=== PATIENT | male | born 1970 | race Caucasian/White ===

== ENCOUNTER 2018-06-02 12:06 | Emergency (ER) | payer BC, SELFPAY ==
[2018-06-02 12:15] VITALS: BP 137/81; PULSE 74; RESP 16; TEMP 36.6; O2SAT 96
--- NOTE | 2018-06-02 13:08 | W.ED.GENAD ---
Discharge Plan Disposition Patient Disposition: HOME Condition: Improving Discharge Details Chief Complaint: Laceration Clinical Impression: Cold sore Primary Care Provider: Stew Mario ED Provider: Jovanni Maynard Home Meds and New Rx's Prescriptions: No Action No Known Home Meds RF: 0 Discharge Instructions Instructions: Oral Herpes Simplex Virus Infections (ED) Additional Instructions: Continue to watch your wound and return immediately if you notice any return of significant bleeding. Also if you notice any other signs of odd or abnormal bleeding such as bruising, dark tarry or bloody bowel movements, or further concerns feel free to return to the emergency department for reevaluation Referrals: Stew Mario, DO [Primary Care Provider] - (As needed for reassessment) Discharge Data Discharge Date/Time-TO BE ENTERED AT DEPARTURE: 06/02/18 13:15 Medical Decision Making Patient presenting the emergency department for chief complaint of bleeding cold sore. Patient states that he was eating lunch when a cold sore that he has had for a while broke open and started to bleed. He states that he intermittently applied pressure to the area for 40 minutes and it had not stopped bleeding and so he was informed by school nurse to come to the emergency department. Cold sore has now since stopped bleeding. Patient does have a external herpetic appearing cold sore to the left lower lip without any other physical exam findings noted. Patient denies any other abnormal associated bleeding issues but was offered to have labs checked. Patient refused labs at this time which I feel is appropriate given review of systems denying any other worrisome bleeding or coagulopathy concerns. Patient was encouraged to apply direct pressure for extended period of time if area starts to rebleed and to return to emergency department or primary care provider if he has any abnormal signs of bruising or bleeding. After discussion of diagnosis and plan of care patient has no further needs, questions, or concerns and states clear understanding to return to the emergency department for any worsening symptoms. HPI General Mode of arrival: ambulatory. Date/Time Provider Initiated Documentation: 06/02/18 12:19. Limitations to Documentation: no limitations. Information obtained by: patient and RN notes reviewed. History of Present Illness 47 year old M presents to the emergency department with the chief complaint of bleeding cold sore, Quality is described as other (denies pain), and is localized to the face. Patient started experiencing this hour(s) (1) and it has been now resolved. Patient notes no other symptoms.. Related Data Home Medications Medication Instructions Recorded Confirmed Unknown [No Known Home Meds] 06/02/18 06/02/18 Allergies Allergy/AdvReac Type Severity Reaction Status Date / Time No Known Allergies Allergy Unverified 06/02/18 12:18 General Stated Complaint: Laceration FARZANA: 4 Review of Systems Constitutional Denies chills and Denies fever(s) Gastrointestinal Denies melena and Denies hematochezia Integumentary/Breasts Reports as per HPI, Reports bleeding lesions, Denies erythema, Denies rash and Denies unusual bruising PFSH Medical History Sleep disturbance Toenail fungus Surgical History Colonoscopy - MAC (12/27/16) Family History Mother Neoplasm Father Substance abuse Grandfather Neoplasm Daughter No problems noted. Daughter Asthma Social History Smoking/Tobacco Use Status: Never Alcohol Intake: current Alcohol Intake frequency: a few times a month Drug use: Never Do you feel safe at home: Yes Do you feel safe in your relationship?: Yes Exam Const General: cooperative, no acute distress and not ill appearing Orientation: alert, awake and oriented x3 HENMT Head: normocephalic and atraumatic Ears: external ears normal Mouth: oral mucosae normal, tongue normal, oropharynx normal, moist mucous membranes and lip abnormal (left lower external cold sore) Throat: posterior oropharynx normal, tonsils normal and uvula midline Resp Effort & Inspection: normal respiratory effort, able to speak in complete sentences and no respiratory distress Course Vital Signs Temperature 36.6 C 06/02/18 12:15 Pulse 74 06/02/18 12:15 Respiratory Rate 16 06/02/18 12:15 Blood Pressure 137/81 06/02/18 12:15 Pulse Oximetry 96 06/02/18 12:15 Temperature 36.6 C 06/02/18 12:15 Pulse 74 06/02/18 12:15 Respiratory Rate 16 06/02/18 12:15 Respiratory Effort Non-Labored 06/02/18 12:18 Blood Pressure 137/81 06/02/18 12:15 Pulse Oximetry 96 06/02/18 12:15 Oxygen Delivery Method Room Air 06/02/18 12:15 Oxygen Flow Rate 0 06/02/18 12:15 Pain Level 0 06/02/18 12:25
--- NOTE | 2018-06-02 13:12 | ED.GENADUL_ITS ---
Discharge Plan Disposition Patient Disposition: HOME Condition: Improving Discharge Details Chief Complaint: Laceration Clinical Impression: Cold sore Primary Care Provider: Stew Mario ED Provider: Jovanni Maynard Home Meds and New Rx's Prescriptions: No Action No Known Home Meds RF: 0 Discharge Instructions Instructions: Oral Herpes Simplex Virus Infections (ED) Additional Instructions: Continue to watch your wound and return immediately if you notice any return of significant bleeding. Also if you notice any other signs of odd or abnormal bleeding such as bruising, dark tarry or bloody bowel movements, or further concerns feel free to return to the emergency department for reevaluation Referrals: Stew Mario, DO [Primary Care Provider] - (As needed for reassessment) Discharge Data Discharge Date/Time-TO BE ENTERED AT DEPARTURE: 06/02/18 13:15 Medical Decision Making Patient presenting the emergency department for chief complaint of bleeding cold sore. Patient states that he was eating lunch when a cold sore that he has had for a while broke open and started to bleed. He states that he intermittently applied pressure to the area for 40 minutes and it had not stopped bleeding and so he was informed by school nurse to come to the emergency department. Cold sore has now since stopped bleeding. Patient does have a external herpetic appearing cold sore to the left lower lip without any other physical exam findings noted. Patient denies any other abnormal associated bleeding issues but was offered to have labs checked. Patient refused labs at this time which I feel is appropriate given review of systems denying any other worrisome bleeding or coagulopathy concerns. Patient was encouraged to apply direct pressure for extended period of time if area starts to rebleed and to return to emergency department or primary care provider if he has any abnormal signs of bruising or bleeding. After discussion of diagnosis and plan of care patient has no further needs, questions, or concerns and states clear understanding to return to the emergency department for any worsening symptoms. HPI General Mode of arrival: ambulatory . Date/Time Provider Initiated Documentation: 06/02/18 12:19 . Limitations to Documentation: no limitations . Information obtained by: patient and RN notes reviewed . History of Present Illness 47 year old M presents to the emergency department with the chief complaint of bleeding cold sore, Quality is described as other (denies pain), and is localized to the face. Patient started experiencing this hour(s) (1) and it has been now resolved. Patient notes no other symptoms.. Related Data Home Medications Medication Instructions Recorded Confirmed Unknown [No Known Home Meds] 06/02/18 06/02/18 Allergies Allergy/AdvReac Type Severity Reaction Status Date / Time No Known Allergies Allergy Unverified 06/02/18 12:18 General Stated Complaint: Laceration FARZANA: 4 Review of Systems Constitutional Denies chills and Denies fever(s) Gastrointestinal Denies melena and Denies hematochezia Integumentary/Breasts Reports as per HPI, Reports bleeding lesions, Denies erythema, Denies rash and Denies unusual bruising PFSH Medical History Sleep disturbance Toenail fungus Surgical History Colonoscopy - MAC (12/27/16) Family History Mother Neoplasm Father Substance abuse Grandfather Neoplasm Daughter No problems noted. Daughter Asthma Social History Smoking/Tobacco Use Status: Never Alcohol Intake: current Alcohol Intake frequency: a few times a month Drug use: Never Do you feel safe at home: Yes Do you feel safe in your relationship?: Yes Exam Const General: cooperative, no acute distress and not ill appearing Orientation: alert, awake and oriented x3 HENMT Head: normocephalic and atraumatic Ears: external ears normal Mouth: oral mucosae normal, tongue normal, oropharynx normal, moist mucous membranes and lip abnormal (left lower external cold sore) Throat: posterior oropharynx normal, tonsils normal and uvula midline Resp Effort & Inspection: normal respiratory effort, able to speak in complete sentences and no respiratory distress Course Vital Signs Temperature 36.6 C 06/02/18 12:15 Pulse 74 06/02/18 12:15 Respiratory Rate 16 06/02/18 12:15 Blood Pressure 137/81 06/02/18 12:15 Pulse Oximetry 96 06/02/18 12:15 Temperature 36.6 C 06/02/18 12:15 Pulse 74 06/02/18 12:15 Respiratory Rate 16 06/02/18 12:15 Respiratory Effort Non-Labored 06/02/18 12:18 Blood Pressure 137/81 06/02/18 12:15 Pulse Oximetry 96 06/02/18 12:15 Oxygen Delivery Method Room Air 06/02/18 12:15 Oxygen Flow Rate 0 06/02/18 12:15 Pain Level 0 06/02/18 12:25
[2018-06-02 13:15] VITALS: BP 137/81; PULSE 74; RESP 16; TEMP 36.6; O2SAT 96
== END 2018-06-02 13:15 | disposition home or self-care (01) ==
PROVIDERS: Emergency Provider Nurse Practitioner Family; PCP Emergency Medicine
DX: B00.1 Herpesviral vesicular dermatitis (principal)
CPT/HCPCS: 99281

== ENCOUNTER 2018-12-09 10:22 | Outpatient (REF) | payer BC, SELFPAY ==
[2018-12-11 12:40] LABS: Campylobacter PCR SEE COMMENTS; Salmonella PCR SEE COMMENTS; Shiga Toxin PCR SEE COMMENTS; Shigella/Enteroinvasive Ecoli SEE COMMENTS
== END 2018-12-09 10:42 ==
LOC: LBN 10:22
PROVIDERS: PCP Emergency Medicine; Visit Provider Emergency Medicine
DX: R10.9 Unspecified abdominal pain (principal); R19.7 Diarrhea, unspecified
CPT/HCPCS: 87329; 87505; 87324

== ENCOUNTER 2018-12-20 01:07 | Outpatient (CLI) | payer BC, SELFPAY ==
[2018-12-20 15:59] LABS: Abs Immature Grans 0.02 k/cumm (0.0-0.09); Absolute Basophil Count 0.05 k/cumm (0.0-0.2); Absolute Eosinophil Count 0.17 k/cumm (0.0-0.7); Absolute Lymphocyte Count 2.07 k/cumm (1.2-3.4); Absolute Monocyte Count 0.53 k/cumm (0.11-0.7); Basophils % 0.7; Eosinophils % 2.3; HCT 42.8 % (40.0-50.0); HGB 14.9 g/dL (13.5-17.5); Immature Grans % 0.3; Lymphocytes % 27.5; Mean Corp. HGB Concentration 34.8 g/dL (32.0-36.0); Mean Corpuscular Hemoglobin 31.2 pg (27.0-33.0); Mean Corpuscular Volume 89.5 fL (80-95); Mean Platelet Volume 9.5 fL (8.0-11.0); Neutrophils % 62.2; Platelet Count 194 x1000/uL (130-400); RBC 4.78 m/cumm (4.50-6.00); RBC Distribution Width 12.1 % (11.8-14.1); White Blood Cell Count 7.54 k/cumm (4.4-10.8)
[2018-12-20 16:45] LABS: ESR 13 mm/hr (0-15)
[2018-12-20 17:41] LABS: ALT 52 U/L (16-63); AST 24 U/L (15-37); Albumin 4.1 g/dL (3.4-5.0); Alkaline Phosphatase 71 U/L (46-116); Anion Gap 9.5 mmol/L (3-11); BUN 20 mg/dL (7-18); CO2 28.5 mmol/L (21.0-32.0); CREATININE 1.11 mg/dL (0.70-1.30); Calcium 9.3 mg/dL (8.5-10.1); Chloride 101 mmol/L (98-107); Glucose 77 mg/dL (70-100); Potassium 3.9 mmol/L (3.5-5.1); Sodium 139 mmol/L (136-145); TSH 2.92 uIU/mL (0.36-3.74); Total Protein 7.2 g/dL (6.4-8.2)
== END 2018-12-20 01:27 ==
PROVIDERS: PCP Emergency Medicine; Visit Provider Emergency Medicine
DX: E03.9 Hypothyroidism, unspecified (principal); R10.9 Unspecified abdominal pain
CPT/HCPCS: 36415; 80053; 85652; 84443; 85025

== ENCOUNTER 2019-01-02 00:54 | Outpatient (CLI) | payer BC, SELFPAY ==
--- NOTE | 2019-01-02 06:42 | DI.US_ITS ---
EXAM: US ABDOMEN CLINICAL HISTORY: Abd/epigastric pain,r10.13 TECHNIQUE: Ultrasound abdomen performed using standard protocol. COMPARISON: No exams were available for comparison FINDINGS: LIVER: Normal size and echogenicity. No focal liver lesions are seen.. GALLBLADDER: There is a single mobile 12 millimeter stone. There is an additional nonshadowing, round ed 4 millimeter echogenic focus which is nonmobile and adherent to the gallbladder wall which may re present an incidental polyp.. No evidence of wall thickening. No pericholecystic fluid identified. KIDNEYS: Kidneys are symmetric in size. No evidence of renal calculi. No evidence of hydronephrosis. No renal mass or cyst identified. BILIARY SYSTEM: No intrahepatic or extrahepatic biliary ductal dilation. PETERSEN'S SIGN: Negative. PANCREAS: Normal where visualized. SPLEEN: Not enlarged. ABDOMINAL AORTA AND IVC: Visualized portions normal caliber. ASCITES: None seen. IMPRESSION: Gallstone. Small gallbladder polyp..
== END 2019-01-02 01:14 ==
PROVIDERS: PCP Emergency Medicine; Visit Provider Emergency Medicine
DX: R10.13 Epigastric pain (principal); K80.20 Calculus of gallbladder without cholecystitis without obstruction; K82.4 Cholesterolosis of gallbladder
CPT/HCPCS: 76700

== ENCOUNTER 2019-01-02 14:53 | Emergency (ER) | payer BC, SELFPAY ==
[2019-01-02 14:57] VITALS: BP 155/79; PULSE 73; RESP 16; TEMP 36.6; O2SAT 98
--- NOTE | 2019-01-02 15:05 | W.ED.GENAD ---
Discharge Plan Disposition Patient Disposition: HOME Condition: Improving Discharge Details Chief Complaint: Allergic Clinical Impression: Urticaria Primary Care Provider: Stew Mario ED Provider: Aydee Chauhan Home Meds and New Rx's Prescriptions: New prednisone 20 mg tablet See Rx Instructions .ROUTE .COMPLEX Qty: 12 RF: 0 Continued omeprazole 20 mg capsule,delayed release(DR/EC) 20 mg PO DAILY Qty: 60 RF: 6 Discharge Instructions Instructions: Urticaria (ED), General Allergic Reaction (ED) Additional Instructions: You appear to be having an allergic reaction but the cause is unclear at this time. Allergic reactions are generally treated the same with Benadryl for itching and prednisone for the inflammation and rash. Take the Benadryl as needed and directed for itching. Take the steroids until finished. Drink plenty of fluids. Follow-up with your primary care doctor within the next week for reevaluation. Return to the emergency department if you develop any worsening or new concerning symptoms. Discharge Data Discharge Physician: Aydee Chauhan Medical Decision Making 1500 -- 48-year-old male with no significant past medical history presents with pruritic rash to neck, chest, and arms that started 90 minutes ago. Had an abdominal ultrasound with ultrasound generally this morning so he is unsure if this was the cause but he has had this before without reaction. Erythematous rash to neck, under bilateral breasts, axilla and palm of hands consistent with hives. Normal ENT exam. Lungs clear. Abdomen soft and nontender. Appears consistent with an allergic reaction but unsure of the source. He took 50mg of Benadryl prior to arrival. Will give 60 mg of prednisone and 20 mg of Pepcid p.o. and reassess. 1545 --patient feels significantly better. Rash much improved. He denies any shortness of breath, sensation of throat swelling or itching. He states he feels good to go home. He is advised to continue the Benadryl as needed for itching and take the steroids until finished. He has a scheduled appointment with his primary care doctor on January 15. He is advised to return to the ER if he has any worsening or new concerning symptoms. HPI General Mode of arrival: ambulatory. Date/Time Provider Initiated Documentation: 01/02/19 14:55. Limitations to Documentation: no limitations. Information obtained by: patient. HPI Narrative: Patient is a 48-year-old male who presents with pruritic rash to neck, chest, arms and hands that started approximately 90 minutes ago. Patient states he was walking in a store when he felt itching all over. He states shortly after this he noted rash around his neck, chest and armpits and palms of his hands. He states he took 50 mg of Benadryl prior to arrival. He states he had an ultrasound of his abdomen earlier today in which they used gel on his belly so he is unsure if this is the cause. He states as far as he knows he has had an ultrasound before and has not had this reaction. He denies any other new exposures including new medications, soaps, lotions, detergents. He denies any headache, throat swelling or itching, shortness of breath, nausea, vomiting or abdominal pain. Related Data Home Medications Medication Instructions Recorded Confirmed omeprazole 20 mg capsule,delayed 20 mg PO DAILY #60 cap 12/06/18 01/02/19 release prednisone See Rx Instructions .ROUTE 01/02/19 .COMPLEX #12 tab Previous Rx's Medication Instructions Recorded omeprazole 20 mg capsule,delayed 20 mg PO DAILY #60 cap 12/06/18 release prednisone See Rx Instructions .ROUTE 01/02/19 .COMPLEX #12 tab Allergies Allergy/AdvReac Type Severity Reaction Status Date / Time No Known Allergies Allergy Verified 01/02/19 15:01 General Stated Complaint: Allergic FARZANA: 3 Review of Systems All systems reviewed & are unremarkable except as noted in HPI and below Constitutional Constitutional: Reports as per HPI, Denies chills and Denies fever(s) Eyes Eyes: Denies blurry vision ENT Ears, Nose, Mouth, and Throat: Denies dizziness, Denies sore throat and Denies throat swelling Cardiovascular Cardiovascular: Denies chest pain and Denies dyspnea Respiratory Respiratory: Denies cough and Denies dyspnea Gastrointestinal Gastrointestinal: Denies abdominal pain, Denies diarrhea and Denies vomiting Genitourinary Genitourinary: Denies hematuria and Denies dysuria Musculoskeletal Musculoskeletal: Denies back pain and Denies numbness Integumentary/Breasts Skin/Breast: Denies lesions and Reports rash Neurologic Neurologic: Denies dizziness, Denies focal weakness and Denies numbness Allergic/Immunologic Allergic/Immunologic: Denies throat swelling [facility] Medical History Sleep disturbance Toenail fungus Surgical History Colonoscopy - MAC (12/27/16) Family History Mother Neoplasm Father Substance abuse Grandfather Neoplasm Daughter No problems noted. Daughter Asthma Social History Smoking/Tobacco Use Status: Never Alcohol Intake: current Alcohol Intake frequency: a few times a month Drug use: Never Do you feel safe at home: Yes Do you feel safe in your relationship?: Yes Exam Const General: cooperative, healthy appearing and no acute distress HENMT Head: normal to inspection Face and sinus: normal facial exam Eyes General: appearance normal, both eyes and all related structures EOM: EOM intact bilaterally Neck Neck: normal visual inspection and No submandibular swelling Lymphatic: no lymphadenopathy noted Chest Chest: normal inspection of the chest and no tenderness Resp Effort & Inspection: normal respiratory effort and able to speak in complete sentences Auscultation: clear to auscultation bilaterally Cardio Rate: regular rate Rhythm: regular rhythm GI Inspection: normal to inspection Palpation: soft, not firm, not rigid and nontender Auscultation: normal bowel sounds Skin Rashes: rashes noted (Raised erythematous wheals noted @ neck, palms, under breasts & axilla b/l ) Full body images: 1. Raised erythematous wheals consistent with hives 2. Raised erythematous wheals consistent with hives 3. Raised erythematous wheals consistent with hives Neuro General: alert, awake and oriented x3 Cognition: normal cognition Speech: speech normal Motor: muscle tone normal throughout Sensory Exam: no sensory deficits noted Extrem General: normal to inspection, full ROM, normal capillary refill, no calf tenderness bilaterally and no edema Hand/finger images: 1. Erythema noted to palm of hand. 2. Erythema noted to palm of hand. Psych Appearance: grossly normal Mental Status: mental status grossly normal Speech and Movement: speech and movement normal Affect: normal affect Course Vital Signs Vital signs: Vital Signs Temperature 97.9 F 01/02/19 14:57 Pulse 73 01/02/19 14:57 Respiratory Rate 16 01/02/19 14:57 Blood Pressure 155/79 H 01/02/19 14:57 Pulse Oximetry 98 01/02/19 14:57 Temperature 97.9 F 01/02/19 14:57 Temperature Source Skin 01/02/19 14:57 Pulse 73 01/02/19 14:57 Respiratory Rate 16 01/02/19 14:57 Respiratory Effort Non-Labored 01/02/19 14:57 Blood Pressure 155/79 H 01/02/19 14:57 Blood Pressure Position Sitting 01/02/19 14:57 Pulse Oximetry 98 01/02/19 14:57 Pain Level 0 01/02/19 14:57
[2019-01-02] MEDS: predniSONE 20 MG TAB 60 MG PO (15:13)
[2019-01-02] MEDS: Famotidine 20 MG TAB PO (15:13)
== END 2019-01-02 15:49 | disposition home or self-care (01) ==
PROVIDERS: Emergency Provider Physician Assistant; PCP Emergency Medicine
DX: L50.0 Allergic urticaria (principal)
CPT/HCPCS: 99283; J7512

== ENCOUNTER 2019-01-15 13:28 | Outpatient (CLI) | payer BC, SELFPAY | END 2019-01-15 13:48 | PROVIDERS: PCP Emergency Medicine; Visit Provider Nurse Practitioner | DX: I48.91 Unspecified atrial fibrillation (principal); R00.9 Unspecified abnormalities of heart beat | CPT/HCPCS: 93005; 93010 ==

== ENCOUNTER 2019-02-01 00:20 | Outpatient (CLI) | payer BC, SELFPAY ==
--- NOTE | 2019-02-01 08:36 | DI.CT_ITS ---
EXAM: CT ABDOMEN W CLINICAL HISTORY: ABD PAIN R10.9 TECHNIQUE: Imaging Protocol: Axial computed tomography images with coronal and sagittal reformatted images were created and reviewed CONTRAST MATERIAL: Intravenous: Omnipaque 350 Contrast volume:100 mL contrast route:IV - Oral: Yes FINDINGS: ABDOMEN: Lung Bases: Dependent atelectasis. Liver: Normal density. No measurable mass. Portal, superior mesenteric and splenic veins are patent. Gallbladder and biliary tract: Cholelithiasis. No biliary ductal dilatation. Pancreas: Normal density, no abnormal calcifications or inflammatory process. Spleen: Normal. Kidneys: Normal size, contour and axis. No radiodense stones or obstructive uropathy. No masses seen. 1 cm cyst the midpole of the right kidney. Adrenal glands: No masses seen. Abdominal Aorta: Abdominal portion non-dilated. Lymph nodes: Within normal limits. Peritoneal cavity: No ascites, pneumoperitoneum. Bones: Within normal limits. Bowel: Within normal limits. IMPRESSION: 1. No evidence of an acute abdomen. 2. Cholelithiasis. No findings to suggest acute cholecystitis. DATA REPOSITORY: All CT scans at this facility are submitted to the National Radiology Data Registry (NRDR) Dose Index Registry (DIR) with the [employer] (ACR). RADIATION OPTIMIZATION: All CT scans at this facility use at least one of these dose optimization te chniques: automated exposure control; mA and/or kV adjustment per patient size (includes targeted exa ms where dose is matched to clinical indication); or iterative reconstruction.
[2019-02-01] MEDS: Omnipaque 350 MG/ML 100 ML BTL IJ (08:44)
== END 2019-02-01 00:40 ==
PROVIDERS: PCP Emergency Medicine; Visit Provider Emergency Medicine
DX: R10.9 Unspecified abdominal pain (principal); J98.11 Atelectasis; K80.20 Calculus of gallbladder without cholecystitis without obstruction; N28.1 Cyst of kidney, acquired
CPT/HCPCS: 74160; J3490

== ENCOUNTER 2019-02-08 03:51 | Outpatient (CLI) | payer BC, SELFPAY | END 2019-02-08 04:11 | PROVIDERS: PCP Emergency Medicine; Visit Provider Emergency Medicine | DX: I48.91 Unspecified atrial fibrillation (principal); I49.1 Atrial premature depolarization; I49.3 Ventricular premature depolarization | CPT/HCPCS: 93225 ==

== ENCOUNTER 2019-02-09 09:51 | Outpatient (CLI) | payer BC, SELFPAY ==
[2019-02-09 11:09] LABS: Calculated LDL 177 mg/dL; Cholesterol 252 mg/dL (<200); HDL Cholesterol 54 mg/dL (40-60); Triglyceride 105 mg/dL (<150)
== END 2019-02-09 10:11 ==
PROVIDERS: PCP Emergency Medicine; Visit Provider Surgery
DX: K80.20 Calculus of gallbladder without cholecystitis without obstruction (principal); E78.9 Disorder of lipoprotein metabolism, unspecified
CPT/HCPCS: 36415; 80061

== ENCOUNTER 2019-02-10 15:52 | Outpatient (CLI) | payer BC, SELFPAY ==
--- NOTE | 2019-02-12 08:40 | W.HOLTRPT ---
Date of service: 02/12/19 Time of Service: 08:40 Holter Monitor Report Holter Monitor Note: This is a 48-hour Holter monitor ordered for the indication of atrial fibrillation. ?The patient was in normal sinus rhythm for majority of the recording. ?There were 0 episodes of supraventricular tachycardia and rare (less than 1%) premature atrial contractions. ?There were 0 episodes of ventricular tachycardia and 3 single ventricular ectopic beats. ?There were no episodes of atrial fibrillation, pauses greater than 3 seconds or evidence of high degree heart block. ?Patient diary events were associated with normal sinus rhythm.
== END 2019-02-10 16:12 ==
PROVIDERS: PCP Emergency Medicine; Visit Provider Emergency Medicine
DX: I48.91 Unspecified atrial fibrillation (principal); I49.1 Atrial premature depolarization; I49.3 Ventricular premature depolarization
CPT/HCPCS: 93226

== ENCOUNTER 2019-02-15 13:53 | Day surgery (SDC) | payer BC, SELFPAY ==
[2019-02-15 13:50] VITALS: BP 126/78; PULSE 70; RESP 18; TEMP 36.6; O2SAT 96
[2019-02-15] MEDS: Lactated Ringers 1,000 ML 100 ML IV (14:36)
--- NOTE | 2019-02-15 15:06 | STOM_PTH ---
PATIENT: Flo Mireles LOC: [facility] U#:[id number] AGE/SX: 48/M ROOM: RE02/15/[address]: Bri Sim : 1970 BED: DIS: 02/15/2019 SPEC #: [id number] RECD: 02/15/19 17:21 STATUS: JARETH REBenito #: [id number] NUBIA: 02/15/19 15:[address]: Bri Sim DEPT: Surgical Specimen RECD BY: Opal Rodriguez ENTERED: 02/15/19 17:21 SP TYPE: STOMACH OTHR DR: Stew Mario DO Tissues: 1 - STOMACH BIOPSY 2 - STOMACH BIOPSY 3 - ESOPHAGUS BIOPSY 4 - ESOPHAGUS BIOPSY Procedures: GROSS AND MICRO LEVEL 4 Comments: [id number]
--- NOTE | 2019-02-15 15:19 | W.PM.DSUDISC ---
Discharge Plan Disposition Patient Disposition: HOME Condition: Good Discharge Details Reason For Visit: stomach scope and biopsy Attending Provider: Bri Zhang Primary Care Provider: Stew Mario Home Meds and New Rx's Prescriptions: No Action omeprazole 20 mg capsule,delayed release(DR/EC) 20 mg PO DAILY Qty: 60 RF: 6 Discharge Instructions Instructions: Hiatal Hernia (GEN), Gallstones (GEN), Gastroesophageal Reflux Disease (GEN) Additional Instructions: Findings:sm. hiatal hernia bx taken -no asa/ibuprofen for 3 days. tylenol is ok. continue taking omeprazole. continue on low fat diet. Follow up:2 wks w/ Dr. zhang to d/w GB surgery avoid pork products and high dairy products and nuts/avacadoes Please call if you develop: fevers >101.5 Nausea or Vomiting Abdominal pain that is not transient DAY SURGERY UNIT POST COLONOSCOPY INSTRUCTIONS 1. Because there will be medication in your system for the next 24 hours, you may feel a little sleepy. Your coordination will be affected. Therefore: a. Do not drive or operate dangerous equipment for 24 hours. b. Do not drink alcohol beverages for 24 hours (not even beer). c. Plan to go home and rest for the day. 2. Generally there are no restrictions on your activity after a day or so has gone by, but you may feel a bit fatigued for a few days. 3 After you arrive home you may have a light meal and return to a normal diet as you can tolerate it without feeling sick to your stomach. 4. After surgery, you may feel pain or discomfort. This should be only transient, but if it persists please contact your doctor. 5. If there are any questions regarding the findings of your procedure, please feel free to contact your doctor. 6. If you are unable to contact your doctor with a problem, contact the hospital at [phone]. 7. Continue all your regular medications unless directed otherwise. I understand the above instructions and have no questions. Signature of Patient or Responsible Adult Escort Date/Time Name of Responsible Adult Escort Signature of Nurse Date/Time Activity:: No strenuous activity or heavy lifting x24 hours Diet:: Small light meals x24 hours Discharge Orders Discharge Orders: Discharge Order (Routine); Ordered 02/15/19 Ordered By: Bri Zhang DS: Diagnosis Discharge Diagnosis (1) Hiatal hernia: Status: Chronic (2) Gallstones: Status: Acute (3) PAF (paroxysmal atrial fibrillation): Status: Acute (4) SYD (obstructive sleep apnea): Status: Chronic
--- NOTE | 2019-02-15 15:31 | W.PM.ENDDOP ---
Date of service: 02/15/19 Time of Service: 15:31 Endoscopy Report DATE OF PROCEDURE: 02/15/19 PRE-OP DIAGNOSIS: epigastric pain POST-OP DIAGNOSIS: other (hiatal hernia) PROCEDURE: EGD and Bx SURGEON: Bri Sim ANESTHESIA: GETA ESTIMATED BLOOD LOSS: 1 PATHOLOGY: other COMPLICATIONS: None DISPOSITION: same day PROCEDURE DESCRIPTION: After informed consent was obtained the patient was take to the procedure room and placed in a supine position. Monitors were applied and a time out was done. The patients name, date of , procedure type, allergies to medications and metal in their body was reviewed. A bite block was placed and the patient was sedated. Once sedated and comfortable the gastroscope was advanced through the oropharynx which was grossly normal into the esophagus. The proximal and mid-esophagus were nl. In the distal esophagus there was sm hiatal hernia noted. There is no esophageal erosions, stricture, diverticula noted. The scope was advanced into the stomach and through the pylorus into the 3rd portion of the duodenum. The duodenum was noted to be nl. The scope was retracted back into the stomach and biopsies were done to rule out H. pylori. There were no ulcers/gsatritis/polyp/masses. The scope was retroflexed. The cardia and fundus were noted to be normal. There sm a hiatal hernia noted. The scope was retracted back into the esophagus and biopsies were done of the GE junction to rule out Phillips's. The Z line was irregular. The GE junction was at 40 cm. The scope was removed and the patient was woken up and taken back to [facility] in stable condition. Follow up: 2 wks cont PPI cont on low fat diet
[2019-02-15 16:03] VITALS: BP 114/79; PULSE 65; RESP 18; TEMP 36.2; O2SAT 96
== END 2019-02-15 16:25 | disposition home or self-care (01) ==
PROVIDERS: PCP Emergency Medicine; Visit Provider Surgery
PROC: 0DJ68ZZ Inspection of Stomach, Via Natural or Artificial Opening Endoscopic (ICD-10-PCS; CPT 43235; principal; 2019-02-15 14:30)
DX: R10.13 Epigastric pain (principal); K21.0 Gastro-esophageal reflux disease with esophagitis; K31.89 Other diseases of stomach and duodenum; K44.9 Diaphragmatic hernia without obstruction or gangrene; G47.33 Obstructive sleep apnea (adult) (pediatric)
CPT/HCPCS: 43239; 88305; J2704

== ENCOUNTER 2019-03-27 08:35 | Outpatient (CLI) | payer BC, SELFPAY | END 2019-03-27 08:55 | PROVIDERS: PCP Emergency Medicine; Visit Provider Internal Medicine Cardiovascular Disease | DX: I48.0 Paroxysmal atrial fibrillation (principal) | CPT/HCPCS: 93005; 93010 ==

== ENCOUNTER 2019-04-02 07:19 | Day surgery (SDC) | payer BC, SELFPAY ==
[2019-04-02] VITALS (9 sets, daily range): BP systolic 109–145; BP diastolic 52–73; PULSE 72–90; RESP 16–20; TEMP 36.2–36.8; O2SAT 93–98
[2019-04-02] MEDS: Lactated Ringers 1,000 ML 100 ML IV (08:07)
[2019-04-02] MEDS: ceFAZolin 2 GM/50 ML BAG IVPB (08:59)
--- NOTE | 2019-04-02 09:09 | W.PM.HP.N ---
Date of service: 04/02/19 Time of Service: 09:09 Assessment and Plan Assessment and plan (1) GERD with esophagitis: Status: Acute (2) SYD (obstructive sleep apnea): Status: Chronic (3) Hiatal hernia: Status: Chronic (4) Gallstones: Status: Acute Assessment and plan: Plan: The patient will be scheduled for laparoscopic cholecystectomy. The alternatives to surgery, risks, complications, and the possible need to convert to open cholecystectomy were discussed. Also bleeding, infection, pneumonia, blood clots, complications of anesthesia, damage to bowel, bladder, blood vessels, or bile ducts, liver, need for blood transfusions. Also: chronic pain, chronic diarrhea, reoccurrence of signs and symptoms, port site hernias, adhesions. All questions were answered and the patient elected to proceed with surgery. Also d/w pt dietary restrictions and warning signs of when to go to ER. History of Present Illness Consults Consult date: 04/02/19 Narrative: Patient is here today for lap carlos for chronic cholelithiasis.. pt has been feeling ok. Plan: The patient is here today for laparoscopic cholecystectomy. The alternatives to surgery, risks, complications, and the possible need to convert to open cholecystectomy were discussed. Also bleeding, infection, pneumonia, blood clots, complications of anesthesia, damage to bowel, bladder, blood vessels, or bile ducts, liver, need for blood transfusions. Also: chronic pain, chronic diarrhea, reoccurrence of signs and symptoms, port site hernias, adhesions. All questions were answered and the patient elected to proceed with surgery. Also d/w pt dietary restrictions and warning signs of when to go to ER. Review of Systems All systems reviewed & are unremarkable except as noted in HPI and below PFSH Medical History Gallstones (Acute) GERD with esophagitis (Acute) Hiatal hernia (Chronic) SYD (obstructive sleep apnea) (Chronic) PAF (paroxysmal atrial fibrillation) (Acute) Sleep disturbance Toenail fungus Surgical History (Updated 04/04/19 @ 10:02 by Dang Walton RN) Colonoscopy - MAC (12/27/16) History of cholecystectomy (Chronic ~04/02/19) History of shoulder surgery (Chronic) right Family History Mother Neoplasm Father Substance abuse Grandfather Neoplasm Daughter No problems noted. Daughter Asthma Social History Smoking/Tobacco Use Status: Never Alcohol Intake: current Alcohol Intake frequency: a few times a month Alcohol type: beer, wine and hard liquor Drug use: Never Substance use type: does not use Current gender identity: male What type of physical activity do you participate in: bicycling Duration: 15-30 minutes/day Frequency: 3-4 times per week Do you feel safe at home: Yes Do you feel safe in your relationship?: Yes Meds Home Medications and Allergies Home Medications Medication Instructions Recorded Confirmed Type omeprazole 20 mg capsule,delayed 20 mg PO DAILY #60 cap 12/06/18 04/02/19 Rx release hydrocodone-acetaminophen 1 tab PO Q4H PRN #14 tab 04/02/19 Rx ondansetron HCl 4 mg PO Q6H PRN #4 tab 04/02/19 Rx Allergies Allergy/AdvReac Type Severity Reaction Status Date / Time No Known Allergies Allergy Verified 03/27/19 14:03 Exam Const General: cooperative, healthy appearing, comfortable, no acute distress, well developed and well groomed Nutritional Appearance: average body habitus and well nourished Orientation: alert, awake and oriented x3 HENMT Head: normal to inspection, normocephalic and atraumatic Ears: hearing grossly normal bilaterally and external ears normal General nose exam: external nose normal Face and sinus: normal facial exam and sinuses nontender Mouth: oral mucosae normal, lip normal, tongue normal and moist mucous membranes Teeth and gingiva: dentition normal Eyes General: appearance normal, both eyes and all related structures Conjunctivae: conjunctivae normal Sclera: sclerae normal Pupils: PERRL Neck Neck: normal visual inspection and full ROM Chest Chest: normal inspection of the chest Resp Effort & Inspection: normal respiratory effort, able to speak in complete sentences, no cough, no nasal flaring, not tachypneic and no use of accessory muscles Auscultation: clear to auscultation bilaterally, no rales, no rhonchi and no wheezes Cardio Jugular venous pressure: no JVD Rate: regular rate Rhythm: regular rhythm GI Inspection: normal to inspection, no edema and non-distended Palpation: soft, no masses, nontender (no pain today ) and No ascites Auscultation: normal bowel sounds Other: sm umbilical hernia Skin General skin exam: no rashes or lesions noted Trauma: no lacerations or abrasions Neuro General: alert, oriented x3, oriented, gait normal, moves all extremities, no focal motor deficits and CN's II-XI intact bilaterally Cognition: normal cognition Speech: speech normal Gait: normal gait Motor: muscle tone normal throughout Extrem General: normal to inspection, full ROM and no clubbing, cyanosis or edema Psych Appearance: grossly normal and well kempt Mental Status: mental status grossly normal Speech and Movement: speech and movement normal Affect: normal affect Results Last Vital Signs Temp 36.2 C L 04/02/19 07:27 Pulse 72 04/02/19 07:27 Resp 16 04/02/19 07:27 BP 113/72 04/02/19 07:27 Pulse Ox 96 04/02/19 07:27
--- NOTE | 2019-04-02 09:53 | GB_PTH ---
PATIENT: Flo Mireles LOC: [facility] U#:[id number] AGE/SX: 48/M ROOM: RE04/02/[address]: Bri Sim : 1970 BED: DIS: 04/02/2019 SPEC #: [id number] RECD: 04/02/19 12:55 STATUS: JARETH REQ #: [id number] NUBIA: 04/02/19 09:[address]: Bri Sim DEPT: Surgical Specimen RECD BY: Opal Rodriguez ENTERED: 04/02/19 12:56 SP TYPE: GB OTHR DR: Stew Mario DO Tissues: 1 - GALLBLADDER Procedures: GROSS AND MICRO LEVEL 3 Comments: [id number]
[2019-04-02] MEDS: Cellulose,Oxidized 4X8 1 PACKET MC (09:57)
--- NOTE | 2019-04-02 11:31 | W.PM.OP ---
Date of service: 04/02/19 Time of Service: 11:31 Operative Note Operative Note DATE OF PROCEDURE: 04/02/19 PRE-OP DIAGNOSIS: chornic cholelithiasis /umbilical hernia POST-OP DIAGNOSIS: same PROCEDURE: lap carlos open repair incidental umbilical hernia w/out mesh SURGEON: Bri Kennedy ANESTHESIA: MARCO ANTONIO ESTIMATED BLOOD LOSS: 25 PATHOLOGY: other COMPLICATIONS: None Patient was transported to: PACU Patient's condition: stable Procedure Description: COMPLICATIONS: The patient tolerated the procedure without complication. INDICATIONS: The pt is seen at the request of there PCP regarding acute on chronic cholecystitis, cholelithiasis. The pt has failed outpt conservative medical measures and is here today for laparoscopic cholecystectomy. Informed consent was obtained, explaining risks and benefits of the procedure including but not limited to bleeding, infection, pneumonia, blood clots, possible damage to bowel, bladder, blood vessels, bile ducts, possible open procedure, complications of general anesthesia and other unforetold complications. PROCEDURE: The patient agrees and is brought to the operative room suite and placed in supine position. Anesthesia was administered per the Department of Anesthesia. The patient did receive IV antibiotics. NG tube and Perkins catheter are placed. The patient was prepped and draped in the usual sterile fashion using DuraPrep scrub solution. Pause for the cause was done. 20 mL of 1% buffered lidocaine was used for local anesthetization. A stab incision was made in the umbilicus and the Verres inserted. We couldn't get the Veress to insert properly, so a cutdown was done. The camera was inserted through the port and shows no damage to underlying structures. He does have a small umbilical hernia. A 10 mm port was then placed in the epigastric position under direct visualization following creation of local field blocks as well as two 5 mm ports in the right upper quadrant. The gallbladder fundus was grasped and retracted towards the right shoulder. Infundibulum was grasped and retracted laterally. The hepat-duodenal ligament is entered. The cystic duct and artery are dissected out and the most inferior portion of the gallbladder plate is removed from the liver and the critical view of safety was obtained after clearing away all fatty material. Endo Clips were placed across the duct and artery and these structures are divided. The remainder of the gallbladder was excised from the liver bed. The gallbladder was placed in a bag and brought out. Examination of the gallbladder shows indeed the cystic duct and artery to have been divided. The remainder of the abdomen was copiously irrigated with a liter of saline. All saline is removed. There is no bleeding or bile leakage from the liver bed or the clips sites. An EndoClose needle was used to close the 10 mm port site with an 0 Vicryl. All ports and instruments are removed. SPonge and needle counts are correct. Pneumoperitoneum is evacuated and the port sites are monitored to make sure there is no bleeding at the time of desufflation. He does have a small incidental hernia at the umbilicus. This was closed w/ 0 vicryl. Port sites are irrigated and the skin is closed with 4-0 Monocryl in a running subcuticular fashion. Skin glue and sterile dressings are applied. The patient tolerated the procedure well without complications, transferred to the recovery room in stable condition. BRI KENNEDY DO
--- NOTE | 2019-04-02 11:34 | W.PM.DSUDISC ---
Discharge Plan Disposition Patient Disposition: HOME Condition: Good Discharge Details Reason For Visit: gallbladder removal Attending Provider: Bri Sim Primary Care Provider: Stew Mario Home Meds and New Rx's Prescriptions: New hydrocodone-acetaminophen 5-325 mg tablet 1 tab PO Q4H PRN (Reason: pain) Qty: 14 RF: 0 ondansetron HCl 4 mg tablet 4 mg PO Q6H PRN (Reason: naseua) Qty: 4 RF: 0 Continued omeprazole 20 mg capsule,delayed release(DR/EC) 20 mg PO DAILY Qty: 60 RF: 6 Discharge Instructions Additional Instructions: Care after Gallbladder Surgery -You should walk frequently, gradually, increasing the distance. You may climb stairs, just go slowly. -You can take Tylenol 650mg po every 6hrs as needed for pain. ? Use an ice bag for the first 72 hours. This helps to decrease swelling, which causes pain. It is normal to be more sore/painful and swollen towards the end of the day and first thing in the morning. ? Gallbladder surgery can make you very nauseated; use Zofran for nausea, for the first 24 hours. The nausea generally stops after 24 hours. ? Use milk of magnesia or prune juice to prevent constipation (this is a particular side effect of pain medication). Do not allow yourself to become constipated. ? Avoid fatty or greasy foods; introduce these slowly, with care, after about 1 month. Follow the low-fat diet sheet that will be given to you at the office or hospital. ? Start out eating very small, bland amounts of food. Do not take pain pills on an empty stomach. - You can remove the Band-Aids and take a shower 24 hours after surgery. ? Do not go swimming or sit in a hot tube for two weeks. ? There are no stitches to remove. ? Do not drive your car x72hrs and then only if you have no pain and can move freely. Do not drive if you are taking pain narcotic pain medications. ? You may resume sexual activity whenever pain and soreness subside, usually in 2 weeks. ? Do no lift anything over 5 lbs. for the first 10 days. Minimize strenuous activity for the next two weeks. ? You may return to work in one week, or when you feel able, provided you do not have to do any heavy lifting or prolonged standing. ? You should return to Dr. Sim?s office for a post-op appointment about one week after surgery. Please call the Surgical Clinic at: [phone] to schedule an appointment. My Medications for pain and nausea are: ibuprofen and norco and zofran When to Call the Office: ? If the incision becomes red or swollen, or there is more than a little drainage from it. ? If you develop a temperature higher than 100.5 F. ? If your eyes turn yellow ? Vomiting and can?t keep fluids down Activity:: no lifting over 10#'s x 2 wks Remove Dressings/Wound Care:: 24 hours Shower/Bathe:: 24 hours Diet:: low fat x 2 wks Discharge Orders Discharge Orders: Discharge Order (Routine); Ordered 04/02/19 Ordered By: Bri Sim DS: Diagnosis Discharge Diagnosis (1) GERD with esophagitis: Status: Acute (2) SYD (obstructive sleep apnea): Status: Chronic (3) Hiatal hernia: Status: Chronic (4) Gallstones: Status: Acute
[2019-04-02] MEDS: oxyCODONE 5 MG TAB PO (12:39)
== END 2019-04-02 13:52 | disposition home or self-care (01) ==
PROVIDERS: PCP Emergency Medicine; Visit Provider Surgery
PROC: 0FT44ZZ Resection of Gallbladder, Percutaneous Endoscopic Approach (ICD-10-PCS; CPT 47562; principal; 2019-04-02 08:45)
DX: K80.10 Calculus of gallbladder with chronic cholecystitis without obstruction (principal); K42.9 Umbilical hernia without obstruction or gangrene; K21.9 Gastro-esophageal reflux disease without esophagitis; G47.33 Obstructive sleep apnea (adult) (pediatric)
CPT/HCPCS: 47562; 49585; NC; 88304; J0690; J1100; J1885; J2001; J2250; J2405; J2704

== ENCOUNTER 2019-08-03 15:20 | Emergency (ER) | payer BC, SELFPAY ==
[2019-08-03 15:23] VITALS: BP 124/77; PULSE 77; TEMP 36.7; O2SAT 99
--- NOTE | 2019-08-03 15:44 | W.ED.GENAD ---
Discharge Plan Disposition Patient Disposition: HOME Condition: Good Discharge Details Chief Complaint: EarProblem Clinical Impression: Lesion of right ear, Foreign body in right ear Primary Care Provider: Stew Mario ED Provider: Jaleel Rios Home Meds and New Rx's Prescriptions: Continued omeprazole 20 mg capsule,delayed release(DR/EC) 20 mg PO DAILY Qty: 60 RF: 6 ibuprofen 200 mg tablet 200 mg PO Q6H PRNRF: 0 acetaminophen [Tylenol Extra Strength] 500 mg tablet 500 mg PO Q6H PRNRF: 0 Discharge Instructions Additional Instructions: The insect was removed from your ear. There appears to be no damage at this time. However there is a concerning structure around your tympanic membrane which may be secondary to the insect or it may be something called a cholesteatoma. If you notice any worsening of your symptoms, or any new symptoms such as bleeding from ear, worsening pain in your ear, vomiting, diarrhea, fever, chills, shortness of breath, chest pain, numbness, weakness, or fainting , please return immediately to the emergency department for reevaluation. Please follow up with your primary care provider as soon as possible for reassessment and reevaluation. As always, it was a pleasure participating in your medical care today. Referrals: Stew Mario, DO [Primary Care Provider] - Medical Decision Making This is a pleasant 49-year-old male who presents today for evaluation of foreign body in his right ear. He states that he was outside when he felt something fly into his right ear. Try to wash it out with water but then noticed some blood, he came to the ER for further evaluation. Aside from mild pain and discomfort he denies any change in hearing or other abnormality. No other complications or modifying factors at this time. Physical exam demonstrates a notable sized beetle in the patient's right ear up against the tympanic membrane, beta was removed with suction without any difficulty or complication, after bleeding was removed a very small amount of blood was noted but no evidence of tympanic membrane perforation. There is also a small atypical lesion over the 10 o'clock position concerning for a cholesteatoma. There may in fact be a component of trauma that is the cause of this lesion, however with the atypical nature I do feel that follow-up with ENT is indicated for evaluation. Patient has no hearing changes otherwise on exam he remains well, feels much better, and has resolution of his symptoms. Patient will be discharged home with eventual follow-up with ENT, which we will help set up. Discussed red flags which to return. I have extensively reviewed the treatment plan and discharge instructions with the patient. I have addressed all patient concerns at this time. The patient was made aware of what symptoms to monitor for that would warrant a return to the emergency department. Discussed the plan with the patient, they demonstrate verbal understanding and agreement with our assessment and plan at this time. HPI General Date/Time Provider Initiated Documentation: 08/03/19 15:21. HPI Narrative: This is a pleasant 49-year-old male who presents today for evaluation of foreign body in his right ear. He states that he was outside when he felt something fly into his right ear. Try to wash it out with water but then noticed some blood, he came to the ER for further evaluation. Aside from mild pain and discomfort he denies any change in hearing or other abnormality. No other complications or modifying factors at this time. Related Data Home Medications Medication Instructions Recorded Confirmed omeprazole 20 mg capsule,delayed 20 mg PO DAILY #60 cap 12/06/18 08/03/19 release acetaminophen 500 mg tablet 500 mg PO Q6H PRN 04/11/19 04/17/19 ibuprofen 200 mg tablet 200 mg PO Q6H PRN 04/11/19 04/17/19 Previous Rx's Medication Instructions Recorded omeprazole 20 mg capsule,delayed 20 mg PO DAILY #60 cap 12/06/18 release Allergies Allergy/AdvReac Type Severity Reaction Status Date / Time No Known Allergies Allergy Verified 08/03/19 15:38 General Stated Complaint: EarProblem FARZANA: 4 Review of Systems All systems reviewed & are unremarkable except as noted in HPI and below [facility] Medical History Gallstones (Acute) GERD with esophagitis (Acute) Hiatal hernia (Chronic) SYD (obstructive sleep apnea) (Chronic) PAF (paroxysmal atrial fibrillation) (Acute) Sleep disturbance Toenail fungus Surgical History Colonoscopy - MAC (12/27/16) History of cholecystectomy (Chronic ~04/02/19) History of shoulder surgery (Chronic) right S/P umbilical hernia repair, follow-up exam (Acute) Family History Mother Neoplasm Father Substance abuse Grandfather Neoplasm Daughter No problems noted. Daughter Asthma Social History Smoking/Tobacco Use Status: Never Alcohol Intake: current Alcohol Intake frequency: a few times a month Alcohol type: beer, wine and hard liquor Drug use: Never Substance use type: does not use Current gender identity: male What type of physical activity do you participate in: bicycling Duration: 15-30 minutes/day Frequency: 3-4 times per week Do you feel safe at home: Yes Do you feel safe in your relationship?: Yes Exam Narrative Exam Narrative: 1.Const: Well-nourished, Well-developed, appearing stated age 2.Eyes: PERRL, no conjunctival injection, and symmetrical lids. 3.ENT: Atraumatic external nose and ears. Moist MM. Neck: Symmetric, trachea midline, No thyromegaly. Evaluation of the right otic canal demonstrates evidence of a beetle lodged in the internal component up against the tympanic membrane. Bead was removed with suction, repeat evaluation demonstrates a small amount of blood, no evidence of tympanic membrane perforation. There is a slightly atypical lesion that appears around the circumferential border at the 10 o'clock position for the tympanic membrane, which may be secondary to trauma, however does appear to have a slight resemblance to a cholesteatoma. No other abnormalities on exam 4.CVS: +S1/S2, No murmurs or gallops. Peripheral pulses 2+ and equal in all extremities. Brisk capillary refill in all extremities. 5.RESP: Unlabored respiratory effort. Clear to auscultation bilaterally. No wheezes rales or rhonchi 6.GI: Soft, Nontender/Nondistended, No hepatosplenomegaly. No guarding or rebound. 7.MSK: Normocephalic/Atraumatic, Extremities w/o deformity or ttp No cyanosis or clubbing, Normal movement of all extremities 8.Skin: Warm, Dry. No rashes or lesions. 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 Sensation grossly intact, no focal neurologic deficits. 10.Psych: (AAO) x3. Appropriate mood and affect Course Vital Signs Vital signs: Vital Signs Temperature 36.7 C 08/03/19 15:23 Pulse 77 08/03/19 15:23 Blood Pressure 124/77 08/03/19 15:23 Pulse Oximetry 99 08/03/19 15:23 Temperature 36.7 C 08/03/19 15:23 Temperature Source Skin 08/03/19 15:23 Pulse 77 08/03/19 15:23 Respiratory Effort Non-Labored 08/03/19 15:35 Blood Pressure 124/77 08/03/19 15:23 Blood Pressure Position Sitting 08/03/19 15:23 Pulse Oximetry 99 08/03/19 15:23 Oxygen Delivery Method Room Air 08/03/19 15:23 Oxygen Flow Rate 0 08/03/19 15:23 Pain Level 0 08/03/19 15:35 Comment 08/03/19 15:23
[2019-08-03 15:51] VITALS: BP 124/77; PULSE 77; TEMP 36.7; O2SAT 99
--- NOTE | 2019-08-04 09:07 | NUR.NOTE ---
Nursing Note: Referral faxed to ENT for follow up. Luly Sykes
== END 2019-08-03 15:52 | disposition home or self-care (01) ==
LOC: ER 15:59
PROVIDERS: Emergency Provider Student in an Organized Health Care Education/Training Program; PCP Emergency Medicine
DX: T16.1XXA Foreign body in right ear, initial encounter (principal); H93.8X1 Other specified disorders of right ear
CPT/HCPCS: 69200; 99281; 99282

== ENCOUNTER 2019-10-12 04:06 | Outpatient (CLI) | payer BC, SELFPAY ==
--- NOTE | 2019-10-12 07:30 | DI.US_ITS ---
APPROVED REPORT EXAM: Comprehensive 2D, Doppler, and color-flow Echocardiogram Patient Location: Out-Patient Trauma Counsellor: Keyanna Blanco RDCS (AE) Indications: Paroxysmal Atrial Fibrillation Other Information Study Quality: Good Conclusion Left ventricular wall thickness and chamber size. Estimated ejection fraction is 60 to 65%. There a re no segmental wall motion abnormalities Normal right ventricular size and function Both atria are normal in size The aortic valve is trileaflet and mildly sclerotic without stenosis or regurgitation Structurally normal mitral valve with mild regurgitation Normal tricuspid valve, mild regurgitation, normal right ventricular systolic pressure Normal pulmonic valve Wall motion Left Ventricle The left ventricle is normal size. The left ventricular systolic function is normal. The left ventric ular ejection fraction is within the normal range. There is normal left ventricular wall thickness. T here is normal LV segmental wall motion. There is no ventricular septal defect visualized. LVEF is 58 %. Right Ventricle The right ventricle is normal size. The right ventricular systolic function is normal. The RVSP is 28 .1 mmHg. Atria The left atrium size is normal. The right atrium size is normal. The interatrial septum is intact wit h no evidence for an atrial septal defect. Aortic Valve Aortic valve is trileaflet.Mild sclerosis There is no aortic valvular stenosis. No aortic regurgitati on is present. Mitral Valve The mitral valve is normal in structure. No evidence of mitral valve stenosis. Mild mitral regurgitat ion. Tricuspid Valve The tricuspid valve is normal in structure. There is no tricuspid valve stenosis. mild tricuspid regu rgitation. Pulmonic Valve The pulmonary valve is normal in structure. There is no pulmonic valvular stenosis. There is no pulmo kendrick valvular regurgitation. Great Vessels The aortic root is normal in size. The ascending aorta is normal in size. Aortic arch is normal in ca liber. IVC is normal in size and collapses >50% with inspiration. Pericardium There is no pericardial effusion. 2D Dimensions IVSD d PLAX 0.86 cm M: 0.6-1.2 LV Vol A2C d MOD 117.6 mL LVPW d PLAX 0.89 cm M: 0.6 - 1.2 LV Vol A4C d MOD 119.8 mL LVID d PLAX 4.78 cm M: 4.2 - 5.8 LA vol/ BSA A2C s A-L 35.6 mL/m2 LVDs 3.30 cm M: 2.5 - 4.0 LA vol/ BSA A4C s A-L 26.3 mL/m2 Ao Root d 2.93 cm M: 3.1 - 3.7 LA Vol/ BSA Biplane s A-L 31.4 mL/m2 RA Area A4C 13.29 cm2 LA Area A4C s MOD 19.13 cm2 RA Vol/ BSA A4C s A-L 14.2 mL/m2 LA Area A2C s MOD 22.81 cm2 Ao Asc Diam d 3.07 cm M: 2.6 - 3.4 LV EF A4C MOD 57.9 % LV EF Teichholz 58.5 % LV EF A2C MOD 56.3 % LVEF (Levy's) 55.74 % M: 52 - 72 LV EF Biplane MOD 55.7 % LV Volume 88.25 mL M: 62 - 150 SV 66.15 mL LV Volume Index 43.04 mL/m2 M: 34 - 74 SV Index 32.24 mL/m2 LV Vol Biplane MOD 118.7 mL FS 30.90 % M-Mode TAPSE 2.70 cm (M/F) >1.7 LV Diastology MV E' medial 0.128 (>0.07 m/s) E/A Ratio 1.3 LV E/e MED 6.90 (<14) MV E Vmax 0.88 (0.4-1.3 m/s) MV E' lateral 0.192 (>0.1 m/s) MV A Vmax 0.70 (0.4-1.3 m/s) LV E/e LAT 4.60 (<14) MV E/A Ratio 1.26 MV E/E' medial 6.90 MV E/E' lateral 4.61 Aortic Valve LVOT Area 2.93 cm2 AoV Area Vmax 2.25 cm2 LVOT Vmax 1.16 m/s AoV Area/ BSA (Vmax) 1.10 cm2/m2 LVOT Mean Brian. 0.73 m/s NIC Mean Brian. 2.02 cm2 LVOT Peak Grad 5.4 mmHg INC Mean Brian. Index 0.99 cm2/m2 LVOT Mean Grad 2.6 mmHg LVOT VTI 0.226 m LVOT Diam s 1.90 cm AoV Vmax 1.51 m/s Velocity Ratio 0.76 AoV Mean Brian. 1.06 m/s AoV Peak Grad 9.1 mmHg LVOT SV 66.24 mL AoV Mean Grad 5.0 mmHg AoV VTI 0.281 m AoV Area VTI 2.36 cm2 AoV Area/ BSA (VTI) 1.15 cm/m2 Mitral Valve MV DT 217 (160-240 msec) MR Vmax 4.67 m/s MV PHT 63 msec MR VTI 1.407 m MV Area PHT 3.50 cm2 MR Peak Grad 87.2 mmHg MV VTI 0.316 m MR Mean Grad 76.5 mmHg MV Area VTI 2.10 (4.0-6.0 cm2) MR PISA Radius 0.40 cm MR EROA 0.07 cm2 MR Aliasing Velocity 0.35 m/s MR PISA 0.99 cm2 Pulmonary Valve PV Vmax 1.39 (0.5-1.5 m/s) RVOT Peak Gr. 2.11 mmHg PV Peak Grad 7.8 mmHg RVOT Mean Gr. 1.15 mmHg PV Mean Grad 4.0 mmHg RVOT VTI 0.153 m PV VTI 0.269 m RVOT Vmax 0.73 m/s Tricuspid Valve TR Peak Grad 25.1 mmHg TR Vmax 2.51 m/s RA Pressure 3.00 mmHg RVSP (TR) 28.1 mmHg
== END 2019-10-12 04:26 ==
PROVIDERS: PCP Emergency Medicine; Visit Provider Internal Medicine Cardiovascular Disease
DX: I48.0 Paroxysmal atrial fibrillation (principal); I08.1 Rheumatic disorders of both mitral and tricuspid valves
CPT/HCPCS: 93306

== ENCOUNTER 2019-11-21 18:21 | Outpatient (REF) | payer BC, SELFPAY ==
[2019-11-26 13:23] LABS: IgA 132 mg/dL (85-499); Interpretation (See Note); Tissue Transglutaminase IgA <1.2 U/mL (<4.0)
== END 2019-11-21 18:41 ==
LOC: LBN 18:21
PROVIDERS: PCP Emergency Medicine; Visit Provider Emergency Medicine
DX: R19.7 Diarrhea, unspecified (principal)
CPT/HCPCS: 82784; 83516

== ENCOUNTER 2021-01-23 03:00 | Outpatient (CLI) | payer BC, SELFPAY ==
[2021-01-23 11:11] LABS: Source Nasal/Nares
[2021-01-23 14:01] LABS: COVID-19 PCR Negative (Negative)
== END 2021-01-23 03:01 | disposition home or self-care (01) ==
LOC: LBO 03:00
PROVIDERS: PCP Emergency Medicine; Visit Provider Surgery
DX: Z20.822 Contact with and (suspected) exposure to COVID-19 (principal); Z01.812 Encounter for preprocedural laboratory examination
CPT/HCPCS: 87635

== ENCOUNTER 2021-01-26 06:13 | Day surgery (SDC) | payer BC, SELFPAY ==
[2021-01-26 06:15] VITALS: BP 126/81; PULSE 95; RESP 16; TEMP 36.2; O2SAT 98
--- NOTE | 2021-01-26 06:37 | COLE_ITS ---
Colonoscopy Report Date of procedure: 01/26/21 Pre-op diagnosis general: Epigastric pain, screening colonoscopy Post-op diagnosis procedure note: same Procedure: 1. EGD with biopsies 2. Colonoscopy with polypectomy Surgeon: Bev Blair Anesthesia Type: General:No Airway (Sabino Holman CRNA) Estimated blood loss (mL): 3 Pathology: other (Antrum bx, GE junction bx, sigmoid polyp) Complications: None Disposition: same day Indications: The patient is here for Colonoscopy pre-op. His last screening was in 2017 and was remarkable for hyperplastic polyp. He has no family history of colon cancer. Previous notes, state patient reports family history of colon cancer in his mother. However the patient did not report this today. In further reviewing the patient's chart he has been experiencing chronic epigastric pain and changes in bowel habits, extending to 2010. Patient wishes to proceed with an EGD and Colonoscopy for further evaluation of his symptoms and to r/o celiac disease. -Discussed colonoscopy bowel prep as well as the procedure. Discussed possible complications of the procedure to include bleeding, pain, perforation, missed small lesion/polyp, sore throat, aspiration and adverse reaction to the medications. Questions were answered to patient?s satisfaction. No guarantees were implied or given. -Discussed Upper endoscopy procedure and the need to be NPO after midnight the night prior. Discussed possible complications of the procedure to include bleeding, pain, perforation, missed small lesion/polyp/ulcers, sore throat, aspiration and adverse reaction to the medications or sedation. Questions were answered to patient?s satisfaction. No guarantees were implied or given. Prep: Miralax/Dulcolax Procedure Start Time: 07:28 Procedure End Time: 07:58 Retraction Time: 12 minutes Findings: mild gastritis, Hiatal hernia, mild esophagitis sigmoid polyp Procedure Description: After informed consent was obtained the patient was take to the procedure room and placed in a supine position. Monitors were applied and a time out was done. The patients name, date of , procedure type, allergies to medications and metal in their body was reviewed. A bite block was placed and the patient was sedated. Once sedated and comfortable the gastroscope was advanced through the oropharynx which was grossly normal into the esophagus. The proximal and mid- esophagus were normal. In the distal esophagus there was mild inflammation noted. The scope was advanced into the stomach and through the pylorus into the 3rd portion of the duodenum. The duodenum was noted to be normal. The scope was retracted back into the stomach. There was mild inflammation noted in the antrum. Biopsies were done to rule out H. pylori. There were no ulcers. There were a few benign appearing gastric polyps. The scope was retro-flexed. The cardia and fundus were noted to be normal. There a small hiatal hernia noted. The scope was retracted back into the esophagus and biopsies were done of the GE junction to rule out Phillips's. The Z line was regular. The GE junction was at 35 cm. While the patient was still sedated they were placed in a left decubitous position. A rectal exam was done. External exam was normal. Internal exam revealed a normal sphincter tone and no palpable masses. The prostate felt smooth. The scope was then introduced and retro-flexed. No internal hemorrhoids, masses or polyps were identified on retroflexion. The scope was then advanced to the cecum without difficulty. The ileocecal valve and appendiceal orifice were identified. The prep was adequate. The scope was advanced into the terminal ileum which was normal. The scope was then slowly retracted over 12 minutes back into the rectum. Polyps were removed with cold forceps in the sigmoid colon. There was mild sigmoid diverticulosis noted. The scope was removed and the patient was woken up and taken back to Same day surgery in stable condition. The patient tolerated the procedure well and there were no immediate complications. Follow up: 5 years
[2021-01-26] MEDS: Lactated Ringers 1,000 ML 80 ML IV (06:38)
--- NOTE | 2021-01-26 06:38 | W.PM.DSUDISC ---
Discharge Plan Disposition Patient Disposition: HOME Condition: Good Discharge Details Reason For Visit: Colonoscopy/EGD Attending Provider: Bev Blair Primary Care Provider: Stew Mario Home Meds and New Rx's Prescriptions: New pantoprazole [Protonix] 40 mg tablet,delayed release (DR/EC) 40 mg PO DAILY Qty: 60 RF: 0 Continued aspirin 81 mg tablet,delayed release (DR/EC) 81 mg PO DAILY RF: 0 ibuprofen 200 mg tablet 200 mg PO Q6H PRNRF: 0 acetaminophen [Tylenol Extra Strength] 500 mg tablet 500 mg PO Q6H PRNRF: 0 Discontinued pantoprazole [Protonix] 40 mg tablet,delayed release (DR/EC) 40 mg PO DAILY Qty: 30 RF: 12 Discharge Instructions Instructions: Diet for Stomach Ulcers and Gastritis (ED), Gastric Polyps (DC), Gastritis (DC), Hiatal Hernia (DC), Colorectal Polyps (DC), Diverticulosis (DC) Additional Instructions: Findings: mild inflammation of the stomach and esophagus bening polyps of the stomach and small hiatal hernia one polyp in the large bowel mild diverticulosis Follow up: 5 years for the next colonoscopy Increase protonix to 2 x a day for 30 days and then decrease to once a day Please call if you develop: fevers >101.5 Nausea or Vomiting Abdominal pain that is not transient Rectal bleeding that is more then a tbsp A hard abdomen and inability to pass gas DAY SURGERY UNIT POST ENDOSCOPY INSTRUCTIONS Instructions for everyone who is given Anesthesia: For your safety, please do the following for the next 24 Hours: a. Do not drive or operate dangerous equipment b. Do not drink alcohol beverages or use any recreational drugs for the first 24 hours or while taking pain medications. The medications in your body may have a reaction that can be dangerous. c. Do not make any important decisions or sign any important papers 1. Generally there are no restrictions on your activity after a day or so has gone by, but you may feel a bit fatigued for a few days. 2. After you arrive home you may have a light meal and return to a normal diet as you can tolerate it without feeling sick to your stomach. 3. After surgery, you may feel pain or discomfort. This should be only transient, but if it persists please contact your doctor. 4. If there are any questions regarding the findings of your procedure, please feel free to contact your doctor. 6. If you are unable to contact your doctor with a problem, contact the hospital at [phone]. 7. Continue all your regular medications unless directed otherwise. I understand the above instructions and have no questions. Signature of Patient or Responsible Adult Escort Date/Time Name of Responsible Adult Escort Signature of Nurse Date/Time Activity:: Activity as Tolerated Diet:: As Tolerated Discharge Orders Discharge Orders: Discharge Order (Routine); Ordered 01/26/21 Ordered By: Bev Blair
--- NOTE | 2021-01-26 07:30 | STOM_PTH ---
PATIENT: Flo Mireles LOC: [facility] U#:[id number] AGE/SX: 50/M ROOM: RE01/26/[address]: Bev Blair MD : 1970 BED: DIS: 01/26/2021 SPEC #: [id number] RECD: 01/26/21 12:47 STATUS: JARETH RE #: [id number] NUBIA: 01/26/21 07:[address]: Bev Blair DEPT: Surgical Specimen RECD BY: Opal Rodriguez ENTERED: 01/26/21 12:49 SP TYPE: STOMACH OTHR DR: Stew Mario DO Tissues: 1 - STOMACH BIOPSY 2 - ESOPHAGUS BIOPSY 3 - BIOPSY BOWEL Procedures: GROSS AND MICRO LEVEL 4 Comments: [id number]
[2021-01-26 08:04] VITALS: BP 87/59; PULSE 60; RESP 16; TEMP 36.4; O2SAT 94
[2021-01-26 08:13] VITALS: BP 101/62; PULSE 83; RESP 16
[2021-01-26 08:31] VITALS: BP 117/80; PULSE 84; RESP 16; TEMP 36.5; O2SAT 99
--- NOTE | 2021-01-26 08:43 | W.ANESPOSTOP ---
Postoperative Evaluation Date, Time and Location Date Performed: 01/26/21 Time Performed: 08:15 Patient Location: Day Surgery Unit Vital Signs Most Recent Imported Vital Signs: Most Recent Vital Signs Temp Pulse Resp BP Pulse Ox 36.5 C 84 16 117/80 99 01/26/21 08:31 01/26/21 08:31 01/26/21 08:31 01/26/21 08:31 01/26/21 08:31 Pain Score Most Recent Pain Score: Most Recent Pain Score Pain Level 0 01/26/21 08:31 Assessment Mental Status: Awake (Alert & Oriented to Patient Baseline) Airway and Respiratory Function: Patent airway with normal (patient baseline) respiratory exam Cardiovascular Function: Hemodynamically Stable Hydration Status: Adequately Hydrated Nausea & Vomiting: No Nausea or Vomiting Pain: Pt. Denies Any Pain Peripheral Nerve Block: Patient did not receive a nerve block
[2021-01-26] MEDS: Hyoscyamine 0.125 MG SL/ORAL/CHEW SL (09:04)
--- NOTE | 2021-01-27 16:06 | W.ANESPRE ---
General Info Date of Service Date Performed: 01/26/21 Height: 5 ft 6 in Weight: 100.3 kg Body Mass Index (BMI): 35.6 Surgical Procedure: Operation Date: 01/26/21 07:35 Proposed Procedures Side Surgeon p Colonoscopy/Gastroscopy Bev Blair MD Actual Procedures Side Surgeon p Colonoscopy/Gastroscopy w/bx's Not Applicable Bev Blair MD Pre-Op Diagnosis Post-Op Diagnosis abd pain; colon ca screening hiatal hernia, mild esophagitis diverticulosis, polyp Meds Allergies and Home Medications Allergies Allergy/AdvReac Type Severity Reaction Status Date / Time No Known Allergies Allergy Verified 01/26/21 06:18 Home Medication Medication Instructions Recorded acetaminophen 500 mg tablet 500 mg PO Q6H PRN 04/11/19 ibuprofen 200 mg tablet 200 mg PO Q6H PRN 04/11/19 aspirin 81 mg tablet,delayed 81 mg PO DAILY 01/19/21 release pantoprazole [Protonix] 40 mg PO DAILY #60 tab 01/26/21 PFSH Active Problems Active Problems: Problem Status Onset Code Abdominal pain R10.9 Screening for colon cancer Z12.11 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 GERD with esophagitis K21.0 SYD (obstructive sleep apnea) G47.33 Hiatal hernia K44.9 PAF (paroxysmal atrial fibrillation) I48.0 Medical History Medical History Sleep disturbance Toenail fungus Surgical History Surgical History Colonoscopy - MAC (12/27/16) History of cholecystectomy (~04/02/19) History of shoulder surgery right S/P umbilical hernia repair, follow-up exam Tobacco Smoking/Tobacco Use Status: Never Passive smoking exposure: Yes Alcohol Alcohol Intake: current Alcohol intake frequency: a few times a week Alcohol type: beer and hard liquor Substance Use Substance use: Never Substance use type: does not use Vital Signs and Lab Results Vital Signs Most Recent Vital Signs in EMR: Most Recent Vital Signs Temp Pulse Resp BP Pulse Ox 36.5 C 84 16 117/80 99 01/26/21 08:31 01/26/21 08:31 01/26/21 08:31 01/26/21 08:31 01/26/21 08:31 Lab Results Blood Type / Crossmatch: No Data to Display Complete Blood Count: No Data to Display Complete Metabolic Panel: No Data to Display Liver Function Panel: No Data to Display Coagulation Panel: No Data to Display Cardiac Panel: No Data to Display Arterial Blood Gas: No Data to Display Venous Blood Gas: No Data to Display Pancreas Panel: No Data to Display Thyroid Panel: No Data to Display Infectious Disease: Coronavirus (COVID-19)(PCR) Negative (Negative) 01/23/21 09:05 01/23/21 Coronavirus 2019 Source Nasal/Nares 01/23/21 09:05 01/23/21 Blood Cultures: No Data to Display Toxicology Panel: No Data to Display Imaging and Studies Imaging and Studies Study information below may be from another EMR and interpreted by another provider. Please see original notes in EMR for more complete details. Echocardiogram Summary: Conclusion Left ventricular wall thickness and chamber size. Estimated ejection fraction is 60 to 65%. There are no segmental wall motion abnormalities Normal right ventricular size and function Both atria are normal in size The aortic valve is trileaflet and mildly sclerotic without stenosis or regurgitation Structurally normal mitral valve with mild regurgitation Normal tricuspid valve, mild regurgitation, normal right ventricular systolic pressure Normal pulmonic valve Anesthesia Assessment and Plan Anesthesia History Personal History: No History of Anesthesia Complications Family History: No Family History of Anesthesia Complications Exercise Tolerance Exercise Tolerance: Metabolic Equivalents>4 Pertinent Negatives Pertinent Negatives: No Symptoms of GERD, No Major Cardiovascular Symptoms or Complaints, No Major Pulmonary Symptoms or Complaints and No History of CVA/TIA Cardiac & Pulmonary Exam Cardiac Exam: Normal S1/S2 Heart Sounds Pulmonary Exam: Clear Bilateral Breath Sounds Implantable Cardiac Device Does patient have a Pacemaker or an ICD?: No Airway Exam Known Difficult Airway: No Mallampati Class: 3 Mouth Opening: Narrow (< 3cm) Thyromental Distance: Less than 3 cm Neck Range of Motion: Full ROM Neck Circumference: Normal Teeth Condition: Normal Dentition ASA Classification ASA Score: ASA 2 Emergency Case?: No NPO Status NPO Status: NPO Clears >2 hours, Solids >8 hours Anesthesia Plan Resuscitation Status: Full Code Anesthesia Technique: MAC Anesthesia Airway Planned: Natural Airway Monitors Used: Standard Monitors
[2021-01-27 16:07] VITALS: BMI 35.6
== END 2021-01-26 09:50 | disposition home or self-care (01) ==
PROVIDERS: PCP Emergency Medicine; Visit Provider Surgery
PROC: (CPT 45380; principal; 2021-01-26 07:30)
DX: Z12.11 Encounter for screening for malignant neoplasm of colon (principal); K21.00 Gastro-esophageal reflux disease with esophagitis, without bleeding; D12.5 Benign neoplasm of sigmoid colon; R10.13 Epigastric pain; Z86.010 Personal history of colon polyps; K31.7 Polyp of stomach and duodenum; K44.9 Diaphragmatic hernia without obstruction or gangrene
CPT/HCPCS: 45380; 43239; 88305; J3490

== ENCOUNTER 2021-03-19 15:41 | Outpatient (CLI) | payer BC, SELFPAY ==
--- NOTE | 2021-03-19 15:30 | RT.EKG_ITS ---
APPROVED REPORT Exam: Resting ECG Reason for Exam: irregular heart rate Patient Location: O HR:108 bpm ECG Measurements Heart Rate 108 AXIS IN [id number] P [id number] QRSd 82 QRS 11 QT 332 T 43 QTc 445 Conclusion Atrial fibrillation...V-rate 88-161, irreg A-activity
== END 2021-03-19 15:42 | disposition home or self-care (01) ==
PROVIDERS: PCP Emergency Medicine; Visit Provider Emergency Medicine
DX: R00.0 Tachycardia, unspecified (principal); I48.91 Unspecified atrial fibrillation
CPT/HCPCS: 93010

== ENCOUNTER 2021-03-23 01:04 | Outpatient (RCR) | payer BC, SELFPAY ==
--- NOTE | 2021-03-23 16:30 | HOLTER_ITS ---
APPROVED REPORT Conclusion This is a 48-hour Holter monitor ordered for paroxysmal atrial fibrillation The patient was in atrial fibrillation throughout the recording with an average heart rate of 96. Mi nimum was 75, maximum 166 There are occasional ventricular ectopic beats There was no high-grade AV block, no pauses greater than 3 seconds Patient symptoms of elevated heart rate after climbing stairs corresponded to atrial fibrillation, ra te average 102
== END 2021-04-06 23:59 | disposition home or self-care (01) ==
LOC: RT 01:04
PROVIDERS: PCP Emergency Medicine; Visit Provider Emergency Medicine
DX: I48.0 Paroxysmal atrial fibrillation (principal)
CPT/HCPCS: 93225; 93226

== ENCOUNTER 2021-06-03 14:01 | Outpatient (REF) | payer BC, SELFPAY ==
[2021-06-06 15:51] LABS: Calprotectin <50.0 mcg/g
== END 2021-06-03 14:02 | disposition home or self-care (01) ==
LOC: LBN 14:01
PROVIDERS: PCP Family Medicine; Visit Provider Physician Assistant Medical
DX: R19.4 Change in bowel habit (principal)
CPT/HCPCS: 83993

== ENCOUNTER → 2021-07-09 00:52 | Outpatient (CLI) | payer BC, SELFPAY ==
--- NOTE | 2021-07-09 | DI.NM_ITS ---
APPROVED REPORT Exam: Exercise Treadmill Patient Location: Out-Patient Room/Bed: Stress Nurse: Marian Carter RN Ordering Provider:SUSANA MEDINA, Contact Number: [phone] BMI: 36.47 Baseline Rhythm: Atrial Fibrillation Indications: Atrial fibrillation/MARTINEZ Medical History Medical History: Chronic afib w/ breakthrough, SYD, GERD with esophagitis Cardiac Medications: Diltiazem, Apixaban, Pantoprazole, Allergies: No known drug allergies Cardiac Risk Factors: FHX of CAD, Obesity Previous Cardiac Procedures: Recent Cardioversion @ [facility] [place] Pretest Chest Pain Characteristics: No chest pain Exercise History: Indeterminate Physical Disabilities: none Lung Sounds: Clear to auscultation Heart Sounds: Irregular Stress Test Details Test: Exercise stress testing was performed using a Elmer protocol. Nuclear Acquisition: Rest Tc-99m/Stress Tc-99m 1 day Rest Isotope: Tc-99m Sestamibi. Dose: 10.1 Date: 07/09/2021 Injection Time: 0910 Stress Isotope: Tc-99m Sestamibi. Dose: 32.6 Date: 07/09/2021 Injection Time: 1115 HR Resting HR Supine: 84 bpm Max Heart Rate (APMHR): 170.778784 bpm Resting HR Standin bpm Target HR (85% APMHR): 144.936406 bpm Max HR Achieved: 188 bpm % of APMHR: 110.59 Recovery HR: 98 bpm HR response to stress: Accelerated HR response to stress BP Resting BP Supine: 114/82 mmHg Resting BP Standin/78 mmHg Max BP: 140/84 mmHg ECG Resting ECG: Atrial Fibrillation Ectopy: none Stress ECG: Atrial Fibrillation ST Change: No significant ST segment changes noted Arrhythmia: None Recovery ECG: Atrial Fibrillation Recovery ST Change: No significant ST segment changes noted Recovery Arrhythmia: PVC couplet Clinical Reason for Termination: Terminated by RN due to accelerated heart rate Stress Symptoms: none Exercise duration: 5 min37 sec Highest Stage Reached: Stage 2: 2.5 mph at 12% grade. Exercise capacity: 7.05 METs Rate Pressure Product: [id number] Stress ECG Conclusion 1. Resting electrocardiogram showed atrial fibrillation 2. Patient exercised on the Elmer protocol and completed a workload of 7.05 METS 3. Normal blood pressure response to exercise. Accelerated heart rate response to exercise. The pat ient achieved greater than 100% of predicted heart rate for age 4. The electrocardiographic portion of the test showed no evidence of myocardial ischemia 5. Atrial fibrillation was present throughout, rare PVCs 6. See MPI report Stress Test Summary STAGE Time (mins) Speed (mph) Grade (%) HR BP SYMPTOMS METS Supine 84 114/82 Standing 92 110/78 1 min recovery 140 138/70 3 min recovery 108 140/84 6 min recovery 98 124/88 MPI Conclusion Myocardial perfusion is normal without evidence of ischemia or prior infarction EF 46%, mild global hypokinesis Radiologist Interpretation Radiologist agrees with Chief Green Officer's Interpretation. Radiologist Interpretation by: Evens Roblero MD Interpretation Date/Time: 07/09/2021 17:18:57
== END ==
PROVIDERS: PCP Family Medicine; Visit Provider Internal Medicine
DX: I48.91 Unspecified atrial fibrillation (principal); R06.09 Other forms of dyspnea
CPT/HCPCS: 78452; 93017

== ENCOUNTER 2021-11-08 00:08 | Emergency (ER) | payer BC, SELFPAY ==
[2021-11-08] VITALS (37 sets, daily range): BP systolic 76–132; BP diastolic 33–76; PULSE 56–79; RESP 7–19; TEMP 36.4; O2SAT 93–100
--- NOTE | 2021-11-08 00:15 | RT.EKG_ITS ---
APPROVED REPORT Exam: Resting ECG Reason for Exam: chest pain Patient Location: E HR:64 bpm ECG Measurements Heart Rate 64 AXIS MO 197 P 41 QRSd 99 QRS 3 QT 405 T 56 QTc 418 Conclusion Sinus rhythm...normal P axis, V-rate 60- 99. Sinus. No STEMI. I have reviewed and interpreted ECG and agree with software generated interpretation.
--- NOTE | 2021-11-08 00:30 | DI.RAD_ITS ---
Exam(s) XR PORTABLE CHEST AP EXAM: XR PORTABLE CHEST AP CLINICAL HISTORY: chest pain, r/o acute disease. TECHNIQUE: 2D digital imaging was performed. COMPARISON: CR CHEST 2 VIEWS PA,LAT from 12/25/2009 FINDINGS: Single AP portable view. Heart size is upper normal. The mediastinum is not widened. Lungs are clear. No infiltrates nor obvious pleural effusions. Less than optimal inspiratory effort. IMPRESSION: No acute pulmonary findings on this single AP portable view of the chest.Suboptimal inspiration. DATA REPOSITORY: RADIATION DOSE DELIVERED:
[2021-11-08 00:35] LABS: Abs Immature Grans 0.02 10^3/uL (0.0-0.06); HGB 15.2 g/dL (13.5-17.5); MCH 31.5 pg (27.0-33.0); MCHC 35.3 % (32.0-36.0); MCV 89 fL (80-95); MPV 9.6 fL (8.0-11.0); Platelet Count 171 10^3/uL (130-400); RBC 4.83 10^6/uL (4.36-5.78); RDW 11.5 % (11.8-14.1); RDW-SD 36.8 fL; WBC 6.29 10^3/uL (4.4-10.8)
[2021-11-08 00:45] LABS: Absolute Basophil Count 0.06 10^3/uL (0.0-0.2); Absolute Eosinophil Count 0.06 10^3/uL (0.0-0.7); Absolute Lymphocyte Count 2.33 10^3/uL (1.2-3.4); Absolute Monocyte Count 0.25 10^3/uL (0.1-0.8); Absolute Neutrophil Count 3.59 10^3/uL (1.2-6.7); Atypical Lymphocytes % 7; Diff Comment Manual Differential
[2021-11-08 00:50] LABS: ALT 49 U/L (16-63); AST 25 U/L (15-37); Albumin 4.2 g/dL (3.4-5.0); Alkaline Phosphatase 78 U/L (46-116); Anion Gap 10.6 mmol/L (3-11); BUN 16 mg/dL (7-18); Bilirubin, Total 0.7 mg/dL (0.2-1.0); CO2 26.4 mmol/L (21.0-32.0); CREATININE 1.1 mg/dL (0.70-1.30); Calcium 9.2 mg/dL (8.5-10.1); Chloride 101 mmol/L (98-107); Estimated GFR 81.28 (mL/min/1.73m2); Glucose 115 mg/dL (74-106); Lipase 67 U/L (73-393); Potassium 3.6 mmol/L (3.5-5.1); Sodium 138 mmol/L (136-145); Total Protein 7.8 g/dL (6.4-8.2); Troponin I < 50 ng/L (<or=60)
--- NOTE | 2021-11-08 01:02 | W.ED.GENAD ---
Discharge Plan Disposition Patient Disposition: HOME Condition: Improving Discharge Details Clinical Impression: Chest pain, Vomiting Primary Care Provider: Huey Louis ED Provider: Aydee Chauhan Home Meds and New Rx's Prescriptions: Continued acetaminophen [Tylenol Extra Strength] 500 mg tablet 500 mg PO Q6H PRN flecainide 100 mg tablet 100 mg PO Q12H diltiazem HCl 240 mg capsule,extended release 24hr 360 mg PO DAILY Eliquis 5 mg tablet 5 mg PO BID pantoprazole [Protonix] 40 mg tablet,delayed release (DR/EC) 40 mg PO DAILY Qty: 90 3RF Discharge Instructions Instructions: Chest Pain (ED) Additional Instructions: Your blood tests, EKGs and imaging today are reassuring and show no evidence of acute concerning or significant findings. Drink plenty of fluids and get plenty of rest. Take the Phenergan as needed and directed for nausea and vomiting. An order for an outpatient stress test has been placed. You will receive a call from the radiology department for scheduling of this test. You can also call them on the number provided to confirm this test. Call your professor of business administration at [facility] to schedule a follow-up appointment for reevaluation. Return immediately to the emergency department if you develop any worsening or new concerning symptoms. Discharge Data Discharge Physician: Aydee Chauhan Medical Decision Making 0030 -- 51-year-old male with history of chronic atrial fibrillation on Eliquis, GERD with esophagitis, obesity and obstructive sleep apnea presents after 2 episodes of vomiting followed by left-sided chest pain prior to arrival. + EtOH tonight. Vitals within normal limits. EKG on arrival notes a rate of 64, sinus, no STEMI nondiagnostic. Due to high volume on patient arrival, he was given IV Phenergan due to nausea in ED room. On my assessment, patient is significantly drowsy after IV Phenergan. He is unable to answer any questions. He is hemodynamically stable. Differential diagnosis includes GERD, esophagitis, PUD, gastritis, ACS. History and presentation does not appear consistent with PE or dissection. Will obtain screening labs, portable chest x-ray and give IV Protonix. 0215 --labs and imaging reviewed. Normal white blood cell count. Normal electrolytes. Troponin negative. Lipase within normal limits. Normal LFTs. Alcohol level 146. Chest x-ray notes questionable widened mediastinum. Patient reassessed and he is still sleepy but denies any chest pain. 0400 --repeat troponin negative. Repeat EKG unchanged. Patient remains drowsy but able to be aroused and reassessed and ambulate and denies any symptoms and would like to go home. He is hemodynamically stable. An order for an outpatient stress test placed for further evaluation. Advised to call his professor of business administration at [facility] for follow-up. Usual and customary return precautions given prior to discharge. Medical Records Medical records reviewed: Yes I reviewed the patient's medical records. Imaging Data Radiologic Study: Radiologist's impression: XR Chest Exam date and time: 11/08/2021 12:31 AM Age: 51 years old Clinical indication: Condition or disease; Other: Chest pain, R/O acute disease TECHNIQUE: Imaging protocol: Radiologic exam of the chest. Views: 1 view. COMPARISON: CT ABDOMEN W 02/01/2019 8:36 AM FINDINGS: Lungs: Lungs are hypoinflated with bronchovascular crowding. No focal consolidation. Pleural spaces: No visible pleural effusion. No pneumothorax. Heart/Mediastinum: Cardiomediastinal contours accentuated by portable technique and hypoventilation, not enlarged. Bones/joints: No acute osseous finding. IMPRESSION: Hypoinflation. Lab Data Lab results reviewed: Yes I reviewed the patient's lab results. Labs: Laboratory Tests Range/Units 11/08/21 11/08/21 11/08/21 00:30 00:30 00:30 WBC (4.4-10.8) 10^3/uL 6.29 RBC (4.36-5.78) 10^6/uL 4.83 Hgb (13.5-17.5) g/dL 15.2 Hct (40.0-50.0) % 43.0 MCV (80-95) fL 89 MCH (27.0-33.0) pg 31.5 MCHC (32.0-36.0) % 35.3 RDW (11.8-14.1) % 11.5 L Plt Count (130-400) 10^3/uL 171 MPV (8.0-11.0) fL 9.6 Immature Gran % 0.0 Neutrophils % 57.0 Lymphocytes % 30.0 Atypical Lymphs % 7 Monocytes % 4.0 Eosinophils % 1.0 Basophils % 1.0 Nucleated RBC % (0.0-0.3) % 0.0 Absolute Neutrophils (1.2-6.7) 10^3/uL 3.59 Absolute Lymphocytes (1.2-3.4) 10^3/uL 2.33 Absolute Monocytes (0.1-0.8) 10^3/uL 0.25 Absolute Eosinophils (0.0-0.7) 10^3/uL 0.06 Absolute Basophils (0.0-0.2) 10^3/uL 0.06 Sodium (136-145) mmol/L 138 Potassium (3.5-5.1) mmol/L 3.6 Chloride (98-107) mmol/L 101 Carbon Dioxide (21.0-32.0) mmol/L 26.4 Anion Gap (3-11) mmol/L 10.6 BUN (7-18) mg/dL 16 Creatinine (0.70-1.30) mg/dL 1.1 Est GFR (CKD-EPI 2020) (mL/min/1.73m2) 81.28 Glucose (74-106) mg/dL 115 H Calcium (8.5-10.1) mg/dL 9.2 Magnesium (1.8-2.4) mg/dL 2.0 Total Bilirubin (0.2-1.0) mg/dL 0.7 AST (15-37) U/L 25 ALT (16-63) U/L 49 Alkaline Phosphatase (46-116) U/L 78 Troponin I (<or=60) ng/L < 50 Total Protein (6.4-8.2) g/dL 7.8 Albumin (3.4-5.0) g/dL 4.2 Lipase (73-393) U/L 67 Ethyl Alcohol (<10) mg/dL 146.8 H Range/Units 11/08/21 03:30 WBC (4.4-10.8) 10^3/uL RBC (4.36-5.78) 10^6/uL Hgb (13.5-17.5) g/dL Hct (40.0-50.0) % MCV (80-95) fL MCH (27.0-33.0) pg MCHC (32.0-36.0) % RDW (11.8-14.1) % Plt Count (130-400) 10^3/uL MPV (8.0-11.0) fL Immature Gran % Neutrophils % Lymphocytes % Atypical Lymphs % Monocytes % Eosinophils % Basophils % Nucleated RBC % (0.0-0.3) % Absolute Neutrophils (1.2-6.7) 10^3/uL Absolute Lymphocytes (1.2-3.4) 10^3/uL Absolute Monocytes (0.1-0.8) 10^3/uL Absolute Eosinophils (0.0-0.7) 10^3/uL Absolute Basophils (0.0-0.2) 10^3/uL Sodium (136-145) mmol/L Potassium (3.5-5.1) mmol/L Chloride (98-107) mmol/L Carbon Dioxide (21.0-32.0) mmol/L Anion Gap (3-11) mmol/L BUN (7-18) mg/dL Creatinine (0.70-1.30) mg/dL Est GFR (CKD-EPI 2020) (mL/min/1.73m2) Glucose (74-106) mg/dL Calcium (8.5-10.1) mg/dL Magnesium (1.8-2.4) mg/dL Total Bilirubin (0.2-1.0) mg/dL AST (15-37) U/L ALT (16-63) U/L Alkaline Phosphatase (46-116) U/L Troponin I (<or=60) ng/L < 50 Total Protein (6.4-8.2) g/dL Albumin (3.4-5.0) g/dL Lipase (73-393) U/L Ethyl Alcohol (<10) mg/dL ECG Data Attestation: I personally reviewed and interpreted this ECG (s) as follows: Interpretation: #1 -- Rate of 64, sinus, no STEMI. #2 -- Rate of 68, sinus, no STEMI. HPI General Mode of arrival: ambulatory. Date/Time Provider Initiated Documentation: 11/08/21 00:25. Limitations to Documentation: no limitations. Information obtained by: patient. HPI Narrative: Patient is a 51-year-old male with a history of atrial fibrillation on Eliquis, GERD with esophagitis, obesity, sleep apnea who presents with 2 episodes of vomiting and left-sided chest pain that started prior to arrival. at bedside states that patient was out drinking alcohol tonight and had approximately 3 drinks with whiskey. She states he had been feeling fine until they returned home and he began vomiting. She states the vomit was yellow with clear mucus and specks of blood. She states after his vomiting he complaining of left-sided chest pain. She states he had a cardioversion which was unsuccessful in June 2021 and is scheduled for a cardiac ablation in December 2021 and endoscopy and colonoscopy in January. She denies any recent fever, cough, shortness of breath Related Data Home Medications Medication Instructions Recorded Confirmed acetaminophen 500 mg tablet 500 mg PO Q6H PRN 04/11/19 11/08/21 (Tylenol Extra Strength) apixaban 5 mg tablet (Eliquis) 5 mg PO BID 05/26/21 11/08/21 diltiazem HCl 240 mg 360 mg PO DAILY 09/14/21 11/08/21 capsule,extended release 24 hr flecainide 100 mg tablet 100 mg PO Q12H 09/14/21 11/08/21 pantoprazole 40 mg tablet,delayed 40 mg PO DAILY #90 tabs 10/21/21 11/08/21 release (Protonix) Previous Rx's Medication Instructions Recorded pantoprazole 40 mg tablet,delayed 40 mg PO DAILY #90 tabs 10/21/21 release (Protonix) Allergies Allergy/AdvReac Type Severity Reaction Status Date / Time No Known Allergies Allergy Verified 11/08/21 00:22 General Stated Complaint: Chest Pain FARZANA: 2 Review of Systems All systems reviewed & are unremarkable except as noted in HPI and below Constitutional Constitutional: Reports as per HPI, Denies chills and Denies fever(s) Eyes Eyes: Denies blurry vision ENT Ears, Nose, Mouth, and Throat: Denies dizziness, Denies sore throat and Denies throat swelling Cardiovascular Cardiovascular: Reports chest pain and Denies dyspnea Respiratory Respiratory: Denies cough and Denies dyspnea Gastrointestinal Gastrointestinal: Denies abdominal pain, Denies diarrhea and Reports vomiting Genitourinary Genitourinary: Denies hematuria and Denies dysuria Musculoskeletal Musculoskeletal: Denies back pain and Denies numbness Integumentary/Breasts Skin/Breast: Denies lesions and Denies rash Neurologic Neurologic: Denies dizziness, Denies localized weakness and Denies numbness Allergic/Immunologic Allergic/Immunologic: Denies throat swelling PFSH All Active Problems (Updated 11/08/21 @ 04:12 by Aydee Chauhan DO) Chest pain (Acute) Vomiting (Acute) Family history of colon cancer in mother (Acute 09/07/16) Atrophy of testis (Acute) left Chronic a-fib (Acute) Khadar vASC 2 score-0, followed by cardiology /[facility] Spring 2021 status post failed electrical cardioversion at [facility] Tubular adenoma of colon (Acute) 2020, due colonoscopy [id number] GERD with esophagitis (Acute) SYD (obstructive sleep apnea) (Chronic) Medical History Sleep disturbance Toenail fungus Surgical History Colonoscopy - [facility] (12/27/16) 01/2021 History of cholecystectomy (~04/02/19) History of shoulder surgery right S/P umbilical hernia repair, follow-up exam Family History Mother Cancer Father Substance abuse Alcohol abuse Heart disease Maternal Grandfather Cancer Daughter No problems noted. Daughter Asthma Social History Smoking/Tobacco Use Status: Never Second Hand Exposure: Yes Smoking risk assessment performed?: Yes Alcohol Intake: current Alcohol Intake frequency: a few times a week Alcohol type: beer and hard liquor Drug use: Never Substance use type: does not use Caregiver/Support person: No Household members: spouse, family and children Housing: apartment Communication Needs: None Pets and animals: No Sexually active: Yes Do you think of yourself as: straight/heterosexual Current gender identity: male What is your relationship status?: How often do you talk on the phone with friends or family?: three or more times per week How often do you get together with friends or relatives?: twice per week How often do you attend taoism or gnosticism services?: 1-3 times per year Do you belong to any clubs or organized social groups?: yes Panel score (0-1 are the most socially isolated patients): 3 What type of physical activity do you participate in: none Duration: 30-45 minutes/day Frequency: 1-2 times per week Yaneli/Caodaism: No preference Special yaneli needs: No Seatbelt use: always Helmet use: Yes Helmet use: sometimes Drive intox or ride w/intox tower truck driver: No Do you feel safe at home: Yes Do you feel safe in your relationship?: Yes Victim of physical abuse: No Victim of emotional abuse: No Victim of sexual abuse: No Would you like helpful sources: No Exam Const General: cooperative, healthy appearing and no acute distress Orientation: alert, awake and oriented x3 HENMT Head: normal to inspection Mouth: oral mucosae normal Eyes General: appearance normal, both eyes and all related structures Neck Neck: normal visual inspection Resp Effort & Inspection: normal respiratory effort and able to speak in complete sentences Auscultation: clear to auscultation bilaterally Cardio Rate: regular rate Rhythm: regular rhythm GI Inspection: obesity Palpation: soft, not firm, no guarding, not rigid and nontender Skin General skin exam: no rashes or lesions noted Neuro General: patient alert, patient awake and patient oriented x3 Motor: muscle tone normal throughout Extrem General: normal to inspection and full ROM Psych Appearance: grossly normal Affect: normal affect Course Vital Signs Vital signs: Vital Signs Temperature 97.5 F L 11/08/21 00:15 Pulse 67 10 00:15 Respiratory Rate 11 L 11/08/21 00:15 Blood Pressure 132/76 11/08/21 00:15 Pulse Oximetry 100 11/08/21 00:15 Temperature 97.5 F L 11/08/21 00:15 Temperature Source Temporal Artery Scan 11/08/21 00:15 Pulse 67 11/08/21 00:15 Respiratory Rate 11 L 11/08/21 00:15 Respiratory Effort 11/08/21 00:17 Respiratory Depth Normal 11/08/21 00:17 Respiratory Pattern Normal 11/08/21 00:17 Blood Pressure 132/76 11/08/21 00:15 Blood Pressure Position Supine 11/08/21 00:15 Pulse Oximetry 100 11/08/21 00:15 Oxygen Delivery Method Room Air 11/08/21 00:15 Oxygen Flow Rate 0 11/08/21 00:15 Pain Level 7 11/08/21 00:15 Lab/Test Results Lab/Test Results: Laboratory Tests Range/Units 11/08/21 11/08/21 00:30 00:30 WBC (4.4-10.8) 10^3/uL 6.29 RBC (4.36-5.78) 10^6/uL 4.83 Hgb (13.5-17.5) g/dL 15.2 Hct (40.0-50.0) % 43.0 MCV (80-95) fL 89 MCH (27.0-33.0) pg 31.5 MCHC (32.0-36.0) % 35.3 RDW (11.8-14.1) % 11.5 L Plt Count (130-400) 10^3/uL 171 MPV (8.0-11.0) fL 9.6 Immature Gran % 0.0 Neutrophils % 57.0 Lymphocytes % 30.0 Atypical Lymphs % 7 Monocytes % 4.0 Eosinophils % 1.0 Basophils % 1.0 Nucleated RBC % (0.0-0.3) % 0.0 Absolute Neutrophils (1.2-6.7) 10^3/uL 3.59 Absolute Lymphocytes (1.2-3.4) 10^3/uL 2.33 Absolute Monocytes (0.1-0.8) 10^3/uL 0.25 Absolute Eosinophils (0.0-0.7) 10^3/uL 0.06 Absolute Basophils (0.0-0.2) 10^3/uL 0.06 Sodium (136-145) mmol/L 138 Potassium (3.5-5.1) mmol/L 3.6 Chloride (98-107) mmol/L 101 Carbon Dioxide (21.0-32.0) mmol/L 26.4 Anion Gap (3-11) mmol/L 10.6 BUN (7-18) mg/dL 16 Creatinine (0.70-1.30) mg/dL 1.1 Est GFR (CKD-EPI 2020) (mL/min/1.73m2) 81.28 Glucose (74-106) mg/dL 115 H Calcium (8.5-10.1) mg/dL 9.2 Magnesium (1.8-2.4) mg/dL 2.0 Total Bilirubin (0.2-1.0) mg/dL 0.7 AST (15-37) U/L 25 ALT (16-63) U/L 49 Alkaline Phosphatase (46-116) U/L 78 Troponin I (<or=60) ng/L < 50 Total Protein (6.4-8.2) g/dL 7.8 Albumin (3.4-5.0) g/dL 4.2 Lipase (73-393) U/L 67
[2021-11-08] MEDS: Pantoprazole 40 MG VIAL IVP (01:12)
[2021-11-08 01:50] LABS: ETHANOL BLOOD 146.8 mg/dL (<10)
--- NOTE | 2021-11-08 02:30 | RT.EKG_ITS ---
APPROVED REPORT Exam: Resting ECG Reason for Exam: chest pain Patient Location: E HR:68 bpm ECG Measurements Heart Rate 68 AXIS NJ 193 P 55 QRSd 102 QRS -1 QT 416 T 64 QTc 443 Conclusion Sinus rhythm...normal P axis, V-rate 60- 99 Low voltage, precordial leads...precordial leads <1.0mV. Sinus. No STEMI. I have reviewed and interpreted ECG and agree with software generated interpretation.
[2021-11-08] MEDS: Normal Saline 1,000 ML 1000 ML IV (02:32)
--- NOTE | 2021-11-08 03:01 | DI.VRAD_ITS ---
PROCEDURE INFORMATION: Exam: XR Chest Exam date and time: 11/08/2021 12:31 AM Age: 51 years old Clinical indication: Condition or disease; Other: Chest pain, R/O acute disease TECHNIQUE: Imaging protocol: Radiologic exam of the chest. Views: 1 view. COMPARISON: CT ABDOMEN W 02/01/2019 8:36 AM FINDINGS: Lungs: Lungs are hypoinflated with bronchovascular crowding. No focal consolidation. Pleural spaces: No visible pleural effusion. No pneumothorax. Heart/Mediastinum: Cardiomediastinal contours accentuated by portable technique and hypoventilation, not enlarged. Bones/joints: No acute osseous finding. IMPRESSION: Hypoinflation. Dictated and Authenticated by: Murphy Fatima MD. Ordering:PARIS Bajwa MD
[2021-11-08 03:50] LABS: Troponin I < 50 ng/L (<or=60)
--- OUTSIDE RECORDS SUMMARY | 2021-11-08 04:44 | XMS_ITS | Encounter Summary ---
:1970 Author Organization [facility] [place] [address] Care Team Providers Name Role Phone Stew Mario DO Primary Care Provider Reason for Visit Consultation (Routine) - Authorized Specialty Diagnoses / Procedures Referred By Contact Refer red To Contact Cardiology Diagnoses Chronic atrial fibrillation ?ABLATION VS OTHER THERAPY (EP defers to [facility]) * SCANNED DOCS Stew Mario DO [facility] [place] [place] Cardiology [address] [address] Referral ID Status Reason Start Date Expiration Visits Visits Date Requested Authorized [id number] Authorized Consult, 03/28/2021 03/28/2022 6 6 Test & Treat Encounter Details Date Type Department Care Team Description 04/03/2021 TH Visit Cardiology at [facility] Chi Kinney PAF (paroxysmal (TeleHealth) [facility] atrial fibrillation) [place] [address] CARDIOLOGY DEPT. [phone] [place], [place] [address] (Wo rk) Social History Tobacco Use Types Packs/Day Years Used Date Never Smoker Sex Assigned at Date Recorded Male 04/03/2021 10:46 AM EST documented as of this encounter Progress Notes Chi Kinney MD - 04/03/2021 11:30 AM EST Images from the original note were not included. [facility] [place] [address] 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 The patient states that he was first diagnosed with PAF about 2 years ago when he went in for testing of SYD/CPAP. He has been on CPAP since then and states that this has been helpful. Apparently the patient was referred from the the sleep lab to the ER for evaluation. He eventually had a holter (02/2019, NSR only) and an echo (10/2019, normal LVEF, no valve abnormalities, normal atrial). He states that he did not have much trouble with recurrent AF until about 3-4 months ago when he thinks he has been having more persistent AF. He was recently started on diltiazem for rate control (180mg) and ASA. States that the diltiazem has been helpful. He is aware of some palpitations some time.Today he feels well. Was able to exercise a bit yesterday. Does get short of breath sometimes with exertion. No chest pain. Notes some family history of CAD - mostly remote relatives. 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 pantoprazole EC (Protonix) 40 mg Tablet, Delayed Release (E.C.) Take 1 tablet by mouth daily. 90tablet 3 ??? aspirin EC 81 mg Tablet, Delayed Release (E.C.) Take 1 tablet by mouth daily. 90 tablet 3 ??? ibuprofen (ADVIL;MOTRIN) 200 mg Tablet Take 200 mg by mouth every 6 hours as needed for Pain. Most recent labs or other cardiac testing: BUN/Cr 11/07.1 TSH 2.92 Normal LFTs Cardiac testing performed at [facility]: Holter (Feb 2019): NSR only. Echo (10/2019): LVEF 60-65%, normal atrial, normal valves. Holter Feb (2021): pending ASSESSMENT / PLAN: 50 year old male with a history of SYD (on CPAP), GERD who was diagnosed with PAF incidentally whileat a sleep study in Feb 2019. Per review of the records he has had some episodes of PAF. It is not clear to me at this time as to whether he continues to have paroxysmal AF at this time or whether perhaps he has transitioned to more persistent AF. He thinks he may have been in AF for the past 2-3 months. He was started on diltiazem at 180 mg po qhs and this seems to be helping. This was a telehealth visit today so I do not have an ECG to review. Apparently he had a repeat 48 hour holter last week at [facility] but the results are pending at this time. We will request a copy of this. PLAN: 1. If he remains in AF 100% of the time on the holter: would plan on adding anticoagulation (DOAC) and schedule him for a DCCV through our same day program. 2. If he is in PAF, then I think tweaking his rate control meds might be reasonable. He is on dilt 180 at this time and there is room to go up or room to add low dose BB. He has purchased an [employer] watch to help monitor his HR and rhythm. I think this might be helpful as an outpatient monitor. Follow-up plan: -follow-up via email ([email or web address]) when the most recent holter results are available - should be available within a week or so. -in-person follow-up in 4-6 weeks. Chi Kinney MD, [facility] Cardiovascular Medicine [place] [address] Clinic [phone] Clinic Team Nurse: [phone] The total time associated with this visit was 45 minutes. documented in this encounter Plan of Treatment Upcoming Encounters Date Type Specialty Care Team Description 12/25/2021 Appointment Radiology Isaiah Cali [place] [facility] [place] [address] 12/28/2021 Hospital Encounter Cardiology Isaiah Cali, Persist ent atrial MD fibrillation [facility] [place] [address] 12/28/2021 Surgery Cardiology Isaiah Cali, ELECTROPHYSIO GIRISH QUIGLEY PROCEDURE [facility] [place] [address] 02/02/2022 Hospital Encounter Gastroenterology Cuauhtemoc Olivas MD [facility] [address] [place] [address] 02/02/2022 Surgery Gastroenterology Deisy, EGD, UPPER GI ENDOSCOPY Cuauhtemoc Scott MD [facility] [place] [address] Scheduled Procedures Name Priority Associated Diagnoses Date/Time EGD, UPPER GI ENDOSCOPY Change in bowel habits 02/02/2022 7:30 AM EST Abdominal pain, unspecified abdominal location COLONOSCOPY, DIAGNOSTIC Change in bowel habits 02/02/2022 7:30 AM EST Abdominal pain, unspecified abdominal location documented as of this encounter Visit Diagnoses Diagnosis PAF (paroxysmal atrial fibrillation) Atrial fibrillation Persistent atrial fibrillation Atrial fibrillation Persistent atrial fibrillation Atrial fibrillation Change in bowel habits Other symptoms involving digestive syste m Abdominal pain, unspecified abdominal lo cation documented in this encounter Care Teams Monotyper Relationship Specialty Start Date End Date Stew Mario DO PCP - General Family Medicine 03/24/[address] [place] [address] documented as of this encounter
--- OUTSIDE RECORDS SUMMARY | 2021-11-08 04:44 | XMS_ITS | Encounter Summary ---
:1970 Author Organization [facility] [place] [address] Care Team Providers Name Role Phone FabianoStew Primary Care Provider Reason for Visit Auth/Cert Specialty Diagnoses / Procedures Referred By Contact Refer red To Contact Diagnoses AF (atrial fibrillation) AF Procedures PRG ARLENE REAL TIME IMG 2D W PRB IMG ACQUIS I&R PRO CARDIOVERSION ELECTIVE ARRHYTHMIA EXTERNAL TRANSESOPHAGEAL ECHOCARDIOGRAM (WRVU 2.55) CARDIOVERSION-ELECTIVE (WRVU 2.25) Referral ID Status Reason Start Date Expiration Date Visits Requ ested Visits Authorized [id number] 1 1 Encounter Details Date Type Department Care Team Description 06/10/2021 Surgery Main Operating Room Fletcher Marie MD CARDIOVERSION-ELECTIVE [facility] (WRVU 2.25) [facility] [place] [address] [place] [address] [phone] Social History Tobacco Use Types Packs/Day Years Used Date Never Smoker Smokeless Tobacco: Never Used Alcohol Use Standard Drinks/Week Comments Yes 2 (1 standard drink = 0.6 oz pure alcoho l) Sex Assigned at Date Recorded Male 04/03/2021 10:46 AM EST documented as of this encounter Last Filed Vital Signs Vital Sign Reading Time Taken Comments Blood Pressure 142/88 06/10/2021 11:15 AM EDT Pulse 93 06/10/2021 11:30 AM EDT Temperature 36.7 ??C (98.1 ??F) 06/10/2021 10:25 AM EDT Respiratory Rate 16 06/10/2021 11:30 AM EDT Oxygen Saturation 96% 06/10/2021 11:30 AM EDT Inhaled Oxygen Concentration - - Weight 103.4 kg (228 lb) 06/10/2021 9:41 AM EDT Height 167.6 cm (5' 6) 06/10/2021 9:41 AM EDT Body Mass Index 36.8 06/10/2021 9:41 AM EDT documented in this encounter Medications at Time of Discharge Medication Sig Dispensed Refills Start Date End Date apixaban (Eliquis) 5 mg Take 1 tablet by 120 tablet 5 2021 Tablet mouth 2 times daily. pantoprazole EC Take 1 tablet by 90 tablet 3 04/03/2021 (Protonix) 40 mg Tablet, mouth daily. Delayed Release (E.C.) dilTIAZem (TIAZAC) 240 mg Take 1 capsule by 90 capsule 3 03/202107/21/2021 Capsule,Sustained Action mouth daily. 24 hr documented as of this encounter Progress Notes Chelly Erickson RN - 06/10/2021 11:03 AM EDT Patient alert and oriented, vital signs stable. Reviewed discharge instructions; patient and verbalized understanding. Copy of instruction sheet with contact numbers for questions/concerns with patient. Pain assessment documented. documented in this encounter H&P Notes Murphy Shepherd PA - 06/10/2021 9:53 AM EDT Patient Name: Flo Mireles Patient Age: 50 y.o. Birthdate: 1970 Admit date: 06/10/2021 Attending Physician: Ney Marie MD See office note 06/10/2021 No contraindication to proceeding with DCCV documented in this encounter Miscellaneous Notes Brief Op Note - Pravin Chery MD - 06/10/2021 10:26 AM EDT Brief Operative Note Patient Name: Flo Mireles : [id number] MR#: [id number] Case Date: 06/10/2021 Surgeon: Surgeon(s) and Role: * Ney Marie MD - Primary * Pravin Chery MD - Fellow Preoperative diagnosis: AF Postoperative diagnosis: AF Procedure(s) (LRB): CARDIOVERSION-ELECTIVE (WRVU 2.25) (N/A) Pads placed anteriorly in the right upper chest, posteriorly left subscapular. 150 J synchronized cardioversion x2. Brief NSR x2 with very early recurrence of atrial fibrillation. Further attempts deferred. Anesthesia: General Minimal sedation Disposition: aroused from sedation, and taken to the recovery room in a stable condition Condition: doing well without problems (Please see the Surgical Encounter Summary for any Implant and Specimen details pertinent to this patient.) Op Note - Ney Marie MD - 06/10/2021 10:14 AM EDT [facility] Operative Note Patient Name: Flo Mireles : [id number] MR#: [id number] Case Date: 06/10/2021 Surgeon: Surgeon(s) and Role: * Ney Marie MD - Primary * Pravin Chery MD - Fellow Preoperative diagnosis: AF Postoperative diagnosis: AF Procedure(s) (LRB): CARDIOVERSION-ELECTIVE (WRVU 2.25) (N/A) Anesthesia: General Estimated Blood Loss: * No values recorded between 06/10/2021 10:14 AM and 06/10/2021 10:21 AM * Specimens removed during surgery: None Drains: * No LDAs found * Surgical Closure: NA Disposition: aroused from sedation, and taken to the recovery room in a stable condition Condition: doing well without problems (Please see the Surgical Encounter Summary for any Implant and Specimen details pertinent to this patient.) HPI/Surgical Indications: AF. Procedure Description: Therapeutically anticoagulated. Informed consent in chart. Time out per protocol. Sedation per Anesthesia. With pads in the L posterior - R anterior position the patient receiveda 150 wsj synchronous shock converting a NSR (documented) but then reverting to AF within 30-60 seconds. A second 150 wsj synchronous shock was delivered with conversion to a NSR but again, reversion to AF in 45-90 seconds. At this point no further attempts were made at cardioversion. Surgical Infection Prevention Bundle Used? N/A Attestation: Case Date: 06/10/2021 I was present and I participated during the entire procedure (does not need to include opening and closing). NEY MARIE MD 06/10/2021 documented in this encounter Plan of Treatment Upcoming Encounters Date Type Specialty Care Team Description 12/25/2021 Appointment Radiology Isaiah Cali [place] [facility] [place] [address] 12/28/2021 Hospital Encounter Cardiology Isaiah Cali, Persist ent atrial MD fibrillation [facility] [place] [address] 12/28/2021 Surgery Cardiology Isaiah Cali, ELECTROPHYSIO GIRISH QUIGLEY PROCEDURE [facility] [place] [address] 02/02/2022 Hospital Encounter Gastroenterology Cuauhtemoc Olivas MD [facility] [place] [address] 02/02/2022 Surgery Gastroenterology Deisy EGD, UPPER GI ENDOSCOPY Cuauhtemoc Scott MD [facility] [address] Scheduled Procedures Name Priority Associated Diagnoses Date/Time EGD, UPPER GI ENDOSCOPY Change in bowel habits 02/02/2022 7:30 AM EST Abdominal pain, unspecified abdominal location COLONOSCOPY, DIAGNOSTIC Change in bowel habits 02/02/2022 7:30 AM EST Abdominal pain, unspecified abdominal location documented as of this encounter Procedures Procedure Name Priority Date/Time Associated Diagnosis Comme nts EKG 12-LEAD Routine 06/10/2021 10:41 Paroxysmal atrial Result s for this AM EDT fibrillation procedure are i n the results section. CARDIOVERSION-ELECT 06/10/2021 10:08 AF ROSETTA (WRVU 2.25) AM EDT CARDIOVERSION-OR Routine 06/10/2021 9:23 AM EDT documented in this encounter Results EKG 12 Lead (06/10/2021 10:41 AM EDT) Component Value Ref Range Test Analysis Performed Pathologis t Method Time At Signature Ventricular rate 100 BPM MUSE SYSTEM Atrial Rate 441 BPM MUSE SYSTEM QRS Duration 76 ms MUSE SYSTEM Q-T Interval 338 ms MUSE SYSTEM QTC Calculated 436 ms MUSE SYSTEM (Bezet) Calculated R Murdock 15 degrees MUSE SYSTEM Calculated T Murdock 49 degrees MUSE SYSTEM INTERPRETATION Baseline wander MUSE SYST EM Atrial fibrillation Abnormal ECG When compared with ECG of 10-JUN-2021 07:59, (unconfirmed) No significant change was found Confirmed by fellow MD Bassem, Cameron ([id number]) on 06/11/2021 12:40:55 PM Confirmed by MD Rocco, Ann ([id number]) on 06/11/2021 12:46:06 PM Specimen Anatomical Collection Method Collection Time Receive d Time (Source) Location / / Volume Laterality 06/10/2021 10:41 06/11/2021 AM EDT 12:46 PM EDT Chi Kinney MD ECG ORDERABLES Performing Organization Address City/State/ZIP Code Phon e Number MUSE SYSTEM documented in this encounter Visit Diagnoses Not on filedocumented in this encounter Active and Recently Administered Medications Care Teams Paver Relationship Specialty Start Date End Date Stew Mario DO PCP - General Family Medicine 03/24/[address] [place] [address] documented as of this encounter
--- OUTSIDE RECORDS SUMMARY | 2021-11-08 04:44 | XMS_ITS | Encounter Summary ---
:1970 [place] [address] Care Team Providers Name Role Phone Stew Mario DO Primary Care Provider Encounter Details Date Type Department Care Team Description 09/30/2021 Hospital Encounter Non-Invasive Cardiology Isaiah Cali MD [place], [place] [address] [place] [address] [phone] Social History Tobacco Use Types Packs/Day Years Used Date Never Smoker Smokeless Tobacco: Never Used Alcohol Use Standard Drinks/Week Comments Yes 2 (1 standard drink = 0.6 oz pure alcoho l) Sex Assigned at Date Recorded Male 04/03/2021 10:46 AM EST documented as of this encounter Medications at Time of Discharge Medication Sig Dispensed Refills Start Date End Date flecainide (Tambocor) 100 Take 1 tablet by 60 tablet 5 /04/2021 mg TabletIndications: PAF mouth 2 times daily. (paroxysmal atrial fibrillation) dilTIAZem (TIAZAC) 360 mg Take 1 capsule by 90 capsule 3 Capsule,Sustained Action mouth daily. 24 hr apixaban (Eliquis) 5 mg Take 1 tablet by 120 tablet 5 2021 Tablet mouth 2 times daily. pantoprazole EC (Protonix) Take 1 tablet by 90 tablet 3 40 mg Tablet, Delayed mouth daily. Release (E.C.) documented as of this encounter Plan of Treatment Upcoming Encounters Date Type Specialty Care Team Description 12/25/2021 Appointment Radiology Isaiah Cali [place] [facility] [place] [address] 12/28/2021 Hospital Encounter Cardiology Isaiah Cali, Persist ent atrial MD fibrillation [facility] [place] [address] 12/28/2021 Surgery Cardiology Isaiah Cali, ELECTROPHYSIO GIRISH QUIGLEY PROCEDURE [facility] [place] [address] 02/02/2022 Hospital Encounter Gastroenterology Cuauhtemoc Olivas MD [facility] [address] [place] [address] 02/02/2022 Surgery Gastroenterology Deisy, EGD, UPPER GI ENDOSCOPY Cuauhtemoc Scott MD [facility] [place] [address] Scheduled Procedures Name Priority Associated Diagnoses Date/Time EGD, UPPER GI ENDOSCOPY Change in bowel habits 02/02/2022 7:30 AM EST Abdominal pain, unspecified abdominal location COLONOSCOPY, DIAGNOSTIC Change in bowel habits 02/02/2022 7:30 AM EST Abdominal pain, unspecified abdominal location documented as of this encounter Visit Diagnoses Not on filedocumented in this encounter Care Teams Pallet Rectifier Relationship Specialty Start Date End Date Stew Mario DO PCP - General Family Medicine 03/24/[address] [place] [address] [address] [place] [address] documented as of this encounter
--- OUTSIDE RECORDS SUMMARY | 2021-11-08 04:44 | XMS_ITS | Encounter Summary ---
:1970 Author Organization [facility] [place] [address] Care Team Providers Name Role Phone Stew Mario DO Primary Care Provider Reason for Visit Reason Onset Date Comments Pre Procedure Call 06/01/2021 Encounter Details Date Type Department Care Team Description 06/01/2021 Telephone Cardiology at [facility] Ana Maria Yancey [place] [address] Social History Tobacco Use Types Packs/Day Years Used Date Never Smoker Sex Assigned at Date Recorded Male 04/03/2021 10:46 AM EST documented as of this encounter Miscellaneous Notes Telephone Encounter - Ana Maria Yancey RN - 06/01/2021 4:25 PM EDTSummary: Pre Procedure Call: ARLENE + Cardioversion EP RN CARDIOVERSION/DRUG LOAD CHECKLIST Patient Name: Flo Mireles Patient Providers: Murphy Shepherd / Gte Carrion Date Scheduled: 06/10/21 Arrival Time/ Case Time: 7:30 am labs / 8:30 am appt / 10:30 am ARLENE + CV Date Patient was Called: 06/02/21 Procedure: ARLENE + Cardioversion Med Instructions: BB/CCB- hold diltiazem the PM of procedure Anticoag Type: Eliquis (apixaban) - confirmed pt taking appropriately & no missed doses within past 21 days DM: No Coming from an assisted living facility?: No Special Considerations/Notes: Clear liquids (water, apple juice, muriel redd, black coffee/tea) OK up until 2 hrs prior to procedure. NPO after midnight. Understands that local intermodal truck driver is needed to transport them upon discharge. documented in this encounter Plan of Treatment Upcoming Encounters Date Type Specialty Care Team Description 12/25/2021 Appointment Radiology Isaiah Cali MD [facility] [place] [address] 12/28/2021 Hospital Encounter Cardiology Isaiah Cali, Persist ent atrial [place] fibrillation [place] [address] 12/28/2021 Surgery Cardiology Isaaih Cali, ELECTROPHYSIO GIRISH QUIGLEY PROCEDURE [facility] [place] [address] 02/02/2022 Hospital Encounter Gastroenterology Cuauhtemoc Olivas MD [facility] [place] [address] 02/02/2022 Surgery Gastroenterology SOM OlivasD, UPPER GI ENDOSCOPY Cuauhtemoc Scott MD [facility] [address] [place] [address] Scheduled Procedures Name Priority Associated Diagnoses Date/Time EGD, UPPER GI ENDOSCOPY Change in bowel habits 02/02/2022 7:30 AM EST Abdominal pain, unspecified abdominal location COLONOSCOPY, DIAGNOSTIC Change in bowel habits 02/02/2022 7:30 AM EST Abdominal pain, unspecified abdominal location documented as of this encounter Visit Diagnoses Not on filedocumented in this encounter Care Teams Charger Relationship Specialty Start Date End Date Stew Mario DO PCP - General Family Medicine 03/24/[address] [place] [address] [address] [place] [address] documented as of this encounter
--- OUTSIDE RECORDS SUMMARY | 2021-11-08 04:44 | XMS_ITS | Encounter Summary ---
:1970 Author Organization [facility] Address [facility] [place] [address] Care Team Providers Name Role Phone Stew Mario DO Primary Care Provider Encounter Details Date Type Department Care Team Description 04/17/2021 Telephone Gastroenterology at [facility] Stephanie Olvera CMA [facility] Christa [place] [address] DEPT [phone] Social History Tobacco Use Types Packs/Day Years Used Date Never Smoker Sex Assigned at Date Recorded Male 04/03/2021 10:46 AM EST documented as of this encounter Miscellaneous Notes Telephone Encounter - Stephanie Olvera CMA - 04/17/2021 2:00 PM EST Called patient to review medications and allergies for their upcoming gastroenterology Type of Appointment: Telehealth appointment. Reach Patient during MA Check: No, Left Message Notes for the provider: Notes for the nurse: documented in this encounter Plan of Treatment Upcoming Encounters Date Type Specialty Care Team Description 12/25/2021 Appointment Radiology Isaiah Cal[place] [address] 12/28/2021 Hospital Encounter Cardiology Isaiah Cali, Persist ent atrial MD [place] [address] 12/28/2021 Surgery Cardiology Isaiah Cali, ELECTROPHYSIO GIRISH QUIGLEY PROCEDURE [place] [address] 02/02/2022 Hospital Encounter Gastroenterology Cuauhtemoc Olivas MD [facility] [address] [place] [address] 02/02/2022 Surgery Gastroenterology Deisy EGD, UPPER GI ENDOSCOPY Cuauhtemoc Scott MD [facility] [address] [place] [address] Scheduled Procedures Name Priority Associated Diagnoses Date/Time EGD, UPPER GI ENDOSCOPY Change in bowel habits 02/02/2022 7:30 AM EST Abdominal pain, unspecified abdominal location COLONOSCOPY, DIAGNOSTIC Change in bowel habits 02/02/2022 7:30 AM EST Abdominal pain, unspecified abdominal location documented as of this encounter Visit Diagnoses Not on filedocumented in this encounter Care Teams Internet Project Manager Relationship Specialty Start Date End Date Stew Mario DO PCP - General Family Medicine 03/24/[address] [place] [address] [address] [place] [address] documented as of this encounter
--- OUTSIDE RECORDS SUMMARY | 2021-11-08 04:44 | XMS_ITS | Encounter Summary ---
:1970 Author Organization [facility] [place] [address] Care Team Providers Name Role Phone Fabiano Stew BA Primary Care Provider Reason for Referral Diagnostic Test (Routine) - New Request Specialty Diagnoses / Procedures Referred By Contact Refer red To Contact Radiology Diagnoses Atrial fibrillation, unspecified type PAF (paroxysmal atrial fibrillation) MARTINEZ (dyspnea on exertion) Fatigue, unspecified type FH: CAD (coronary artery disease) Murphy Shepherd PA Procedures NM Pharmacologic Stress and Rest Myocardial Perfusion [facility] [place] [address] Referral ID Status Reason Start Expiration Visits Visits Date Date Requested Authorized [id number] New Request Specialty 06/10/2021 12/10/2022 1 1 Service Requested iagnostic Test (Routine) - New Request Specialty Diagnoses / Procedures Referred By Contact Refer red To Contact Radiology Diagnoses Atrial fibrillation, unspecified type PAF (paroxysmal atrial fibrillation) MARTINEZ (dyspnea on exertion) Fatigue, unspecified type FH: CAD (coronary artery disease) Murphy Shepherd PA [facility] Rad Nuclear Med Procedures NM Pharmacologic Stress CT Component [facility] [place] [address] [place] [address] Fax: Referral ID Status Reason Start Expiration Visits Visits Date Date Requested Authorized [id number] New Request Specialty 06/10/2021 12/11/2022 1 1 Service Requested Encounter Details Date Type Department Care Team Description 06/10/2021 Office Visit Cardiology at [facility] Murphy Shepherd, Atrial fibrillation, unspeci fied type; [facility] MARCELL PAF (paroxysmal atrial fibrillation); [facility] MARTINEZ (dyspnea on exertion); [place], [place] Fatigue, unspecified type; [id number] CARDIOLOGY DEPT FH: CAD (coronary artery disease) [phone] [place], [place] [address] Social History Tobacco Use Types Packs/Day Years Used Date Never Smoker Smokeless Tobacco: Never Used Alcohol Use Standard Drinks/Week Comments Yes 2 (1 standard drink = 0.6 oz pure alcoho l) Sex Assigned at Date Recorded Male 04/03/2021 10:46 AM EST documented as of this encounter Last Filed Vital Signs Vital Sign Reading Time Taken Comments Blood Pressure 121/79 06/10/2021 7:55 AM EDT Pulse 97 06/10/2021 7:55 AM EDT Temperature - - Respiratory Rate - - Oxygen Saturation 98% 06/10/2021 7:55 AM EDT Inhaled Oxygen Concentration - - Weight 103.6 kg (228 lb 6.4 oz) 06/10/2021 7:55 AM EDT Height 167.6 cm (5' 6) 06/10/2021 7:55 AM EDT Reported Body Mass Index 36.86 06/10/2021 7:55 AM EDT documented in this encounter Progress Notes Murphy Shepherd, MARCELL - 06/10/2021 8:30 AM EDT Day of Cardioversion History and Physical Subjective: Patient ID: Flo Mireles is a 50 y.o. male. CC: Presents for pre-ARLENE/cardioversion evaluation HPI: 50 y.o. male with past medical history of recently diagnosed persistent atrial fibrillation, recently started on Eliquis anticoagulation, preserved LVEF by echo in October 2019, SYD on CPAP, followed by Chi Kinney MD, who presents today for elective cardioversion. Patient suspects he has been in persistent atrial fibrillation since late fall 2020. He had a 48-hour Holter monitor in March 2021 that showed persistent atrial fibrillation with mean heart rate 96 bpm. He has been uptitrated on long- acting Diltiazem 240 mg daily to attempt improved rate control. He was placed on Eliquis anticoagulation with plans for elective direct-current cardioversion. He has a history of obstructive sleep apnea diagnosed around 2019. In fact, his atrial fibrillation was diagnosed around the same time when he was found to be in irregular rhythm during sleep evaluation. He is mostly compliant with CPAP - admits to sometimes falling asleep on the couch without mask. He drinks couple alcoholic drinks per week. 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 There have not been any medication changes since the last visit. This morning, all medications were taken except Diltizem (48-hour hold). he has been NPO since last night. he is anticoagulated with Eliquis (is adamant there have been no missed doses in the last 3 weeks). Patient Active Problem List Diagnosis ??? PAF (paroxysmal atrial fibrillation) ??? GERD with esophagitis ??? Hiatal hernia ??? Chronic atrial fibrillation Interval ROS: Patient denies cough, fever, PND, orthopnea, activity intolerance, leg swelling, change in bowel habit, presyncope or syncope. Medications: No current outpatient medications on file. Allergies No Known Allergies Objective: Vitals: Vitals: 06/10/21 0755 BP: 121/79 Patient Position: Sitting Pulse: 97 SpO2: 98% Weight: 103.6 kg (228 lb 6.4 oz) Height: 167.6 cm (5' 6) Physical Exam: General- No acute distress, sitting comfortably in exam room chair Skin- Warm and dry Cardiovascular- S1/S2 irregular rate and rhythm. No murmur, rub or gallop Lungs- Clear to auscultation bilaterally Extremities- Pulses equal bilaterally. No edema noted Neuro- A&Ox3 Lab data: Recent Labs 06/10/21 0738 NA 141 K 4.5 CL 103 CO2 27 BUN 19 CREATININE 1.03 Lab Results Component Value Date MAGNESIUM 0.90 06/10/2021 Assessment and Plan: 50 y.o. with medical history significant for recently diagnosed persistent atrial fibrillation, recently started on Eliquis anticoagulation, preserved LVEF by echo in October 2019, SYD on CPAP, followed by Chi Kinney MD, who presents today for elective cardioversion. . [id number] Score is 0. No contraindication to planned cardioversion today. Plan: 1. The cardioversion procedure was discussed and questions answered. We discussed possible risks including but not limited to: skin irritation or العراقي, bradycardia or rhythm abnormalities(arrythmia), stroke(CVA), aspiration, cardiac arrest. Written consent was obtained and placed in hard chart. 2. Code Status: FULL CODE 3. Patient to proceed to Same Day Program 4. Follow up will be dependent on the results of the cardioversion. MARCELL Bettencourt documented in this encounter Miscellaneous Notes Addendum Note - Murphy Shepherd PA - 06/10/2021 8:30 AM EDT Addended by: MURPHY SHEPHERD on: 06/10/2021 03:17 PM Modules accepted: Orders documented in this encounter Plan of Treatment Upcoming Encounters Date Type Specialty Care Team Description 12/25/2021 Appointment Radiology Isaiah Cali MD [facility] [place] [address] 12/28/2021 Hospital Encounter Cardiology Isaiah Cali, Persist ent atrial MD fibrillation [facility] [place] [address] 12/28/2021 Surgery Cardiology Isaiah Cali, ELECTROPHYSIO GIRISH QUIGLEY PROCEDURE [facility] [place] [address] 02/02/2022 Hospital Encounter Gastroenterology Cuauhtemoc Olivas MD [facility] [address] 02/02/2022 Surgery Gastroenterology Winter, EGD, UPPER GI ENDOSCOPY Cuauhtemoc Scott MD [facility] [place] [address] Scheduled Orders Name Type Priority Associated Diagnoses Order S chedule NM Pharmacologic Imaging Routine Atrial fibrillation, Exp ected: Stress CT Component unspecified type 06/11/2021 PAF (paroxysmal (Approximate ), atrial fibrillat ion) Expires: MARTINEZ (dyspnea on 06/10/2022 exertion) Fatigue, unspecified type FH: CAD (coronary artery disease) Nuclear Pharmacologic Cardiac Services Routine Atrial fibrilla tion, Expected: Stress Cardiology unspecified ty pe 06/11/2021 PAF (paroxysmal (Approximate ), atrial fibrillat ion) Expires: MARTINEZ (dyspnea on 06/10/2022 exertion) Fatigue, unspecified type FH: CAD (coronary artery disease) NM Pharmacologic Imaging Routine Atrial fibrillation, Exp ected: Stress and Rest unspecified type 06/11/2021 Myocardial Perfusion PAF (paroxysmal (Rosemary roximate), atrial fibrillat ion) Expires: MARTINEZ (dyspnea on 06/10/2022 exertion) Fatigue, unspecified type FH: CAD (coronary artery disease) Scheduled Procedures Name Priority Associated Diagnoses Date/Time EGD, UPPER GI ENDOSCOPY Change in bowel habits 02/02/2022 7:30 AM EST Abdominal pain, unspecified abdominal location COLONOSCOPY, DIAGNOSTIC Change in bowel habits 02/02/2022 7:30 AM EST Abdominal pain, unspecified abdominal location documented as of this encounter Procedures Procedure Name Priority Date/Time Associated Diagnosis Comme nts EKG 12-LEAD Routine 06/10/2021 7:59 AM Atrial fibrillation, R esults for this EDT unspecified type procedure a re in the results section. documented in this encounter Results EKG 12 Lead (06/10/2021 7:59 AM EDT) Component Value Ref Range Test Analysis Performed Pathologis t Method Time At Signature Ventricular rate 93 BPM MUSE SYSTEM QRS Duration 80 ms MUSE SYSTEM Q-T Interval 344 ms MUSE SYSTEM QTC Calculated 427 ms MUSE SYSTEM (Bezet) Calculated R Brigantine 19 degrees MUSE SYSTEM Calculated T Brigantine 48 degrees MUSE SYSTEM INTERPRETATION Atrial fibrillation MUSE SYSTEM Abnormal ECG No previous ECGs available Confirmed by MD Crow, Ghassan ([id number]) on 06/10/2021 1:07:10 PM Specimen Anatomical Collection Method Collection Time Receive d Time (Source) Location / / Volume Laterality 06/10/2021 7:59 AM 2 1:07 EDT PM EDT Get Carrion MD ECG ORDERABLES Performing Organization Address City/State/ZIP Code Phon e Number MUSE SYSTEM Magnesium (06/10/2021 7:38 AM EDT) P athologist Signature Magnesium 0.90 0.69 - 1.07 [facility] mmol/L [facility] Specimen Anatomical Collection Method Collection Time Receive d Time (Source) Location / / Volume Laterality Blood 06/10/2021 7:38 AM 2 7:50 EDT AM EDT Resulting Agency Comment Spec In Lab Get Carrion MD CHEMISTRY ORDERABLES Performing Organization Address City/State/[place] [address] (ABNORMAL) BMP w/fasting Glucose (06/10/2021 7:38 AM EDT) P athologist Signature Glucose 107 (H) 65 - 99 [facility] Fasting mg/dL [facility] Comment: ?Fasting* Glucose Interpretive C riteria Normal ?65-99 mg/dL Impaired Fasting glucose ?100-125 mg/dL Consistent with Diabetes Mellitus ? >or= 126 mg/dL *Fasting is defined as no caloric intake for at least 8 hours In the absence of unequivocal hypergly cemia a plasma glucose value of >or= 126 mg/dL should be repeated on a subseq uent day. Diagnosis and Classification of Diabetes Mellitus, Position Statement from the [place] [employer]. ??Diabete s Care, Volume 33, Supplement 1, Feb 2009 BUN 19 10 - 20 mg/dL [facility] Creatinine 1.03 0.80 - 1.50 mg/dL [facility] Sodium 141 135 - 145 mmol/L [facility] Potassium 4.5 3.5 - 5.0 mmol/L [facility] Comment: Please note: ??Patients with WBC >100,00 0 may have falsely elevated Potassium levels. ??For accurate Potassium quantif ication in these patients send serum separator tube (gold top) for subsequent determinations. ??Contact the Clinical Chemistry Laboratory if there are any qu estions. Chloride 103 98 - 107 mmol/L [facility] CO2 27 22 - 31 mmol/L [facility] Anion Gap 11 5 - 15 mmol/L [facility] Calcium 9.4 8.5 - 10.5 mg/dL [facility] Estimated GFR 84 >=60 mL/min/1.73 m?? [facility] Comment: This patient? s estimated glomerular filtration rate (eGFR) is between 84 mL/min/1.73 m2 (patients with less muscl e mass per kg body weight) and 98 mL/min/1.73 m2 (patients with more muscl e mass per kg body weight) as determined by the CKD-EPI equation. Asse ssment of eGFR is not appropriate when creatinine concentrations are rapidly ch anging. For clinical decisions where creatinine clearance will affect therapy , a 24-hour urine creatinine clearance may be advised. Assignment of CKD stage 1 - 5 for patien ts with an eGFR near the transition point between stages may be based on cli nical assessment of muscle mass and symptoms in addition to eGFR. Specimen Anatomical Collection Method Collection Time Receive d Time (Source) Location / / Volume Laterality Blood 06/10/2021 7:38 AM 7:50 EDT AM EDT Resulting Agency Comment Spec In Lab Get Carrion MD CHEMISTRY ORDERABLES Performing Organization Address City/State/ZIP [place] [address] documented in this encounter Visit Diagnoses Diagnosis Atrial fibrillation, unspecified type PAF (paroxysmal atrial fibrillation) Atrial fibrillation MARTINEZ (dyspnea on exertion) Other dyspnea and respiratory abnormalit y Fatigue, unspecified type FH: CAD (coronary artery disease) Family history of ischemic heart disease Persistent atrial fibrillation Atrial fibrillation Persistent atrial fibrillation Atrial fibrillation Change in bowel habits Other symptoms involving digestive syste m Abdominal pain, unspecified abdominal lo cation documented in this encounter Care Teams Hvac Manager Relationship Specialty Start Date End Date Stew Mario DO PCP - General Family Medicine 03/24/[address] [place] [address] [facility] [address] [place] [address] documented as of this encounter
--- OUTSIDE RECORDS SUMMARY | 2021-11-08 04:44 | XMS_ITS | Encounter Summary ---
:1970 Author Organization [facility] Address [facility] [place] [address] Care Team Providers Name Role Phone Stew Mario DO Primary Care Provider Reason for Visit Reason Onset Date Comments Advice Only 10/14/2021 Encounter Details Date Type Department Care Team Description 10/14/2021 Notes Only Cardiology at [facility] Abundio Black MD Advice Only [facility] keisha [facility] [place] [address] CARDIOLOGY DEPT [phone] [place], [place] [address] (Wo rk) Social History Tobacco Use Types Packs/Day Years Used Date Never Smoker Smokeless Tobacco: Never Used Alcohol Use Standard Drinks/Week Comments Yes 2 (1 standard drink = 0.6 oz pure alcoho l) Sex Assigned at Date Recorded Male 04/03/2021 10:46 AM EST documented as of this encounter Progress Notes Abundio Black MD - 10/14/2021 2:47 PM EDT Telephone call to Chi family (, Desirae) with update: Recommendation regarding anticoagulation around the time of a pending GI scope (not yet scheduled), as cleared with Dr. Kinney, will be to hold 3 days of anticoagulation prior and resume the day after. Updated regarding timeline for schedule atrial fibrillation ablation- he is on the queue as per EP scheduling here, they have yet to make the schedule for December into January (Mr. Mireles was hoping tohave this done the week of school vacation in January). Abundio Black MD Cardiac Electrophysiology Fellow [facility] Pager [phone] 10/14/2021 documented in this encounter Plan of Treatment Upcoming Encounters Date Type Specialty Care Team Description 12/25/2021 Appointment Radiology Isaiah Cali MD [facility] [place] [address] 12/28/2021 Hospital Encounter Cardiology Isaiah Cali, Persist ent atrial [place] [address] 12/28/2021 Surgery Cardiology Isaiah Cali, ELECTROPHYSIO GIRISH QUIGLEY PROCEDURE [facility] [place] [address] 02/02/2022 Hospital Encounter Gastroenterology Cuauhtemoc Olivas MD [facility] [place] [address] 02/02/2022 Surgery Gastroenterology SOM OlivasD, UPPER GI ENDOSCOPY Cuauhtemoc Scott MD [facility] [place] [address] Scheduled Procedures Name Priority Associated Diagnoses Date/Time EGD, UPPER GI ENDOSCOPY Change in bowel habits 02/02/2022 7:30 AM EST Abdominal pain, unspecified abdominal location COLONOSCOPY, DIAGNOSTIC Change in bowel habits 02/02/2022 7:30 AM EST Abdominal pain, unspecified abdominal location documented as of this encounter Visit Diagnoses Not on filedocumented in this encounter Care Teams Lecturer In Marketing Relationship Specialty Start Date End Date Stew Mario DO PCP - General Family Medicine 03/24/[address] [place] [address] [address] [place] [address] documented as of this encounter
--- OUTSIDE RECORDS SUMMARY | 2021-11-08 04:44 | XMS_ITS | Encounter Summary ---
:1970 Author Organization [facility] [place] [address] Care Team Providers Name Role Phone Stew Mario DO Primary Care Provider Encounter Details Date Type Department Care Team Description 09/11/2021 Telephone Cardiology at [facility] Nivia Sullivan, [place] [facility] [place] [address] Social History Tobacco Use Types Packs/Day Years Used Date Never Smoker Smokeless Tobacco: Never Used Alcohol Use Standard Drinks/Week Comments Yes 2 (1 standard drink = 0.6 oz pure alcoho l) Sex Assigned at Date Recorded Male 04/03/2021 10:46 AM EST documented as of this encounter Miscellaneous Notes Telephone Encounter - Nivia Sullivan, RN - 09/11/2021 9:19 AM EDT TC to Mr Mireles who states he picked his prescription for Flecainide up yesterday. Per Dr Kinney he canstart taking his Flecainide 100mg, BID, and see Dr Cali on 09/30/2021, to determine plan with EP provider. Asked Mr Mireles to talk with EP provider regarding plan going forward, and to work with his GI Specialist as to urgency of Scope, ordered, for Stomach pain. Mr Mireles understands this plan and agrees. Nivia Sullivan RN (Jodie), BSN [facility] documented in this encounter Plan of Treatment Upcoming Encounters Date Type Specialty Care Team Description 12/25/2021 Appointment Radiology Isaiah Cal[place] [address] 12/28/2021 Hospital Encounter Cardiology Isaiah Cali, Persist ent atrial MD fibrillation [place] [address] 12/28/2021 Surgery Cardiology Isaiah Cali, ELECTROPHYSIO GIRISH QUIGLEY PROCEDURE [place] [address] 02/02/2022 Hospital Encounter Gastroenterology Cuauhtemoc Olivas MD [facility] [place] [address] 02/02/2022 Surgery Gastroenterology Deisy EGD, UPPER GI ENDOSCOPY Cuauhtemoc Scott MD [facility] [place] [address] Scheduled Procedures Name Priority Associated Diagnoses Date/Time EGD, UPPER GI ENDOSCOPY Change in bowel habits 02/02/2022 7:30 AM EST Abdominal pain, unspecified abdominal location COLONOSCOPY, DIAGNOSTIC Change in bowel habits 02/02/2022 7:30 AM EST Abdominal pain, unspecified abdominal location documented as of this encounter Visit Diagnoses Not on filedocumented in this encounter Care Teams Car Pick Up Driver Relationship Specialty Start Date End Date Stew Mario DO PCP - General Family Medicine 03/24/[address] [place] [address] documented as of this encounter
--- OUTSIDE RECORDS SUMMARY | 2021-11-08 04:44 | XMS_ITS | Encounter Summary ---
:1970 Author Organization [facility] [place] [address] Care Team Providers Name Role Phone Stew Mario DO Primary Care Provider Encounter Details Date Type Department Care Team Description 06/10/2021 Orders Only Cardiology at [facility] Chi Kinney, Atrial fibrillation, [facility] [place] [address] CARDIOLOGY DEPT. [phone] [place], [place] [address] (Wo rk) Social History Tobacco Use Types Packs/Day Years Used Date Never Smoker Smokeless Tobacco: Never Used Alcohol Use Standard Drinks/Week Comments Yes 2 (1 standard drink = 0.6 oz pure alcoho l) Sex Assigned at Date Recorded Male 04/03/2021 10:46 AM EST documented as of this encounter Plan of Treatment Upcoming Encounters Date Type Specialty Care Team Description 12/25/2021 Appointment Radiology Isaiah Cali MD [facility] [place] [address] 12/28/2021 Hospital Encounter Cardiology Isaiah Cali, Persist ent atrial MD fibrillation [facility] [place] [address] 12/28/2021 Surgery Cardiology Isaiah Cali, ELECTROPHYSIO GIRISH QUIGLEY PROCEDURE [facility] [place] [address] 02/02/2022 Hospital Encounter Gastroenterology Cuauhtemoc Olivas MD [facility] [place] [address] 02/02/2022 Surgery Gastroenterology Diesy EGD, UPPER GI ENDOSCOPY Cuauhtemoc Scott MD [facility] [place] [address] Scheduled Procedures Name Priority Associated Diagnoses Date/Time EGD, UPPER GI ENDOSCOPY Change in bowel habits 02/02/2022 7:30 AM EST Abdominal pain, unspecified abdominal location COLONOSCOPY, DIAGNOSTIC Change in bowel habits 02/02/2022 7:30 AM EST Abdominal pain, unspecified abdominal location documented as of this encounter Visit Diagnoses Diagnosis Atrial fibrillation, unspecified type Persistent atrial fibrillation Atrial fibrillation Persistent atrial fibrillation Atrial fibrillation Change in bowel habits Other symptoms involving digestive syste m Abdominal pain, unspecified abdominal lo cation documented in this encounter Care Teams Rooter Operator Relationship Specialty Start Date End Date Stew Mario DO PCP - General Family Medicine 03/24/[address] [place] [address] [address] [place] [address] documented as of this encounter
--- OUTSIDE RECORDS SUMMARY | 2021-11-08 04:44 | XMS_ITS | Encounter Summary ---
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 Stew Mario DO [facility] [address] [place] One [facility] 1 [place] [address] [place] [phone] Phone: Fax: Referral ID Status Reason Start Expiration Visits Visits Date Date Requested Authorized [id number] Authorized Consult, 03/24/2021 03/24/2022 6 6 Test & Treat PCP Updated and/or Approved Encounter Details Date Type Department Care Team Description 03/24/2021 Transcribe Orders Gastroenterology at [place] Mario ominal pain, [facility] DO Stew unspecified [facility] [address] Man [facility] 1 [place] [address] [place] [address] Social History Tobacco Use Types Packs/Day Years Used Date Never Smoker Sex Assigned at Date Recorded Male 04/03/2021 10:46 AM EST documented as of this encounter Plan of Treatment Upcoming Encounters Date Type Specialty Care Team Description 12/25/2021 Appointment Radiology Isaiah Cali MD [facility] [place] [address] 12/28/2021 Hospital Encounter Cardiology Isaiah aCli, Persist ent atrial MD fibrillation [facility] [place] [address] 12/28/2021 Surgery Cardiology Isaiah Cali, ELECTROPHYSIO GIRISH QUIGLEY PROCEDURE [facility] [place] [address] 02/02/2022 Hospital Encounter Gastroenterology Cuauhtemoc Olivas MD [facility] [place] [address] 02/02/2022 Surgery Gastroenterology Deisy EGD, UPPER GI ENDOSCOPY Cuauhtemoc Scott MD [facility] [place] [address] Scheduled Procedures Name Priority Associated Diagnoses Date/Time EGD, UPPER GI ENDOSCOPY Change in bowel habits 02/02/2022 7:30 AM EST Abdominal pain, unspecified abdominal location COLONOSCOPY, DIAGNOSTIC Change in bowel habits 02/02/2022 7:30 AM EST Abdominal pain, unspecified abdominal location Scheduled Referrals Name Type Priority Associated Order Schedule Diagnoses Referral to Outpatient Routine Abdominal pain, Ordered: Gastroenterology Referral unspecified 03/24/2021 abdominal location documented as of this encounter Visit Diagnoses Diagnosis Abdominal pain, unspecified abdominal lo cation Persistent atrial fibrillation Atrial fibrillation Persistent atrial fibrillation Atrial fibrillation Change in bowel habits Other symptoms involving digestive syste m Abdominal pain, unspecified abdominal lo cation documented in this encounter Care Teams Lodging House Keeper Relationship Specialty Start Date End Date Stew Mario DO PCP - General Family Medicine 03/24/[address] [place] [address] documented as of this encounter
--- OUTSIDE RECORDS SUMMARY | 2021-11-08 04:44 | XMS_ITS | Encounter Summary ---
:1970 Author Organization [facility] [place] [address] Care Team Providers Name Role Phone Stew Mario Primary Care Provider Reason for Visit Reason Comments Hematuria Encounter Details Date Type Department Care Team Description 11/05/2015 Office Visit Urology at [facility] Balta Woods MD Other symptoms involving urinary system( 788.99); [facility] [address] [place] [address] [phone] (Wo rk) Social History Tobacco Use Types Packs/Day Years Used Date Never Smoker Sex Assigned at Date Recorded Male 04/03/2021 10:46 AM EST documented as of this encounter Last Filed Vital Signs Vital Sign Reading Time Taken Comments Blood Pressure 118/72 11/05/2015 4:19 PM EDT Pulse 70 11/05/2015 4:19 PM EDT Temperature 36.8 ??C (98.2 ??F) 11/05/2015 4:19 PM EDT Respiratory Rate 20 11/05/2015 4:19 PM EDT Oxygen Saturation 96% 11/05/2015 4:19 PM EDT Inhaled Oxygen Concentration - - Weight 95.3 kg (210 lb) 11/05/2015 4:19 PM EDT Height 167.6 cm (5' 6) 11/05/2015 4:19 PM EDT Body Mass Index 33.89 11/05/2015 4:19 PM EDT documented in this encounter Progress Notes Balta Woods MD - 11/05/2015 4:20 PM EDT Subjective: Patient ID: Flo Mireles is a 45 y.o. male. HPI Patient returns for FU of gross painless hematuria one year ago with negative CTU and cystoscopy. Hehas not had any gross hematuria since his last visit but does C/O episodic urinary frequency. Frequency is NOT constant. Review of Systems Deneis UTI, flank pain Objective: Physical Exam Abd; Flat soft NT, no CVAT UA 1+ blood Assessment and Plan: H/O gross painless hematuria with negative workup. Discussed possible causes of episodic urinary frequency including anxiety, stress, dietary bladder irritants and OAB. He declines medical therapy since minimal bother. Plan: 1. UA, Cx and cytology 2. RTC one year UA and cytology documented in this encounter Plan of Treatment Upcoming Encounters Date Type Specialty Care Team Description 12/25/2021 Appointment Radiology Isaiah Cali MD [facility] [place] [address] 12/28/2021 Hospital Encounter Cardiology Isaiah Cali, Persist ent atrial MD fibrillation [facility] [place] [address] 12/28/2021 Surgery Cardiology Isaiah Cali, ELECTROPHYSIO GIRISH QUIGLEY PROCEDURE [facility] [place] [address] 02/02/2022 Hospital Encounter Gastroenterology Cuauhtemoc Olivas MD [facility] [place] [place] [address] 02/02/2022 Surgery Gastroenterology MANUEL Olivas, UPPER GI ENDOSCOPY Cuauhtemoc Scott MD [facility] [place] [address] Scheduled Procedures Name Priority Associated Diagnoses Date/Time EGD, UPPER GI ENDOSCOPY Change in bowel habits 02/02/2022 7:30 AM EST Abdominal pain, unspecified abdominal location COLONOSCOPY, DIAGNOSTIC Change in bowel habits 02/02/2022 7:30 AM EST Abdominal pain, unspecified abdominal location documented as of this encounter Procedures Procedure Name Priority Date/Time Associated Comments Diagnosis URINE CULTURE Routine 11/05/2015 5:38 PM Other symptoms Result s for this EDT involving urinary procedure are in system(788.99) the results section. NON-STIPPLER FINAL REPORT Routine 11/05/2015 4:45 PM R esults for this EDT procedure are i n the results section. URINALYSIS WITH REFLEX Routine 11/05/2015 4:45 PM Other sympto ms Results for this CULTURE EDT involving urinary procedure are in system(788.99) the results section. CYTOPATHOLOGY Routine 11/05/2015 4:45 PM Other symptoms Result s for this NON-GYNECOLOGICAL EDT involving urinary proce dure are in system(788.99) the results section. documented in this encounter Results Urine culture Clean Catch Urine (11/05/2015 5:38 PM EDT) [facility] [employer] Method Time Signature Urine Culture No growth [facility] (Less than [facility] 1,000 [employer] cfu/ml). LABORATORY Specimen (Source) Anatomical Collection Method Collection Time Re ceived Time Location / / Volume Laterality Urine specimen 11/05/2015 5:38 11/05/2015 5:38 obtained by clean PM EDT PM EDT catch procedure (specimen) Resulting Agency Comment Spec In Lab Balta Woods MD MICROBIOLOGY - GENERAL ORDER MARII Performing Organization Address City/State/ZIP Code Phon [place] [address] Non-Training And Development Officer Final Report (11/05/2015 4:45 PM EDT) Component Value Ref Test Analysis Performed At [facility] [employer] Range Method Time Signature Non-Training And Development Officer Final [id number] ? Location: NILO CARTAGE[facility] The signing pathologist has (i) examined the relevant preparation(s) for the [facility] specimen(s) and (ii) rendered or confirmed the diagnosis(es) . HOSPITAL LABORATORY . ? No n-Training And Development Officer Final DIAGNOSIS Negative for Malignancy Electronically signed by: ??Gee QUIGLEY PhD, Moses Ware Verified: ??11/07/2015 ?Pathologist DISCUSSION Urine, Voided: Benign urothelial cells with single cluster, squamous cells and crystals are present. See note. Note: Clusters in voided urine can be seen in li thiasis, infection, low grade neoplasms, etc. Clinical correlation is required. CLINICAL INFORMATION Specimen Source : ?? Urine, Voided Pertinent Clinical Data and Significant Therapy: ?? Hematuria Clinical Impression : ?? Hematuria Pertinent Radiologic Findings ??: ?? (not provided) Gross Description: ?? Received ??in 50% ETOH, ??approximately 70 mL total volume of ?? clear, yellow fluid, with light flecks. ?? Total Preparation: Liquid Based Prep 1. Specimen (Source) Anatomical Collection Method Collection Time Re ceived Time Location / / Volume Laterality 11/05/2015 4:45 PM EDT Balta Woods MD PATHOLOGY/CYTOLOGY ORDERABLE S Performing Organization Address City/[facility]/[place] [address] Cytopathology Non-Gynecological (11/05/2015 4:45 PM EDT) Specimen Anatomical Collection Method Collection Time Receive d Time (Source) Location / / Volume Laterality AP Specimen 11/05/2015 4:45 PM 6 4:45 EDT PM EDT Narrative [facility] - 11/05/2015 4:45 PM EDT Specimen requisition ordered. ??Separate Pathology report to follow Balta Woods MD PATHOLOGY/CYTOLOGY ORDERABLE S Performing Organization Address City/[facility] [place] [address] (ABNORMAL) Urinalysis with reflex Culture (11/05/2015 4:45 PM EDT) [facility] gist Method Time Signature Glucose UA Negative Negative [facility]/dL [facility] LABORATORY Protein UA Negative Negative [facility] mg/dL [facility] LABOR[facility]ORY Bilirubin UA Negative Negative [facility] mg/dL [facility] LABORATORY Comment: Clinical correlation required for positi ve Urine Bilirubin results as false positive may occur with some drugs and d rug related products. If a false positive is suspected a serum total bili aquino should be considered if clinically indicated. Urobilinogen UA Normal Normal mg/dL [facility] LABORATORY pH UA 6.0 5.0 - 8.0 [facility] LABORATORY Blood UA Small (A) Negative mg/dL [facility] Ketones UA Negative Negative mg/dL [facility] Nitrite UA Negative Negative [facility] Leukocytes UA Negative Negative [facility] LABORATORY Appearance UA Clear Clear [facility] Spec [place] UA 1.020 1.002 - 1.030 [facility] LABORATORY Color UA Yellow Yellow [facility] LABORATORY RBC UA 2 0 - 3 /HPF [facility] LAB[facility] WBC UA 1 0 - 3 /HPF [facility] LAB[facility]ORY Culture Reflexed No [facility] LABORATORY Specimen (Source) Anatomical Collection Method Collection Time Re ceived Time Location / / Volume Laterality Urine specimen 11/05/2015 4:45 11/05/2015 5:03 obtained by clean PM EDT PM EDT catch procedure (specimen) Resulting Agency Comment Spec In Lab Balta Woods MD URINE ORDERABLES Performing Organization Address City/State/ZIP [place] [address] documented in this encounter Visit Diagnoses Diagnosis Other symptoms involving urinary system( 788.99) Other symptoms involving urinary system Gross hematuria Persistent atrial fibrillation Atrial fibrillation Persistent atrial fibrillation Atrial fibrillation Change in bowel habits Other symptoms involving digestive syste m Abdominal pain, unspecified abdominal lo cation documented in this encounter Care Teams Die Grinder Relationship Specialty Start Date End Date Stew Mario DO PCP - General 12/30/09 03/23/21 [address] [place] [address] documented as of this encounter
--- OUTSIDE RECORDS SUMMARY | 2021-11-08 04:44 | XMS_ITS | Encounter Summary ---
:1970 Author Organization [facility] [place] [address] Care Team Providers Name Role Phone Stew Mario DO Primary Care Provider Encounter Details Date Type Department Care Team Description 05/28/2021 Orders Only Cardiology at [facility] Chi Kinney, Atrial fibrillation, [facility] [place] [address] CARDIOLOGY DEPT. [phone] [facility] [place] [facility] (Wo rk) Social History Tobacco Use Types Packs/Day Years Used Date Never Smoker Sex Assigned at Date Recorded Male 04/03/2021 10:46 AM EST documented as of this encounter Progress Notes Nivia Sullivan, RN - 05/28/2021 10:26 AM EDT ARLENE for 06/10 Cardioversiodn documented in this encounter Plan of Treatment Upcoming Encounters Date Type Specialty Care Team Description 12/25/2021 Appointment Radiology Isaiah Cali MD [facility] [place] [address] 12/28/2021 Hospital Encounter Cardiology Isaiah Cali, Persist ent atrial MD fibrillation [facility] [place] [address] 12/28/2021 Surgery Cardiology Isaiah Cali, ELECTROPHYSIO GIRISH QUIGLEY PROCEDURE [facility] [place] [address] 02/02/2022 Hospital Encounter Gastroenterology Cuauhtemoc Olivas MD [facility] [place] [address] 02/02/2022 Surgery Gastroenterology Deisy EGD, UPPER GI ENDOSCOPY Cuauhtemoc Scott MD [facility] [place] [address] Scheduled Procedures Name Priority Associated Diagnoses Date/Time [...] cation documented in this encounter Care Teams Process Mold Technician Relationship Specialty Start Date End Date Stew Mario DO PCP - General Family Medicine 03/24/21 [address] [place] [address] documented as of this encounter
--- OUTSIDE RECORDS SUMMARY | 2021-11-08 04:44 | XMS_ITS | Encounter Summary ---
:1970 Author Organization [facility] Address [facility] [place] [address] Care Team Providers Name Role Phone Stew Mario DO Primary Care Provider Encounter Details Date Type Department Care Team Description 12/04/2014 Office Visit Urology at [facility] Balta Woods MD Acute cystitis with hematuria (Primary D x); [place] [address] Gross hematuria; Drive UROLOGY Urethral stricture, unspecified location , [place] [address] [phone] (Wo rk) Social History Tobacco Use Types Packs/Day Years Used Date Never Smoker Sex Assigned at Date Recorded Male 04/03/2021 10:46 AM EST documented as of this encounter Patient Instructions Patient InstructionsBarrett Ross LPN - 12/04/2014 4:08 PM EDT Instructions following Cystoscopy Activity: As tolerated by your comfort level. Fluids: You should increase your water today. Avoid coffee, tea and cola. You do not need to exceed 64 ounces of water today. Urination: You will likely have a small amount of blood in your urine for the next several days. This is normal; however, if you are passing large amounts of blood clots or are unable to void please call our office at [phone] before 5PM or [phone] after hours. Please call if: * you have copious blood in your urine * fevers greater than 101.3 F * you are unable to void The number for questions is [phone] before 5 PM weekdays and [phone] after 5 PM and weekends. Follow-up: With Dr Woods in 1 year. documented in this encounter Progress Notes Balta Woods MD - 12/04/2014 8:52 PM EDT Procedure: Flexible cystoscopy. Surgeon: Peggy Complications: None. Procedure: Urinalysis revealed no evidence of an active urinary tract infection. After informed consent was obtained and the external genitalia appropriately had been cleaned and draped lidocaine was instilled into the urethra to achieve topical anesthesia. The flexible telescope was inserted into the urethra and advanced into the bladder under direct vision. The bladder was systematically inspected through 360 degrees with the flexible telescope including retroversion. Anterior urethroscopy reveals a mild, thin bulbar stricture (scope passed easily) The prostatic fossa was normal The ureteral orifices were in normal position and effluxed clear urine. The bladder was normal. There were no bladder tumors, mucosal abnormalities or bladder stones. The cystoscope was removed. The patient tolerated the procedure without difficulty. There were no complications. The patient was given 1 cipro prior to the procedure. Supervised by Dr. Liao who agrees with assessment Assessment: normal hematuria work up Plan: patient will call for LUTS or recurrent hematuria, FU one year Barrett Ross LPN - 12/04/2014 4:46 PM EDT Scope number [id number] documented in this encounter Plan of Treatment Upcoming Encounters Date Type Specialty Care Team Description 12/25/2021 Appointment Radiology Isaiah Cali MD [facility] [place] [address] 12/28/2021 Hospital Encounter Cardiology Isaiah Cali, Persist ent atrial fibrillation [facility] [place] [address] 12/28/2021 Surgery Cardiology Isaiah Cali ELECTROPHYSIO LOGY MD PROCEDURE [facility] [place] [address] 02/02/2022 Hospital Encounter Gastroenterology Cuauhtemoc Olivas MD [facility] [place] [address] 02/02/2022 Surgery Gastroenterology Deisy, EGD, UPPER GI ENDOSCOPY Cuauhtemoc Scott MD [facility] [place] [address] Scheduled Orders Name Type Priority Associated Diagnoses Order S chedule Cystoscopy PROCEDURE Routine Acute cystitis with hematuri a Ordered: 12/04/2014 Scheduled Procedures Name Priority Associated Diagnoses Date/Time EGD, UPPER GI ENDOSCOPY Change in bowel habits 02/02/2022 7:30 AM EST Abdominal pain, unspecified abdominal location COLONOSCOPY, DIAGNOSTIC Change in bowel habits 02/02/2022 7:30 AM EST Abdominal pain, unspecified abdominal location documented as of this encounter Visit Diagnoses Diagnosis Acute cystitis with hematuria - Primary Acute cystitis Gross hematuria Urethral stricture, unspecified location , unspecified stricture type Persistent atrial fibrillation Atrial fibrillation Persistent atrial fibrillation Atrial fibrillation Change in bowel habits Other symptoms involving digestive syste m Abdominal pain, unspecified abdominal lo cation documented in this encounter Care Teams Marketing Development Specialist Relationship Specialty Start Date End Date Stew Mario DO PCP - General 12/30/09 03/23/21 [address] [place] [address] documented as of this encounter
--- OUTSIDE RECORDS SUMMARY | 2021-11-08 04:44 | XMS_ITS | Encounter Summary ---
:1970 Author Organization [facility] [place] [address] Care Team Providers Name Role Phone Stew Mario DO Primary Care Provider Encounter Details Date Type Department Care Team Description 08/14/2021 Telephone Gastroenterology at [facility] Malinda May [facility] [place] [address] Social History Tobacco Use Types Packs/Day Years Used Date Never Smoker Smokeless Tobacco: Never Used Alcohol Use Standard Drinks/Week Comments Yes 2 (1 standard drink = 0.6 oz pure alcoho l) Sex Assigned at Date Recorded Male 04/03/2021 10:46 AM EST documented as of this encounter Miscellaneous Notes Telephone Encounter - Malinda May - 08/14/2021 3:10 PM EDT Flo Mireles [id number] Diagnosis/Indication: abdominal pain. diarrhea- evaluate for microscopic colitis Please review patient chart to confirm if previous Endoscopy procedure was performed within system. If yes, take note of Anesthesia type used. If previous procedure found, and with MAC/propofol Anesthesia support was used, schedule this procedure with Anesthesia and skip the Anesthesia portion of qu estions. If not performed within system, not performed at all, or performed with IVCS, ask Anesthesia questions. SCHEDULING QUESTIONS (ask all patient these questions) 1. Have you ever had a/an Upper Endoscopy & Colonoscopy before? Yes: Date colo - within last year [facility] If yes, did you have any problems with the procedure (such as waking up during the procedure, pain or difficulties afterwards, etc.)? No What type of sedation was used: Other: UNKNOWN 2. Do you take any blood thinners or have you been diagnosed with a bleeding disorder that increasesyour risk of bleeding with procedures? Yes: Type: ELIQUIS 3. Do you have a Pacemaker or Defibrillator device? If yes, send pool message to Cardiology with patient information and date or procedure. No 4. Are you a diabetic? If yes, call PCP/managing provider to discuss use of prep and any questions or concerns related to. No 5. Do you take any iron supplements or vitamins that contain iron? No 6. Do you have a preference regarding the gender of your provider? No ANESTHESIA QUESTIONS (YES to any question, please book with Anesthesia support) 7. Have you ever been diagnosed with any of the following: Pulmonary Hypertension, Atrial Fibrillation (A-Fib) and/or Congential Heart Disease? Yes 8. Have you ever had an allergic or adverse reaction to Fentanyl or Versed? No 9. Have you had a problem with sedation or anesthesia? (Waking up during procedure, extreme confusion after, etc.) No 10. Do you have a diagnosis of Obstructive Sleep Apnea? Yes 11. Do you use a c-pap machine? C-Pap 12. Do you use an oxygen tank at home? No 13. Do you use a rescue inhaler more than twice per day? (COPD, severe asthma) No 14. Do you experience breathing problems when you lay flat for a period of time? No 15. Do you take prescription narcotic pain medications, including suboxone or methodone? No SCHEDULING CONFIRMATIONS: Please note any and all parts of your conversation with the patient here. 16. We offer all new patients an opportunity to have an appointment with one of our associate care providers to learn more about your upcoming procedure, ask questions and get answers. These appointments are offered via telehealth. Would you be interested in scheduling this appointment? No 17. Is there any other information or concerns you would like to us to share with your care team in relation to your upcoming scheduled procedure? No 18. You must have a responsible green party who will drive you to your procedure, stay on campus for the entire duration of your procedure, and drive you home from your procedure. Who will likely be your mobile lounge driver for the procedure? *Please Verify the height and weight, and adjust if height and/or weight have changed* Estimated body mass index is 36.8 kg/m?? as calculated from the following: Height as of 06/10/21: 167.6 cm (5' 6). Weight as of 06/10/21: 103.4 kg (228 lb). Age:51 y.o. documented in this encounter Plan of Treatment Upcoming Encounters Date Type Specialty Care Team Description 12/25/2021 Appointment Radiology Isaiah Cali MD [facility] [place] [address] 12/28/2021 Hospital Encounter Cardiology Isaiah Cali, Persist ent atrial MD fibrillation [facility] [place] [address] 12/28/2021 Surgery Cardiology Isaiah Cali, ELECTROPHYSIO ISHAY MD PROCEDURE [facility] [place] [address] 02/02/2022 Hospital Encounter Gastroenterology Cuauhtemoc Olivas MD [facility] [place] [address] 02/02/2022 Surgery Gastroenterology SOM OlivasD, UPPER GI ENDOSCOPY Cuauhtemoc Scott MD [facility] [place] [address] Scheduled Procedures Name Priority Associated Diagnoses Date/Time EGD, UPPER GI ENDOSCOPY Change in bowel habits 02/02/2022 7:30 AM EST Abdominal pain, unspecified abdominal location COLONOSCOPY, DIAGNOSTIC Change in bowel habits 02/02/2022 7:30 AM EST Abdominal pain, unspecified abdominal location documented as of this encounter Visit Diagnoses Not on filedocumented in this encounter Care Teams Diet Assistant Relationship Specialty Start Date End Date Stew Mario DO PCP - General Family Medicine 03/24/[address] [place] [address] documented as of this encounter
--- OUTSIDE RECORDS SUMMARY | 2021-11-08 04:44 | XMS_ITS | Encounter Summary ---
:1970 Author Organization [facility] Address [facility] [place] [address] Care Team Providers Name Role Phone Stew Mario DO Primary Care Provider Encounter Details Date Type Department Care Team Description 07/20/2021 Telephone Cardiology at [facility] Nivia Sullivan, RN [facility] [place] [address] Social History Tobacco Use Types Packs/Day Years Used Date Never Smoker Smokeless Tobacco: Never Used Alcohol Use Standard Drinks/Week Comments Yes 2 (1 standard drink = 0.6 oz pure alcoho l) Sex Assigned at Date Recorded Male 04/03/2021 10:46 AM EST documented as of this encounter Miscellaneous Notes Telephone Encounter - Nivia Sullivan RN - 07/20/2021 3:22 PM EDT RTC to Flo Mireles regarding his questions about the results of his Stress test, and read to him, regarding no Ischemia, and he states his PCP today told him there were no blockages, at this time. Mr Mireles would like to ask Dr Kinney, if he will advise on exercising, as his HR spikes to 200 when herides his bike. He states he has been walking, and let him know that walking is good, as he can moderate his pace, if needed. Forwarding to his provider. Nivia Sullivan (Jodie) RN, BSN [facility] documented in this encounter Plan of Treatment Upcoming Encounters Date Type Specialty Care Team Description 12/25/2021 Appointment Radiology Isaiah Cali MD [facility] [place] [address] 12/28/2021 Hospital Encounter Cardiology Isaiah Cali, Persist ent atrial MD fibrillation [facility] [place] [address] 12/28/2021 Surgery Cardiology Isaiah Cali, ELECTROPHYSIO GIRISH QUIGLEY PROCEDURE [facility] [place] [address] 02/02/2022 Hospital Encounter Gastroenterology Cuauhtemoc Olivas MD [facility] [place] [address] 02/02/2022 Surgery Gastroenterology Deisy EGD, UPPER GI ENDOSCOPY Cuauhtemoc Scott MD [facility] [place] [address] Scheduled Procedures Name Priority Associated Diagnoses Date/Time EGD, UPPER GI ENDOSCOPY Change in bowel habits 02/02/2022 7:30 AM EST Abdominal pain, unspecified abdominal location COLONOSCOPY, DIAGNOSTIC Change in bowel habits 02/02/2022 7:30 AM EST Abdominal pain, unspecified abdominal location documented as of this encounter Visit Diagnoses Not on filedocumented in this encounter Care Teams Job Spotter Relationship Specialty Start Date End Date Stew Mario DO PCP - General Family Medicine 03/24/[address] [place], [place] [address] documented as of this encounter
--- OUTSIDE RECORDS SUMMARY | 2021-11-08 04:44 | XMS_ITS | Encounter Summary ---
:1970 Author Organization [facility] [place] [address] Care Team Providers Name Role Phone Stew Mario DO Primary Care Provider Reason for Referral Consultation (Routine) - Authorized Specialty Diagnoses / Procedures Referred By Contact Refer red To Contact Cardiology Diagnoses Chronic atrial fibrillation ?ABLATION VS OTHER THERAPY (EP defers to [facility]) * SCANNED DOCS Stew Mario DO [facility] Cardiology [address] [facility] 1 [place], [place] [address] [place] [id number] Referral ID Status Reason Start Date Expiration Visits Visits Date Requested Authorized [id number] Authorized Consult, 03/28/2021 03/28/2022 6 6 Test & Treat Encounter Details Date Type Department Care Team Description 03/28/2021 Transcribe Orders Administration Stew Mario Chronic atrial [facility] DO fibrillation Drive [address] [place], [place] [address]Y [facility] 1 [address] [place], [place] [phone] [id number] Social History Tobacco Use Types Packs/Day Years Used Date Never Smoker Sex Assigned at Date Recorded Male 04/03/2021 10:46 AM EST documented as of this encounter Plan of Treatment Upcoming Encounters Date Type Specialty Care Team Description 12/25/2021 Appointment Radiology [place] [address] 12/28/2021 Hospital Encounter Cardiology Isaiah Cali, Persist ent atrial MD fibrillation [facility] Dr [place] [address] 12/28/2021 Surgery Cardiology Isaiah Cali, ELECTROPHYSOMAR STOUT MD [place] [facility] [place] [address] 02/02/2022 Hospital Encounter Gastroenterology Cuauhtemoc Olivas MD [facility] [address] [place] [address] 02/02/2022 Surgery Gastroenterology Deisy, EGD, UPPER GI ENDOSCOPY Cuauhtemoc Scott MD [facility] [address] [place] [address] Scheduled Procedures Name Priority Associated Diagnoses Date/Time EGD, UPPER GI ENDOSCOPY Change in bowel habits 02/02/2022 7:30 AM EST Abdominal pain, unspecified abdominal location COLONOSCOPY, DIAGNOSTIC Change in bowel habits 02/02/2022 7:30 AM EST Abdominal pain, unspecified abdominal location Scheduled Referrals Name Type Priority Associated Diagnoses Order S chedule Referral to Outpatient Referral Routine Chronic atrial Ordere d: Cardiology fibrillation 03/28/2021 documented as of this encounter Visit Diagnoses Diagnosis Chronic atrial fibrillation Atrial fibrillation Persistent atrial fibrillation Atrial fibrillation Persistent atrial fibrillation Atrial fibrillation Change in bowel habits Other symptoms involving digestive syste m Abdominal pain, unspecified abdominal lo cation documented in this encounter Care Teams Zipper Machine Operator Relationship Specialty Start Date End Date Stew Mario DO PCP - General Family Medicine 03/24/[address] [place] [address] documented as of this encounter
--- OUTSIDE RECORDS SUMMARY | 2021-11-08 04:44 | XMS_ITS | Encounter Summary ---
:1970 Author Organization [facility] [place] [address] Care Team Providers Name Role Phone Stew Mario DO Primary Care Provider Reason for Visit Reason Onset Date Comments Medication Refill 09/07/2021 Flecainide Encounter Details Date Type Department Care Team Description 09/07/2021 Refill Cardiology at [facility] Chi Kinney, Medication Refill [facility] (Flecainide) [facility] [place] [address] CARDIOLOGY DEPT. [phone] [place] [address] (Wo rk) Social History Tobacco [...] Description 12/25/2021 Appointment Radiology Isaiah Cali MD [facility] [place] [address] 12/28/2021 Hospital Encounter Cardiology Isaiah Cali, Persist ent atrial MD fibrillation [facility] [place] [address] 12/28/2021 Surgery Cardiology Isaiah Cali, ELECTROPHYSIO GIRISH QUIGLEY PROCEDURE [facility] [address] 02/02/2022 Hospital Encounter Gastroenterology Cuauhtemoc Olivas MD [facility] [place] [address] 02/02/2022 Surgery Gastroenterology Deisy EGD, UPPER GI ENDOSCOPY Cuauhtemoc Scott MD [facility] [place] [address] Scheduled Procedures Name Priority Associated Diagnoses Date/Time [...] cation documented in this encounter Care Teams Filling Operator Relationship Specialty Start Date End Date Stew Mario DO PCP - General Family Medicine 03/24/[address] [place] [address] documented as of this encounter
--- OUTSIDE RECORDS SUMMARY | 2021-11-08 04:44 | XMS_ITS | Encounter Summary ---
:1970 Author Organization [facility] [place] [address] Care Team Providers Name Role Phone Stew Mario DO Primary Care Provider Encounter Details Date Type Department Care Team Description 09/07/2021 Orders Only Cardiology at [facility] Chi Kinney MD [facility] [place] [address] CARDIOLOGY DEPT. [phone] [place] [address] (Wo rk) Social History Tobacco Use Types Packs/Day Years Used Date Never Smoker Smokeless Tobacco: Never Used Alcohol Use Standard Drinks/Week Comments Yes 2 (1 standard drink = 0.6 oz pure alcoho l) Sex Assigned at Date Recorded Male 04/03/2021 10:46 AM EST documented as of this encounter Progress Notes Nivia Sullivan RN - 09/07/2021 12:41 PM EDT Cardioversion documented in this encounter Plan of Treatment Upcoming Encounters Date Type Specialty Care Team Description 12/25/2021 Appointment Radiology Isaiah Cali MD [facility] [place] [address] 12/28/2021 Hospital Encounter Cardiology Isaiah Cali, Persist ent atrial MD fibrillation [facility] [place] [address] 12/28/2021 Surgery Cardiology Isaiah Cali ELECTROPHYSIO LOGY MD PROCEDURE [facility] [place] [address] 02/02/2022 Hospital Encounter Gastroenterology Cuauhtemoc Olivas MD [facility] [place] [place] [address] 02/02/2022 Surgery Gastroenterology Deisy, EGD, UPPER GI ENDOSCOPY Cuauhtemoc Scott MD [facility] [place] [address] Scheduled Procedures Name Priority Associated Diagnoses Date/Time EGD, UPPER GI ENDOSCOPY Change in bowel habits 02/02/2022 7:30 AM EST Abdominal pain, unspecified abdominal location COLONOSCOPY, DIAGNOSTIC Change in bowel habits 02/02/2022 7:30 AM EST Abdominal pain, unspecified abdominal location documented as of this encounter Visit Diagnoses Not on filedocumented in this encounter Care Teams Automobile Repossessor Relationship Specialty Start Date End Date Stew Mario DO PCP - General Family Medicine 03/24/[address] [place] [address] documented as of this encounter
--- OUTSIDE RECORDS SUMMARY | 2021-11-08 04:44 | XMS_ITS | Encounter Summary ---
:1970 Author Organization [facility] [place] [address] Care Team Providers Name Role Phone FabianoStew anton Primary Care Provider Reason for Referral Consultation (Routine) - Specialty Diagnoses / Procedures Referred By Contact Refer red To Contact Radiology Diagnoses Gross hematuria Roberta Starkey arlene Rad Ct Scan Procedures CT Abdomen & Pelvis With Contrast (GENERIC) CT Abdomen & Pelvis With/Wo Contrast GEM [employer] C[employer]TER [facility] [place] [address] [place] [address] Referral ID Status Reason Start Date Expiration Visits Visits Date Requested Authorized [id number] Specialty 11/18/2014 11/18/2014 1 1 Service Requested Encounter Details Date Type Department Care Team Description 11/01/2014 Orders Only Urology at [facility] Roberta Starkey, Gross hematuria [facility] Christa [place] [address] [facility] [phone] UROLOGY DEPT. [place], [place] [address] (Wo rk) Social History Tobacco Use Types Packs/Day Years Used Date Never Assessed Sex Assigned at Date Recorded Male 04/03/2021 10:46 AM EST documented as of this encounter Plan of Treatment Upcoming Encounters Date Type Specialty Care Team Description 12/25/2021 Appointment Radiology Isaiah Cali [place] [address] 12/28/2021 Hospital Encounter Cardiology Isaiah Cali, Persist ent atrial fibrillation [place] [address] 12/28/2021 Surgery Cardiology Isaiah Cali, ELECTROPHYSIO GIRISH QUIGLEY PROCEDURE [place] [address] 02/02/2022 Hospital Encounter Gastroenterology Cuauhtemoc Olivas MD [facility] [place] [address] 02/02/2022 Surgery Gastroenterology Deisy, EGD, UPPER GI ENDOSCOPY Cuauhtemoc Scott MD [facility] [place] [address] Scheduled Procedures Name Priority Associated Diagnoses Date/Time EGD, UPPER GI ENDOSCOPY Change in bowel habits 02/02/2022 7:30 AM EST Abdominal pain, unspecified abdominal location COLONOSCOPY, DIAGNOSTIC Change in bowel habits 02/02/2022 7:30 AM EST Abdominal pain, unspecified abdominal location documented as of this encounter Results CT Abdomen & Pelvis With Contrast (GENERIC) (11/18/2014 9:10 AM EDT) Anatomical Region Laterality Modality Abdomen, Pelvis Computed Tomography Specimen (Source) Anatomical Location Collection Method / Collectio n Time Received Time / Laterality Volume Impressions 11/18/2014 11:52 AM EDT IMPRESSION: 1. ??No focal renal lesion or collecting system abnormality, within the opacified portions of the ureters, to explain sherry ent's hematuria. 2. ??Small 6 mm well-defined hypodensity within the upper pole the right kidney is too small to characterize but statist ically likely represents a benign renal cyst. 3. ??Cholelithiasis without evidence of cholecystitis. I have personally reviewed the image(s) and the residents interpretation and agree with the findings, Lashay howe 11/18/2014 11:52 AM Narrative 11/18/2014 11:52 AM EDT EXAMINATION: ??CT ABDOMEN & PELVIS WITH CONTRAST CLINICAL HISTORY: ??gross hematuria. pt has outside stone protocol CT loaded on system. please do nephrographic and shna yed phases TECHNIQUE: Helical CT of the abdomen and pelvis was performed prior to and following intravenous administration of 110 ml of Omnipaque 350. ??3D VR and MIP images were reformatted on a separate wo rkstation and reviewed as part of this study. COMPARISON: ??None FINDINGS: Right kidney and ureter: No hydronephros is or hydroureter. ??There is a small approximately 6 mm well-defined area of hypodensity within the upper pole the right kidney which is too small to shoshana cterize but statistically likely represents a benign renal cyst. ??There is incomplete opacification of the distal ureter on delayed phase imaging. No intr aluminal filling defect is noted within the opacified portions of the proximal c ollecting system and ureter. Left kidney and ureter: The small right upper pole nonobstructing renal calculus is not identified on today's exam. ?? No hydronephrosis or hydroureter. ?? No renal lesions. ?? The distal pelvic uret er is not opacified. No intraluminal filling defect is noted within the opaci fied portion of the proximal collecting system and ureter. Urinary bladder: Incompletely distended but well opacified. No intraluminal filling defect, or wall thickening is no dori. No bladder calculi. Liver: Normal. Gallbladder and biliary system: Unchange d small calculi within the gallbladder neck. No gallbladder wall thickening or pericholecystic fluid noted. No intrahepatic or extrahepatic biliary anaya rafael dilatation. Spleen: Normal. Pancreas: Normal. Adrenal glands: Normal. No free fluid in the abdomen or pelvis. Unchanged bilateral fat-containing inguinal hernias. No abdominal or pelvic lymphadenopathy. Bowel and mesentery: No inflammatory or obstructive process. Osseous structures: Stable approximately 1.3 cm densely sclerotic lesion within the left iliac body which likely represe nts a bone island. No suspicious osseous lesions identified. Procedure Note Lashay Mcdaniel MD - 11/18/2014Formatt ing of this note might be different from the original. EXAMINATION: CT ABDOMEN & PELVIS WITH CO NTRAST CLINICAL HISTORY: gross hematuria. pt foster s outside stone protocol CT loaded on system. please do nephrographic and shan yed phases TECHNIQUE: Helical CT of the abdomen and pelvis was performed prior to and following intravenous administration of 110 ml of Omnipaque 350. 3D VR and MIP images were reformatted on a separate wo rkstation and reviewed as part of this study. COMPARISON: None FINDINGS: Right kidney and ureter: No hydronephros is or hydroureter. There is a small approximately 6 mm well-defined area of hypodensity within the upper pole the right kidney which is too small to shoshana cterize but statistically likely represents a benign renal cyst. There is incomplete opacification of the distal ureter on delayed phase imaging. No intr aluminal filling defect is noted within the opacified portions of the proximal c ollecting system and ureter. Left kidney and ureter: The small right upper pole nonobstructing renal calculus is not identified on today's exam. No hy dronephrosis or hydroureter. No renal lesions. The distal pelvic ureter is not opacified. No intraluminal filling defect is noted within the opaci fied portion of the proximal collecting system and ureter. Urinary bladder: Incompletely distended but well opacified. No intraluminal filling defect, or wall thickening is no dori. No bladder calculi. Liver: Normal. Gallbladder and biliary system: Unchange d small calculi within the gallbladder neck. No gallbladder wall thickening or pericholecystic fluid noted. No intrahepatic or extrahepatic biliary anaya rafael dilatation. Spleen: Normal. Pancreas: Normal. Adrenal glands: Normal. No free fluid in the abdomen or pelvis. Unchanged bilateral fat-containing inguinal hernias. No abdominal or pelvic lymphadenopathy. Bowel and mesentery: No inflammatory or obstructive process. Osseous structures: Stable approximately 1.3 cm densely sclerotic lesion within the left iliac body which likely represe nts a bone island. No suspicious osseous lesions identified. IMPRESSION IMPRESSION: 1. No focal renal lesion or collecting s ystem abnormality, within the opacified portions of the ureters, to explain sherry ent's hematuria. 2. Small 6 mm well-defined hypodensity w ithin the upper pole the right kidney is too small to characterize but statist ically likely represents a benign renal cyst. 3. Cholelithiasis without evidence of ch olecystitis. I have personally reviewed the image(s) and the residents interpretation and agree with the findings, Lashay howe 11/18/2014 11:52 AM Jhon Rascon MD IMG CT ORDERABLES documented in this encounter Visit Diagnoses Diagnosis Gross hematuria Gross hematuria Persistent atrial fibrillation Atrial fibrillation Persistent atrial fibrillation Atrial fibrillation Change in bowel habits Other symptoms involving digestive syste m Abdominal pain, unspecified abdominal lo cation documented in this encounter Care Teams Hand Printed Circuit Board Assembler Relationship Specialty Start Date End Date Stew Mario DO PCP - General 12/30/09 03/23/21 [address] [place] [address] documented as of this encounter
--- OUTSIDE RECORDS SUMMARY | 2021-11-08 04:44 | XMS_ITS | Encounter Summary ---
:[address] [facility] [place] [address] Care Team Providers Name Role Phone Stew Mario DO Primary Care Provider Encounter Details Date Type Department Care Team Description 06/02/2021 Orders Only Cardiology at [facility] Chi Kinney, Atrial fibrillation, [facility] [place] [address] CARDIOLOGY DEPT. [phone] [place], [place] [address] (Wo rk) Social History Tobacco Use Types Packs/Day Years Used Date Never Smoker Sex Assigned at Date Recorded Male 04/03/2021 10:46 AM EST documented as of this encounter Plan of Treatment Upcoming Encounters Date Type Specialty Care Team Description 12/25/2021 Appointment Radiology Isaiah Cali MD [facility] [place] [address] 12/28/2021 Hospital Encounter Cardiology Isaiah Cali, Persist ent atrial MD fibrillation [facility] [place] [address] 12/28/2021 Surgery Cardiology Isaiah Cali, ELECTROPHYSOMAR STOUT MD PROCEDURE [facility] [place] [address] 02/02/2022 Hospital Encounter Gastroenterology Cuauhtemoc Olivas MD [facility] [place] [address] 02/02/2022 Surgery Gastroenterology Winter, EGD, UPPER GI ENDOSCOPY Cuauhtemoc Scott MD [facility] [place] [address] Scheduled Procedures Name Priority Associated Diagnoses Date/Time [...] cation documented in this encounter Care Teams Rake Operator Relationship Specialty Start Date End Date Stew Mario DO PCP - General Family Medicine 03/24/[address] [place] [address] documented as of this encounter
--- OUTSIDE RECORDS SUMMARY | 2021-11-08 04:44 | XMS_ITS | Encounter Summary ---
:1970 Author Organization [facility] [place] [address] Care Team Providers Name Role Phone Stew Mario DO Primary Care Provider Reason for Visit Diagnostic Test (Routine) - Closed Specialty Diagnoses / Procedures Referred By Contact Refer red To Contact Gastroenterology Diagnoses Change in bowel habits Nausea without vomiting [id number] Susan Farmer PA [facility] Gastro 4t Procedures Breath Hydrogen Test PRG BREATH HYDROGEN TEST [id number] [facility] [place] [address] [place] [address] Fax: Referral ID Status Reason Start Date Expiration Date Visits V isits Requested Authorized [id number] Closed Consult, 04/17/2021 04/17/2022 1 1 Test & Treat Encounter Details Date Type Department Care Team Description 05/04/2021 Procedure visit Gastroenterology at [facility] Change in bowel habits; [facility] D [place]ve [place]ause[place] [address] Social History Tobacco Use Types Packs/Day Years Used Date Never Smoker Sex Assigned at Date Recorded Male 04/03/2021 10:46 AM EST documented as of this encounter Progress Notes Ceci Weston, ASBESTOS HANDLER - 05/04/2021 8:00 AM EDT Gastroenterology Breath Test Report Patient: Flo Mireles Date Of : 1970 PCP: Stew Mario DO Referring: Susan Farmer STUDY DATE: 05/06/2021 PROVIDER: Ceci Weston APRN INDICATION: bloating ppmH2 ppmCH4 CO2(f) Fasting Baseline 7 11 2.8/2.17 Administer sugar: Glucose 75g with 90 mL H2O Sample Time ppmH2 ppmCH4 CO2(f) 90 min 6 8 2.9/2.10 Interpretation: Negative hydrogen breath test. Patient had excess production of methane which can be associated with constipation. Patient reported nausea symptoms during the test. Clinical interpretation is based on the Hydrogen and Methane-Based Breath Testing in Gastrointestinal Disorders: The [place] Consensus (Am J Gastroenterol 2017; 112(5):775-84. A positive breath test is defined as a rise in hydrogen production >20 ppm compared to baseline within 90 minutes. Methane-positive is defined by at least 10 ppm production of methane. Signed, Ceci Weston APRN [place]astroenterology [place] [address] P: [phone] F: [phone] Copy: Susan Mario DO documented in this encounter Plan of Treatment Upcoming Encounters Date Type Specialty Care Team Description 12/25/2021 Appointment Radiology Isaiah Cali MD [facility] [place] [address] 12/28/2021 Hospital Encounter Cardiology Isaiah Cali, Persist ent atrial fibrillation [facility] [place] [address] 12/28/2021 Surgery Cardiology Isaiah Cali, ELECTROPHYSIO GIRISH QUIGLEY PROCEDURE [facility] [place] [address] 02/02/2022 Hospital Encounter Gastroenterology Cuauhtemoc Olivas MD [facility] [place] [address] 02/02/2022 Surgery Gastroenterology Winter, EGD, UPPER GI ENDOSCOPY Cuauhtemoc Scott MD [facility] [place] [address] Scheduled Procedures Name Priority Associated Diagnoses Date/Time EGD, UPPER GI ENDOSCOPY Change in bowel habits 02/02/2022 7:30 AM EST Abdominal pain, unspecified abdominal location COLONOSCOPY, DIAGNOSTIC Change in bowel habits 02/02/2022 7:30 AM EST Abdominal pain, unspecified abdominal location documented as of this encounter Visit Diagnoses Diagnosis Change in bowel habits Other symptoms involving digestive syste m Nausea without vomiting Persistent atrial fibrillation Atrial fibrillation Persistent atrial fibrillation Atrial fibrillation Change in bowel habits Other symptoms involving digestive syste m Abdominal pain, unspecified abdominal lo cation documented in this encounter Care Teams System Development Manager Relationship Specialty Start Date End Date Stew Mario DO PCP - General Family Medicine 03/24/[address] [place] [address] documented as of this encounter
--- OUTSIDE RECORDS SUMMARY | 2021-11-08 04:44 | XMS_ITS | Clinical Summary ---
:1970 Author Organization [facility] [place] [address] Care Team Providers Name Role Phone Stew Mario DO Primary Care Provider Allergies No known active allergies Medications Medication Sig Dispensed Refills Start Date End Date Status pantoprazole EC Take 1 tablet by 90 tablet 3 04/03/2021 Active (Protonix) 40 mg mouth daily. Tablet, Delayed Release (E.C.) Additional Information Patient taking differently: 40 mg Oral 2 TIMES DAILY, Reported on 06/10/2021 apixaban (Eliquis) 5 mg Take 1 tablet by mouth 2 120 tablet 5 06/08/2021 Active Tablet times daily. dilTIAZem (TIAZAC) 360 mg Take 1 capsule by mouth 90 capsule 3 07/21/2021 Active Capsule,Sustained Action 24 daily. hr flecainide (Tambocor) 100 mg Take 1 tablet by mouth 2 60 tablet 5 09/09/2021 Active TabletIndications: PAF times daily. (paroxysmal atrial fibrillation) Active Problems Problem Noted Date PAF (paroxysmal atrial fibrillation) 04/02/2021 GERD with esophagitis 04/02/2021 Hiatal hernia 04/02/2021 Chronic atrial fibrillation 04/02/2021 Encounters Date Type Specialty Care Team Description 11/06/2021 Telephone Gastroenterology Malinda Yanelis Valery 10/14/2021 Notes Only Cardiology Abundio Black Advice On jorge Minor MD 09/30/2021 Hospital Encounter Cardiology Isaiah Cali MD 09/30/2021 Office Visit Cardiology Isaiah Cali M D Persistent atrial Abundio Black fibrillat edson Minor MD 09/11/2021 Telephone Cardiology Nivia Sullivan RN 09/07/2021 Orders Only Cardiology Chi Kinney MD 09/07/2021 Refill Cardiology Chi Kinney Medication Refill MD Yo (Flecainide) 08/14/2021 Telephone Gastroenterology Malinda Yanelis Valery from Last 3 Months Immunizations Name Administration Dates Next Due Td, adult 07/23/2003 Social History Tobacco Use Types Packs/Day Years Used Date Never Smoker Smokeless Tobacco: Never Used Alcohol Use Standard Drinks/Week Comments Yes 2 (1 standard drink = 0.6 oz pure alcoho l) Sex Assigned at Date Recorded Male 04/03/2021 10:46 AM EST Last Filed Vital Signs Vital Sign Reading Time Taken Comments Blood Pressure 146/77 09/30/2021 8:11 AM EDT Pulse 69 09/30/2021 8:11 AM EDT Temperature 36.7 ??C (98.1 ??F) 06/10/2021 10:25 AM EDT Respiratory Rate 16 06/10/2021 11:30 AM EDT Oxygen Saturation 100% 09/30/2021 8:11 AM EDT Inhaled Oxygen Concentration - - Weight 107.6 kg (237 lb 3.2 oz) 09/30/2021 8:11 AM EDT Height 167.6 cm (5' 6) 10/22/2021 10:46 AM EDT Body Mass Index 38.29 09/30/2021 8:11 AM EDT Plan of Treatment Upcoming Encounters Date Type Specialty Care Team Description 12/25/2021 Appointment Radiology Isaiah Cali MD [facility] [place] [address] 12/28/2021 Hospital Encounter Cardiology Isaiah Cali, Persist ent atrial fibrillation [facility] [place] [address] 12/28/2021 Surgery Cardiology Isaiah Cali, ELECTROPHYSIO GIRISH QUIGLEY PROCEDURE [facility] [place] [address] 02/02/2022 Hospital Encounter Gastroenterology Cuauhtemoc Olivas MD [facility] [place] [address] 02/02/2022 Surgery Gastroenterology Winter, EGD, UPPER GI ENDOSCOPY Cuauhtemoc Scott MD [facility] [place] [address] Scheduled Procedures Name Priority Associated Diagnoses Date/Time EGD, UPPER GI ENDOSCOPY Change in bowel habits 02/02/2022 7:30 AM EST Abdominal pain, unspecified abdominal location COLONOSCOPY, DIAGNOSTIC Change in bowel habits 02/02/2022 7:30 AM EST Abdominal pain, unspecified abdominal location Health Maintenance Due Date Last Done Comments Covid-19 Vaccine (#1) 08/02/1975 Pneumococcal Vaccine: At-Risk 5-64yrs (1 - PCV) 1976 HIV screen 1988 Hepatitis C Screening 1988 Lipid Screening 1988 Tdap adult 1989 Tetanus vaccine 07/22/2013 07/23/2003 Colonoscopy 08/02/2015 Zoster vaccine (1 of 2) 2020 Influenza (Flu) vaccine (1 of 1 - Influenza standard 10/08/2021 series) Diabetes Screening (HgbA1C or Glucose) 06/10/2024 2 Procedures Procedure Name Priority Date/Time Associated Diagnosis Comme nts EKG 12-LEAD Routine 09/30/2021 9:12 AM Persistent atrial Resu lts for this EDT fibrillation procedure are i n the results section. from Last 3 Months Results EKG 12 Lead (09/30/2021 9:12 AM EDT) Component Value Ref Range Test Analysis Performed Pathologis t Method Time At Signature Ventricular rate 58 BPM MUSE SYSTEM Atrial Rate 58 BPM MUSE SYSTEM P-R Interval 206 ms MUSE SYSTEM QRS Duration 94 ms MUSE SYSTEM Q-T Interval 440 ms MUSE SYSTEM QTC Calculated 431 ms MUSE SYSTEM (Bezet) Calculated P [place] 39 degrees MUSE SYSTEM Calculated R [place] 6 degrees MUSE SYSTEM Calculated T [place] 69 degrees MUSE SYSTEM INTERPRETATION Sinus bradycardia with prolonged AV conduction MUSE SYSTEM Otherwise normal ECG When compared with ECG of 10-JUN-2021 10:41, Sinus rhythm has replaced Atrial fibrillation Vent. rate has decreased BY ??42 BPM I personally reviewed the tracing and edited the fellows int erpretation Confirmed by fellow MD Wolf, Max ([id number]) on 09/30/2021 9:5 6:45 AM Confirmed by MD Ramon, Nicolette ([id number]) on 09/30/2021 6:54: 43 PM Specimen Anatomical Collection Method Collection Time Receive d Time (Source) Location / / Volume Laterality 09/30/2021 9:12 AM 6:54 EDT PM EDT Isaiah Cali MD ECG ORDERABLES Performing Organization Address City/State/ZIP Code Phon e Number MUSE SYSTEM from Last 3 Months Insurance Payer Benefit Plan Subscriber ID Effective Dates Phone Address Type / Group [employer] [facility] [place] [facility] [id number] 2020-Nathalie [phone] [address] [facility] t 3 [facility] [id number] Care Teams Sandwich Board Carrier Relationship Specialty Start Date End Date Stew Mario DO PCP - General Family Medicine 03/24/[address] [place], [place] [address]
--- OUTSIDE RECORDS SUMMARY | 2021-11-08 04:44 | XMS_ITS | Encounter Summary ---
:1970 Author Organization [facility] [place] [address] Care Team Providers Name Role Phone Stew Mario DO Primary Care Provider Encounter Details Date Type Department Care Team Description 04/02/2021 Telephone Cardiology at [facility] Sophia Hunt LNA [facility] [place] [address] Social History Tobacco Use Types Packs/Day Years Used Date Never Smoker Sex Assigned at Date Recorded Male 04/03/2021 10:46 AM EST documented as of this encounter Miscellaneous Notes Telephone Encounter - Sophia Hunt LNA - 04/03/2021 9:06 AM EST Unable to reach patient for upcoming TH Visit with Dr. Kinney on 04/03/21 documented in this encounter Plan of Treatment Upcoming Encounters Date Type Specialty Care Team Description 12/25/2021 Appointment Radiology Isaiah Cali MD [facility] [place] [address] 12/28/2021 Hospital Encounter Cardiology Isaiah Cali, Persist ent atrial MD fibrillation [facility] [place] [address] 12/28/2021 Surgery Cardiology Isaiah Cali, ELECTROPHYSOMAR STOUT MD PROCEDURE [facility] [place] [address] 02/02/2022 Hospital Encounter Gastroenterology Cuauhtemoc Olivas MD [facility] [place] [address] 02/02/2022 Surgery Gastroenterology [place] EGD, UPPER GI ENDOSCOPY Cuauhtemoc Scott MD [facility] [place] [address] Scheduled Procedures Name Priority Associated Diagnoses Date/Time EGD, UPPER GI ENDOSCOPY Change in bowel habits 02/02/2022 7:30 AM EST Abdominal pain, unspecified abdominal location COLONOSCOPY, DIAGNOSTIC Change in bowel habits 02/02/2022 7:30 AM EST Abdominal pain, unspecified abdominal location documented as of this encounter Visit Diagnoses Not on filedocumented in this encounter Care Teams Dissolver Operator Relationship Specialty Start Date End Date Stew Mario DO PCP - General Family Medicine 03/24/21 [facility] [address] [place] [address] documented as of this encounter
--- OUTSIDE RECORDS SUMMARY | 2021-11-08 04:44 | XMS_ITS | Encounter Summary ---
:1970 Author Organization [facility] [place] [address] Care Team Providers Name Role Phone Stew Mario DO Primary Care Provider Encounter Details Date Type Department Care Team Description 11/06/2014 Orders Only Urology at [facility] Roberta Starkey, [facility] [place] [address] [facility] [phone] UROLOGY DEPT. [place], [place] [address] (Wo rk) Social History Tobacco Use Types Packs/Day Years Used Date Never Assessed Sex Assigned at Date Recorded Male 04/03/2021 10:46 AM EST documented as of this encounter Plan of Treatment Upcoming Encounters Date Type Specialty Care Team Description 12/25/2021 Appointment Radiology Isaiah Cali [place] [facility] [place] [address] 12/28/2021 Hospital Encounter Cardiology Isaiah Cali, Persist ent atrial fibrillation [facility] [place] [address] 12/28/2021 Surgery Cardiology Isaiah Cali, ELECTROPHYSOMAR STOUT MD PROCEDURE [facility] [place] [address] 02/02/2022 Hospital Encounter Gastroenterology Cuauhtemoc Olivas MD [facility] [place] [address] 02/02/2022 Surgery Gastroenterology Winter, EGD, UPPER GI ENDOSCOPY Cuauhtemoc Scott MD [facility] [place] [address] Scheduled Procedures Name Priority Associated Diagnoses Date/Time EGD, UPPER GI ENDOSCOPY Change in bowel habits 02/02/2022 7:30 AM EST Abdominal pain, unspecified abdominal location COLONOSCOPY, DIAGNOSTIC Change in bowel habits 02/02/2022 7:30 AM EST Abdominal pain, unspecified abdominal location documented as of this encounter Visit Diagnoses Not on filedocumented in this encounter Care Teams Manager Poker Relationship Specialty Start Date End Date Stew Mario DO PCP - General 12/30/09 03/23/21 [address] [place] [address] documented as of this encounter
--- OUTSIDE RECORDS SUMMARY | 2021-11-08 04:44 | XMS_ITS | Encounter Summary ---
:1970 Author Organization [facility] [place] [address] Care Team Providers Name Role Phone Fabiano Stew Ida Primary Care Provider Reason for Visit Reason Comments Hematuria Consultation (Routine) - Closed Specialty Diagnoses / Procedures Referred By Contact Refer red To Contact Urology Diagnoses hematuria Junaid Santana MD [facility] Urology [address] [address] Fax: Referral ID Status Reason Start Date Expiration Date Visits V isits Requested Authorized [id number] Closed Consult, 10/31/2014 10/31/2015 1 1 Test & [facility] Encounter Details Date Type Department Care Team Description 11/18/2014 Office Visit Urology at [facility] Balta Woods MD Hematuria, [address] [place] [address] [phone] (Wo rk) Social History Tobacco Use Types Packs/Day Years Used Date Never Smoker Sex Assigned at Date Recorded Male 04/03/2021 10:46 AM EST documented as of this encounter Last Filed Vital Signs Vital Sign Reading Time Taken Comments Blood Pressure 123/59 11/18/2014 9:41 AM EDT Pulse 64 11/18/2014 9:41 AM EDT Temperature 36.6 ??C (97.9 ??F) 11/18/2014 9:41 AM EDT Respiratory Rate 18 11/18/2014 9:41 AM EDT Oxygen Saturation 99% 11/18/2014 9:41 AM EDT Inhaled Oxygen Concentration - - Weight 95.3 kg (210 lb) 11/18/2014 9:41 AM EDT Height 167.6 cm (5' 6) 11/18/2014 9:41 AM EDT Body Mass Index 33.89 11/18/2014 9:41 AM EDT documented in this encounter Progress Notes Balta Woods MD - 11/20/2014 7:31 PM EDT Subjective: Patient ID: Flo Mireles is a 44 y.o. male. HPI Referred by Dr Santana to evaluate gross hematuria. Developed total hematuria lasting approx. 3 days about 3 weeks ago. C/O penile pain when passed clots during those three days but otherwise denies dysuria, fever, chills, past surgery. Treated by PCP for prostatitis given negative urine culture with bactrim. No flank pain Review of Systems Objective: Physical Exam Constitutional: He appears well-developed and well-nourished. No distress. Abdominal: Normal appearance. There is no tenderness. There is no CVA tenderness. Genitourinary: Testes normal and penis normal. Prostate: normal , NT UA Tr heme CTU (personally reviewed): Normal except probable 6 mm right renal cyst. Previously known 2 mm stonenot seen Assessment and Plan: Gross hematuria now resolved: Office cystoscopy to r/o bladder tumor (unable to schedule same day) Repeat urine culture and cytology D/W Dr Garzon who agrees with assessment and plan >50 % of this 30 minute visit was spent counseling documented in this encounter Plan of Treatment Upcoming Encounters Date Type Specialty Care Team Description 12/25/2021 Appointment Radiology Isaiah Cali MD [facility] [place] [address] 12/28/2021 Hospital Encounter Cardiology Isaiah Cali, Persist ent atrial MD fibrillation [facility] [place] [address] 12/28/2021 Surgery Cardiology Isaiah Cali ELECTROPHYSIO LOGY MD PROCEDURE [facility] [address] 02/02/2022 Hospital Encounter Gastroenterology Cuauhtemoc Olivas MD [facility] [place] [address] 02/02/2022 Surgery Gastroenterology Deisy, EGD, UPPER GI ENDOSCOPY Cuauhtemoc Scott MD [facility] [place] [address] Scheduled Procedures Name Priority Associated Diagnoses Date/Time EGD, UPPER GI ENDOSCOPY Change in bowel habits 02/02/2022 7:30 AM EST Abdominal pain, unspecified abdominal location COLONOSCOPY, DIAGNOSTIC Change in bowel habits 02/02/2022 7:30 AM EST Abdominal pain, unspecified abdominal location documented as of this encounter Procedures Procedure Name Priority Date/Time Associated Comments Diagnosis NON-OUTSIDE CONTRACTOR SALES FINAL REPORT Routine 11/18/2014 11:27 Res ults for this AM EDT procedure are i n the results section. CYTOPATHOLOGY Routine 11/18/2014 11:27 Hematuria, Results fo r this NON-GYNECOLOGICAL AM EDT undiagnosed cause proce dure are in the results section. documented in this encounter Results Non-Manufacturing Maintenance Technician Final Report (11/18/2014 11:27 AM EDT) Component Value Ref Test Analysis Performed At [facility] gist Range Method Time Signature Non-Manufacturing Maintenance Technician The signing pathologist has (i) examined the relevant preparation(s) for the CERNER Final Report specimen(s) and (ii) rendered or confirmed the diagnosis (es). [facility] Accession Number: [id number] ?Location: 5 B . ? No n-Manufacturing Maintenance Technician Final DIAGNOSIS Negative for Malignancy 11/18/14 ?Screened by: ? REP ?Rescreened by: ?? EJG 11/19/14 ?Verified by: ? Funmilayo QUIGLEY, Brandon Ware ? Cytopathologis t ? (Electronic Si gnature) DISCUSSION Urine, Voided: Urothelial and squamous cells present. CLINICAL INFORMATION Specimen Source : ?? Urine, Voided Pertinent Clinical Data and Significant Therapy: ?? Hematuria Clinical Impression : ?? Hematuria Pertinent Radiologic Findings ??: ?? (not provided) Gross Description: ?? Received ??in 50% ETOH, ??approximately 60 ml. total volume of ?? clear, yellow fluid. ?? Total Preparation: Liquid Based Prep 1. Specimen (Source) Anatomical Collection Method Collection Time Re ceived Time Location / / Volume Laterality 11/18/2014 11:27 AM EDT Balta Woods MD PATHOLOGY/CYTOLOGY ORDERABLE S Performing Organization Address City/[facility]/ZIP [place] [address] CERNER MILLENNIUM Cytopathology Non-Gynecological (11/18/2014 11:27 AM EDT) Specimen Anatomical Collection Method Collection Time Receive d Time (Source) Location / / Volume Laterality AP Specimen 11/18/2014 11:27 11/18/2014 AM EDT 11:27 AM EDT Narrative CERNER MILLENNIUM - 11/18/2014 11:27 AM EDT Specimen requisition ordered. ??Separate Pathology report to follow Balta Woods MD PATHOLOGY/CYTOLOGY ORDERABLE S Performing Organization Address City/[facility] [place] [address] CERNER MILLENNIUM documented in this encounter Visit Diagnoses Diagnosis Hematuria, undiagnosed cause Hematuria, unspecified Persistent atrial fibrillation Atrial fibrillation Persistent atrial fibrillation Atrial fibrillation Change in bowel habits Other symptoms involving digestive syste m Abdominal pain, unspecified abdominal lo cation documented in this encounter Care Teams Retort Loader Relationship Specialty Start Date End Date Stew Mario DO PCP - General 12/30/09 03/23/21 [address] [place] [address] documented as of this encounter
--- OUTSIDE RECORDS SUMMARY | 2021-11-08 04:44 | XMS_ITS | Encounter Summary ---
:1970 Author Organization [place] [address] Care Team Providers Name Role Phone FabianoStew Primary Care Provider Reason for Referral Diagnostic Test (Routine) - New Request Specialty Diagnoses / Procedures Referred By Contact Refer red To Contact Radiology Diagnoses Persistent atrial fibrillation Abundio Cardoza MD [facility] Rad Ct Scan Procedures CT Cardiac for Morphology & Function [facility] [place] [address] [place] [address] Referral ID Status Reason Start Expiration Visits Visits Date Date Requested Authorized [id number] New Request Specialty 09/30/2021 04/02/2023 1 1 Service Requested Encounter Details Date Type Department Care Team Description 09/30/2021 Office Visit Cardiology at [facility] Carolina Cali MD [facility] [place] [address] Persistent atrial [facility] Abundio Cardoza MD [facility] [place] [address] [place] [address] Social History Tobacco Use Types Packs/Day Years [...] Pulse 69 09/30/2021 8:11 AM EDT Temperature - - Respiratory Rate - - Oxygen Saturation 100% 09/30/2021 8:11 AM EDT Inhaled Oxygen Concentration - - Weight 107.6 kg (237 lb 3.2 oz) 09/30/2021 8:11 AM EDT Height 167.6 cm (5' 6) 09/30/2021 8:11 AM EDT Body Mass Index 38.29 09/30/2021 8:11 AM EDT documented in this encounter Patient Instructions Patient InstructionsStAbundio duong MD - 09/30/2021 8:00 AM EDT Mr. Mireles, It was a pleasure to meet you today. We will make arrangements for ablation. I will call your GI doctors to ascertain what their wishes will be regarding anticoagulation around the time of your scopes. documented in this encounter Progress Notes Abundio Cardoza MD - 09/30/2021 8:00 AM EDT Images from the original note were not included. Formerly [facility] [place] [address] [address] CARDIOLOGY OUTPATIENT NOTE PRIMARY CARE PROVIDER: Stew Mario DO REFERRING PROVIDER: Chi Kinney PROBLEM LIST: Patient Active Problem List Diagnosis ??? PAF (paroxysmal atrial fibrillation) ??? GERD with esophagitis ??? Hiatal hernia ??? Chronic atrial fibrillation Subjective: Patient ID: Flo Mireles is a 51 y.o. male with a history of SYD, a history of atrial fibrillation with a C2V of 0, who has reported episodes of atrial fibrillation since a sleep study in 2019. He feels as though his atrial fibrillation became more persistent since the fall of 2020. Reports that during exercise heart rate would sometimes exceed 200 BPM. His atrial fibrillation is mainly described as symptoms of fatigue and exercise intolerance. An ambulatory monitor worn for 2 days in March 2021 indicated a 100% burden of atrial fibrillation with average heart rates ~100 BPM. He ultimately underwent attempt at cardioversion in June of 2021 which was unsuccessful (attempted x2 with temporary return to NSR for approximately 1 minute each time before returning to AF). His regimen prior to this wasdiltiazem 240mg. He then was started on flecainide in the beginning of September,, and now presents for follow up. In discussion with the patient, he reports that since initiation of flecainide he has had no change in symptomology. He notes his heart rates have been trending around 60-90 at home. Hedenies any sense of palpitations. Review of Systems: Review of Systems Constitutional: Negative. Respiratory: Positive for shortness of breath. Genitourinary: Negative. Gastrointestinal: Negative. HENT: Negative. Musculoskeletal: Negative. 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 Mouth/Throat: Mouth: Mucous membranes are moist. Cardiovascular: Rate and Rhythm: Rhythm irregular. Pulses: Normal pulses. Pulmonary: Effort: Pulmonary effort is normal. Breath sounds: Normal breath sounds. Musculoskeletal: General: Normal range of motion. Skin: General: Skin is warm and dry. Neurological: General: No focal deficit present. Mental Status: He is alert and oriented to person, place, and time. EKG: Sinus bradycardia Assessment and Plan: #Atrial Fibrillation, persistent, C2V of 0 #Obstructive sleep apnea, compliant with CPAP We had a thorough discussion regarding pathophysiology of atrial fibrillation and symptomology and indications for invasive treatment. He fortunately is in normal sinus rhythm today proven on EKG. After discussion regarding indications for PVI ablation, he is amenable to proceeding. We will therefore schedule ablation in the understanding that ablations are being booked 2-3 months out. In the interim, he is in the process of scheduling GI endoscopic procedures in the setting of suspected microscopiccolitis. I will coordinate with the GI office for hadley-procedure anticoagulation plan but my sense is that now that the patient is in normal sinus rhythm and C2V score is quite low (0) that we would beable to discontinue AC a few days prior and re-initiate after scopes. Again, I will confirm with them. -Schedule ablation (PVI)- orders placed -No need for cardioversion prior given he is in NSR, maintain flecainide for now -I will coordinate with coordinate with GI re hadley-endoscopy anticoagulation- ideally he would have uninterrupted 3 weeks of AC prior to an ablation so as to avoid ARLENE Abundio Cardoza MD Cardiac Electrophysiology Discussed case with attending Dr. Cali I met with the patient today and independently confirmed the history, physical exam, and testing. I personally reviewed and interpreted the available ECGs and additional cardiac testing (echo), as wellas the labs. I agree with the detailed management plan as written in the fellow note today. I discussed this plan with the patient, who is also in agreement. ?? These notes are in addition to the history, exam and plan that I reviewed in detail, listed above: 1. Mr. Mrieles presents with symptomatic, persistent atrial fibrillation, now maintained in sinus by flecainide. He wishes to proceed with ablation, which is reasonable, given his youth and symptoms. Gina. Regarding his upcoming GI scopes, ideally this would be done PRIOR TO ablation so that post-ablation, anticoagulation will not be interrupted. ?? Dr. Carolina Cali, electrophysiology attending ([id number]) documented in this encounter Miscellaneous Notes Addendum Note - Abundio Cardoza MD - 09/30/2021 8:00 AM EDT Addended by: ABUNDIO CARDOZA on: 09/30/2021 05:09 PM Modules accepted: Orders Addendum Note - Carolina Cali MD - 09/30/2021 8:00 AM EDT Addended by: CAROLINA CALI on: 09/30/2021 10:17 PM Modules accepted: Level of Service documented in this encounter Plan of Treatment Upcoming Encounters Date Type Specialty Care Team Description 12/25/2021 Appointment Radiology Carolina Cali MD [facility] [place] [address] 12/28/2021 Hospital Encounter Cardiology Carolina Cali, Persist ent atrial MD fibrillation [facility] [place] [address] 12/28/2021 Surgery Cardiology Carolina Cali, ELECTROPHYSIO GIRISH QUIGLEY PROCEDURE [facility] [place] [address] 02/02/2022 Hospital Encounter Gastroenterology Cuauhtemoc Olivas MD [facility] [place] [address] 02/02/2022 Surgery Gastroenterology Deisy, EGD, UPPER GI ENDOSCOPY Cuauhtemoc Scott MD [facility] [place] [address] Scheduled Orders Name Type Priority Associated Order Schedule Diagnoses Transesophageal Echocardiography Routine Persistent atrial One Time for 1 Echo/OR fibrillation Occurrences starting 09/30/2021 unti l 09/30/2021 CT Cardiac for Imaging Routine Persistent atrial Expected : Morphology & Function fibrillation 2021, Expires: 04/01/2022 Scheduled Procedures Name Priority Associated Diagnoses Date/Time [...] procedure are i n the results section. documented in this encounter Results EKG 12 Lead (09/30/2021 9:12 AM EDT) Component Value Ref Range Test Analysis Performed Pathologis t Method Time At Signature Ventricular rate 58 BPM MUSE SYSTEM Atrial Rate 58 BPM MUSE SYSTEM P-R Interval 206 ms MUSE SYSTEM QRS Duration 94 ms MUSE SYSTEM Q-T Interval 440 ms MUSE SYSTEM QTC Calculated 431 ms MUSE SYSTEM (Bezet) Calculated P Hinckley 39 degrees MUSE SYSTEM Calculated R [place] 6 degrees MUSE SYSTEM Calculated T [place] 69 degrees MUSE SYSTEM INTERPRETATION Sinus bradycardia with prolonged AV conduction MUSE SYSTEM Otherwise normal ECG When compared with ECG of 10-JUN-2021 10:41, Sinus rhythm has replaced Atrial fibrillation Vent. rate has decreased BY ??42 BPM I personally reviewed the tracing and edited the fellows int erpretation Confirmed by fellow MD Wolf, Max ([id number]) on 09/30/2021 9:5 6:45 AM Confirmed by MD Ramon, [place] ([id number]) on 09/30/2021 6:54: 43 PM Specimen Anatomical Collection Method Collection Time Receive d Time (Source) Location / / Volume Laterality 09/30/2021 9:12 AM 6:54 EDT PM EDT Carolina Cali MD ECG ORDERABLES Performing Organization Address City/State/ZIP Code Phon e Number MUSE SYSTEM documented in this encounter Visit Diagnoses Diagnosis Persistent atrial fibrillation Atrial fibrillation Persistent atrial fibrillation Atrial fibrillation Persistent atrial fibrillation Atrial fibrillation Change in bowel habits Other symptoms involving digestive syste m Abdominal pain, unspecified abdominal lo cation documented in this encounter Care Teams Security Sales Consultant Relationship Specialty Start Date End Date Stew Mario DO PCP - General Family Medicine 03/24/[address] [place] [address] documented as of this encounter
--- OUTSIDE RECORDS SUMMARY | 2021-11-08 04:44 | XMS_ITS | Encounter Summary ---
:1970 Author Organization [facility] Address [facility] [place] [address] Care Team Providers Name Role Phone Stew Mario DO Primary Care Provider Encounter Details Date Type Department Care Team Description 04/08/2021 Orders Only Cardiology at [facility] Chi Kinney MD [facility] [place] [address] CARDIOLOGY DEPT. [phone] [place], [place] [address] (Wo rk) Social History Tobacco Use Types Packs/Day Years Used Date Never Smoker Sex Assigned at Date Recorded Male 04/03/2021 10:46 AM EST documented as of this encounter Progress Notes Chi Kinney MD - 04/08/2021 11:59 AM EST Telephone / Email Note Caller: Will Kinney MD, cardiology Comments: The local holter monitor was available for review and demonstrated AF during the entire recording. The patient may have transitioned from a rare PAF to a persistent/permanent AF. He is 50 years old with a history of SYD and is on CPAP. Reasonable to try at least one cardioversion and see if he will hold with an AV floyd agent. Plan: 1. Increase diltiazem to 240 mg po qd (from 180 - although need to clarify if he ever started the 180) 2. Start AC (apixaban 5 mg po bid) 3. Schedule ARLENE/DCCV through same day documented in this encounter Plan of Treatment Upcoming Encounters Date Type Specialty Care Team Description 12/25/2021 Appointment Radiology Isaiah Cali MD [facility] [place] [address] 12/28/2021 Hospital Encounter Cardiology Isaiah Cali, Persist ent atrial fibrillation [facility] [place] [address] 12/28/2021 Surgery Cardiology Isaiah Cali, ELECTROPHYSIO GIRISH QUIGLEY PROCEDURE [facility] [place] [address] 02/02/2022 Hospital Encounter Gastroenterology Cuauhtemoc Olivas MD [facility] [place] [address] 02/02/2022 Surgery Gastroenterology Deisy, EGD, UPPER GI ENDOSCOPY Cuauhtemoc Scott MD [facility] [place] [address] Scheduled Procedures Name Priority Associated Diagnoses Date/Time EGD, UPPER GI ENDOSCOPY Change in bowel habits 02/02/2022 7:30 AM EST Abdominal pain, unspecified abdominal location COLONOSCOPY, DIAGNOSTIC Change in bowel habits 02/02/2022 7:30 AM EST Abdominal pain, unspecified abdominal location documented as of this encounter Visit Diagnoses Not on filedocumented in this encounter Care Teams Adolescent Coordinator Relationship Specialty Start Date End Date Stew Mario DO PCP - General Family Medicine 03/24/21 [facility] [address] [place] [address] documented as of this encounter
--- OUTSIDE RECORDS SUMMARY | 2021-11-08 04:44 | XMS_ITS | Encounter Summary ---
:1970 Author Organization [facility] [place] [address] Care Team Providers Name Role Phone FabianoStew Primary Care Provider Reason for Referral Diagnostic Test (Routine) - New Request Specialty Diagnoses / Procedures Referred By Contact Refer red To Contact Radiology Diagnoses Change in bowel habits Nausea without vomiting Susan Farmer PA Procedures NM Gastric Emptying Scan [facility] [place] [address] Referral ID Status Reason Start Expiration Visits Visits Date Date Requested Authorized [id number] New Request Specialty 04/17/2021 10/18/2022 1 1 Service Requested Diagnostic Test (Routine) - Closed Specialty Diagnoses / Procedures Referred By Contact Refer red To Contact Gastroenterology Diagnoses Change in bowel habits Nausea without vomiting [id number] Susan Farmer PA [facility] 4t Procedures Breath Hydrogen Test PRG BREATH HYDROGEN TEST [id number] [facility] [place] [address] Fax: Referral ID Status Reason Start Date Expiration Date Visits V isits Requested Authorized [id number] Closed Consult, 04/17/2021 04/17/2022 1 1 Test & Treat Reason for Visit Consultation (Routine) - Authorized Specialty Diagnoses / Procedures Referred By Contact Refer red To Contact Gastroenterology Diagnoses Abdominal pain, unspecified abdominal location ABDOMINAL PAIN, UNREMARKABLE EGD, S/P CHOLY, 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 Stew Mario DO [facility] 4l [address] [facility] [address] [place], [place] [address] [place] [address] Phone: Fax: Referral ID Status Reason Start Expiration Visits Visits Date Date Requested Authorized [id number] Authorized Consult, 03/24/2021 03/24/2022 6 6 Test & Treat PCP Updated and/or Approved Encounter Details Date Type Department Care Team Description 04/17/2021 TH Visit Gastroenterology at [facility] Susan Farmer Change in bowel habits; (TeleHealth) [facility] MARCELL Wiggins [place] [address] [facility] [phone] [place] [address] Social History Tobacco Use Types Packs/Day Years Used Date Never Smoker Sex Assigned at Date Recorded Male 04/03/2021 10:46 AM EST documented as of this encounter Progress Notes Susan Farmer PA - 04/17/2021 4:00 PM EST GASTROENTEROLOGY TELEHEALTH PROGRAM - NEW PATIENT VISIT Chief Complaint: Flo Mireles is a 50 y.o. patient referred for consultation by Dr. Mario for abdominal pain History of Present Illness: He is accompanied by his , Desirae Patient reports stomach symptoms for several years He reports discomfort, gas/bloating Symptoms are worse in the AM and afternoon and seem to improve around dinner stacie He describes feeling like he has a stomach bug No nausea or vomiting Some early satiety No weight loss He also trouble with his bowels. If he eats food, he has to use the bathroom to have a bowel movement. He tends to have soft stools. He has 4-8 bowel movements per day. He may have larger or small stools, typically more moderate/large. Rare nocturnal awakening. Diarrhea began prior to starting PPI No melena Some BRBPR His PCP increased his pantoprazole 40mg to BID which has helped with the discomfort Workup Stool studies- negative per patient Celiac website designer- negative per patient Trials Pantoprazole Questran- he did not find this helpful Last EGD- 01/2021 O[facility] Last colonoscopy - 01/2021 O[facility] He is on eliquis for a fib and is planning to have a cardioversion. He is not sure when this is planned for Review of systems: 14-point review of systems reviewed and negative except as above. Medications: ??? dilTIAZem (TIAZAC) 240 mg Capsule,Sustained Action 24 hr ??? apixaban (Eliquis) 5 mg Tablet ??? pantoprazole EC (Protonix) 40 mg Tablet, Delayed Release (E.C.) Allergies: has No Known Allergies. 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 He also has lower GI symptoms including diarrhea having 4-8 bowel movements per day. He has tried to mitigate symptoms by decreasing p.o. intake especially in the morning. He finds by the evening his GI tract settled down and he is less likely to have diarrhea. His PPI was recently increased to twice a day dosing and his diarrhea predates PPI use. He did have a colonoscopy and an EGD in January 2021 at an outside institution. Random biopsies were not taken of his colon. We discussed symptoms in detail including possible etiologies such as small intestinal bacterial overgrowth, dysmotility and functional bowel disorders. We discussed proceeding with the following plan 1. Stool studies to include fecal calprotectin. He would like this times outside institution [facility]. He understands results may be delayed and they will follow up on their portal and will send me the results if possible 2. Gastric emptying scan due to bloating and early satiety. This too will be done at their local institution 3. Small intestinal bacterial overgrowth test here at [facility] 4. Begin Imodium. We discussed the dose in detail including adverse effects 5. We did discuss proceeding with repeat EGD and colonoscopy with random biopsies to evaluate for microscopic colitis given persistent diarrhea which has been nonresponsive to Questran. He would like to start with the above studies first but is open to repeating his colonoscopy if needed. We did discuss if his fecal calprotectin is abnormal I would encourage him to consider a colonoscopy at a sooner date instead of waiting until his gastric emptying scan and SIBO test MARCELL Jensen [facility] [place] [address] documented in this encounter Plan of Treatment Upcoming Encounters Date Type Specialty Care Team Description 12/25/2021 Appointment Radiology Isaiah Cali MD [facility] [place] [address] 12/28/2021 Hospital Encounter Cardiology Isaiah Cali, Persist ent atrial MD fibrillation [facility] [place] [address] 12/28/2021 Surgery Cardiology Isaiah Cali, ELECTROPHYSIO GIRISH QUIGLEY PROCEDURE [facility] [place] [address] 02/02/2022 Hospital Encounter Gastroenterology Cuauhtemoc Olivas MD [facility] [place] [address] 02/02/2022 Surgery Gastroenterology MANUEL Olivas, UPPER GI ENDOSCOPY Cuauhtemoc Scott MD [facility] [place] [address] Scheduled Orders Name Type Priority Associated Diagnoses Order S chedule Breath Hydrogen Test GI Routine Change in b owel habits Expected: 04/17/2021, Nausea without vomiting Expi res: 04/17/2022 NM Gastric Emptying Imaging Routine Change in rafita wel habits Expected: 04/17/2021, Scan Nausea without vomiting Expi res: 10/17/2021 Calprotectin, Stool Lab Routine Change in bowel habit s Expected: 04/17/2021, Expires: 2021 Scheduled Procedures Name Priority Associated Diagnoses Date/Time [...] cation documented in this encounter Care Teams Dock Superintendent Relationship Specialty Start Date End Date Stew Mario DO PCP - General Family Medicine 03/24/[address] [place] [address] [address] [place] [address] documented as of this encounter
--- OUTSIDE RECORDS SUMMARY | 2021-11-08 04:44 | XMS_ITS | Encounter Summary ---
:1970 [place] [address] Care Team Providers Name Role Phone Stew Mario DO Primary Care Provider Encounter Details Date Type Department Care Team Description 06/10/2021 Laboratory Appointment Lab 3L [facility] Atrial fibrillation, [facility] [place] [id number] Social History Tobacco Use Types Packs/Day Years Used Date Never Smoker Smokeless Tobacco: Never Used Alcohol Use Standard Drinks/Week Comments Yes 2 (1 standard drink = 0.6 oz pure alcoho l) Sex Assigned at Date Recorded Male 04/03/2021 10:46 AM EST documented as of this encounter Plan of Treatment Upcoming Encounters Date Type Specialty Care Team Description 12/25/2021 Appointment Radiology Isaiah Cal[place] [address] 12/28/2021 Hospital Encounter Cardiology Isaiah Cali, Persist ent atrial MD [place] [address] 12/28/2021 Surgery Cardiology Isaiah Cali, ELECTROPHYSIO GIRISH QUIGLEY PROC[place]URE [place] [address] 02/02/2022 Hospital Encounter Gastroenterology Cuauhtemoc Olivas MD [facility] [place] [address] 02/02/2022 Surgery Gastroenterology Winter, EGD, UPPER GI ENDOSCOPY Cuauhtemoc Scott MD [facility] [address] Scheduled Procedures Name Priority Associated Diagnoses Date/Time EGD, UPPER GI ENDOSCOPY Change in bowel habits 02/02/2022 7:30 AM EST Abdominal pain, unspecified abdominal location COLONOSCOPY, DIAGNOSTIC Change in bowel habits 02/02/2022 7:30 AM EST Abdominal pain, unspecified abdominal location documented as of this encounter Procedures Procedure Name Priority Date/Time Associated Diagnosis Comme nts HC VENIPUNCTURE Routine 06/10/2021 7:38 AM Atrial fibrillation , Results for this EDT unspecified type procedure a re in the results section. HC MAGNESIUM, SERUM Routine 06/10/2021 7:38 AM Atrial fibrilla tion, Results for this EDT unspecified type procedure a re in the results section. documented in this encounter Results Magnesium (06/10/2021 7:38 AM EDT) athologist Signature Magnesium 0.90 0.69 - 1.07 [facility] mmol/L [facility] Specimen Anatomical Collection Method Collection Time Receive d Time (Source) Location / / Volume Laterality Blood 06/10/2021 7:38 AM 7:50 EDT AM EDT Resulting Agency Comment Spec In Lab Get Carrion MD CHEMISTRY ORDERABLES Performing Organization Address City/State/ZIP Code Phon e Number [place] [phone] (ABNORMAL) BMP w/fasting Glucose (06/10/2021 7:38 AM EDT) athologist Signature Glucose 107 (H) 65 - 99 [facility] Fasting mg/dL [facility] Comment: ?Fasting* Glucose Interpretive C riteria [...] of Diabetes Mellitus, Position Statement from the [place] [employer]. ??Diabete s Care, Volume 33, Supplement 1, Feb 2009 BUN 19 10 - 20 mg/dL [facility] Creatinine 1.03 0.80 - 1.50 mg/dL [facility] Sodium 141 135 - 145 mmol/L [facility] Potassium 4.5 3.5 - 5.0 mmol/L [facility] Comment: Please note: ??Patients with WBC >100,00 0 may have falsely elevated Potassium levels. ??For accurate Potassium quantif ication in these patients send serum separator tube (gold top) for subsequent determinations. ??Contact the Clinical Chemistry Laboratory if there are any qu estions. Chloride 103 98 - 107 mmol/L [facility] CO2 27 22 - 31 mmol/L [facility] Anion Gap 11 5 - 15 mmol/L [facility] Calcium 9.4 8.5 - 10.5 mg/dL [facility] Estimated GFR 84 >=60 mL/min/1.73 m?? [facility] Comment: This patient? s estimated [...] Organization Address City/State/[place] [address] documented in this encounter Visit Diagnoses Diagnosis Atrial fibrillation, unspecified type Persistent atrial fibrillation Atrial fibrillation Persistent atrial fibrillation Atrial fibrillation Change in bowel habits Other symptoms involving digestive syste m Abdominal pain, unspecified abdominal lo cation documented in this encounter Care Teams Aircraft Maintenance Technician Relationship Specialty Start Date End Date Stew Mario DO PCP - General Family Medicine 03/24/[address] [place] [address] documented as of this encounter
--- OUTSIDE RECORDS SUMMARY | 2021-11-08 04:44 | XMS_ITS | Encounter Summary ---
:1970 Author Organization [facility] [place] [address] Care Team Providers Name Role Phone FabianoStew anton Primary Care Provider Reason for Referral Diagnostic Test (Routine) - Closed Specialty Diagnoses / Procedures Referred By Contact Refer red To Contact Cardiology Diagnoses Atrial fibrillation, unspecified type Chi Kinney MD [facility] Non-Inv Card Lab Procedures Transesophageal Echocardiogram (ARLENE) [facility] [place] [address] [place] [address] Fax: Referral ID Status Reason Start Date Expiration Date Visits V isits Requested Authorized [id number] Closed Specialty 05/26/2021 07/24/2021 1 1 Service Requested Encounter Details Date Type Department Care Team Description 06/10/2021 Orders Only Cardiology at [facility] Chi Kinney, Atrial fibrillation, [facility] [place] [address] CARDIOLOGY DEPT. [phone] [place], [place] [address] (Wo rk) Social History Tobacco [...] Description 12/25/2021 Appointment Radiology Isaiah Cali MD [facility] [place] [address] 12/28/2021 Hospital Encounter Cardiology Isaiah Cali, Persist ent atrial MD fibrillation [facility] [place] [address] 12/28/2021 Surgery Cardiology Isaiah Cali, ELECTROPHYSIO GIRISH QUIGLEY PROCEDURE [facility] [place] [address] 02/02/2022 Hospital Encounter Gastroenterology Cuauhtemoc Olivas MD [facility] [place] [address] 02/02/2022 Surgery Gastroenterology Deisy, EGD, UPPER GI ENDOSCOPY Cuauhtemoc Scott MD [facility] [place] [address] Scheduled Orders Name Type Priority Associated Order Schedule Diagnoses Transesophageal Echocardiography Routine Atrial Expected : Echocardiogram (ARLENE) fibrillation, 2021, unspecified type Expires: 09/10/2021 Scheduled Procedures Name Priority Associated Diagnoses Date/Time [...] cation documented in this encounter Care Teams Medical Anthropology Director Relationship Specialty Start Date End Date Stew Mario DO PCP - General Family Medicine 03/24/[address] [place] [address] documented as of this encounter
--- OUTSIDE RECORDS SUMMARY | 2021-11-08 04:44 | XMS_ITS | Encounter Summary ---
:1970 Author Organization [facility] [place] [address] Care Team Providers Name Role Phone Stew Mario DO Primary Care Provider Encounter Details Date Type Department Care Team Description 07/28/2021 Orders Only [place] [facility] Susan Farmer Change in bowel habits; [facility] MARCELL Wiggins Abdominal pain, [place] [address] [facility] [phone] [place] [address] Social History Tobacco Use Types Packs/Day Years Used Date Never Smoker Smokeless Tobacco: Never Used Alcohol Use Standard Drinks/Week Comments Yes 2 (1 standard drink = 0.6 oz pure alcoho l) Sex Assigned at Date Recorded Male 04/03/2021 10:46 AM EST documented as of this encounter Plan of Treatment Upcoming Encounters Date Type Specialty Care Team Description 12/25/2021 Appointment Radiology Isaiah Cali [place] [facility] [place] [address] 12/28/2021 Hospital Encounter Cardiology Isaiah Cali, Persist ent atrial MD fibrillation [facility] [place] [address] 12/28/2021 Surgery Cardiology Isaiah Cali, ELECTROPHYSOMAR STOUT MD PROCEDURE [facility] [place] [address] 02/02/2022 Hospital Encounter Gastroenterology Cuauhtemoc Olivas MD [facility] [place] [address] 02/02/2022 Surgery Gastroenterology Deisy, EGD, UPPER GI ENDOSCOPY Cuauhtemoc Scott MD [facility] [place] [address] Scheduled Orders Name Type Priority Associated Diagnoses Order S chedule ENDOSCOPY CASE Procedures Routine Change in bowel habits Ordered: 07/28/2021 REQUEST: EGD, UPPER GI Abdominal pain, ENDOSCOPY, unspecified abdominal COLONOSCOPY, location DIAGNOSTIC Scheduled Procedures Name Priority Associated Diagnoses Date/Time EGD, UPPER GI ENDOSCOPY Change in bowel habits 02/02/2022 7:30 AM EST Abdominal pain, unspecified abdominal location COLONOSCOPY, DIAGNOSTIC Change in bowel habits 02/02/2022 7:30 AM EST Abdominal pain, unspecified abdominal location documented as of this encounter Visit Diagnoses Diagnosis Change in bowel habits Other symptoms involving digestive syste m Abdominal pain, unspecified abdominal lo cation Persistent atrial fibrillation Atrial fibrillation Persistent atrial fibrillation Atrial fibrillation Change in bowel habits Other symptoms involving digestive syste m Abdominal pain, unspecified abdominal lo cation documented in this encounter Care Teams Build Technician Relationship Specialty Start Date End Date Stew Mario DO PCP - General Family Medicine 03/24/[address] [place] [address] documented as of this encounter
--- OUTSIDE RECORDS SUMMARY | 2021-11-08 04:44 | XMS_ITS | Encounter Summary ---
:[address] [facility] [place] [address] Care Team Providers Name Role Phone Stew Mario DO Primary Care Provider Encounter Details Date Type Department Care Team Description 10/29/2014 Orders Only Radiology Nivia JaimieStew Adamson DO [facility] [address] [place] [address] [place] [address] [phone] Social History Tobacco Use Types Packs/Day Years Used Date Never Assessed Sex Assigned at Date Recorded Male 04/03/2021 10:46 AM EST documented as of this encounter Plan of Treatment Upcoming Encounters Date Type Specialty Care Team Description 12/25/2021 Appointment Radiology Isaiah Cali MD [facility] [place] [address] 12/28/2021 Hospital Encounter Cardiology Isaiah Cali, Persist ent atrial fibrillation [facility] [place] [address] 12/28/2021 Surgery Cardiology Isaiah Cali, ELECTROPHYSIO GIRISH QUIGLEY PROCEDURE [facility] [place] [address] 02/02/2022 Hospital Encounter Gastroenterology Cuauhtemoc Olivas MD [facility] [place] [address] 02/02/2022 Surgery Gastroenterology Winter, EGD, UPPER GI ENDOSCOPY Cuauhtemoc Scott MD [facility] [place] [address] Scheduled Procedures Name Priority Associated Diagnoses Date/Time EGD, UPPER GI ENDOSCOPY Change in bowel habits 02/02/2022 7:30 AM EST Abdominal pain, unspecified abdominal location COLONOSCOPY, DIAGNOSTIC Change in bowel habits 02/02/2022 7:30 AM EST Abdominal pain, unspecified abdominal location documented as of this encounter Procedures Procedure Name Priority Date/Time Associated Diagnosis Comme nts FILM LIBRARY Routine 10/29/2014 5:55 PM Results f or this STORAGE ONLY CT EDT procedure ar e in ABDOMEN the results section. documented in this encounter Results Film Library- Storage only CT Abdomen (10/29/2014 5:55 PM EDT) Anatomical Region Laterality Modality Abdomen Other Specimen (Source) Anatomical Collection Method Collection Time Re ceived Time Location / / Volume Laterality 10/29/2014 5:55 PM EDT Narrative 10/30/2014 6:00 PM EDT This is a Non-reportable exam Procedure Note AMBAR, UNSIGNED REPORT - 10/30/2014Formatt ing of this note might be different from the original. This is a Non-reportable exam Stew Mario DO IMJina FILM LIBRARY ORDERABLES documented in this encounter Visit Diagnoses Not on filedocumented in this encounter Care Teams Machine Adjuster Helper Relationship Specialty Start Date End Date Stew Mario DO PCP - General 12/30/09 03/23/21 [address] [place] [address] documented as of this encounter
--- OUTSIDE RECORDS SUMMARY | 2021-11-08 04:44 | XMS_ITS | Encounter Summary ---
:1970 Author Organization [facility] [place] [address] Care Team Providers Name Role Phone Stew Mario DO Primary Care Provider Encounter Details Date Type Department Care Team Description 06/08/2021 Orders Only Cardiology at [facility] Chi Kinney MD [facility] Christa valdes [facility] [address] CARDIOLOGY DEPT. [phone] [place] [address] (Wo rk) Social History Tobacco Use Types Packs/Day Years Used Date Never Smoker Sex Assigned at Date Recorded Male 04/03/2021 10:46 AM EST documented as of this encounter Plan of Treatment Upcoming Encounters Date Type Specialty Care Team Description 12/25/2021 Appointment Radiology Isaiah Cali MD [facility] [place] [address] 12/28/2021 Hospital Encounter Cardiology Isaiah Cali, Persist ent atrial fibrillation [facility] [place] [address] 12/28/2021 Surgery Cardiology Isaiah Cali, ELECTROPHYSIO GIRISH QUIGLEY PROCEDURE [facility] [place] [address] 02/02/2022 Hospital Encounter Gastroenterology Cuauhtemoc Olivas MD [facility] [place] [place] [address] 02/02/2022 Surgery Gastroenterology Winter, EGD, UPPER GI ENDOSCOPY Cuauhtemoc Scott MD [facility] [place] [address] Scheduled Procedures Name Priority Associated Diagnoses Date/Time EGD, UPPER GI ENDOSCOPY Change in bowel habits 02/02/2022 7:30 AM EST Abdominal pain, unspecified abdominal location COLONOSCOPY, DIAGNOSTIC Change in bowel habits 02/02/2022 7:30 AM EST Abdominal pain, unspecified abdominal location documented as of this encounter Visit Diagnoses Not on filedocumented in this encounter Care Teams Sinter Press Operator Relationship Specialty Start Date End Date Stew Mario DO PCP - General Family Medicine 03/24/[address] [place] [address] [address] [place] [address] documented as of this encounter
--- OUTSIDE RECORDS SUMMARY | 2021-11-08 04:44 | XMS_ITS | Encounter Summary ---
:1970 Author Organization [facility] [place] [address] Care Team Providers Name Role Phone Stew Mario DO Primary Care Provider Encounter Details Date Type Department Care Team Description 12/04/2014 Office Visit Urology at [facility] Balta Woods MD urethral stricture; [address] UROLOGY [place] [phone] [phone] (Wo rk) Social History Tobacco Use Types Packs/Day Years Used Date Never Smoker Sex Assigned at Date Recorded Male 04/03/2021 10:46 AM EST documented as of this encounter Last Filed Vital Signs Vital Sign Reading Time Taken Comments Blood Pressure 143/72 12/04/2014 3:44 PM EDT Pulse 86 12/04/2014 3:44 PM EDT Temperature 36.6 ??C (97.8 ??F) 12/04/2014 3:44 PM EDT Respiratory Rate 18 12/04/2014 3:44 PM EDT Oxygen Saturation 100% 12/04/2014 3:44 PM EDT Inhaled Oxygen Concentration - - Weight 95.3 kg (210 lb) 12/04/2014 3:44 PM EDT Height 167.6 cm (5' 6) 12/04/2014 3:44 PM EDT Body Mass Index 33.89 12/04/2014 3:44 PM EDT documented in this encounter Progress Notes Balta Woods MD - 12/04/2014 8:28 PM EDT Procedure: Flexible cystoscopy. Surgeon: Peggy [...] the flexible telescope including retroversion. Anterior urethroscopy revealed a minor, very thin mid-bulbar stricture. Scope passed easily through the stricture The prostatic fossa was normal The ureteral orifices were in normal position and effluxed clear urine. The bladder was normal. There were no bladder tumors, mucosal abnormalities or bladder stones. The cystoscope was removed. The patient tolerated the procedure without difficulty. There were no complications. The patient was given 1 cipro prior to the procedure. Assessment: Negative hematuria work up with normal CT urogram and negative cystoscopy except for mild bulbar urethral stricture Plan: 1. Patient will call be recurrent hematuria or viding symptoms 2. FU office visit in one year D/W Dr. Liao who agrees with assessment and plan. documented in this encounter Plan of Treatment Upcoming Encounters Date Type Specialty Care Team Description 12/25/2021 Appointment Radiology Isaiah Cali MD [facility] [place] [address] 12/28/2021 Hospital Encounter Cardiology Isaiah Cali, Persist ent atrial MD fibrillation [facility] [place] [address] 12/28/2021 Surgery Cardiology Isaiah Cali, ELECTROPHYSIO GIRISH QUIGLEY PROCEDURE [facility] [place] [address] 02/02/2022 Hospital Encounter Gastroenterology Cuauhtemoc Olivas MD [facility] [place] [address] 02/02/2022 Surgery Gastroenterology SOM OlivasD, UPPER GI ENDOSCOPY Cuauhtemoc Scott MD [facility] [place] [address] Scheduled Procedures Name Priority Associated Diagnoses Date/Time EGD, UPPER GI ENDOSCOPY Change in bowel habits 02/02/2022 7:30 AM EST Abdominal pain, unspecified abdominal location COLONOSCOPY, DIAGNOSTIC Change in bowel habits 02/02/2022 7:30 AM EST Abdominal pain, unspecified abdominal location documented as of this encounter Visit Diagnoses Diagnosis urethral stricture Gross hematuria Hematuria, gross Gross hematuria Persistent atrial fibrillation Atrial fibrillation Persistent atrial fibrillation Atrial fibrillation Change in bowel habits Other symptoms involving digestive syste m Abdominal pain, unspecified abdominal lo cation documented in this encounter Care Teams Pediatric Dermatologist Relationship Specialty Start Date End Date Stew Mario DO PCP - General 12/30/09 03/23/21 [address] [place] [address] documented as of this encounter
--- OUTSIDE RECORDS SUMMARY | 2021-11-08 04:44 | XMS_ITS | Encounter Summary ---
:1970 Author Organization [facility] [place] [address] Care Team Providers Name Role Phone Stew Mario DO Primary Care Provider Reason for Referral Consultation (Routine) - Specialty Diagnoses / Procedures Referred By Contact Refer red To Contact Radiology Diagnoses Gross hematuria Roberta Starkey, [facility] Rad Ct Scan Procedures CT Abdomen & Pelvis With Contrast (GENERIC) CT Abdomen & Pelvis With/Wo [place] [address] [place] [address] Referral ID Status Reason Start Date Expiration Visits Visits Date Requested Authorized [id number] Specialty 11/18/2014 11/18/2014 1 1 Service Requested Reason for Visit Consultation (Routine) - Specialty Diagnoses / Procedures Referred By Contact Refer red To Contact Radiology Diagnoses Gross hematuria Roberta Starkey, [facility] Rad Ct Scan Procedures CT Abdomen & Pelvis With Contrast (GENERIC) CT Abdomen & Pelvis With/Wo [place] [address] [place] [address] Referral ID Status Reason Start Date Expiration Visits Visits Date Requested Authorized [id number] Specialty 11/18/2014 11/18/2014 1 1 Service Requested Encounter Details Date Type Department Care Team Description 11/18/[address] Scan at [facility] Tarah, Gross hematuria [facility] J[place] [address] UROLOGY DEPT [phone] [place], [place] [address] Social History Tobacco Use Types Packs/Day Years Used Date Never Smoker Sex Assigned at Date Recorded Male 04/03/2021 10:46 AM EST documented as of this encounter Medications at Time of Discharge Medication Sig Dispensed Refills Start Date End Date citalopram (CELEXA) 20 mg tablet 0 09/200412/04/2014 documented as of this encounter Plan of Treatment Upcoming Encounters Date Type Specialty Care Team Description 12/25/2021 Appointment Radiology Isaiah Cali MD [facility] [place] [address] 12/28/2021 Hospital Encounter Cardiology Isaiah Cali, Persist ent atrial fibrillation [facility] [place] [address] 12/28/2021 Surgery Cardiology Isaiah Cali, ELECTROPHYSIO GIRISH QUIGLEY PROCEDURE [facility] [place] [address] 02/02/2022 Hospital Encounter Gastroenterology Cuauhtemoc Olivas MD [facility] [place] [address] 02/02/2022 Surgery Gastroenterology SOM OlivasD, UPPER GI ENDOSCOPY Cuauhtemoc Scott MD [facility] [place] [address] Scheduled Procedures Name Priority Associated Diagnoses Date/Time EGD, UPPER GI ENDOSCOPY Change in bowel habits 02/02/2022 7:30 AM EST Abdominal pain, unspecified abdominal location COLONOSCOPY, DIAGNOSTIC Change in bowel habits 02/02/2022 7:30 AM EST Abdominal pain, unspecified abdominal location documented as of this encounter Procedures Procedure Name Priority Date/Time Associated Diagnosis Comme nts CT ABDOMEN AND Routine 11/18/2014 9:10 AM Gross hematuria Resu lts for this PELVIS W CONTRAST EDT procedure are in the results section. documented in this encounter Results CT Abdomen & Pelvis [...] fluid noted. No intrahepatic or extrahepatic biliary anaay rafael dilatation. Spleen: Normal. Pancreas: Normal. Adrenal [...] this encounter Visit Diagnoses Diagnosis Gross hematuria Persistent atrial fibrillation Atrial fibrillation Persistent atrial fibrillation Atrial fibrillation Change in bowel habits Other symptoms involving digestive syste m Abdominal pain, unspecified abdominal lo cation documented in this encounter Administered Medications Inactive Administered Medications - up to 3 most recent administrations Medication Order MAR Action Action Date Dose Rate Site iohexol (OMNIPAQUE) 350 mg/mL Given 11/18/2014 10:00 AM EDT 38,5 00 mg solution 38,500 mg 38,500 mg (110 mL), Intravenous, ONCE PRN, 1 dose, Starting on Tue11/18/14 at 0904, Until Tue11/18/14 at 1000, Per Protocol, Routine documented in this encounter Care Teams Water Pump Servicer Relationship Specialty Start Date End Date Stew Mario DO PCP - General 12/30/09 03/23/21 [address] [place] [address] documented as of this encounter
--- OUTSIDE RECORDS SUMMARY | 2021-11-08 04:44 | XMS_ITS | Encounter Summary ---
:1970 [place] [address] Care Team Providers Name Role Phone FabianoStew [...] Expiration Date Visits Requ ested Visits Authorized [id number] 1 1 Encounter Details Date Type Department Care Team Description 06/10/2021 Anesthesia Event Main Operating Room Amanda Baca Kingslandgigi Garcia MD [facility] Christa valdes [place] [address] [place] [address] [phone] (Wo rk) Anesthesia Record Procedure Summary Procedure Name Responsible Anesthesia Start Anesthesia Stop Time Anesthesiologist Time CARDIOVERSION-ELECT Amanda Murphy MD 06/10/21 1008 0 06/10/21 1029 ROSETTA (WRVU 2.25) (N/A ) Events Date Time Event Comment 06/10/2021 0946 1008 AN Verify 1008 Start 1008 An Start Data 1014 Anesthesia Ready 1029 an stop data 1029 Recovery or ICU Handoff Patient care was transferred to the destination unit staff after review of the patient's medica l history, current anesthetic/surgi olivier status and plan, according to the Provider Handoff Checklist. 1029 Stop Name Total Propofol 120 mg Agents Name O2 Auxiliary Flowmeter 1 Blood No blood administrations on file. Lines, Drains, and Airways Type Details Placement Removal PIV metacarpal vein (top of hand), 06/10/21 1003 by 06/10/21 1159 by lakisha Erickson; 20 gauge; no longer Chelly Polo RN indicated; 06/10/21; 1159 documented in this encounter Social History Tobacco Use Types Packs/Day Years Used Date Never Smoker Smokeless Tobacco: Never Used Alcohol Use Standard Drinks/Week Comments Yes 2 (1 standard drink = 0.6 oz pure alcoho l) Sex Assigned at Date Recorded Male 04/03/2021 10:46 AM EST documented as of this encounter OR Notes Anesthesia Postprocedure Evaluation - Amanda Murphy MD - 06/10/2021 10:59 AM EDT Department of Anesthesiology Post-procedure Note Patient: Flo Mireles Procedure Summary Date: 06/10/21 Room / Location: [facility] SURGERY / [facility] MAIN OR Anesthesia Start: 1008 Anesthesia Stop: 1029 Procedure: CARDIOVERSION-ELECTIVE (WRVU 2.25) (N/A ) Diagnosis: (AF) Surgeons: Sabino Zepeda MD Responsible Provider: Amanda Murphy MD Anesthesia Type: general ASA Status: 3 All Anesthesia Providers: Anesthesiologist: Amanda Murphy MD NATURAL SCIENCES MANAGER: Susan Quinonez CRNA Vitals Value Taken Time BP 138/92 06/10/21 1045 Temp 36.7 ??C (98.1 ??F) 06/10/21 1025 Pulse 95 06/10/21 1058 Resp 22 06/10/21 1058 SpO2 97 % 06/10/21 1058 Pain Level 0 06/10/21 1025 Vitals shown include unvalidated device data. Patient Location: PACU/[facility] Level of Consciousness: Awake and Alert Pain Management: Satisfactory Analgesia PONV: None Cardiovascular Status: At Baseline Respiratory Status: At Baseline Postoperative Fluid Status: Intravascular EUvolemia Possible Anesthetic Complications: NONE apparent at time of evaluation Final Primary Anesthesia Type: General (The anesthetic type performed was the same as planned.) Comments: Back in AF Anesthesia Preprocedure Evaluation - Amanda Murphy MD - 06/10/2021 9:44 AM EDT Pre-Anesthesia Evaluation for: Flo Mireles a 50 y.o. male. Procedure(s): TRANSESOPHAGEAL ECHOCARDIOGRAM (WRVU 2.55) CARDIOVERSION-ELECTIVE (WRVU 2.25) Patient Active Problem List Diagnosis Date Noted ??? PAF (paroxysmal atrial fibrillation) 04/02/2021 ??? GERD with esophagitis 04/02/2021 ??? Hiatal hernia 04/02/2021 ??? Chronic atrial fibrillation 04/02/2021 History reviewed. No pertinent past medical history. History reviewed. No pertinent surgical history. Social History Tobacco Use ??? Smoking status: Never Smoker ??? Smokeless tobacco: Never Used Substance Use Topics ??? Alcohol use: Yes Alcohol/week: 2.0 standard drinks Types: 2 Cans of beer per week Social History Substance and Sexual Activity Drug Use Not on file No Known Allergies Medications: MAR and/or home medications have been reviewed. Physical Exam: Preprocedure Vitals Current as of 06/10/21 0944 BP: 121/79 Pulse: 97 Resp: SpO2: 98 Temp: Height: 167.6 cm (5' 6) (06/10/21) Weight: 103.6 kg (228 lb 6.4 oz) (06/10/21) BMI: 36.86 IBW: 63.8 kg (140 lb 9.2 oz) Last edited 06/10/21 0755 by MR Airway Assessment: Mallampati: II TM distance: >3 FB Neck ROM: full Cardiovascular Assessment: Rhythm: irregular Pulmonary Assessment: unlabored breathing Dental Assessment: Misc Assessment: IV access: Peripheral line Last Filed Perioperative Cognitive Screening None Anesthesia Plan: ASA 3 general, with a(n) intravenous induction 50 y.o. male with a history of SYD (compliant with CPAP), GERD, and atrial fibrillation scheduled for: Procedure(s): TRANSESOPHAGEAL ECHOCARDIOGRAM (WRVU 2.55) CARDIOVERSION-ELECTIVE (WRVU 2.25) Previous anesthetics without issue- no records at (shoulder; carlos; endoscopies) URI/COVID symptoms: no Tobacco: no GERD: well controlled on Protonix SYD: on CPAP nightly Plan propofol anesthetic with routine monitors. Plans and risks discussed. Questions answered. Region - Other Informed Consent: Anesthetic plan and risks discussed with patient and spouse. Plan discussed with NATURAL SCIENCES MANAGER and attending. Anesthesia Screening documented in this encounter Plan of Treatment Upcoming Encounters Date Type Specialty Care Team Description 12/25/2021 Appointment Radiology Isaiah Cali MD [facility] [place] [address] 12/28/2021 Hospital Encounter Cardiology Isaiah Cali, Persist ent atrial fibrillation [facility] [place] [address] 12/28/2021 Surgery Cardiology Isaiah Cali, ELECTROPHYSIO GIRISH QUIGLEY PROCEDURE [facility] [place] [address] 02/02/2022 Hospital Encounter Gastroenterology Cuauhtemoc Olivas MD [facility] [place] [address] 02/02/2022 Surgery Gastroenterology Deisy EGD, UPPER GI ENDOSCOPY Cuauhtemoc Scott MD [facility] [place] [address] Scheduled Procedures Name Priority Associated Diagnoses Date/Time EGD, UPPER GI ENDOSCOPY Change in bowel habits 02/02/2022 7:30 AM EST Abdominal pain, unspecified abdominal location COLONOSCOPY, DIAGNOSTIC Change in bowel habits 02/02/2022 7:30 AM EST Abdominal pain, unspecified abdominal location documented as of this encounter Visit Diagnoses Not on filedocumented in this encounter Administered Medications Inactive Administered Medications - up to 3 most recent administrations Medication Order MAR Action Action Date Dose Rate Site propofoL (Diprivan) 10 mg/mL bolus Given 06/10/2021 10:18 AM EDT 50 mg injection (Anesthesia) Intravenous, PRN, Starting on Tue06/10/21 at 1013, Until Tue06/10/21 at 1029, Anesthesia Intra-op Given 06/10/2021 10:14 AM EDT 20 mg Given 06/10/2021 10:13 AM EDT 50 mg documented in this encounter Care Teams Accountant Relationship Specialty Start Date End Date Stew Mario DO PCP - General Family Medicine 03/24/[address] [place] [address] documented as of this encounter
--- OUTSIDE RECORDS SUMMARY | 2021-11-08 04:44 | XMS_ITS | Encounter Summary ---
:1970 Author Organization [facility] [place] [address] Care Team Providers Name Role Phone Stew Mario DO Primary Care Provider Encounter Details Date Type Department Care Team Description 11/06/2021 Telephone [facility]ology at [facility] Malinda May [facility] [place] [address] Social History Tobacco Use Types Packs/Day Years Used Date Never Smoker Smokeless Tobacco: Never Used Alcohol Use Standard Drinks/Week Comments Yes 2 (1 standard drink = 0.6 oz pure alcoho l) Sex Assigned at Date Recorded Male 04/03/2021 10:46 AM EST documented as of this encounter Miscellaneous Notes Telephone Encounter - Malinda May - 11/06/2021 1:41 PM EDT Flo Mireles [id number] Diagnosis/Indication: abdominal pain. diarrhea- evaluate for microscopic [...] Upper Endoscopy & Colonoscopy before? Yes: Date 01/07/21 If yes, did you have any problems with the procedure (such as waking up during the procedure, pain or difficulties afterwards, etc.)? No What type of sedation was used: Other: unkn 2. Do you take any blood thinners or have you been diagnosed with a bleeding disorder that increasesyour risk of bleeding with procedures? Yes: Type: having heart procedure will be on blood thinners for 1 months 3. Do you have a Pacemaker or [...] you be interested in scheduling this appointment? (Only ask if NEW referral patient; skip this question if [facility] provider ordered the procedure.) No 17. Is there any other information or concerns you would like to us to share with your care team in relation to your upcoming scheduled procedure? No 18. You must have a responsible republican who will drive you to your procedure, stay on campus for the entire duration of your procedure, and drive you home from your procedure. Who will likely be your emergency medical technician/driver for the procedure? *Please Verify the height and weight, and adjust if height and/or weight have changed* Estimated body mass index is 38.29 kg/m?? as calculated from the following: Height as of 10/22/21: 167.6 cm (5' 6). Weight as of 09/30/21: 107.6 kg (237 lb 3.2 oz). Age:51 y.o. documented in this encounter Plan of Treatment Upcoming Encounters Date Type Specialty Care Team Description 12/25/2021 Appointment Radiology Isaiah Cali MD [facility] [place] [address] 12/28/2021 Hospital Encounter Cardiology Isaiah Cali, Persist ent atrial MD fibrillation [facility] [place] [address] 12/28/2021 Surgery Cardiology Isaiah Cali, ELECTROPHYSIO GIRISH QUIGLEY PROCEDURE [facility] [place] [address] 02/02/2022 Hospital Encounter Gastroenterology Cuauhtemoc Oilvas MD [facility] [place] [address] 02/02/2022 Surgery Gastroenterology MANUEL Olivas, UPPER GI ENDOSCOPY Cuauhtemoc Scott MD [facility] [place] [address] Scheduled Procedures Name Priority Associated Diagnoses Date/Time EGD, UPPER GI ENDOSCOPY Change in bowel habits 02/02/2022 7:30 AM EST Abdominal pain, unspecified abdominal location COLONOSCOPY, DIAGNOSTIC Change in bowel habits 02/02/2022 7:30 AM EST Abdominal pain, unspecified abdominal location documented as of this encounter Visit Diagnoses Not on filedocumented in this encounter Care Teams Golf Club Head Former Relationship Specialty Start Date End Date Stew Mario DO PCP - General Family Medicine 03/24/[address] [place] [address] documented as of this encounter
--- OUTSIDE RECORDS SUMMARY | 2021-11-08 04:46 | XMS_ITS | Clinical Summary ---
:1970 Author Organization [facility] Address [address] [place] [address] Care Team Providers Name Role Phone Unknown, Provider Primary Care Provider Social History Tobacco Use Types Packs/Day Years Used Date Never Assessed Sex Assigned at Date Recorded Not on file Plan of Treatment Health Maintenance Due Date Last Done Comments Hepatitis C Screen 1970 COVID-19 Vaccine (#1) 01/31/1971 Insurance Payer Benefit Plan / Subscriber ID Effective Dates Phone Addre ss Type Group [facility] [id number] 2019-Present [address] [place] [address] Flo Mireles Personal/Famil Self 1970 [address] (Home) [place] [phone] [facility] [employer], ([place]) [place] [address] Flo Mireles Personal/Famil Self 1970 [address] (Home) [place] [phone] [employer], (Work) [place] [address] Flo Mireles Personal/Famil Self 1970 [address] (Home) [place] [phone] [facility] [employer], (Work) [place] [address] Flo Mireles Personal/Famil Self 1970 [address] (Home) [place] [phone] [facility] [place], ([place]) [place] [address] Care Teams Counter Intelligence Technician Relationship Specialty Start Date End Date Unknown, Provider, PCP - General 09/24/10
--- OUTSIDE RECORDS SUMMARY | 2021-11-08 04:46 | XMS_ITS | Encounter Summary ---
:1970 Author Organization [facility] Address [address] [place] [address] Care Team Providers Name Role Phone Unknown, Provider Primary Care Provider Encounter Details Date Type Department Care Team Description 04/03/2019 Lab Requisition [facility] Bri Sim ro-esophageal reflux disease with esophagitis; Pathology & M, DO Obstructive sleep apnea (adult) (pediatr ic); Laboratory Medicine [address] Diap hragmatic hernia without obstruction or gangrene; - [facility] [address] Calculus of gallbladder without cholecys titis without obstruction [address] [place] [phone] Social History Tobacco Use Types Packs/Day Years Used Date Never Assessed Sex Assigned at Date Recorded Not on file documented as of this encounter Plan of Treatment Not on filedocumented as of this encounter Procedures Procedure Name Priority Date/Time Associated Diagnosis Comme nts SURGICAL PATHOLOGY Today 04/02/2019 9:53 Gastro-esophageal R esults for this EST reflux disease with procedur e are in esophagitis the results Obstructive sleep section. apnea (adult) (pediatric) Diaphragmatic hernia without obstruction or gangrene Calculus of gallbladder without cholecystitis without obstruction documented in this encounter Results SURGICAL PATHOLOGY (04/02/2019 9:53 EST) Final Diagnosis A. GALLBLADDER, CHOLECYSTECTOMY: [facility] Electronically - Chronic cholecystitis and cholesterolosis. CENTER signed by Uday Varma, - Cholelithiasis. LABORATORY Chris Hoang MD on SERVICES 04/04/2019 at 13 45 Clinical History Gallstones [facility] LABORATORY SERVICES Attestation By the signature [facility] MEDICAL Electronica lly below, the attending CENTER signed by Uday Varma, physician certifies LABORATORY Chris Hoang MD on that they have 1) SERVICES 04/04/2019 at 1345 personally conducted a gross and/or microscopic examination of the described specimen(s), and/or personally interpreted the results of laboratory testing of the described specimen(s), and 2) personally rendered or confirmed the above diagnosis. Gross Description A. Received in formalin labe lled with proper patient identification (initials C, A) and gallbladder is intact gallbladder and attached cystic duct, 7.2 x 3.0 x 1.7 cm. Periductal lymph nodes are not i [facility] MEDICAL dentified. The serosa is wit hout adhesions. The cystic duct lumen measures 0.3 cm in diameter and is patent at its distal aspect. The gallbladder lumen contains minimal bile. There is a yellow-green ovo CENTER id calculus, 0.[address] noted lodged within the duct adjacent to the gallbladder lumen. The gallbladder mucosa is green tai and shows moderate cholesterol stippling. A 0.2 cm cholesterol polyp LABORATORY is present. The wall is with out areas of induration, ranging from 0.1 to 0.5 cm in thickness. Equipment Service Associate sections are submitted to include the cystic duct margin en face in A1. SERVICES Angela Watson 04/03/2019 10:29 Scanned Images [facility] LABORATORY SERVICES Specimen Tissue - Entire gallbladder (body struct ure) Performing Organization Address City/State/ZIP Code Phon e Number [facility] [address] [place] [address] SERVICES documented in this encounter Visit Diagnoses Diagnosis Gastro-esophageal reflux disease with es ophagitis Reflux esophagitis Obstructive sleep apnea (adult) (pediatr ic) Diaphragmatic hernia without obstruction or gangrene Diaphragmatic hernia without mention of obstruction or gangrene Calculus of gallbladder without cholecys titis without obstruction Calculus of gallbladder without mention of cholecystitis or obstruction documented in this encounter Care Teams Analytical Research Chemist Relationship Specialty Start Date End Date Unknown, Provider, PCP - General 09/24/10 documented as of this encounter
--- OUTSIDE RECORDS SUMMARY | 2021-11-08 04:46 | XMS_ITS | Encounter Summary ---
:1970 Author Organization [facility] Address [address] [place] [address] Care Team Providers Name Role Phone Unknown, Provider Primary Care Provider Encounter Details Date Type Department Care Team Description 12/27/2016 Hospital Encounter [facility]- Nikia Unknown, Provider, Skip Hayes MD 0 [facility] [phone] [place] [address] (Work) [phone] Social History Tobacco Use Types Packs/Day Years Used Date Never Assessed Sex Assigned at Date Recorded Not on file documented as of this encounter Discharge Disposition Disposition Code Departure Means Destination Home or Self Shelter documented in this encounter Plan of Treatment Not on filedocumented as of this encounter Visit Diagnoses Not on filedocumented in this encounter Care Teams Criminal Defense Lawyer Relationship Specialty Start Date End Date Unknown, Provider, PCP - General 09/24/10 documented as of this encounter
--- OUTSIDE RECORDS SUMMARY | 2021-11-08 04:46 | XMS_ITS | Encounter Summary ---
:1970 Author Organization [facility] Address [address] [place] [address] Care Team Providers Name Role Phone Unavailable Primary Care Provider Unavailable Encounter Details Date Type Department Care Team Description 04/06/2001 Results Only [facility] - Lexi cotter, Federica Rasmussen MD conversion [address] [place], [place] [id number] [place] [phone] Social History Tobacco Use Types Packs/Day Years Used Date Never Assessed Sex Assigned at Date Recorded Not on file documented as of this encounter Plan of Treatment Not on filedocumented as of this encounter Procedures Procedure Name Priority Date/Time Associated Diagnosis Comme [facility] SURGICAL PATHOLOGY Routine 04/06/2001 0:00 EST Re sults for this procedure are i n the results section. documented in this encounter Results SURGICAL PATHOLOGY (04/06/2001 0:00 EST) Pathology Report: SURGICAL PATHOLOGY REPORT EMIGDIO GARCIA Reports generated via electronic interface contain dacia ginal data; LAB however they are lacking the format of the original re port. Caution should be taken when reading/interpreting unfo rmatted reports. Name: ? JEAN CLAUDE GEORGE ? Accession #: ? [id number] ? : ? 1970 (Age: 30) ??M ? Collect Date: ? 04/06/2001 ? Location: ? [facility] ? Receive Date: ? 002 ? Provider: FEDERICA ALONZO MD Copy to: VINCENT DE ANDA MD ? Final Pathologic Diagnosis: A. ?Skin of anterior thigh/knee, left, pu nch biopsy: 1. ?Melanocytic nevus, junctional type, with unusual architectural features and mild-moderate cytologic atypia. ? - ??Lesion does not e xtend to edges of punch biopsy specimen in the plane of the sections examined. B. ?Skin of back, right upper, shave biop sy: 1. ?Melanocytic nevus, compound typ e, with unusual architectural features and mild cytologic atypia. ? - Nevus associated wi th lymphomononuclear infiltrate, consistent with halo nevus. ? - ??Lesion does not e xtend to edges of shave biopsy specimen in the plane of the sections examined. Microscopic Description: ? Sections from left k nee consist of a punch biopsy of skin. The epidermis is hyperplastic with elongate and anastomosing rete ri dges. ??There is a proliferation of melanocytes within the epidermis that consists of nests and individual cells. ??The nest s predominate but vary to a moderate degree in size, shape, and spacing. ??The ne sts are located between and on the sides of the rete ridges, in addition to at the tips of the ridges . ??Nests bridge rete ridges. Focally, individual melanocytes are prominent and show uneven spacing but no confluent growth or well-developed upward migration. ? ?The melanocytes are enlarged and have ill-define d cytoplasm containing melanin pigment. ??The nuclei show a moderate degree of size and shape variation wit h occasional large, irregular forms. ??There is papillary dermal fibroplas ia. ?? Sections from right upper back consist of a shave bi opsy of skin. ??The epidermis is hyperplastic wi th elongate and anastomosing rete ridges. ??There is a circumscribed proliferation of melanocytes with epid ermal and dermal components. ??The intraepidermal melanocytes are arran ged in nests and as individual cells in a lentiginous patter n. ??The nests predominate and vary in size, shape, and spacing. ??Some of the nests bridge b etween rete ridges. Although the individual jo nocytes are unevenly spaced in some areas, they show no tendency toward confluent growth or u pward migration. ??The melanocytes are enlarged and show a mild deg ree of nuclear size and shape variation. ??The dermal component consists of nests and cords of similar melanocytes that show strategic procurement manager maturation with descent. ??There is papillary de rmal fibroplasia and a patchy lymphomononuclear infiltrate. ??(Dr. Layne)/[facility] Document reviewed and electronically signed by: Clarice Layne MD Report ??Date: 04/10/2001 17:04 By the signature above, the attending physician certif ies that he/she has personally conducted a gross and/or microscopic examin ation of the described specimens and rendered or confirmed the above diagnosi s. Specimen(s) Received: A. ?L anterior thigh ??3 mm jct/compd nevus, dark pigment, sl. notched; (4 mm punch), R/O atypia (#1) B. ?RU back ??h ledy nevus = 1 cm halo with 4 mm pigment uniform center; shave (#2) Clinical History: ? Not listed Gross Description: ? Received in formalin labelled George and #1 ??L knee is a 0.4 cm punch biopsy of skin excised to a depth of 0.1 cm. ??There i s a central 0.2 cm in diameter round brown-black m acule. ??The biopsy is bisected and submitted as (A). Received in formalin labelled George and RU back is a shave biopsy of skin measuring 1.0 x 1.0 x 0.2 cm with a centrally located brown-bass macule measuring 0.3 x 0.2 cm. The specimen i s trisected and submitted as (B). ??(Dr. Sanderson)/[facility] End of Report Specimen Performing Organization Address City/State/ZIP Code Phon e Number [facility] [address] [place] [address] SERVICES [facility] [address] [place] [address] documented in this encounter Visit Diagnoses Not on filedocumented in this encounter
--- OUTSIDE RECORDS SUMMARY | 2021-11-08 04:46 | XMS_ITS | Encounter Summary ---
:1970 Author Organization [facility] Address [address] [place] [address] Care Team Providers Name Role Phone Unavailable Primary Care Provider Unavailable Encounter Details Date Type Department Care Team Description 11/20/2004 Results Only [facility] - Mitchell Gilliam MD [employer] [facility] [address] [facility] [address] [place], [place] [id number] [place] [address] [id number] [phone] Social History Tobacco Use Types Packs/Day Years Used Date Never Assessed Sex Assigned at Date Recorded Not on file documented as of this encounter Plan of Treatment Not on filedocumented as of this encounter Procedures Procedure Name Priority Date/Time Associated Diagnosis Comme nts SURGICAL PATHOLOGY Routine 11/20/2004 0:00 EDT Re sults for this procedure are i n the results section. documented in this encounter Results SURGICAL PATHOLOGY (11/20/2004 0:00 EDT) Pathology Report: SURGICAL PATHOLOGY REPORT [facility]IGD[facility] Reports generated via electronic interface contain dacia ginal data; LAB however they are lacking the format of the original re port. Caution should be taken when reading/interpreting unfo rmatted reports. Name: ? JEAN CLAUDE GEORGE ? Accession #: ? [id number] ? : ? 1970 (Age: 34) ??M ? Collect Date: ? 11/20/2004 ? Location: ? [facility] ? Receive Date: ? 11/24/19 05 ? Provider: MITCHELL GILLIAM MD Copy to: ? Final Pathologic Diagnosis: A. ?Vas deferens, left, segmental excisio n: 1. ?Complete cross section identified. B. ?Vas deferens, right, segmental excisi on: ? 1. ?? Complete cross section identified. Document reviewed and electronically signed by: Vic Flores MD Report ??Date: 11/25/2004 17:05 By the signature above, the attending physician certif ies that he/she has personally conducted a gross and/or microscopic examin ation of the described specimens and rendered or confirmed the above diagnosi s. Specimen(s) Received: A. ?L vas deferens B. ?R vas deferens Clinical History: ? Vasectomy; clinical diagnosis code: ??V25.02 Gross Description: ? Received in formalin labelled George and L vas deferens is a bass-white firm to rubbery cylindrical 1.5 x 0.2 cm tissue. There is a central pinpoint lumen. Two warehouse representative sections are submitted as (A ). Received in formalin labelled George and R vas deferens is a bass-yellow firm to rubbery cylindrical 1.5 x 0.3 cm tissue. ??Cut surf aces reveal a pinpoint lumen. ??Two warehouse representative sections are submitted as (B). ??(Dr. Kern-)/[facility] End of Report Specimen Performing Organization Address City/State/ZIP Code Phon e Number [facility] [address] [place] [address] SERVICES [facility] [address] [place] [address] documented in this encounter Visit Diagnoses Not on filedocumented in this encounter
--- OUTSIDE RECORDS SUMMARY | 2021-11-08 04:46 | XMS_ITS | Encounter Summary ---
:1970 Author Organization [facility] Address [address] [place] [address] Care Team Providers Name Role Phone Unknown, Provider Primary Care Provider Encounter Details Date Type Department Care Team Description 12/27/2016 Results Only [facility]- Bina Rasmussen, [address] [place] [address] [place], [place] [id number] (Wo rk) Social History Tobacco Use Types Packs/Day Years Used Date Never Assessed Sex Assigned at Date Recorded Not on file documented as of this encounter Plan of Treatment Not on filedocumented as of this encounter Procedures Procedure Name Priority Date/Time Associated Diagnosis Comme [facility] SURGICAL PATHOLOGY Routine 12/27/2016 8:04 EST Re sults for this procedure are i n the results section. documented in this encounter Results SURGICAL PATHOLOGY (12/27/2016 8:04 EST) Pathology Report: SURGICAL PATHOLOGY REPORT [facility] Reports generated via electronic interface contain dacia ginal data; LABORATORY however they are lacking the format of the original re port. SERVICES Caution should be taken when reading/interpreting unfo rmatted reports. Name: ? JEAN CLAUDE GEORGE ? Accession #: ? [id number] ? : ? 1970 (Age: [age]) ??M ? Collect Date: ? 12/27/2016 ? Location: ? [facility] ? Receive Date: ? 017 ? Provider: BINA MUNIZ MD Copy to: VINCENT CASTILLODERICK DO ? Final Pathologic Diagnosis: COLON, SIGMOID, POLYP, BIOPSY: - ??Hyperplastic polyp. - ??Deeper levels examined. Document reviewed and electronically signed by: ERIK BLANCO MD Report ??Date: 12/31/2016 13:46 By the signature above, the attending physician certif ies that he/she has personally conducted a gross and/or microscopic examin ation of the described specimens and rendered or confirmed the above diagnosi s. Specimen(s) Received: Sigmoid colon polyp Clinical History: Fam hx colon cancer; screening for colon cancer Gross Description: ? Received in formalin labelled with proper patient identification (initials C, A) and sigmoid colon tara yp is a single pink-bass tissue fragment (0.4 x 0.2 x 0.2 cm). Submitted intact in 1. MARCELL Wyatt (ASCP) 12/28/2016 8:48 AM End of Report Specimen Performing Organization Address City/State/ZIP Code Phon e Number [facility] [address] [place] [address] SERVICES documented in this encounter Visit Diagnoses Not on filedocumented in this encounter Care Teams Reverse Logistics Analyst Relationship Specialty Start Date End Date Unknown, Provider, PCP - General 09/24/10 documented as of this encounter
== END 2021-11-08 04:33 | disposition home or self-care (01) ==
LOC: ER 04:42
PROVIDERS: Emergency Provider Physician Assistant; PCP Nurse Practitioner Family
DX: R07.9 Chest pain, unspecified (principal); R11.10 Vomiting, unspecified
CPT/HCPCS: 80053; 83690; 93005; 96361; 96374; 96375; 99284; 71045; 80320; 83735; 84484; 85025; 93010

== ENCOUNTER → 2021-11-19 01:01 | Outpatient (CLI) | payer BC, SELFPAY ==
--- NOTE | 2021-11-19 09:00 | ETT_ITS ---
APPROVED REPORT Exam: Exercise Treadmill Patient Location: Out-Patient Room/Bed: Stress Nurse: Clarice Ponce RN Ordering Provider:YESI LUCAS, Contact Number: [phone] BMI: 37.11 Baseline Rhythm: Sinus Rhythm Indications: Chest pain Medical History Medical History: Sleep Apnea Cardiac Medications: Diltiazem 360 mg daily. Flecainide 100 mg daily. Eliquis 5mg daily. Pantaprazole 40 mg daily. Allergies: No known drug allergies Cardiac Risk Factors: Family history. Obesity. Previous Cardiac Procedures: Cardioversion Pretest Chest Pain Characteristics: No chest pain Exercise History: Physically active Physical Disabilities: None. Lung Sounds: Clear to auscultation Heart Sounds: Regular Stress Test Details Test: Exercise stress testing was performed using a Elmer protocol. Rest Stress HR Resting HR Supine: 68 bpm Max Heart Rate (APMHR): 169 bpm Resting HR Standin bpm Target HR (85% APMHR): 143 bpm Max HR Achieved: 145 bpm % of APMHR: 85 Recovery HR: 90 bpm HR response to stress: Normal HR response to stress Comment: Pt took last Diltiazem dose on 11/18/21 at [facility]. BP Resting BP Supine: 128/76 mmHg Resting BP Standin/72 mmHg Max BP: 180/54 mmHg Recovery BP: 124/68 mmHg BP response to stress: Normal blood pressure response to stress. ECG Resting ECG: Sinus Rhythm Ectopy: None Stress ECG: Sinus Tachycardia ST Change: No significant ST segment changes noted Arrhythmia: None Recovery ECG: Sinus Rhythm Recovery ST Change: No significant ST segment changes noted Recovery Arrhythmia: None Clinical Reason for Termination: Target HR Achieved Stress Symptoms: General Fatigue Exercise duration: 12 min25 sec Highest Stage Reached: Stage 5: 5.0 mph at 18% grade. Exercise capacity: 13.75 METs Scale: Active Angina Score: None Rate Pressure Product: 30626 Stress ECG Conclusion 1. Resting electrocardiogram was within normal limits. 2. The patient exercised on the Elmer protocol and completed a workload of 13.75 METS limited by fat igue 3. Normal heart rate and blood pressure response to exercise. The patient achieved 85% of predicted heart rate for age 4. There was no electrocardiographic evidence of myocardial ischemia 5. There were no dysrhythmias Stress Test Summary STAGE Time (mins) Speed (mph) Grade (%) HR BP SpO2 SYMPTOMS METS Supine 68 128/76 Standing 67 124/72 1 3 1.7 10 98 122/68 96 4.5 2 6 2.5 12 110 144/62 7 3 9 3.4 14 120 172/68 10 4 12 4.2 16 141 96 13 1 min recovery 119 180/54 3 min recovery 97 142/60 6 min recovery 90 124/68
== END ==
PROVIDERS: PCP Nurse Practitioner Family; Visit Provider Physician Assistant
DX: R07.9 Chest pain, unspecified (principal)
CPT/HCPCS: 93017

== ENCOUNTER 2022-03-10 07:56 | Outpatient (CLI) | payer BC, SELFPAY ==
--- NOTE | 2022-03-10 07:45 | RT.EKG_ITS ---
APPROVED REPORT Exam: Resting ECG Reason for Exam: afib Patient Location: O HR:63 bpm ECG Measurements Heart Rate 63 AXIS WA 150 P -15 QRSd 92 QRS 2 QT 401 T 36 QTc 411 Conclusion Sinus rhythm...normal P axis, V-rate 50- 99 Normal Electrocardiogram
== END 2022-03-10 07:57 | disposition home or self-care (01) ==
LOC: DI.CARD 07:57
PROVIDERS: PCP Nurse Practitioner Family; Visit Provider Internal Medicine Cardiovascular Disease
DX: I48.20 Chronic atrial fibrillation, unspecified (principal)
CPT/HCPCS: 93010

== ENCOUNTER 2022-04-01 02:55 | Outpatient (CLI) | payer BC, SELFPAY ==
[2022-04-01 16:35] LABS: Hemoglobin A1C 5.5 % (<5.7)
[2022-04-01 16:56] LABS: Calculated LDL 146 mg/dL (<100); Cholesterol 221 mg/dL (<200); HDL Cholesterol 57 mg/dL (40-60); Triglyceride 94 mg/dL (<150)
== END 2022-04-01 02:56 | disposition home or self-care (01) ==
PROVIDERS: PCP Nurse Practitioner Family; Visit Provider Nurse Practitioner Family
DX: Z13.220 Encounter for screening for lipoid disorders (principal); Z13.1 Encounter for screening for diabetes mellitus
CPT/HCPCS: 36415; 80061; 83036

== ENCOUNTER 2022-04-16 16:12 | Outpatient (REF) | payer BC, SELFPAY ==
--- NOTE | 2022-04-16 15:50 | SKI_PTH ---
PATIENT: Flo Mireles LOC: [facility] U#:[id number] AGE/SX: 51/M ROOM: RE04/16/[address]: Mychal Chaney DO : 1970 BED: DIS: 04/16/2022 SPEC #: [id number] RECD: 04/16/22 18:14 STATUS: JARETH REBenito #: [id number] NUBIA: 04/16/22 15:[address]: Mychal Chaney DEPT: Surgical Specimen RECD BY: Opal Rodriguez ENTERED: 04/16/22 18:15 SP TYPE: VERONICA BARRERA DR: Huey Louis, CERTIFIED PARALEGAL Tissues: 1 - SKIN BIOPSY(SHAVE/PUNCH) 2 - SKIN BIOPSY(SHAVE/PUNCH) 3 - SKIN BIOPSY(SHAVE/PUNCH) Procedures: SKIN LEVEL 4 Comments: [id number]
== END 2022-04-16 16:13 | disposition home or self-care (01) ==
LOC: LBN 16:12
PROVIDERS: PCP Nurse Practitioner Family; Visit Provider Otolaryngology Otolaryngology/Facial Plastic Surgery
DX: D49.2 Neoplasm of unspecified behavior of bone, soft tissue, and skin (principal)
CPT/HCPCS: 88305

== ENCOUNTER 2022-10-01 14:17 | Emergency (ER) | payer BC, SELFPAY ==
--- NOTE | 2022-10-01 | DI.CT_ITS ---
Exam(s) CT FACIAL W EXAM: CT FACIAL W INDICATION: ? dental abscess. COMPARISON: No exams were available for comparison TECHNIQUE: FINDINGS: VISUALIZED PARANASAL SINUSES: Frontal sinuses are not developed. There is mucosal thickening in the maxillary sinuses, more so on the left side. However, there are no fluid levels in the maxillary sin uses. Sphenoid sinuses are clear. NASOPHARYNX: Unremarkable ORODENTAL: Abundant artifact from teeth amalgam. No evidence of mandible fracture or mandible lesion s. No obvious periapical abscesses. Subcutaneous soft tissue edema anterior to the mandible noted b ut no drainable fluid collection. Floor of the mouth appears unremarkable. OROPHARYNX: Unremarkable. No masses evident. HYPOPHARYNX: Unremarkable. Valleculae and epiglottis and aryepiglottic folds appear normal. VOCAL CORDS: Unremarkable. No masses evident. Subglottic airway appears unremarkable. THYROID GLAND: Partially included. No nodules. Normal size. SALIVARY GLANDS: Unremarkable. No significant findings in the parotid and submandibular glands. LYMPH NODES: There is no adenopathy evident in the neck and supraclavicular regions. OTHER: Orbits appear unremarkable. IMPRESSION: 1. Abundant artifact from the teeth amalgam. Abundant mucosal thickening in left maxillary sinus an d moderate mucosal thickening the right maxillary sinus, not associated with fluid levels nor bone de hiscence 2. No obvious abscess. 3. No gross lymphadenopathy. Called to ER RADIATION DOSE DELIVERED: 978.78mGy.cm Total DLP 978.78mGy.cm Total DLP DATA REPOSITORY: All CT scans at this facility are submitted to the National Radiology Data Registry (NRDR) Dose Index Registry (DIR) with the [employer] (ACR). RADIATION OPTIMIZATION: All CT scans at this facility use at least one of these dose optimization te chniques: automated exposure control; mA and/or kV adjustment per patient size (includes targeted exa ms where dose is matched to clinical indication); or iterative reconstruction.
[2022-10-01 14:28] VITALS: BP 141/85; PULSE 86; RESP 18; TEMP 36.6; O2SAT 97
[2022-10-01 16:19] LABS: Abs Immature Grans 0.03 10^3/uL (0.0-0.06); Absolute Basophil Count 0.03 10^3/uL (0.0-0.2); Absolute Eosinophil Count 0.07 10^3/uL (0.0-0.7); Absolute Lymphocyte Count 1.58 10^3/uL (1.2-3.4); Absolute Monocyte Count 0.64 10^3/uL (0.1-0.8); Absolute Neutrophil Count 5.56 10^3/uL (1.2-6.7); Basophils % 0.4; Eosinophils % 0.9; HCT 43.6 % (40.0-50.0); HGB 14.9 g/dL (13.5-17.5); Immature Grans % 0.4; MCH 31.2 pg (27.0-33.0); MCHC 34.2 % (32.0-36.0); MCV 91 fL (80-95); MPV 10.4 fL (8.0-11.0); Monocytes % 8.1; Neutrophils % 70.2; Platelet Count 201 10^3/uL (130-400); RBC 4.77 10^6/uL (4.36-5.78); RDW 11.9 % (11.8-14.1); RDW-SD 40.2 fL; WBC 7.91 10^3/uL (4.4-10.8)
[2022-10-01 16:22] LABS: ESR 39 mm/hr (0-20)
[2022-10-01 16:23] LABS: Lactate 0.7 mmol/L (0.6-1.4)
[2022-10-01 16:44] LABS: Anion Gap 8.4 mmol/L (3-11); BUN 16 mg/dL (7-18); CO2 30.6 mmol/L (21.0-32.0); CREATININE 1.1 mg/dL (0.70-1.30); Calcium 9.6 mg/dL (8.5-10.1); Chloride 101 mmol/L (98-107); Estimated GFR 80.77 (mL/min/1.73m2); Glucose 113 mg/dL (74-106); Potassium 3.8 mmol/L (3.5-5.1); Sodium 140 mmol/L (136-145)
[2022-10-01 17:04] LABS: C-Reactive Protein 5.01 mg/dL (0.0-0.3)
[2022-10-01 17:10] LABS: Procalcitonin < 0.1 ng/mL
[2022-10-01] MEDS: Normal Saline Flush 10 ML SYR IVP (17:13)
[2022-10-01] MEDS: Omnipaque 350 MG/ML 100 ML BTL IJ (17:15)
[2022-10-01] MEDS: Normal Saline - Diluent 50 ML VIAL IJ (17:15)
[2022-10-01 17:40] VITALS: BP 136/82; PULSE 67; TEMP 36.7; O2SAT 97
--- NOTE | 2022-10-01 19:00 | W.ED.GENAD ---
Discharge Plan Disposition Patient Disposition: Home Condition: Stable Discharge Details Clinical Impression: Abscess, dental Primary Care Provider: Huey Louis ED Provider: Michelle Broderick Home Meds and New Rx's Prescriptions: New clindamycin HCl 300 mg capsule 300 mg PO QID Qty: 40 0RF Continued acetaminophen [Tylenol Extra Strength] 500 mg tablet 500 mg PO Q6H PRN acetaminophen-codeine 300-30 mg tablet 2 tab PO Q6H PRN (Reason: Pain) cephalexin 500 mg capsule 500 mg PO QID Patient Comments: TAKE TWO CAPSULES BY MOUTH NOW; THEN TAKE ONE CAPSULE BY MOUTH FOUR TIMES A DAY FOR 7 DAYS Discharge Instructions Instructions: Dental Abscess (ED) Additional Instructions: continue antibiotics as prescribed Follow-up with oral surgeon return sooner for new or worsening symptoms Referrals: Huey Louis, CUSTOMER SERVICE REPRESENTATIVE TEACHER [Primary Care Provider] - (see oral surgeon or primary care provider next week for recheck, sooner for new or worsening problems) Discharge Data Discharge Date/Time-TO BE ENTERED AT DEPARTURE: 10/01/22 20:17 Medical Decision Making presents with increase swelling to palate following root canal, on cephalexin. no fever. no erythema or sign of systemic infection. will obtain blood work, inflammatory markers and get ct, all reviewed with DR Downing who recommends IV antibiotics and decadron. Medical Records Medical records reviewed: Yes I reviewed the patient's medical records. Lab Data Lab results reviewed: Yes I reviewed the patient's lab results. Lab results narrative: Laboratory Tests Range/Units 10/01/22 10/01/22 10/01/22 14:39 14:39 14:39 WBC (4.4-10.8) 10^3/uL 7.91 RBC (4.36-5.78) 10^6/uL 4.77 Hgb (13.5-17.5) g/dL 14.9 Hct (40.0-50.0) % 43.6 MCV (80-95) fL 91 MCH (27.0-33.0) pg 31.2 MCHC (32.0-36.0) % 34.2 RDW (11.8-14.1) % 11.9 Plt Count (130-400) 10^3/uL 201 MPV (8.0-11.0) fL 10.4 Immature Gran % 0.4 Neutrophils % 70.2 Lymphocytes % 20.0 Monocytes % 8.1 Eosinophils % 0.9 Basophils % 0.4 Nucleated RBC % (0.0-0.3) % 0.0 Absolute Neutrophils (1.2-6.7) 10^3/uL 5.56 Absolute Lymphocytes (1.2-3.4) 10^3/uL 1.58 Absolute Monocytes (0.1-0.8) 10^3/uL 0.64 Absolute Eosinophils (0.0-0.7) 10^3/uL 0.07 Absolute Basophils (0.0-0.2) 10^3/uL 0.03 ESR (0-20) mm/hr VBG Lactate (0.6-1.4) mmol/L Sodium (136-145) mmol/L 140 Potassium (3.5-5.1) mmol/L 3.8 Chloride (98-107) mmol/L 101 Carbon Dioxide (21.0-32.0) mmol/L 30.6 Anion Gap (3-11) mmol/L 8.4 BUN (7-18) mg/dL 16 Creatinine (0.70-1.30) mg/dL 1.1 Est GFR (CKD-EPI 2020) (mL/min/1.73m2) 80.77 Glucose (74-106) mg/dL 113 H Calcium (8.5-10.1) mg/dL 9.6 C-Reactive Protein (0.0-0.3) mg/dL 5.01 H Procalcitonin ng/mL Range/Units 10/01/22 10/01/22 10/01/22 14:39 14:39 16:20 WBC (4.4-10.8) 10^3/uL RBC (4.36-5.78) 10^6/uL Hgb (13.5-17.5) g/dL Hct (40.0-50.0) % MCV (80-95) fL MCH (27.0-33.0) pg MCHC (32.0-36.0) % RDW (11.8-14.1) % Plt Count (130-400) 10^3/uL MPV (8.0-11.0) fL Immature Gran % Neutrophils % Lymphocytes % Monocytes % Eosinophils % Basophils % Nucleated RBC % (0.0-0.3) % Absolute Neutrophils (1.2-6.7) 10^3/uL Absolute Lymphocytes (1.2-3.4) 10^3/uL Absolute Monocytes (0.1-0.8) 10^3/uL Absolute Eosinophils (0.0-0.7) 10^3/uL Absolute Basophils (0.0-0.2) 10^3/uL ESR (0-20) mm/hr 39 H VBG Lactate (0.6-1.4) mmol/L 0.7 Sodium (136-145) mmol/L Potassium (3.5-5.1) mmol/L Chloride (98-107) mmol/L Carbon Dioxide (21.0-32.0) mmol/L Anion Gap (3-11) mmol/L BUN (7-18) mg/dL Creatinine (0.70-1.30) mg/dL Est GFR (CKD-EPI 2020) (mL/min/1.73m2) Glucose (74-106) mg/dL Calcium (8.5-10.1) mg/dL C-Reactive Protein (0.0-0.3) mg/dL Procalcitonin ng/mL < 0.1 HPI General Mode of arrival: ambulatory. Date/Time Provider Initiated Documentation: 10/01/22 15:12. Limitations to Documentation: no limitations. Information obtained by: patient. HPI Narrative: patient presents for dental infection following a root canal. Related Data Home Medications Medication Instructions Recorded Confirmed acetaminophen 500 mg tablet 500 mg PO Q6H PRN 04/11/19 10/01/22 (Tylenol Extra Strength) acetaminophen 300 mg-codeine 30 mg 2 tab PO Q6H PRN Pain 10/01/22 10/01/22 tablet cephalexin 500 mg capsule 500 mg PO QID 10/01/22 10/01/22 clindamycin HCl 300 mg capsule 300 mg PO QID #40 caps 10/01/22 Previous Rx's Medication Instructions Recorded clindamycin HCl 300 mg capsule 300 mg PO QID #40 caps 10/01/22 Allergies Allergy/AdvReac Type Severity Reaction Status Date / Time Penicillins AdvReac Intermediate Skin Rash Unverified 10/01/22 14:26 General Stated Complaint: DentalOral FARZANA: 3 PFSH All Active Problems (Updated 10/01/22 @ 19:04 by Michelle Broderick NP) Abscess, dental (Acute) Change in multiple nevi (Acute) Family history of colon cancer in mother (Acute 09/07/16) Atrophy of testis (Acute) left Chronic a-fib (Acute) elective cardioverstion 12/29 at [facility] Khadar vASC 2 score-0, followed by cardiology /[facility] Spring 2021 status post failed electrical cardioversion at [facility] Tubular adenoma of colon (Acute) 2020, due colonoscopy [id number] GERD with esophagitis (Acute) SYD (obstructive sleep apnea) (Chronic) Medical History Sleep disturbance Toenail fungus Surgical History Colonoscopy - [facility] (12/27/16) 01/2021 History of cholecystectomy (~04/02/19) History of shoulder surgery right S/P umbilical hernia repair, follow-up exam Family History Mother Cancer Father Substance abuse Alcohol abuse Heart disease Maternal Grandfather Cancer Daughter No problems noted. Daughter Asthma Social History (Updated 03/24/22 @ 16:08 by Winter Winston) Smoking/Tobacco Use Status: Never Second Hand Exposure: Yes Smoking risk assessment performed?: Yes Alcohol Intake: current Alcohol Intake frequency: a few times a week Alcohol type: beer Drug use: Never Substance use type: does not use Caregiver/Support person: No Household members: spouse, family and children Housing: apartment Communication Needs: None Pets and animals: No Sexually active: Yes Do you think of yourself as: straight/heterosexual Current gender identity: male What is your relationship status?: How often do you talk on the phone with friends or family?: three or more times per week How often do you get together with friends or relatives?: twice per week How often do you attend christianity or muslim services?: 1-3 times per year Do you belong to any clubs or organized social groups?: yes Panel score (0-1 are the most socially isolated patients): 3 What type of physical activity do you participate in: none Duration: 30-45 minutes/day Frequency: 1-2 times per week Yaneli/Catholic: No preference Special yaneli needs: No Seatbelt use: always Helmet use: Yes Helmet use: sometimes Drive intox or ride w/intox 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 swelling Chest Chest: normal inspection of the chest Resp Effort & Inspection: normal respiratory effort Course Vital Signs Vital signs: Vital Signs Temperature 36.6 C 10/01/22 14:28 Pulse 86 10/01/22 14:28 Respiratory Rate 18 10/01/22 14:28 Blood Pressure 141/85 H 10/01/22 14:28 Pulse Oximetry 97 10/01/22 14:28 Temperature 36.7 C 10/01/22 17:40 Temperature Source Oral 10/01/22 17:40 Pulse 67 10/01/22 17:40 Respiratory Rate 18 10/01/22 14:28 Respiratory Effort Normal, Non-Labored 10/01/22 14:43 Blood Pressure 136/82 10/01/22 17:40 Blood Pressure Position Sitting 10/01/22 14:28 Pulse Oximetry 97 10/01/22 17:40 Oxygen Delivery Method Room Air 10/01/22 17:40 Oxygen Flow Rate 0 10/01/22 17:40 Pain Level 3 10/01/22 17:40 Lab/Test Results Lab/Test Results: Laboratory Tests Range/Units 10/01/22 10/01/22 10/01/22 14:39 14:39 14:39 WBC (4.4-10.8) 10^3/uL 7.91 RBC (4.36-5.78) 10^6/uL 4.77 Hgb (13.5-17.5) g/dL 14.9 Hct (40.0-50.0) % 43.6 MCV (80-95) fL 91 MCH (27.0-33.0) pg 31.2 MCHC (32.0-36.0) % 34.2 RDW (11.8-14.1) % 11.9 Plt Count (130-400) 10^3/uL 201 MPV (8.0-11.0) fL 10.4 Immature Gran % 0.4 Neutrophils % 70.2 Lymphocytes % 20.0 Monocytes % 8.1 Eosinophils % 0.9 Basophils % 0.4 Nucleated RBC % (0.0-0.3) % 0.0 Absolute Neutrophils (1.2-6.7) 10^3/uL 5.56 Absolute Lymphocytes (1.2-3.4) 10^3/uL 1.58 Absolute Monocytes (0.1-0.8) 10^3/uL 0.64 Absolute Eosinophils (0.0-0.7) 10^3/uL 0.07 Absolute Basophils (0.0-0.2) 10^3/uL 0.03 ESR (0-20) mm/hr VBG Lactate (0.6-1.4) mmol/L Sodium (136-145) mmol/L 140 Potassium (3.5-5.1) mmol/L 3.8 Chloride (98-107) mmol/L 101 Carbon Dioxide (21.0-32.0) mmol/L 30.6 Anion Gap (3-11) mmol/L 8.4 BUN (7-18) mg/dL 16 Creatinine (0.70-1.30) mg/dL 1.1 Est GFR (CKD-EPI 2020) (mL/min/1.73m2) 80.77 Glucose (74-106) mg/dL 113 H Calcium (8.5-10.1) mg/dL 9.6 C-Reactive Protein (0.0-0.3) mg/dL 5.01 H Procalcitonin ng/mL Range/Units 10/01/22 10/01/22 10/01/22 14:39 14:39 16:20 WBC (4.4-10.8) 10^3/uL RBC (4.36-5.78) 10^6/uL Hgb (13.5-17.5) g/dL Hct (40.0-50.0) % MCV (80-95) fL MCH (27.0-33.0) pg MCHC (32.0-36.0) % RDW (11.8-14.1) % Plt Count (130-400) 10^3/uL MPV (8.0-11.0) fL Immature Gran % Neutrophils % Lymphocytes % Monocytes % Eosinophils % Basophils % Nucleated RBC % (0.0-0.3) % Absolute Neutrophils (1.2-6.7) 10^3/uL Absolute Lymphocytes (1.2-3.4) 10^3/uL Absolute Monocytes (0.1-0.8) 10^3/uL Absolute Eosinophils (0.0-0.7) 10^3/uL Absolute Basophils (0.0-0.2) 10^3/uL ESR (0-20) mm/hr 39 H VBG Lactate (0.6-1.4) mmol/L 0.7 Sodium (136-145) mmol/L Potassium (3.5-5.1) mmol/L Chloride (98-107) mmol/L Carbon Dioxide (21.0-32.0) mmol/L Anion Gap (3-11) mmol/L BUN (7-18) mg/dL Creatinine (0.70-1.30) mg/dL Est GFR (CKD-EPI 2020) (mL/min/1.73m2) Glucose (74-106) mg/dL Calcium (8.5-10.1) mg/dL C-Reactive Protein (0.0-0.3) mg/dL Procalcitonin ng/mL < 0.1 PAWSS Have you Been Recently Intoxicated or Drunk Within the Last 30 days?: No Have you Ever Experienced Previous Episodes of Alcohol Withdrawal?: No Have you ever Experienced Withdrawal Seizures?: No Have you ever Experienced Delirium Tremens(DT)s?: No Have you ever undergone Alcohol Rehabilitation Treatment (i.e, inpt ot outpatient treatment programs)?: No Have you ever Experienced Blackouts?: No Have you ever Combined Alcohol with other Downers within the last 90 days?: No Have you ever Combined Alcohol with any other Substance of Abuse during the last 90 days?: No Result: 0
[2022-10-01] MEDS: CLINDAMYCIN 900 MG/50 ML BAG 50 MG IVPB (19:06)
[2022-10-01] MEDS: Dexamethasone 10 MG/ML VIAL IVP (19:06)
[2022-10-01] MEDS: Clindamycin 150 MG CAP, 12 CAPS/BTL 450 MG PO (19:17)
[2022-10-01 20:27] VITALS: BP 131/82; PULSE 73; TEMP 37.1; O2SAT 95
== END 2022-10-01 20:17 | disposition home or self-care (01) ==
PROVIDERS: Emergency Provider Nurse Practitioner Acute Care; PCP Nurse Practitioner Family
DX: K04.7 Periapical abscess without sinus (principal)
CPT/HCPCS: 80048; 84145; 85652; 96365; 96375; 99285; 70487; 83605; 85025; 86140; 99284; J1100; J3490

== ENCOUNTER 2022-10-28 17:56 | Outpatient (REF) | payer BC, SELFPAY ==
[2022-10-30 11:04] LABS: Campylobacter PCR Negative (Negative); Salmonella PCR Negative (Negative); Shiga Toxin PCR Negative (Negative); Shigella/Enteroinvasive Ecoli Negative (Negative)
== END 2022-10-28 17:57 | disposition home or self-care (01) ==
LOC: NCHCN 17:56
PROVIDERS: PCP Nurse Practitioner Family; Visit Provider Physician Assistant Medical
DX: R19.7 Diarrhea, unspecified (principal)
CPT/HCPCS: 87329; 87493; 87505; 87177

== ENCOUNTER 2022-12-24 17:06 | Outpatient (REF) | payer BC, SELFPAY ==
--- NOTE | 2022-12-24 16:05 | SKI_PTH ---
PATIENT: Flo Mireles LOC: [facility] U#:[id number] AGE/SX: 52/M ROOM: RE12/24/[address]: Mychal Chaney DO : 1970 BED: DIS: 12/24/2022 SPEC #: [id number] RECD: 12/27/22 12:01 STATUS: JARETH REBenito #: [id number] NUBIA: 12/24/22 16:[address]: Mychal Chaney DEPT: Surgical Specimen RECD BY: Opal Rodriguez ENTERED: 12/27/22 12:01 SP TYPE: SKI OTHR DR: Huey Louis, MUSEUM EXHIBIT TECHNICIAN Tissues: 1 - SKIN BIOPSY(SHAVE/PUNCH) Procedures: SKIN LEVEL 4 Comments: [id number]
== END 2022-12-24 17:07 | disposition home or self-care (01) ==
LOC: LBN 17:06
PROVIDERS: PCP Nurse Practitioner Family; Visit Provider Otolaryngology Otolaryngology/Facial Plastic Surgery
DX: D22.72 Melanocytic nevi of left lower limb, including hip (principal)
CPT/HCPCS: 88305

== ENCOUNTER 2023-01-12 11:16 | Outpatient (CLI) | payer BC, SELFPAY ==
--- NOTE | 2023-01-12 11:15 | RT.EKG_ITS ---
APPROVED REPORT Exam: Resting ECG Reason for Exam: afib s/p cardioversion Patient Location: O HR:77 bpm ECG Measurements Heart Rate 77 AXIS AK 159 P 35 QRSd 86 QRS -5 QT 362 T 51 QTc 410 Conclusion Sinus rhythm...normal P axis, V-rate 50- 99 Left ventricular hypertrophy...multiple voltage criteria
== END 2023-01-12 11:17 | disposition home or self-care (01) ==
LOC: DI.CARD 11:17
PROVIDERS: PCP Nurse Practitioner Family; Visit Provider Internal Medicine Cardiovascular Disease
DX: I48.20 Chronic atrial fibrillation, unspecified (principal)
CPT/HCPCS: 93010

== ENCOUNTER 2023-09-23 15:57 | Outpatient (REF) | payer BC, SELFPAY ==
--- NOTE | 2023-09-23 08:45 | SKI_PTH ---
PATIENT: Flo Mireles LOC: [facility] U#:[id number] AGE/SX: 53/M ROOM: RE09/23/[address]: Mychal Chaney DO : 1970 BED: DIS: 09/23/2023 SPEC #: [id number] RECD: 09/26/23 12:24 STATUS: JARETH REQ #: [id number] NUBIA: 09/23/23 08:[address]: Mychal Chaney DEPT: Surgical Specimen RECD BY: Opal Rodriguez ENTERED: 09/26/23 12:24 SP TYPE: VERONICA BARRERA DR: Huey Louis, SKOOG MACHINE OPERATOR Tissues: 1 - SKIN BIOPSY(SHAVE/PUNCH) 2 - SKIN BIOPSY(SHAVE/PUNCH) Procedures: SKIN LEVEL 4 Comments: [id number]
--- OUTSIDE RECORDS SUMMARY | 2023-09-23 15:59 | XMS_ITS | Encounter Summary ---
Author Organization [facility] [place] [address] Care Team Providers Care Counter Top Maker Name Role Phone Stew Mario DO Primary Care Provider Encounter Details Date Type Department Care Team (Late st Contact Info) Description 04/05/2023 Telephone [place] [address] Lora Pelletier CMA Social History Tobacco Use Types Packs/Day Years Used Date Smoking Tobacco: Never Smokeless Tobacco: Never Alcohol Use Standard Drinks/Week Comments Yes 2 (1 standard drink = 0.6 oz pur e alcohol) Sex and Gender Information Value Date Recorded Sex Assigned at Male 04/03/2021 10:46 AM EST Gender Identity Male 04/03/2021 10:46 AM EST Sexual Orientation Straight 04/03/2021 10 :46 AM EST documented as of this encounter Miscellaneous Notes * Telephone Encounter - Lora Pelletier CMA - 04/07/2023 7:23 AM EST Summary: PA denial Images from the original note were not included. Submitted Date: Submitted Date: 04/05/2023 PA Outcome: PA Denial [place] [address] DENIED: rifAXIMin (Xifaxan) 550 mg tablet Case/Reference #: na Additional Information from Insurance: * Telephone Encounter - Lora Pelletier CMA - 04/05/2023 8:43 AM EST Summary: PA PA Submitted Submitted Date: Date Submitted: 04/05/2023 Medication Prior Authorization Patient: Flo Sue Patient : 1970 Insurance Company: [employer] Sent via: Project Repat Germain: [id number] Physician: Susan Farmer PA Medication Requested: rifAXIMin (Xifaxan) 550 mg tablet Frequency/Sig: Take 1 tablet by mouth 3 times daily for 14 days. Disp: 42 Refills: 0 Currently taking: no If yes, how long: na Diagnosis for this medication: Irritable bowel syndrome with diarrhea [K58.0] Additional Notes: documented in this encounter Plan of Treatment Not on file documented as of this encounter Visit Diagnoses Not on filedocumented in this encounter Care Teams Counter Top Maker Relationship Specialty Start Date End Date Stew Mario DO [address] [place] [address] PCP - General Family Medicine 03/24/21 documented as of this encounter
--- OUTSIDE RECORDS SUMMARY | 2023-09-23 15:59 | XMS_ITS | Encounter Summary ---
Author Organization [facility] [place] [address] Care Team Providers Care Curer Acid Drum Name Role Phone Stew Mario DO Primary Care Provider [phone] Encounter Details Date Type Department Care Team (Latest Contact Info) Description 04/01/2023 4:30 PM EST TH Visit (TeleHealth) [place] [id number] Susan Farmer PA [facility] [address] Irritable bowel syndrome with diarrhea Social History Tobacco Use Types Packs/Day Years [...] documented as of this encounter Progress Notes * Susan Farmer PA - 04/01/2023 4:30 PM EST GASTROENTEROLOGY TELEHEALTH PROGRAM - NEW PATIENT VISIT Chief Complaint: Flo Mireles is a 52 y.o. patient referred for consultation by Dr. Nagel ref. 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 He is not sure when this is planned for 04/01/23 Since his last visit, he has completed: EGD and colonoscopy 04/06/22 EGD and colonoscopy EGD Impression: - No specific cause of patient's symptoms found on exam. Colonoscopy Impression: - No specific cause of patient's symptoms found on exam. Surgical Pathology DIAGNOSIS A - Duodenal bxs r/o celiac, biopsy (Multiple): - Duodenal mucosa within normal limits, including preserved villous architecture. B - Gastric bxs r/o H. Pylori, biopsy: - Gastric fundic and antral gland mucosa with mild chronic nonspecific gastritis. - Immunostaining for H. pylori is negative. C - Random colon bxs r/o microscopic colitis, biopsy (Multiple): - Colonic mucosa within normal limits. GES- negative SIBO-negative He continues with the same symptoms Sometimes stools are more solid In the AM, his first stool is solid He has between 2-3 BM during the day with urgency. This is like clockwork At night, he can eat/drink whatever without problems This occurs on weekends as well Imodium does work when he takes it He also uses fiber - pills and powder Review of systems: 14-point review of systems reviewed and negative except as above. Medications: dilTIAZem (TIAZAC) 180 mg Capsule,Sustained Action 24 hr pantoprazole EC (Protonix) 40 mg Tablet, Delayed Release (E.C.) apixaban (Eliquis) 5 mg Tablet Allergies: has No Known Allergies. 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 We discussed the pathophysiology as well We discussed the use of Xifaxan for IBS/D. We discussed that unfortunately this is not covered by his insurance I would not recommend alternatives due to the mechanism of action. We discussed the brain gut connection in detail as well and the role of neuromodulators and cognitive behavioral therapy. He will look more into cognitive behavioral therapy under our GI behavioral health website. He understands that if he would like to use neuromodulators, I would defer to patient's primary care provider. Imodium is certainly reasonable to use. We discussed dose and side effects. We discussed that complete symptom relief may not be a fully achievable goal for this chronic condition, but that improvement in quality of life, healthy days at work and family functions, and also general symptom improvement may be more reasonable goals. We discussed that treatments should be tried individually and for periods of at least 4-8 weeks to truly assess symptom response. Neuromodulators for the local managing provider to consider (depending on appropriateness from a mental health/non-GI standpoint as determined by the PCP; try rfj-bd-r-time for at least ~90 days eachbefore switching therapy, as long as tolerated) 1. consider mirtazapine 7.5mg qhs titrating up to 15mg or 30mg at night, or 15mg twice daily as needed, (most side effects are sedation and blurred vision) 2. consider buspirone 7.5mg nightly, uptitrating to 15mg twice daily (possible side effects can include sedation, headache and vertigo) 3. consider desipramine 10mg at night, increase to 25mg as needed (possible side effects can include drowsiness, dry mouth, constipation, sexual dysfunction, arrhythmias, and weight gain) 4. Consider duloxetine or venlafaxine, (possible side effects can include nausea, agitation, dizziness, sleep disturbance, fatigue, and liver dysfunction) [facility] [place] [address] documented in this encounter Plan of Treatment Not on file documented as of this encounter Visit Diagnoses Diagnosis Irritable bowel syndrome with diarrhea Irritable bowel syndrome documented in this encounter Care Teams Curer Acid Drum Relationship Specialty Start Date End Date Stew Mario DO [address] [address] PCP - General Family Medicine 03/24/21 documented as of this encounter
--- OUTSIDE RECORDS SUMMARY | 2023-09-23 15:59 | XMS_ITS | Clinical Summary ---
Author Organization [facility] Address [facility] [place] [address] Care Team Providers Care Telephone Maintenance Mechanic Name Role Phone Stew Mario DO Primary Care Provider Allergies No known active allergies Medications Medication Sig Dispensed Refills Start Date End Date Status apixaban (Eliquis) 5 mg Tablet Take 1 tablet by mouth 2 times daily. 120 tablet 5 06/08/2021 Active pantoprazole EC (Protonix) 40 mg Tablet, Delayed Release (E.C.) Take 1 tablet by mouth 2 times daily. 60 tablet 3 12/29/2021 Active dilTIAZem (TIAZAC) 180 mg Capsule,Sustained Action 24 hrIndications:Persist ent atrial fibrillation Take 1 capsule by mouth daily. 30 capsule 1 03/10/2022 Active Active Problems Problem Noted Date Diagnosed Date Paroxysmal atrial fibrillation 12/28/2021 Overview (12/29/2021): PVI RF ablation 12/28/2021 GERD with esophagitis 04/02/2021 Hiatal hernia 04/02/2021 Resolved Problems Problem Noted Date Diagnosed Date Resolved Date PAF (paroxysmal atrial fibrillation) 04/02/2021 12/29/2021 Chronic atrial fibrillation 04/02/2021 12/29/2021 Immunizations Name Administration Dates Next Due TD Adult 07/23/2003 Social History Tobacco Use Types Packs/Day Years Used Date Smoking Tobacco: Never Smokeless Tobacco: Never Tobacco Cessation:Counseling Given: Not Answered Alcohol Use Standard Drinks/Week Comments Yes 2 (1 standard drink = 0.6 oz pur e alcohol) Sex and Gender Information Value Date Recorded Sex Assigned at Male 04/03/2021 10:46 AM EST Gender Identity Male 04/03/2021 10:46 AM EST Sexual Orientation Straight 04/03/2021 10 :46 AM EST Last Filed Vital Signs Vital Sign Reading Time Taken Comments Blood Pressure 116/72 04/06/2022 8:30 AM EST Pulse 72 04/06/2022 7:07 AM EST Temperature 36.6 ??C (97.9 ??F) 04/06/2022 7:07 AM ES T Respiratory Rate 16 04/06/2022 8:30 AM EST Oxygen Saturation 97% 04/06/2022 8:30 AM EST Inhaled Oxygen Concentration - - Weight 102.1 kg (225 lb) 04/06/2022 7:07 AM EST Height 167.6 cm (5' 6) 04/06/2022 7:07 AM EST Body Mass Index 36.32 04/06/2022 7:07 AM EST Plan of Treatment Health Maintenance Due Date Last Done Comments CT Colonography 1970 FIT DNA 1970 FIT 1970 Sigmoidoscopy 1970 HIV screen 1988 Hepatitis C Screening 1988 Lipid Screening 1988 Hepatitis B vaccine (0-59 yrs) (1) 1989 Tdap adult 1989 Tetanus vaccine 07/22/2013 07/23/2003 Zoster vaccine (1 of 2) 2020 Covid-19 Vaccine (1 - season) 2022 Influenza (Flu) vaccine (1 o f 1 - Influenza standard series) 10/09/2023 Diabetes Screening (HgbA1C or Glucose) 06/10/2024 Colonoscopy 04/06/2032 04/06/2022, 04/06/2022 Colorectal Cancer Screening 04/06/2032 Sigmoidoscopy (10 year) with FIT yearly 04/06/2032 0 04/06/2022, 04/06/2022 Procedures Procedure Name Priority Date/Time Associated Diagnosis Comments COLONOSCOPY Routine 04/06/2022 7:20 AM EST HC VENIPUNCTURE Routine 06/10/2021 7:38 AM EDT Atrial fibrillation, unspecified type from Last 3 Months or Most Recently Relevant to Health Maintenance Results * COLONOSCOPY (04/06/2022 7:20 AM EST) COLONOSCOPY [facility] Endoscopy Procedure Date: 04/06/2022 7:20 AM ? Patient Name: Flo Mireles ? Date of : 1970 ? Age: 51 ? Order #: [id number] ? Instrument Name: [id number] ? Procedure: ? Colonoscopy Indications: ? Chronic diarrhea Providers: ? Ángel Geronimo, Juan Francisco Pacheco, ? Juan Francisco Gordon Referring MD: ?Stew Mario, DO Medicines: ? Monitored Anesthesia Care Complications: ? No immediate complications. Procedure: ? Pre-Anesthesia Assessment: ? - Prior to the procedure, a History ? and Physical was performed, and ? patient medications and allergies ? were reviewed. The patient is ? competent. The risks and benefits ? of the procedure and the sedation ? options and risks were discussed ? with the patient. All questions ? were answered and informed consent ? was obtained. Patient ? identification and proposed ? procedure were verified by the ? physician and the nurse in the ? endoscopy suite. Mental Status ? Examination: alert and oriented. ? Airway Examination: normal ? oropharyngeal airway and neck ? mobility. Respiratory Examination: ? clear to auscultation. CV ? Examination: normal. Prophylactic ? Antibiotics: The patient does not ? require prophylactic antibiotics. ? Prior Anticoagulants: The patient ? has taken Eliquis (apixaban), last ? dose was 6 days prior to procedure. ? ASA Grade Assessment: III - A ? patient with severe systemic ? disease. After reviewing the risks ? and benefits, the patient was ? deemed in satisfactory condition to ? undergo the procedure. The ? anesthesia plan was to use ? monitored anesthesia care (MAC). ? Immediately prior to administration ? of medications, the patient was ? re-assessed for adequacy to receive ? sedatives. The heart rate, ? respiratory rate, oxygen ? saturations, blood pressure, ? adequacy of pulmonary ventilation, ? and response to care were monitored ? throughout the procedure. The ? physical status of the patient was ? re-assessed after the procedure. ? The procedure, indications, ? benefits, risks and alternatives ? were explained to the patient. ? Specifically discussed were ? potential complications including, ? but not limited to, bleeding, ? perforation, infection, missing a ? cancer, and adverse medication ? reactions. The patient was placed ? in the left lateral decubitus ? position, and a digital rectal exam ? was performed. The Colonoscope was ? inserted in the anus and under ? direct visualization, advanced to ? the terminal ileum, with ? identification of the appendiceal ? orifice and IC valve. Careful ? inspection was made as the ? colonoscope was withdrawn. The ? colonoscopy was performed without ? difficulty. The patient tolerated ? the procedure well. The quality of ? the bowel preparation was evaluated ? using the BBPS ([place] Bowel ? Preparation Scale) with scores of: ? Right Colon = 3, Transverse Colon = ? 3 and Left Colon = 3 (entire mucosa ? seen well with no residual ? staining, small fragments of stool ? or opaque liquid). The total BBPS ? score equals 9. ? Findings: ? The perianal and digital rectal examinations were ? normal. ? The colon (entire examined portion) appeared normal ? on direct and retroflexed views. Biopsies for ? histology were taken with a cold forceps from the ? entire colon for evaluation of microscopic colitis. ? The terminal ileum appeared normal. ? Moderate Sedation: ? Not applicable - See Anesthesia documentation Impression: ?- No specific cause of patient's ? symptoms found on exam. Recommendation: ?- Await pathology results. ? - Discharge patient to home (with ? escort). ? - Return to referring physician as ? previously scheduled. ? - Repeat colonoscopy in 10 years ? for screening purposes. ? - The patient informed me that his ? foster care social worker stopped his Eliquis ? entirely because he completed ? ablation for atrial fibrillation ? several months ago, so he is not ? planned to resume this medication ? by his foster care social worker. He is ? following with his foster care social worker and ? primary care physician for ongoing ? care. ? Attending Participation: ? I personally performed the entire procedure. ? Ángel Geronimo, 04/06/2022 8:04:29 AM Number of Addenda: 0 Note Initiated On: 04/06/2022 7:20 AM PROVATION 04/06/2022 7:20 AM EST Stew Mario DO GENERAL SURGICAL ORD ERABLES PROVATION * (ABNORMAL) BMP w/fasting Glucose (06/10/2021 7:38 AM EDT) Glucose Fasting 107(H) 65 - 99 mg/dL [facility] Comment: ?Fasting* Glucose Interpretive Criteria Normal ?65-99 mg/dL Impaired Fasting glucose ?100-125 mg/dL Consistent with Diabetes Mellitus ? >or= 126 mg/dL *Fasting is defined as no caloric intake for at least 8 hours In the absence of unequivocal hyperglycemia a plasma glucose value of >or= 126 mg/dL should be repeated on a subsequent day. Diagnosis and Classification of Diabetes Mellitus, Position Statement from the [place] [employer]. ??Diabetes Care, Volume 33, Supplement 1, Feb 2009 Blood Urea Nitrogen 19 10 - 20 mg/dL [facility] Creatinine 1.03 0.80 - 1.50 mg/dL [facility] Sodium 141 135 - 145 mmol/L [facility] Potassium 4.5 3.5 - 5.0 mmol/L [facility] Comment: Please note: ??Patients with WBC >100,000 may have falsely elevated Potassium levels. ??For accurate Potassium quantification in these patients send serum separator tube (gold top) for subsequent determinations. ??Contact the Clinical Chemistry Laboratory if there are any questions. Chloride 103 98 - 107 mmol/L [facility] Carbon Dioxide 27 22 - 31 mmol/L [facility] Anion Gap 11 5 - 15 mmol/L [facility] Calcium 9.4 8.5 - 10.5 mg/dL [facility] Est Glomerular Filtration Rate 84 >=60 mL/min/1. 73 m?? [facility] Comment: This patient? s estimated glomerular filtration rate (eGFR) is between 84 mL/min/1.73 m2 (patients with less muscle mass per kg body weight) and 98 mL/min/1.73 m2 (patients with more muscle mass per kg body weight) as determined by the CKD-EPI equation. Assessment of eGFR is not appropriate when creatinine concentrations are rapidly changing. For clinical decisions where creatinine clearance will affect therapy, a 24-hour urine creatinine clearance may be advised. Assignment of CKD stage 1 - 5 for patients with an eGFR near the transition point between stages may be based on clinical assessment of muscle mass and symptoms in addition to eGFR. Blood 06/10/2021 7:38 AM EDT 06/10/2021 7:50 AM EDT Narrative Resulting Agency Comment Spec In Lab Get Carrion MD CHEMISTRY ORDERABLES [facility] [place] [address] from Last 3 Months or Most Recently Relevant to Health Maintenance Advance Directives * Attempt Cardiopulmonary Resuscitation - Inpatient (Latest Code Status on File) Date Activated Date Inactivated Comments 12/28/2021 12:57 PM 12/29/2021 1:46 PM Question Answer Comments Code Status decision made by: Patient Care Teams Telephone Maintenance Mechanic Relationship Specialty Start Date End Date Stwe Mario DO [address] [place], [place] [address] PCP - General Family Medicine 03/24/21
--- OUTSIDE RECORDS SUMMARY | 2023-09-23 16:00 | XMS_ITS | Encounter Summary ---
[place] [address] Care Team Providers Care Natural Gas Field Processing Supervisor Name Role Phone Stew Mario DO Primary Care Provider [phone] Encounter Details Date Type Department Care Team (Late st Contact Info) Description 09/11/2021 Telephone Cardiology at [address] [phone] Nivia Sullivan, RN Social History Tobacco Use Types Packs/Day Years [...] encounter Miscellaneous Notes * Telephone Encounter - Nivia Sullivan RN - 09/11/2021 9:19 AM EDT TC to Mr Mireles who states he picked his prescription for Flecainide up yesterday. Per Dr Kinney he can start taking his Flecainide 100mg, BID, and see Dr Cali on 09/30/2021, to determine plan with EP provider. Asked Mr Mireles to talk with EP provider regarding plan going forward, and to work with his GI Specialist as to urgency of Scope, ordered, for Stomach pain. Mr Mireles understands this plan and agrees. Nivia Sullivan (Jodie), RN, BSN [facility] documented in this encounter Plan of Treatment Not on file documented as of this encounter Visit Diagnoses Not on filedocumented in this encounter Care Teams Natural Gas Field Processing Supervisor Relationship Specialty Start Date End Date Stew Mario DO [address] [place] [address] PCP - General Family Medicine 03/24/21 documented as of this encounter
--- OUTSIDE RECORDS SUMMARY | 2023-09-23 16:00 | XMS_ITS | Encounter Summary ---
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 Name Role Phone Stew Mario DO Primary Care Provider [phone] Reason for Visit * Auth/Cert Specialty Diagnoses / Procedures Referred By Contac t Referred To Contact Diagnoses Other persistent atrial fibrillation Persistent atrial fibrillation [I48.19] Procedures PRO COMPREHENSIVE EP EVAL ABLATION ATR FIB PULM VEIN ISOLATION PRO ADDL ABLATION L/R ATRIAL FIBRIL W ISOLATED PULM VEIN PRO INTRACARDIAC CATHETER ABLATION ARRHYTHMIA ADD ON PRO INTRACARD ELECTROPHYS 3-DIMENS MAPPING PRG ELECTROPHYS EV, L A-V PACE/REC, W/O INDUCT PRG STIM/PACING HEART POST IV DRUG INFU PRG INTRACARD ECHO, THER/DX INTERVENT ELECTROPHYSIOLOGY PROCEDURE Isaiah Cali MD [facility] [place] [address] [place] [address] [facility] Referral ID Status Reason Start Date Expiration Date Visits Re quested Visits Authorized [id number] 1 1 Encounter Details Date Type Department Care Team (Late st Contact Info) Description 12/28/2021 7:30 AM EST - 12/28/2021 2:30 PM EST Surgery [place] [id number] Isaiah Cali MD [facility] [address] [place] [address] ELECTROPHYSIOLOGY PROCEDURE Social History Tobacco Use Types Packs/Day Years [...] Sign Reading Time Taken Comments Blood Pressure 112/66 12/28/2021 2:16 PM EST Pulse 74 12/28/2021 2:16 PM EST Temperature 36.7 ??C (98.1 ??F) 12/28/2021 2:16 PM ES T Respiratory Rate 19 12/28/2021 2:16 PM EST Oxygen Saturation 92% 12/28/2021 2:16 PM EST Inhaled Oxygen Concentration - - Weight 108.6 kg (239 lb 6.4 oz) 12/28/2021 6:31 AM EST Height 167.6 cm (5' 6) 12/28/2021 6:31 AM EST Body Mass Index 38.64 12/28/2021 6:31 AM EST documented in this encounter Discharge Summaries * Isaiah Cali MD - 12/29/2021 10:28 AM EST Discharge Summary Patient Name: Flo Mireles Patient Age: 51 y.o. Language: Nicaraguan Race: White Ethnicity: Not nor Admit date: 12/28/2021 Discharge date and time: 12/29/2021 1100 Attending Physician: Isaiah Cali MD Discharge Physician: Isaiah Cali MD Follow-up Recommendations for Providers: ?? Flecainide has been discontinued ?? Continue diltiazem 360mg daily ?? Continue apixaban ?? NEW - increase pantoprazole from 40mg daily to 40mg twice daily for 30 days following ablation to reduce the risk of erosive esophagitis ?? Follow up with Dr. Cali in 6-8 weeks You will be contacted with arrangements. Inpatient Provider Contact Information: Cardiac Electrophysiology [phone], option #3 Discharge Diagnoses (Hospital Problems) and Secondary Diagnoses (Chronic Problems): Active Hospital Problems Diagnosis ??? Paroxysmal atrial fibrillation Resolved Hospital Problems No resolved problems to display. Active Non-Hospital Problems Diagnosis ??? GERD with esophagitis ??? Hiatal hernia Operations/Major Procedures: Operations: Procedure(s): ELECTROPHYSIOLOGY PROCEDURE 12/28/2021 EPS/PVI ablation History of Presentation: 51yo male??with a history of paroxysmal symptomatic atrial fibrillation. Hospital Course: He was admitted on 12/28 via Same Day for planned afib ablation. He underwent an acutely successful4 vein PVI ablation and feels well today. Vital Signs at Discharge: BP: 119/58, Heart Rate: 73, Temp: 36.9 ??C (98.4 ??F), Resp: 18, BMI (Calculated): 38.64 Height: 167.6 cm (5' 6) (12/28/21630) Weight: 108.6 kg (239 lb 6.4 oz) (12/28/21630) Functional and Cognitive Status: Fully functional; alert and oriented Admission Diagnoses: Paroxysmal atrial fibrillation [I48.0] Discharge Diagnoses: Atrial fibrillation Admission Condition: fair Indication for Admission: Atrial fibrillation Consults: none Important Studies and Lab Data: n/a Treatments: EPS/ablation: 12/28/2021 1. At baseline, all four pulmonary veins were electrically active. 2. At the conclusion of the case all four pulmonary veins were electrically isolated. 3. No pericardial effusion at conclusion of case Discharge Exam: Physical Exam: Vital Signs: ?? Last value Range last 12 hrs Temperature Temp: 36.9 ??C (98.4 ??F) Temp: [36.9 ??C (98.4 ??F)-37 ??C (98.6 ??F)] Heart Rate Heart Rate: 73 Heart Rate: [65-73] Blood Pressure BP: 119/58 BP: (114-119)/(58-70) Respiratory Rate Resp: 18 Resp: [17-20] SpO2 SpO2: 95 % SpO2: [95 %-96 %] ?? Physical Exam Vitals and nursing note reviewed. Constitutional: Appearance: Normal appearance. Cardiovascular: Rate and Rhythm: Normal rate and regular rhythm. Occasional extrasystoles are present. Pulses: Normal pulses. Heart sounds: Normal heart sounds. Pulmonary: Effort: Pulmonary effort is normal. Breath sounds: Normal breath sounds. Abdominal: Comments: Femoral vein vascular access sites w/o hematoma; small amt of dried blood on gauze Musculoskeletal: General: No swelling. Normal range of motion. Skin: General: Skin is warm and dry. Neurological: Mental Status: He is alert and oriented to person, place, and time. Discharge Conditions/Prognosis: good Discharge to: home Updated Allergies/ADRs: No Known Allergies Immunizations Given this Hospitalization: Immunization History Administered Date(s) Administered ??? Td, adult 07/23/2003 Discharge Medications: Your Medications UNREVIEWED medications - Discuss With Your Provider Dose Details apixaban 5 mg Tab Commonly known as: Eliquis Take 1 tablet by mouth 2 times daily. 5 mg Quantity: 120 tablet Refills: 5 dilTIAZem 360 mg Cs24 Commonly known as: TIAZAC Take 1 capsule by mouth daily. 360 mg Quantity: 90 capsule Refills: 3 flecainide 100 mg Tab Commonly known as: Tambocor Take 1 tablet by mouth 2 times daily. 100 mg Quantity: 60 tablet Refills: 5 pantoprazole EC 40 mg Tbec Commonly known as: Protonix Take 1 tablet by mouth daily. 40 mg Quantity: 90 tablet Refills: 3 Smoking Status at Discharge: Social History Tobacco Use Smoking Status Never Smokeless Tobacco Never Instructions Given to Patient at Discharge: Patient Instructions DISCHARGE INSTRUCTIONS FOLLOWING YOUR ABLATION 1. Medications as prescribed. ?? Flecainide has been discontinued ?? Continue diltiazem 360mg daily ?? Continue apixaban ?? NEW - increase pantoprazole from 40mg daily to 40mg twice daily for 30 days following ablation to reduce the risk of erosive esophagitis 2. Follow up with Dr. Cali in 6-8 weeks You will be contacted with arrangements. 3. Resume anticoagulation as per your home dose. 4. Standard post ablation wound care instructions (see below): Anticoagulation - You have been prescribed anticoagulation to reduce risk of clot formation due to atrial fibrillation/flutter and following the ablation procedure. Catheter Insertion Area Care - You may take a shower if you wish the morning after the procedure. Wash the area with soap and water. - Look for signs of infection over the next several days. - A little spot of blood at the catheter insertion area is not unusual. A bruise or a small lump under the skin is normal; they generally disappear in three or four days. In some cases you may develop a larger bruise that may appear to extend somewhat down your thigh; this is normal and will resolve, generally within 1-2 weeks. - Expect some mild tenderness over the area where the catheter was inserted. This should improve during the 24 to 48 hours after the procedure. - Take Tylenol if needed and contact your doctor if the discomfort worsens. Avoid higher-dose ibuprofen (greater than 400mg twice daily) due to increased bleeding risk while on blood thinners (does not include aspirin). Problems to Watch For If there is bright red blood flowing from the catheter insertion area 1. STOP what you are doing and lie down. 2. Hold pressure steadily on the area for fifteen minutes. 3. Call for help. 4. If the bleeding does not stop in fifteen minutes, call 911. 5. If there is rapid swelling with a ???black and blue?? color at the catheter insertion area, there may be bleeding inside. Call your doctor if there is any increase in size. Check the insertion site for the next few days at home. Signs of infection are: 1. Redness 2. Swelling 3. Yellow, white, green or brown, foul smelling drainage 4. Increased soreness 5. If you think there is an infection, take your temperature. Then call your doctor. The limb on the side where you had the catheter inserted should look and feel normal in its color, sensation and temperature. If your leg becomes cool, pale, blue or changing color with numbness and tingling, contact your doctor. If you feel faint or dizzy, lie down with your feet elevated. Have someone call the doctor. If you are alert, drink fluids. Activity - Do not bend over, strain or lift heavy objects for 48 hours after the procedure. - Do not participate in active sports for 1 week. - Avoid heavy lifting (greater than 10 pounds) for one week following your procedure. Additional discharge instructions: Pt advised to be vigilant for any of the following clinical findings (or anything else out of the ordinary): ?? Bleeding, pain, or swelling at any sheath/catheter insertion site. Sometimes this may develop even days after discharge, and there may then be a need to examine this and alter the anticoagulation medications. It is good to be up and around after the ablation procedure, but heavy lifting and straing should be avoided for the first 3-5 days. ?? Chest discomfort. Inflammation in the form of pericarditis may result in chest pain, which is not uncommon after an ablation procedure for atrial fibrillation. It often may be position-dependent, or will be exacerbated by ventilatory movement. If the patient experiences chest discomfort, it should be medically evaluated to ascertain the significance, and to assess for more serious alternative considerations requiring urgent intervention. If it otherwise is pericarditis, it commonly responds well to anti-inflammatory medication. ?? Atrial dysrhythmias (flutter, fibrillation, tachycardia). Post-procedure atrial dysrhythmias on the basis of temporary inflammation are not uncommon, and are not necessarily indicative of an ineffective procedure... if the dysrhythmia is due to inflammtion, the dysrhythmias likely will cease as the inflammation resolves. The first 1-2 months are the most likely time during which this matter isrelevant. If the patient experiences dysrhythmias, the Cardiac Electrtophysiology Service should becontacted. ?? Side effects of any new medications initiated at the [facility]. The patient should be aware and informed of any significant potential side effects that may be incurred as a result of being on new medication... ?? Sudden weakness, sensory loss, altered behavior or speech. This might be a consequence of a cerbrovascular event (stroke or TIA). This requires urgent and immediate medical attention. ?? Fever or sweats, significant malaise. Possibly a consequence of infection. This requires that the Cardiac Electrophysiology Service be contacted, or otherwise an urgent medical assessment should be obtained. ?? Shortness of breath, increased exertional intolerance. A variety of pulmonary or cardiac processes could be responsible for this. This requires that the Cardiac Electrophysiology Service be contacted, or otherwise an urgent medical assessment should be obtained. ?? Difficulty swallowing, or pain with swallowing. While remote, there nonetheless is a ablation procedural risk of injury to the esophagus; if these symptoms emerge, immediate medical evaluation is urged (with no oral intake pending medical evaluation). This is not an exhaustive list. If the patient experiences anything out of the ordinary post-procedure, he/she is encouraged to contact his/her physician or the Cardiac Electrophysiology Service Triage Nurse ([phone], option 3). General Instructions None Discharge References/Attachments None Isaiah Cali MD [facility] Cardiac Electrophysiology 12/29/2021 4:51 PM documented in this encounter Discharge Instructions * Patient Instructions* CristoDavid saavedra ScottieMARCELL - 12/29/2021 10:27 AM EST DISCHARGE INSTRUCTIONS FOLLOWING YOUR ABLATION 1. Medications as prescribed. Flecainide has been discontinued Continue diltiazem 360mg daily Continue apixaban NEW - increase pantoprazole from 40mg daily to 40mg twice daily for 30 days following ablation to reduce the risk of erosive esophagitis 2. Follow up with Dr. Cali in 6-8 weeks You will be contacted with arrangements. 3. Resume anticoagulation as per your home dose. 4. Standard post ablation wound care instructions (see below): Anticoagulation - You have been prescribed anticoagulation to reduce risk of clot formation due to atrial fibrillation/flutter and following the ablation procedure. Catheter Insertion Area Care - You may take a shower if you wish the morning after the procedure. Wash the area with soap and water. - Look for signs of infection over the next several days. - A little spot of blood at the catheter insertion area is not unusual. A bruise or a small lump under the skin is normal; they generally disappear in three or four days. In some cases you may develop a larger bruise that may appear to extend somewhat down your thigh; this is normal and will resolve, generally within 1-2 weeks. - Expect some mild tenderness over the area where the catheter was inserted. This should improve during the 24 to 48 hours after the procedure. - Take Tylenol if needed and contact your doctor if the discomfort worsens. Avoid higher-dose ibuprofen (greater than 400mg twice daily) due to increased bleeding risk while on blood thinners (does not include aspirin). Problems to Watch For If there is bright red blood flowing from the catheter insertion area STOP what you are doing and lie down. Hold pressure steadily on the area for fifteen minutes. Call for help. If the bleeding does not stop in fifteen minutes, call 911. If there is rapid swelling with a ???black and blue?? color at the catheter insertion area, there may be bleeding inside. Call your doctor if there is any increase in size. Check the insertion site for the next few days at home. Signs of infection are: Redness Swelling Yellow, white, green or brown, foul smelling drainage Increased soreness If you think there is an infection, take your temperature. Then call your doctor. The limb on the side where you had the catheter inserted should look and feel normal in its color, sensation and temperature. If your leg becomes cool, pale, blue or changing color with numbness and tingling, contact your doctor. If you feel faint or dizzy, lie down with your feet elevated. Have someone call the doctor. If you are alert, drink fluids. Activity - Do not bend over, strain or lift heavy objects for 48 hours after the procedure. - Do not participate in active sports for 1 week. - Avoid heavy lifting (greater than 10 pounds) for one week following your procedure. Additional discharge instructions: Pt advised to be vigilant for any of the following clinical findings (or anything else out of the ordinary): Bleeding, pain, or swelling at any sheath/catheter insertion site. Sometimes this may develop even days after discharge, and there may then be a need to examine this and alter the anticoagulation medications. It is good to be up and around after the ablation procedure, but heavy lifting and straingshould be avoided for the first 3-5 days. Chest discomfort. Inflammation in the form of pericarditis may result in chest pain, which is not uncommon after an ablation procedure for atrial fibrillation. It often may be position-dependent, or will be exacerbated by ventilatory movement. If the patient experiences chest discomfort, it should be medically evaluated to ascertain the significance, and to assess for more serious alternative considerations requiring urgent intervention. If it otherwise is pericarditis, it commonly responds well to anti-inflammatory medication. Atrial dysrhythmias (flutter, fibrillation, tachycardia). Post-procedure atrial dysrhythmias on thebasis of temporary inflammation are not uncommon, and are not necessarily indicative of an ineffective procedure... if the dysrhythmia is due to inflammtion, the dysrhythmias likely will cease as theinflammation resolves. The first 1-2 months are the most likely time during which this matter is rel evant. If the patient experiences dysrhythmias, the Cardiac Electrtophysiology Service should be contacted. [facility] of [facility] The patient should be aware and informed of any significant potential side effects that may be incurred as a result of being on new medication... Sudden weakness, sensory loss, altered behavior or speech. This might be a consequence of a cerbrovascular event (stroke or TIA). This requires urgent and immediate medical attention. Fever or sweats, significant malaise. Possibly a consequence of infection. This requires that the Cardiac Electrophysiology Service be contacted, or otherwise an urgent medical assessment should be obtained. Shortness of breath, increased exertional intolerance. A variety of pulmonary or cardiac processes could be responsible for this. This requires that the Cardiac Electrophysiology Service be contacted, or otherwise an urgent medical assessment should be obtained. Difficulty swallowing, or pain with swallowing. While remote, there nonetheless is a ablation procedural risk of injury to the esophagus; if these symptoms emerge, immediate medical evaluation is urged (with no oral intake pending medical evaluation). This is not an exhaustive list. If the patient experiences anything out of the ordinary post-procedure, he/she is encouraged to contact his/her physician or the Cardiac Electrophysiology Service Triage Nurse ([phone], option 3). documented in this encounter Medications at Time of Discharge Medication Sig Dispensed Refills Start Date End Date pantoprazole EC (Protonix) 40 mg Tablet, Delayed Release (E.C.) Take 1 tablet by mouth 2 times daily. 60 tablet 3 12/29/2021 apixaban (Eliquis) 5 mg Tablet Take 1 tablet by mouth 2 times daily. 120 tablet 5 06/08/2021 dilTIAZem (TIAZAC) 360 mg Capsule,Sustained Action 24 hr Take 1 capsule by mouth daily. 90 capsule 3 07/21/2021 03/10/2022 documented as of this encounter Progress Notes * Caron Kong RN - 12/29/2021 11:[address] [facility] Short Stay Unit Discharge Note All relevant discharge milestones have been met by the patent. After Visit Summary and discharge teaching reviewed with the patient and a family member. IV access has been discontinued. All personal belongings have been returned to the patient/family upon their departure from the unit. Patient has been discharged to home The patient has been discharged without VNA services. * David June PA - 12/29/2021 10:07 AM EST Inpatient Cardiac Electrophysiology Discharge Day Note Patient Name: Flo Mireles Service: EP Responsible Attending: Isaiah Cali MD Reason for continued hospitalization: Atrial fibrillation Active Problems: Active Hospital Problems Diagnosis ??? Paroxysmal atrial fibrillation Resolved Hospital Problems No resolved problems to display. Interval History: 51yo male with a history of paroxysmal symptomatic atrial fibrillation admitted on 12/28 via Same Day for planned afib ablation. He underwent an acutely successful 4 vein PVI ablation and feels well today. ?? Review of Systems Constitutional: Negative for chills. Respiratory: Negative for chest tightness and shortness of breath. Cardiovascular: Negative for chest pain, palpitations and leg swelling. Gastrointestinal: Negative for diarrhea, nausea and vomiting. Neurological: Negative for syncope and light-headedness. Telemetry: HR: 60-75 sinus rhythm Meds: Scheduled Meds: ??? apixaban 5 mg Oral BID ??? dilTIAZem CD 360 mg Oral Daily ??? pantoprazole EC 40 mg Oral BID Continuous Infusions: PRN Meds:acetaminophen, phenoL 1.4%, dextromethorphan-guaiFENesin Physical Exam: Vital Signs: Last value Range last 12 hrs Temperature Temp: 36.9 ??C (98.4 ??F) Temp: [36.9 ??C (98.4 ??F)-37 ??C (98.6 ??F)] Heart Rate Heart Rate: 73 Heart Rate: [65-73] Blood Pressure BP: 119/58 BP: (114-119)/(58-70) Respiratory Rate Resp: 18 Resp: [17-20] SpO2 SpO2: 95 % SpO2: [95 %-96 %] Physical Exam Vitals and nursing note reviewed. Constitutional: Appearance: Normal appearance. Cardiovascular: Rate and Rhythm: Normal rate and regular rhythm. Occasional extrasystoles are present. Pulses: Normal pulses. Heart sounds: Normal heart sounds. Pulmonary: Effort: Pulmonary effort is normal. Breath sounds: Normal breath sounds. Abdominal: Comments: Femoral vein vascular access sites w/o hematoma; small amt of dried blood on gauze Musculoskeletal: General: No swelling. Normal range of motion. Skin: General: Skin is warm and dry. Neurological: Mental Status: He is alert and oriented to person, place, and time. Lab Comments: n/a Pertinent Radiographic/Diagnostic Results: EPS/ablation: 12/28/2021 1. At baseline, all four pulmonary veins were electrically active. 2. At the conclusion of the case all four pulmonary veins were electrically isolated. 3. No pericardial effusion at conclusion of case Assessment: Flo Mireles is a 51 y.o. male with hx of PAF, POD#1 PVI ablation. He had mild oozing from his right femoral vein access site which has stopped. He has been restarted on apixaban. Pre-procedure flecainide has been discontinued. Plan: Stable for discharge to home Flecainide has been discontinued Continuing diltiazem 360mg PO daily Apixaban has been resumed EP will schedule follow up with Dr. Cali in 6-8 weeks Provider: MARCELL Badillo EP Consult attending physician: Ryder Carrion MD EP Consult positional pager #[phone](EPMD) EP Device interrogation positional pager # [phone] * Azra Eagle RN - 12/28/2021 2:29 PM EST 1315 pt admitted from EP lab s/p ablation fpr Afib/flutter. Monitors attached and alarms set. Report received from Anestheisa provider. Bilat groin sites cld on arrival. No evidence of hematoma or bleeding. Pt denies pain and follows commands. WCM 1415 Pt completed q15 minute groin checks, report called to Short stay unit. Patient transferred. documented in this encounter H&P Notes * Isaiah Cali MD - 12/28/2021 7:26 AM EST Images from the original note were not included. Clinical Cardiac Electrophysiology Interval History and Physical Exam For Planned Procedure HISTORY OF PRESENT ILLNESS: Flo Mireles is a 51 y.o. male with a history of paroxysmal symptomatic atrial fibrillation presents for RF atrial fibrillation ablation. [id number] Score: 0 Oral Anticoagulation medication and last dose: apixaban PM 12/27 @ 2100 Relevant TTE results: Date of TTE (2019) LVEF: 60-65 LA size: Nominal Relevant cardiac CT findings: Pulmonary venous ostial dimensions as detailed above. Figure-of-8 confluence at the right inferior pulmonary vein ostium. No intracardiac thrombus. Specifically no thrombus in the left atrial appendage. 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 No syncope No orthopnea No bleeding No neurological changes PHYSICAL EXAM: Vital Signs: BP 113/61 Pulse 63 Temp 36.6 ??C (97.9 ??F) (Temporal) Ht 167.6 cm (5' 6) Wt 108.6 kg (239 lb 6.4 oz) SpO2 98% BMI 38.64 kg/m?? PROBLEM LIST: Patient Active Problem List Diagnosis Code ??? PAF (paroxysmal atrial fibrillation) I48.0 ??? GERD with esophagitis K21.00 ??? Hiatal hernia K44.9 ??? Chronic atrial fibrillation I48.20 ALLERGIES: No Known Allergies MEDICATIONS: Current Facility-Administered Medications Medication Dose Route Frequency Provider Last Rate Last Admin ??? sodium chloride 0.9 % (flush) (BD PosiFlush Normal Saline 0.9) flush 5-20 mL 5-20 mL Intravenous Q1 Min PRN Dianna Li MD ??? lactated ringers infusion 1,000 mL Intravenous Continuous Dianna Li MD 100 mL/hr at 12/28/21 0653 1,000 mL at 12/28/21 0653 ??? sodium chloride 0.9 % (flush) (BD PosiFlush Normal Saline 0.9) flush 5 mL 5 mL Intravenous [id number] wick MD ??? sodium chloride 0.9 % (flush) (BD PosiFlush Normal Saline 0.9) flush 5-20 mL 5-20 mL Intravenous Q1 Min PRN Abundio Black MD ??? lidocaine (Xylocaine) 1% (10 mg/mL) injection 3 mg 0.3 mL Subcutaneous Once PRN Abundio Black MD PAST SURGICAL HISTORY: Past Surgical History: Procedure Laterality Date ??? PRO CARDIOVERSION ELECTIVE ARRHYTHMIA EXTERNAL N/A 06/10/2021 CARDIOVERSION-ELECTIVE (WRVU 2.25) performed by Sabino Zepeda MD at [facility] OR LAB VALUES: Laboratory Data: No results found for: WBC, HGB, HCT, MCV Lab Results Component Value Date NA 141 06/10/2021 K 4.5 06/10/2021 CL 103 06/10/2021 CO2 27 06/10/2021 BUN 19 06/10/2021 CREATININE 1.03 06/10/2021 GLUCFASTING 107 (H) 06/10/2021 CALCIUM 9.4 06/10/2021 ESTGFR 84 06/10/2021 ASSESSMENT AND PLAN: Flo Mireles is a 51 y.o. male with a history of paroxysmal symptomatic atrial fibrillation presents for RFA atrial fibrillation ablation. -No interval episodes of atrial fibrillation -Has been taking anticoagulation appropriately, defer ARLENE -Proceed with ablation Rationales for, intended benefits and potential risk of planned procedures reviewed. The patient indicated understanding and agreement with the plan. Informed consent signed. Abundio Black MD Cardiac Electrophysiology Fellow [facility] Pager [phone] 12/28/2021 I met with the patient today and independently confirmed the history, physical exam, and testing. Ipersonally reviewed and interpreted the available ECGs and additional cardiac testing (echo), as well as the labs. I agree with the detailed management plan as written in the fellow note today. I discussed this plan with the patient, who is also in agreement. ? Dr. Isaiah Cali, electrophysiology attending ([id number]) documented in this encounter Miscellaneous Notes * Brief Op Note - Isaiah Cali MD - 12/28/2021 2:25 PM EST Brief Operative Note Patient Name: Flo Mireles : [id number] MR#: [id number] Case Date: 12/28/2021 Surgeon: Surgeon(s) and Role: * Isaiah Cali MD - Primary * Abundio Black MD - Fellow Preoperative diagnosis: Persistent atrial fibrillation [I48.19] Postoperative diagnosis: s/p successful AF ablation Procedure(s) (LRB): ELECTROPHYSIOLOGY PROCEDURE (N/A) Anesthesia: General Findings: 1. At baseline, all four pulmonary veins were electrically active. 2. At the conclusion of the case all four pulmonary veins were electrically isolated. 3. No pericardial effusion at conclusion of case Complications: none Intake: Intraprocedure Crystalloid Total Intake Lactated Ringers 300.00 mL lactated ringers infusion 800.00 mL Total Intake 1100 mL Transfusion No data found in the last 1 encounters. Output: Estimated Blood Loss: Urine Output:: (no urine output recorded) Other Output: (no other output recorded) Drains: none Specimens removed during surgery: None Disposition: awakened from anesthesia, extubated and taken to the recovery room in a stable condition, having suffered no apparent untoward event. Condition: doing well without problems Attestation: Isaiah Cali MD Case Date: 12/28/2021 I was present and I participated during the entire procedure (does not need to include opening and closing). (Please see the Surgical Encounter Summary for any Implant and Specimen details pertinent to this patient.) Surgical Infection Prevention Bundle Used? N/A documented in this encounter Plan of Treatment Not on file documented as of this encounter Procedures Procedure Name Priority Date/Time Associated Diagnosis Comments ELECTROPHYSIOLOGY PROCEDURE Routine 12/28/2021 7:39 AM EST Persistent atrial fibrillation documented in this encounter Results * ELECTROPHYSIOLOGY PROCEDURE (12/28/2021 7:39 AM EST) Anatomical Region Laterality Modality Other Narrative 12/30/2021 8:11 AM EST Table formatting from the original result was not included. Images from the original result were not included. ATRIAL FIBRILLATION ABLATION Patient: Flo Mireles Procedure Date: 12/28/2021 Chemical Plant Operator Supervisor: Isaiah Cali MD Fellow: Abundio Black MD Referring physicians: Chi Kinney MD; Stew Mario DO Patient History: Mr. Mireles is a 51 year old man with a history of symptomatic and paroxysmal atrial fibrillation presents for atrial fibrillation ablation. He has no documented atrial flutter. CT angiogram three days prior demonstrated no left atrial appendage thrombus and he has been compliant with his anticoagulation. He is in sinus rhythm today. Procedure Report: The patient was brought to the Cardiac Electrophysiology laboratory in a post-absorptive, fasting state. Peripheral IVs were in place. Continuous electrocardiographic, blood pressure, oxygen saturation and carbon dioxide monitoring was initiated. Self-adhesive cardioversion patches were positioned on the chest. General anesthesia was administered and the patient intubated per anesthesiology. The patient was then prepped and draped in the usual sterile fashion. Two 8F sheaths were placed in the right femoral vein using ultrasound guidance. Accessing the left femoral vein proved difficult secondary to body habitus and low volume status. There were x2 arterial sticks for which manual pressure was held for five minutes each without further bleeding. Ultimately, a 9F sheath was able to be placed in the LFV and the remaining 7F sheath was placed with the other catheters in the RFV. Under fluoroscopic guidance, a 8F ultrasound catheter was advanced to the right atrium and used to image the RA, LA and interatrial septum. ??A 6F decapolar catheter was placed in the coronary sinus to record and pace from the left atrium. The fossa ovalis was localized. Systemic heparinization was initiated with interrupted boluses of heparin with a goal ACT of 350 seconds. One 0.032 145 cm Cook J wire was advanced to the SVC and a 8.5F steerable sheath was advanced over the wire. After the guidewire was withdrawn, the transseptal needle was introduced into the sheath. The needle/sheath assembly was withdrawn under fluoroscopic and ICE guidance until the tip prolapsed into the fossa ovalis. Appropriate positioning was confirmed with multiple fluoroscopic views and ICE imaging. The transseptal needle was advanced out of the sheath across the fossa ovalis using a single burst of RF energy and continuous pressure monitoring. After a left atrial pressure waveform was recorded, the dilator was advanced over the needle, followed by the sheath. The dilator and needle were removed. An ablation catheter was then placed in the left atrium through the transseptal sheath. ??The sheath was flushed continuously with heparinized saline. Anticoagulation status was monitored with frequent ACT measurements. ??Over a second 0.032 wire a 8.5F non-steerable, long SL1 sheath was placed in the SVC. The transseptal needle was introduced into the sheath. The needle/sheath assembly was withdrawn under fluoroscopic and ICE guidance until the tip of the sheath prolapsed into the fossa ovalis. Appropriate positioning was confirmed with multiple fluoroscopic views and ICE imaging. The transseptal needle was advanced out of the sheath across the fossa ovalis using a single burst of RF energy under continuous pressure monitoring. The left atrial pressure waveform was recorded, the dilator was advanced over the needle, followed by the sheath. The dilator and needle were removed. A mapping catheter was placed in the left atrium through this sheath. The left atrium was mapped using a 3D mapping system (CARTO) and intracardiac echo. ??Once the origins of the pulmonary veins were identified, multiple applications of RF energy were delivered, encircling the pulmonary veins in a wide antral circumferential fashion using 30W on posterior wall and 35W on anterior wall. During ablation, esophageal temperature was monitored using an esophageal temperature probe placed by anesthesiology. If esophageal heating was observed, ablation was halted and performed in an area distant from the esophagus until the heating had resolved. Additionally, high output pacing was performed at the anterior aspect of the right pulmonary veins in order to map the phrenic nerve, which in this case could not be captured. ??Further applications of RF energy were applied to the os of each vein until each was completely isolated. ?? Notably, additional lesions were necessary in the area of the anterior ema of the right sided pulmonary veins to achieve complete isolation, due to putative epicardial connections allowing for continued conduction. Isolation was achieved with these additional lesions. At the completion of the study, the heparin was reversed with protamine (following a test dose). Once the ACT became <200 seconds, all of the sheaths were removed and hemostasis obtained by direct compression. The patient was extubated, hemodynamically stable, tolerated the procedure well and was transferred in stable condition. Dr. Cali was present for and participated in the entire procedure. Radiology Summary: Total Fluoroscopy time (minutes) 14.7 Dose area product (cGycm2) 7.92 Findings: -At baseline, all four pulmonary veins were electrically active. -Left atrial voltage map demonstrated normal voltage. -At the conclusion of the case, all four pulmonary veins were electrically isolated, with entrance and exit block demonstrated. -At the conclusion of the case, no pericardial effusion was observed. Conclusions: -Successful atrial fibrillation ablation -Hold flecainide -Continue diltiazem for now -Continue home PPI -Continue oral anticoagulation for two months uninterrupted -Bedrest 4 hours post procedure -Discharge home tomorrow if no issues overnight -Follow up with Dr. Cali in 2-3 months ([facility]) Procedures performed: AF ablation (cpt [id number]) Isaiah Cali MD [facility] Cardiac Electrophysiology 12/30/2021 8:08 AM Isaiah Cali MD EP PROCEDURE ORDERAB LES documented in this encounter Visit Diagnoses Diagnosis Paroxysmal atrial fibrillation- Primary Atrial fibrillation Persistent atrial fibrillation Atrial fibrillation Persistent atrial fibrillation Atrial fibrillation documented in this encounter Admitting Diagnoses Diagnosis Paroxysmal atrial fibrillation Atrial fibrillation documented in this encounter Administered Medications Inactive Administered Medications - up to 3 most recent administrations Medication Order MAR Action Action Date Dose Rate Site acetaminophen (Tylenol) tablet 1,000 mg 1,000 mg, Oral, ONCE, 1 dose, On Tue12/28/21 at 0700, Administer with SIP of H2O only. Maximum dose of acetaminophen is 4,000 mg from all sources in 24 hours., Day of Surgery (Day of Procedure), Routine Given 12/28/2021 6:55 AM EST 1,000 mg acetaminophen (Tylenol) tablet 650 mg 650 mg, Oral, EVERY 4 HOURS PRN, Starting on Tue12/28/21 at 1334, Until Tue12/29/21 at 1340, Pain, Fever, Mild-moderate pain (1-6), Maximum dose of acetaminophen is 4000 mg from all sources in 24 hours. When ordered for pain, acetaminophen should be given even when other ordered pain medications are indicated., Recovery (Recovery-Hospital Unit), Routine Given 12/28/2021 3:18 PM EST 650 mg apixaban (Eliquis) tablet 5 mg 5 mg, Oral, 2 TIMES DAILY, First dose on Tue12/28/21 at 2100, Until Discontinued, Anticoagulant, Routine, Restricted anticoagulant, choose the most appropriate response: Approved indication of non-valvular atrial fibrillation Given 12/29/2021 8:54 AM EST 5 mg Given 12/28/2021 8:33 PM EST 5 mg BUpivacaine (pf) (Marcaine) (5 mg/mL) 0.5% injection 150 mg 150 mg (30 mL), Subcutaneous, ONCE, 1 dose, On Tue12/28/21 at 0800, EP (Intra-Procedure), Routine Given 12/28/2021 8:25 AM EST 150 mg dextromethorphan-guaiFENesin (Robitussin DM) (2 mg-20 mg/mL) oral liquid 5 mL 5 mL, Oral, EVERY 4 HOURS PRN, Starting on Tue12/28/21 at 2021, Until Tue12/29/21 at 1340, Cough, Routine dilTIAZem CD (Cardizem CD) capsule 360 mg 360 mg, Oral, DAILY, First dose on Tue12/28/21 at 1530, Until Discontinued, Routine Given 12/29/2021 8:5 4 AM EST 360 mg Given 12/28/2021 5:15 PM EST 360 mg lactated ringers infusion 1,000 mL, at 100 mL/hr, Intravenous, CONTINUOUS, Starting on Tue12/28/21 at 0700, Until Tue12/28/21 at 1420, Day of Surgery (Day of Procedure) Restarted 12/28/2021 7:34 AM EST New Bag 12/28/2021 6:53 AM EST 1,000 mLs 100 mL/hr lidocaine (Xylocaine) (20 mg/mL) 2% injection 400 mg 400 mg (20 mL), Subcutaneous, ONCE, 1 dose, On Tue12/28/21 at 0800, EP (Intra-Procedure), Routine Given 12/28/2021 8:26 AM EST 400 mg lidocaine-EPINEPHrine (2% - 1:100,000) injection vial 30 mL 30 mL, Intradermal, ONCE, 1 dose, On Tue12/28/21 at 0800, Warning Vesicant/Irritant Medication , EP (Intra-Procedure), Routine Given 12/28/2021 8:25 AM EST 30 mLs pantoprazole EC (Protonix) tablet 40 mg 40 mg, Oral, 2 TIMES DAILY, First dose on Tue12/28/21 at 2100, Until Discontinued, DO NOT CRUSH OR OPEN, Routine Given 12/29/2021 8:54 AM EST 40 mg Given 12/28/2021 8:33 PM EST 40 mg phenoL 1.4% (Chloraseptic) spray 1 spray 1 spray, Oral, EVERY 2 HOURS PRN, Starting on Tue12/28/21 at 1450, Until Tue12/29/21 at 1340, Irritation, Routine Given 12/28/2021 5:14 PM EST 1 spray documented in this encounter Active and Recently Administered Medications Times are shown in EST. Scheduled Medication Order 12/27/2021 12/28/2021 12/29/2021 acetaminophen (Tylenol) tablet 1,000 mg (COMPLETED) 1,000 mg, Oral, ONCE, 1 dose, On Tue12/28/21 at 0700, Administer with SIP of H2O only. Maximum dose of acetaminophen is 4,000 mg from all sources in 24 hours., Day of Surgery (Day of Procedure), Routine 0655 (Given - Provider: Connor Mesa RN) apixaban (Eliquis) tablet 5 mg 5 mg, Oral, 2 TIMES DAILY, First dose on Tue12/28/21 at 2100, Until Discontinued, Anticoagulant, Routine, Restricted anticoagulant, choose the most appropriate response: Approved indication of non-valvular atrial fibrillation 2032 (Given - Provider: Tenisha Liu RN) 54 (Given - Provider: Caron Kong, CHERISE) BUpivacaine (pf) (Marcaine) (5 mg/mL) 0.5% injection 150 mg (COMPLETED) 150 mg (30 mL), Subcutaneous, ONCE, 1 dose, On Tue12/28/21 at 0800, EP (Intra-Procedure), Routine 0825 (Given - Provider: Abundio Black MD) dilTIAZem CD (Cardizem CD) capsule 360 mg 360 mg, Oral, DAILY, First dose on Tue12/28/21 at 1530, Until Discontinued, Routine 1715 (Given - Provider: Caron Kong, RN - Comment: medication not available) 0854 (Given - Provider: Caron Kong RN) lidocaine (Xylocaine) (20 mg/mL) 2% injection 400 mg (COMPLETED) 400 mg (20 mL), Subcutaneous, ONCE, 1 dose, On Tue12/28/21 at 0800, EP (Intra-Procedure), Routine 0826 (Given - Provider: Abundio Black MD) lidocaine-EPINEPHrine (2% - 1:100,000) injection vial 30 mL (COMPLETED) 30 mL, Intradermal, ONCE, 1 dose, On Tue12/28/21 at 0800, Warning Vesicant/Irritant Medication , EP (Intra-Procedure), Routine 0825 (Given - Provider: Abundio Black MD) pantoprazole EC (Protonix) tablet 40 mg 40 mg, Oral, 2 TIMES DAILY, First dose on Tue12/28/21 at 2100, Until Discontinued, DO NOT CRUSH OR OPEN, Routine 2032 (Given - Provider: Tenisha Liu RN) 0854 (Given - Provider: Caron Kong RN) Continuous Medication Order 12/27/2021 12/28/2021 12/29/2021 lactated ringers infusion (CANCELED) 1,000 mL, at 100 mL/hr, Intravenous, CONTINUOUS, Starting on Tue12/28/21 at 0700, Until Tue12/28/21 at 1420, Day of Surgery (Day of Procedure) 0653 (New Bag - Provider: Connor Mesa RN)0733 (Paused - Provider: Betty El CRNA - Comment: Switch to gravity)0734 (Restarted - Provider: Betty El CRNA)1250 (Anesthesia Volume Adjustment - Provider: Betty El CRNA)1420 (Stopped - Provider: Caron Kong RN) PRN Medication Order 12/27/2021 12/28/2021 12/29/2021 acetaminophen (Tylenol) tablet 650 mg 650 mg, Oral, EVERY 4 HOURS PRN, Starting on Tue12/28/21 at 1334, Until Tue12/29/21 at 1340, Pain, Fever, Mild-moderate pain (1-6), Maximum dose of acetaminophen is 4000 mg from all sources in 24 hours. When ordered for pain, acetaminophen should be given even when other ordered pain medications are indicated., Recovery (Recovery-Hospital Unit), Routine 1518 (Given - Provider: Blanka Kong RN - Comment: MATTHEWS) dextromethorphan-guaiFENesin (Robitussin DM) (2 mg-20 mg/mL) oral liquid 5 mL 5 mL, Oral, EVERY 4 HOURS PRN, Starting on Tue12/28/21 at 2021, Until Tue12/29/21 at 1340, Cough, Routine phenoL 1.4% (Chloraseptic) spray 1 spray 1 spray, Oral, EVERY 2 HOURS PRN, Starting on 12/28/21 at 1450, Until Tue12/29/21 at 1340, Irritation, Routine 1714 (Given - Provider: Blanka Kong RN) documented in this encounter Care Teams Sewing Room Supervisor Relationship Specialty Start Date End Date Stew Mario DO [address] [place] [address] PCP - General Family Medicine 03/24/21 documented as of this encounter
--- OUTSIDE RECORDS SUMMARY | 2023-09-23 16:00 | XMS_ITS | Encounter Summary ---
[place] [address] Care Team Providers Care Door Installer Name Role Phone Stew Mario DO Primary Care Provider Reason for Referral * Diagnostic Test (Routine) - Closed Specialty Diagnoses / Procedures Referred By Contac t Referred To Contact Radiology Diagnoses Persistent atrial fibrillation Procedures CT Cardiac for Morphology & Function PRG CT SCAN HEART STRUCTURE AND MORPHOLOGY W 3D IMAGE CONTRAST Abundio Black MD [facility] [place] [address] [facility] [place] [address] Referral ID Status Reason Start Date Expiration Date V isits Requested Visits Authorized [id number] Closed Specialty Service Requested 12/03/2021 01/31/2022 1 1 Reason for Visit * Diagnostic Test (Routine) - Closed Specialty Diagnoses / Procedures Referred By Contac t Referred To Contact Radiology Diagnoses Persistent atrial fibrillation Procedures CT Cardiac for Morphology & Function PRG CT SCAN HEART STRUCTURE AND MORPHOLOGY W 3D IMAGE CONTRAST Abundio Black MD [facility] [place] [address] [facility] [place] [address] Referral ID Status Reason Start Date Expiration Date V isits Requested Visits Authorized [id number] Closed Specialty Service Requested 12/03/2021 01/31/2022 1 1 Encounter Details Date Type Department Care Team (Latest Contact Info) Description 12/25/2021 8:27 AM EST - 12/25/2021 11:59 PM EST Hospital Encounter CT Scan at [facility] [place] [address] Isaiah Cali MD [facility] [place] [address] Persistent atrial fibrillation Discharge Disposition: Home Social History Tobacco Use Types Packs/Day Years [...] 2 times daily. 120 tablet 5 06/08/2021 flecainide (Tambocor) 100 mg TabletIndications:PAF (paroxysmal atrial fibrillation) Take 1 tablet by mouth 2 times daily. 60 tablet 5 09/09/2021 12/29/2021 dilTIAZem (TIAZAC) 360 mg Capsule,Sustained Action 24 hr Take 1 capsule by mouth daily. 90 capsule 3 07/21/2021 03/10/2022 pantoprazole EC (Protonix) 40 mg Tablet, Delayed Release (E.C.) Take 1 tablet by mouth daily. 90 tablet 3 04/03/2021 12/29/2021 documented as of this encounter Plan of Treatment Not on file documented as of this encounter Procedures Procedure Name Priority Date/Time Associated Diagnosis Comments CT HEART FOR FUNCTION (NON-CORONARY) W CONTRAST Routine 12/25/2021 9:25 AM EST Persistent atrial fibrillation documented in this encounter Results * CT Cardiac for Morphology & Function (12/25/2021 9:25 AM EST) Anatomical Region Laterality Modality Chest, Cardiac Computed Tomogra phy Impressions 12/27/2021 9:02 PM EST Pulmonary venous ostial dimensions as detailed above. Figure-of-8 confluence at the right inferior pulmonary vein ostium. No intracardiac thrombus. Specifically no thrombus in the left atrial appendage. Thank you for letting us participate in the care of this patient. ??If you are a health care provider and have any questions regarding this report, please contact the number below. ??For patients who have questions please contact the health healthcare sales representative that requested your imaging first. ? Narrative 12/27/2021 9:02 PM EST EXAMINATION: CT CARDIAC FOR MORPHOLOGY & FUNCTION CLINICAL HISTORY: Watchman protocol, clear PONCHO prior to planned atrial fibrillation ablation TECHNIQUE: Axial contiguous sections were obtained through the heart with ECG gating via helical acquisition after intravenous contrast administration. Post-processing was performed on an independent computer workstation, including three-dimensional reconstruction. Contrast: 117.9 cc Omnipaque 350. COMPARISON: None. FINDINGS: Pulmonary vein ostial dimensions as follows (axial x coronal): Right superior pulmonary vein: 15 mm x 15 mm; ostial branches: None. Right inferior pulmonary vein: 20 mm x 20 mm; ostial branches: Figure-of-8 confluence of middle lobe and lower lobe pulmonary veins at the ostium (series 8 image 210). Left superior pulmonary vein: 14 mm x 17 mm; ostial branches: None. Left inferior pulmonary vein: 15 mm x 16 mm; ostial branches: None. Anatomic variants: None. Accessory pulmonary venous drainage: None. Anomalous pulmonary venous drainage: None. Left atrium: Anterior/posterior 4.3 cm x right/left 7.1 cm x cranial/caudal 5.7 cm. Left atrial or atrial appendage filling defects: None. Esophagus relationship to left atrium: Directly posterior to the left atrial appendage in the midline with closest proximity to the right inferior pulmonary vein ostium. Other cardiovascular structures: No significant findings. Pulmonary parenchyma, airways, and pleura: No significant findings. Skeletal: No significant findings. Procedure Note Tatum Greene MD - 12/27/2021 EXAMINATION: CT CARDIAC FOR MORPHOLOGY & FUNCTION CLINICAL HISTORY: Watchman protocol, clear PONCHO prior to planned atrial fibrillation ablation TECHNIQUE: Axial contiguous sections were obtained through the heart withECG gating via helical acquisition after intravenous contrastadministration. Post-processing was performed on an independent computer workstation,including three-dimensional reconstruction. Contrast: 117.9 cc Omnipaque 350. COMPARISON: None. FINDINGS: Pulmonary vein ostial dimensions as follows (axial x coronal): Right superior pulmonary vein: 15 mm x 15 mm; ostial branches: None. Right inferior pulmonary vein: 20 mm x 20 mm; ostial branches:Figure-of-8 confluence of middle lobe and lower lobe pulmonary veins at the ostium(series 8 image 210). Left superior pulmonary vein: 14 mm x 17 mm; ostial branches: None. Left inferior pulmonary vein: 15 mm x 16 mm; ostial branches: None. Anatomic variants: None. Accessory pulmonary venous drainage: None. Anomalous pulmonary venous drainage: None. Left atrium: Anterior/posterior 4.3 cm x right/left 7.1 cm xcranial/caudal 5.7 cm. Left atrial or atrial appendage filling defects: None. Esophagus relationship to left atrium: Directly posterior to the leftatrial appendage in the midline with closest proximity to the right inferiorpulmonary vein ostium. Other cardiovascular structures: No significant findings. Pulmonary parenchyma, airways, and pleura: No significant findings. Skeletal: No significant findings. IMPRESSION Pulmonary venous ostial dimensions as detailed above. Figure-of-8 confluence at the right inferior pulmonary vein ostium. No intracardiac thrombus. Specifically no thrombus in the left atrialappendage. Thank you for letting us participate in the care of this patient. If youare a health care provider and have any questions regarding this report,please contact the number below. For patients who have questions please contactthe health healthcare sales representative that requested your imaging first. Electronically signed by: Tatum Ahuja MD, [facility] ([phone]), at 12/27/2021 9:02 PM Isaiah Cali MD IMG CT ORDERABLES documented in this encounter Visit Diagnoses Diagnosis Persistent atrial fibrillation Atrial fibrillation documented in this encounter Administered Medications Inactive Administered Medications - up to 3 most recent administrations Medication Order MAR Action Action Date Dose Rate Site iohexoL (Omnipaque) (350 mg/mL) solution 0-200 mL 0-200 mL, Intravenous, ONCE PRN, 1 dose, Starting on Tue12/25/21 at 0918, Until Tue12/25/21 at 0918, Per Protocol, Warning Vesicant/Irritant Medication , Radiology Contrast, Routine Given 12/25/2021 9:18 AM EST 117.6 mLs documented in this encounter Care Teams Door Installer Relationship Specialty Start Date End Date Stew Mario DO [address] [place] [address] PCP - General Family Medicine 03/24/21 documented as of this encounter
--- OUTSIDE RECORDS SUMMARY | 2023-09-23 16:00 | XMS_ITS | Encounter Summary ---
[place] [address] Care Team Providers Care Websphere Commerce Architect Name Role Phone Stew Mario DO Primary Care Provider Encounter Details Date Type Department Care Team (Late st Contact Info) Description 07/20/2021 Telephone Cardiology at [address] [phone] Nivia Sullivan, RN Social History Tobacco Use [...] as his HR spikes to 200 when he rides his bike. He states he has been walking, and let him know that walking is good, as he can moderate his pace, if needed. Forwarding to his provider. Nivia Sullivan (Jodie), RN, BSN [facility] documented in this encounter Plan of Treatment Not on file documented as of this encounter Visit Diagnoses Not on filedocumented in this encounter Care Teams Websphere Commerce Architect Relationship Specialty Start Date End Date Stew Mario DO [address] [place] [address] PCP - General Family Medicine 03/24/21 documented as of this encounter
--- OUTSIDE RECORDS SUMMARY | 2023-09-23 16:00 | XMS_ITS | Encounter Summary ---
Author Organization [facility] [place] [address] Care Team Providers Care Combination Operator Name Role Phone Stew Mario DO Primary Care Provider [phone] Reason for Visit * Auth/Cert Specialty Diagnoses / Procedures Referred By Contac t Referred To Contact Diagnoses AF (atrial fibrillation) AF Procedures PRG ARLENE REAL TIME IMG 2D W PRB IMG ACQUIS I&R PRO CARDIOVERSION ELECTIVE ARRHYTHMIA EXTERNAL TRANSESOPHAGEAL ECHOCARDIOGRAM (WRVU 2.55) CARDIOVERSION-ELECTIVE (WRVU 2.25) Referral ID Status Reason Start Date Expiration Date Visits Re quested Visits Authorized [id number] 1 1 Encounter Details Date Type Department Care Team (Latest Contact Info) Description 06/10/2021 9:17 AM EDT - 06/10/2021 12:03 PM EDT Hospital En[place] [phone] Ney Zepeda MD [facility] [place] [address] Paroxysmal atrial fibrillation Discharge Disposition: Home Social History [...] 36.7 ??C (98.1 ??F) 06/10/2021 10:25 AM E DT Respiratory Rate 16 06/10/2021 11:30 AM EDT [...] Date End Date apixaban (Eliquis) 5 mg Tablet Take 1 tablet by mouth 2 times daily. 120 tablet 5 06/08/2021 dilTIAZem (TIAZAC) 240 mg Capsule,Sustained Action 24 hr Take 1 capsule by mouth daily. 90 capsule 3 04/08/2021 07/21/2021 pantoprazole EC (Protonix) 40 mg Tablet, Delayed Release (E.C.) Take 1 tablet by mouth daily. 90 tablet 3 04/03/2021 12/29/2021 documented as of this encounter Progress Notes * Chelly Erickson RN - 06/10/2021 11:03 AM EDT Patient alert and oriented, vital signs stable. Reviewed discharge instructions; patient and verbalized understanding. Copy of instruction sheet with contact numbers for questions/concerns with patient. Pain assessment documented. documented in this encounter H&P Notes * Murphy Shepherd PA - 06/10/2021 9:53 AM EDT Patient Name: Flo Sue Patient Age: 50 y.o. Birthdate: 1970 Admit date: 06/10/2021 Attending Physician: Ney Zepeda MD See office note 06/10/2021 No contraindication to proceeding with DCCV documented in this encounter Miscellaneous Notes * Brief Op Note - Pravin Chery MD - 06/10/2021 10:26 AM EDT Brief Operative Note Patient Name: Flo Sue : [id number] MR#: [id number] Case Date: 06/10/2021 Surgeon: Surgeon(s) and Role: * Ney Zepeda MD - Primary * Pravin Chery MD [...] and Specimen details pertinent to this patient.) * Op Note - Ney Zepeda MD - 06/10/2021 10:14 AM EDT [facility] Operative Note Patient Name: Flo Sue : [id number] MR#: [id number] Case Date: 06/10/2021 Surgeon: Surgeon(s) and Role: * Ney Zepeda MD - Primary * Pravin Chery MD [...] posterior - R anterior position the patient received a 150 wsj synchronous shock converting a NSR [...] need to include opening and closing). NEY ZEPEDA MD 06/10/2021 documented in this encounter Plan of Treatment Not on file documented as of this encounter Procedures Procedure Name Priority Date/Time Associated Diagnosis Comments EKG 12-LEAD Routine 06/10/2021 10:41 AM EDT Paroxysmal atrial fibrillation Cardioversion Elective Arrhythmia External (87198) 06/10/2021 10:08 AM EDT AF CARDIOVERSION-OR Routine 06/10/2021 9:23 AM EDT documented in this encounter Results * EKG 12 Lead (06/10/2021 10:41 AM EDT) Ventricular rate 100 BPM MUSE SYSTEM Atrial Rate 441 BPM MUSE SYSTEM QRS Duration 76 ms MUSE SYSTEM Q-T Interval 338 ms MUSE SYSTEM QTC Calculated (Bezet) 436 ms MUSE SYSTEM Calculated R [place] 15 degrees MUSE SYSTEM Calculated T [place] 49 degrees MUSE SYSTEM INTERPRETATION Baseline wander Atrial fibrillation Abnormal ECG When compared with ECG of 10-JUN-2021 07:59, (unconfirmed) No significant change was found Confirmed by fellow MD Luevano Daniel ([id number]) on 06/11/2021 12:40:55 PM Confirmed by MD Valiente Danette ([id number]) on 06/11/2021 12:46:06 PM MUSE SYSTEM 06/10/2021 10:4 1 AM EDT 06/11/2021 12:46 PM EDT Chi Kinney MD ECG ORDERABLES [employer] SYSTEM documented in this encounter Visit Diagnoses Diagnosis Paroxysmal atrial fibrillation Atrial fibrillation documented in this encounter Active and Recently Administered Medications Care Teams Combination Operator Relationship Specialty Start Date End Date Stew Mario DO [address] [place] [address] [address] [facility] [address] [place] [address] PCP - General Family Medicine 03/24/21 documented as of this encounter
--- OUTSIDE RECORDS SUMMARY | 2023-09-23 16:00 | XMS_ITS | Encounter Summary ---
Author Organization [facility] [place] [address] Care Team Providers Care Bath Steward/Stewardess Name Role Phone Stew Mario DO Primary Care Provider [phone] Reason for Visit * Auth/Cert Specialty Diagnoses [...] THER/DX INTERVENT ELECTROPHYSIOLOGY PROCEDURE Isaiah Cali MD [facility] [place] [address] [facility] Referral ID Status Reason Start Date Expiration Date Visits Re quested Visits Authorized [id number] 1 1 Encounter Details Date Type Department Care Team (Latest Contact Info) Description 12/28/2021 6:10 AM EST - 12/29/2021 11:30 AM EST Hospital Encounter [place] [phone] Isaiah Cali MD [facility] [place] [address] Persistent atrial fibrillation Discharge Disposition: Home Social [...] Sign Reading Time Taken Comments Blood Pressure 119/58 12/29/2021 8:45 AM EST Pulse 73 12/29/2021 4:23 AM EST Temperature 36.9 ??C (98.4 ??F) 12/29/2021 8:45 AM ES T Respiratory Rate 18 12/29/2021 8:45 AM EST Oxygen Saturation 95% 12/29/2021 8:45 AM EST Inhaled Oxygen Concentration - - Weight 108.6 kg (239 lb 6.4 oz) 12/28/2021 6:31 AM EST Height 167.6 cm (5' 6) 12/28/2021 6:31 AM EST Body Mass Index 38.64 12/28/2021 6:31 AM EST documented in this encounter Discharge Summaries * Isaiah Cali MD - 12/29/2021 10:28 AM EST Discharge Summary Patient Name: Flo Mireles Patient Age: 51 y.o. Language: Monegasque Race: White Ethnicity: Not nor Admit date: [...] arrangements. Inpatient Provider Contact Information: Cardiac Electrophysiology [phone], option #3 Discharge Diagnoses (Hospital Problems) and [...] of any new medications initiated at the [facility]. The patient should be aware and [...] or the Cardiac Electrophysiology Service Triage Nurse ([phone], option 3). General Instructions None Discharge References/Attachments None Isaiah Cali MD S Cardiac Electrophysiology 12/29/2021 4:51 PM documented in this encounter Discharge Instructions * Patient Instructions* David June PA - 12/29/2021 10:27 AM EST DISCHARGE INSTRUCTIONS [...] of any new medications initiated at the [facility]. The patient should be aware and [...] or the Cardiac Electrophysiology Service Triage Nurse ([phone], option 3). documented in this encounter Medications [...] Kong RN - 12/29/2021 11:14 AM EST [facility] Short Stay Unit Discharge Note All relevant [...] Ryder Carrion MD EP Consult positional pager #[phone](EPWV) EP Device interrogation positional pager # [phone] * Azra Eagle RN - 12/28/2021 2:29 [...] fibrillation presents for RF atrial fibrillation ablation. [id number] Score: 0 Oral Anticoagulation medication and last dose: apixaban PM 12/27 @ 2100 Relevant TTE results: Date of TTE (2019) LVEF: 60-65 LA size: Nominal Relevant cardiac CT findings: Pulmonary venous ostial dimensions as detailed above. Figure-of-8 confluence at the right inferior pulmonary vein ostium. No intracardiac thrombus. Specifically no thrombus in the left atrial appendage. Primary Academic Coordinator: Viraj [place]: Denies recent fevers, chills. No [...] 0.9) flush 5 mL 5 mL Intravenous [id number] Gillespie MD ??? sodium chloride 0.9 % (flush) [...] 2.25) performed by Sabino Zepeda MD at [facility] MAIN OR LAB VALUES: Laboratory Data: No [...] signed. Abundio Black MD Cardiac Electrophysiology Fellow [facility] Pager [phone] 12/28/2021 I met with the patient today [...] agreement. ? Dr. Isaiah Cali, electrophysiology attending ([id number]) documented in this encounter Miscellaneous Notes * Brief Op Note - Isaiah Cali MD - 12/28/2021 2:25 PM EST Brief Operative Note Patient Name: Flo Mireles : [id number] MR#: [id number] Case Date: 12/28/2021 Surgeon: Surgeon(s) and Role: [...] ABLATION Patient: Flo Mireles Procedure Date: 12/28/2021 Academic Coordinator: Isaiah Cali MD Fellow: Abundio Black MD [...] up with Dr. Cali in 2-3 months ([facility]) Procedures performed: AF ablation (cpt 88810) Isaiah Cali MD [facility] Cardiac Electrophysiology 12/30/2021 [...] Day of Surgery (Day of Procedure), Routine 654 (Given - Provider: Connor Mesa RN) apixaban (Eliquis) tablet 5 mg 5 mg, Oral, 2 TIMES DAILY, First dose on Tue12/28/21 at 2100, Until Discontinued, Anticoagulant, Routine, Restricted anticoagulant, choose the most appropriate response: Approved indication of non-valvular atrial fibrillation 2032 (Given - Provider: Tenisha Liu RN) 0854 (Given - Provider: Caron Kong RN) BUpivacaine (pf) (Marcaine) (5 mg/mL) 0.5% injection [...] PRN, Starting on Tue12/28/21 at 1450, Until Tu12/29/21 at 1340, Irritation, Routine 1714 (Given - Provider: Blanka Kong, RN) documented in this encounter Care Teams Bath Steward/Stewardess Relationship Specialty Start Date End Date Stew Mario DO [address] [place] [address] PCP - General Family Medicine 03/24/21 documented as of this encounter
--- OUTSIDE RECORDS SUMMARY | 2023-09-23 16:00 | XMS_ITS | Encounter Summary ---
Author Organization [facility] [place] [address] Care Team Providers Care Bridal Consultant Name Role Phone Stew Mario DO Primary Care Provider [phone] Encounter Details Date Type Department Care Team (Late st Contact Info) Description 07/21/2021 Orders Only Cardiology at [address] [phone] Chi Kinney MD [facility] [address] Social History Tobacco Use Types Packs/Day Years [...] as of this encounter Progress Notes * Chi Kinney MD - 07/21/2021 11:21 AM EDT Telephone Call - Cardiology RE: Rate control Comments : Patient states that he is noticing a resting HR 90-100 and a HR with exercise that goes up above 150 fairly easily. Recent nuclear stress test with no perfusion abnormalities at rest or with stress. EF noted at 46% on nuclear imaging (in AF), but echo a few months prior with normal LVEF. Suspect the LVEF on nuclear secondary to the abnormal RR intervals and averaging. Recommendations: 1. For now, increase diltiazem from 240 to 360 mg po qd. 2. He may be a reasonable candidate for flecainide. Will confirm with EP. If not, then he should probably be admitted for AAD loading sooner rather than later. If he continues to have difficulty maintaining NSR, then consider ablation. Follow-up: -he is scheduled to see Nivia Poe MD, cardiology at [facility], on Sep [address] Cali, EP at [facility], on Sep 30. Hopefully we can get him started on an AAD prior to those appointments. I have sent amessage to EP. documented in this encounter Plan of Treatment Not on file documented as of this encounter Visit Diagnoses Not on filedocumented in this encounter Care Teams Bridal Consultant Relationship Specialty Start Date End Date Stew Mario DO [address] [place] [address] PCP - General Family Medicine 03/24/21 documented as of this encounter
--- OUTSIDE RECORDS SUMMARY | 2023-09-23 16:00 | XMS_ITS | Encounter Summary ---
Author Organization [facility] [place] [address] Care Team Providers Care Blind Aide Name Role Phone Stew Mario DO Primary Care Provider Encounter Details Date Type Department Care Team (Late st Contact Info) Description 11/06/2021 Tele[place] [phone] Malinda May Social History Tobacco Use Types Packs/Day Years [...] encounter Miscellaneous Notes * Telephone Encounter - Malinda May - 11/06/2021 1:41 PM EDT Flo Mireles [id number] Diagnosis/Indication: abdominal pain. diarrhea- evaluate for microscopic colitis Please review patient chart to confirm if previous Endoscopy procedure was performed within system. If yes, take note of Anesthesia type used. If previous procedure found, and with MAC/propofol Anesthesia support was used, schedule this procedure with Anesthesia and skip the Anesthesia portion of questions. If not performed within system, not performed [...] been diagnosed with a bleeding disorder that increases your risk of bleeding with procedures? Yes: Type: [...] us to share with your care team inrelation to your upcoming scheduled procedure? No 18. You must have a responsible constitution party who will drive you to your procedure, stay on campus for the entire duration of your procedure, and drive you home from your procedure. Who will likely be your hazmat tanker driver for the procedure? *Please Verify the [...] on filedocumented in this encounter Care Teams Blind Aide Relationship Specialty Start Date End Date Stew Mario DO [address] [place] [address] PCP - General Family Medicine 03/24/21 documented as of this encounter
--- OUTSIDE RECORDS SUMMARY | 2023-09-23 16:00 | XMS_ITS | Encounter Summary ---
Author Organization [facility] [place] [address] Care Team Providers Care Tangled Yarn Worker Name Role Phone Stew Mario DO Primary Care Provider [phone] Encounter Details Date Type Department Care Team (Late st Contact Info) Description 04/08/2021 Orders Only Cardiology at [address] [phone] Chi Kinney MD [facility] [place] [address] Social History Tobacco Use Types Packs/Day Years Used Date Smoking Tobacco: Never Sex and Gender Information Value Date Recorded Sex Assigned at Male 04/03/2021 10:46 AM EST Gender Identity Male 04/03/2021 10:46 AM EST Sexual Orientation Straight 04/03/2021 10 :46 AM EST documented as of this encounter Progress Notes * Chi Kinney MD - 04/08/2021 11:59 AM [...] on filedocumented in this encounter Care Teams Tangled Yarn Worker Relationship Specialty Start Date End Date Stew Mario DO [address] [place] [address] [address] [facility] 1 [place] [address] PCP - General Family Medicine 03/24/21 documented as of this encounter
--- OUTSIDE RECORDS SUMMARY | 2023-09-23 16:00 | XMS_ITS | Encounter Summary ---
[place] [address] Care Team Providers Care Manager Mountain Name Role Phone Stew Mario DO Primary Care Provider Encounter Details Date Type Department Care Team (Late st Contact Info) Description 04/10/2021 Orders Only Cardiology at [address] [phone] Chi Kinney MD [facility] [place] [address] Paroxysmal atrial fibrillation Social History Tobacco Use Types Packs/Day Years Used Date Smoking Tobacco: Never Sex and Gender Information Value Date Recorded Sex Assigned at Male 04/03/2021 10:46 AM EST Gender Identity Male 04/03/2021 10:46 AM EST Sexual Orientation Straight 04/03/2021 10 :46 AM EST documented as of this encounter Plan of Treatment Not on file documented as of this encounter Visit Diagnoses Diagnosis Paroxysmal atrial fibrillation Atrial fibrillation documented in this encounter Care Teams Manager Mountain Relationship Specialty Start Date End Date Stew Mario DO [address] [place] [address] PCP - General Family Medicine 03/24/21 documented as of this encounter
--- OUTSIDE RECORDS SUMMARY | 2023-09-23 16:00 | XMS_ITS | Encounter Summary ---
[place] [address] Care Team Providers Care Overnight Babysitter Name Role Phone Stew Mario DO Primary Care Provider Encounter Details Date Type Department Care Team (Late st Contact Info) Description 05/27/2021 Ancillary Procedure [place] [address] Stew Mario DO [address] [place] [address] Social History Tobacco Use Types Packs/Day Years [...] Procedure Name Priority Date/Time Associated Diagnosis Comments FILM LIBRARY STORAGE ONLY NM PET/CT Routine 05/27/2021 12:00 AM EDT documented in this encounter Results * Film Library- Storage Only NM Pet / CT (05/27/2021 12:00 AM EDT) Narrative RAD - 07/10/2021 9:22 AM EDT This exam is auto-finalizing. It's purpose is for storage only. Stew Mario DO IMG FILM LIBRARY ORD ERABLES DH RAD [place], [place] documented in this encounter Visit Diagnoses Not on filedocumented in this encounter Care Teams Overnight Babysitter Relationship Specialty Start Date End Date Stew Mario DO [address] [place] [address] PCP - General Family Medicine 03/24/21 documented as of this encounter
--- OUTSIDE RECORDS SUMMARY | 2023-09-23 16:00 | XMS_ITS | Encounter Summary ---
[place] [address] Care Team Providers Care Parachutist/Combatant Diver Qualified Name Role Phone Stew Mario DO Primary Care Provider [phone] Reason for Visit * Diagnostic Test (Routine) - Closed Specialty Diagnoses / Procedures Referred By Contac t Referred To Contact Gastroenterology Diagnoses Change in bowel habits Nausea without vomiting [id number] Procedures Breath Hydrogen Test PRG BREATH HYDROGEN TEST [id number] Susan Farmer PA [facility] [place] [address] [facility] [address] [place] [address] Referral ID Status Reason Start Date Expiration Date V isits Requested Visits Authorized [id number] Closed Consult, Test & Treat 04/17/2021 04/17/2022 1 1 Encounter Details Date Type Department Care Team (Latest Contact Info) Description 05/04/2021 8:00 AM EDT Procedure [place] [address] Change in bowel habits; Nausea without vomiting Social History Tobacco Use Types Packs/Day Years Used Date Smoking Tobacco: Never Sex and Gender Information Value Date Recorded Sex Assigned at Male 04/03/2021 10:46 AM EST Gender Identity Male 04/03/2021 10:46 AM EST Sexual Orientation Straight 04/03/2021 10 :46 AM EST documented as of this encounter Progress Notes * Ceci Weston APRN - 05/04/2021 8:00 AM EDT Gastroenterology Breath [...] Breath Testing in Gastrointestinal Disorders: The [place] Consensus (Am J Gastroenterol 2017; 112(5):775-84. Apositive breath test is defined as a rise in hydrogen production >20 ppm compared to baseline within 90 minutes. Methane-positive is defined by at least 10 ppm production of methane. Signed, Ceci Weston APRN Gastroenterology [place] [address] P: [phone] F: [phone] Copy: Susan Mario DO documented in this encounter Plan of Treatment Not on file documented as of this encounter Visit Diagnoses Diagnosis Change in bowel habits Other symptoms involving digestive system Nausea without vomiting documented in this encounter Care Teams Parachutist/Combatant Diver Qualified Relationship Specialty Start Date End Date Stew Mario DO [address] [place] [address] PCP - General Family Medicine 03/24/21 documented as of this encounter
--- OUTSIDE RECORDS SUMMARY | 2023-09-23 16:00 | XMS_ITS | Encounter Summary ---
Author Organization [facility] [place] [address] Care Team Providers Care Trials Manager Name Role Phone Stew Mario DO Primary Care Provider [phone] Reason for Visit * Consultation (Routine) - Closed Specialty Diagnoses / Procedures Referred By Contac t Referred To Contact Cardiology Diagnoses Chronic atrial fibrillation ?ABLATION VS OTHER THERAPY (EP defers to [facility]) * SCANNED DOCS Stew Mario DO [address] [place] [address] [facility] [address] [place] [phone] Referral ID Status Reason Start Date Expiration Date V isits Requested Visits Authorized [id number] Closed Consult, Test & Treat 03/28/2021 03/28/2022 6 6 Encounter Details Date Type Department Care Team (Late st Contact Info) Description 04/03/2021 11:30 AM EST TH Visit (TeleHealth) Cardiology at [address] [phone] Chi Kinney MD [facility] [place] [address] PAF (paroxysmal atrial fibrillation) Social History Tobacco Use Types Packs/Day Years Used Date Smoking Tobacco: Never Sex and Gender Information Value Date Recorded Sex Assigned at Male 04/03/2021 10:46 AM EST Gender Identity Male 04/03/2021 10:46 AM EST Sexual Orientation Straight 04/03/2021 10 :46 AM EST documented as of this encounter Progress Notes * Chi Kinney MD - 04/03/2021 11:30 AM EST Images from the original note were not included. [facility] 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 States that the diltiazem has been helpful. He is aware of some palpitations some time. Today he feels well. Was able to exercise a bit yesterday. Does get short of breath sometimes with exertion. No chest pain. Notes some family history of CAD - mostly remote relatives. 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 pantoprazole EC (Protonix) 40 mg Tablet, Delayed Release (E.C.) Take 1 tablet by mouth daily. 90 tablet 3 ??? aspirin EC 81 mg Tablet, Delayed Release (E.C.) Take 1 tablet by mouth daily. 90 tablet 3 ??? ibuprofen (ADVIL;MOTRIN) 200 mg Tablet Take 200 mg by mouth every 6 hours as needed for Pain. Most recent labs or other cardiac testing: BUN/Cr 10/.1 TSH 2.92 Normal LFTs Cardiac testing performed at [facility]: Holter (Feb 2019): NSR only. Echo (10/2019): LVEF 60-65%, normal atrial, normal valves. Holter Fe (2021): pending ASSESSMENT / PLAN: 50 year old male with a history of SYD (on CPAP), GERD who was diagnosed with PAF incidentally while at a sleep study in Feb 2019. Per review of the records he has had some episodes of PAF. It is notclear to me at this time as to [...] repeat 48 hour holter last week at [facility] but the results are pending at this [...] low dose BB. He has purchased an [employer] watch to help monitor his HR and rhythm. I think this might be helpful as an outpatient monitor. Follow-up plan: -follow-up via email ([email or web address] when the most recent holter results are available - should be available within a week or so. -in-person follow-up in 4-6 weeks. Chi Kinney MD, [facility] Cardiovascular Medicine [facility] [address] Clinic [phone] Clinic Team Nurse: [phone] The total time associated with this visit was 45 minutes. documented in this encounter Plan of Treatment Not on file documented as of this encounter Visit Diagnoses Diagnosis PAF (paroxysmal atrial fibrillation) Atrial fibrillation documented in this encounter Care Teams Trials Manager Relationship Specialty Start Date End Date Stew Mario DO [address] [place] [address] [address] [facility] [address] [place] [address] PCP - General Family Medicine 03/24/21 documented as of this encounter
--- OUTSIDE RECORDS SUMMARY | 2023-09-23 16:00 | XMS_ITS | Encounter Summary ---
Author Organization [facility] [place] [address] Care Team Providers Care Assisted Living Home Director Name Role Phone Stew Mario DO Primary Care Provider [phone] Encounter Details Date Type Department Care Team (Late st Contact Info) Description 09/07/2021 Orders Only Cardiology at [address] [id number] Chi Kinney MD [facility] [place] [address] Social History Tobacco Use Types Packs/Day Years [...] as of this encounter Progress Notes * Nivia Sullivan RN - 09/07/2021 12:41 PM EDT Cardioversion documented in this encounter Plan of Treatment Not on file documented as of this encounter Visit Diagnoses Not on filedocumented in this encounter Care Teams Assisted Living Home Director Relationship Specialty Start Date End Date Stew Mario DO [facility] [address] [place] [id number] PCP - General Family Medicine 03/24/21 documented as of this encounter
--- OUTSIDE RECORDS SUMMARY | 2023-09-23 16:00 | XMS_ITS | Encounter Summary ---
Author Organization [facility] [place] [address] Care Team Providers Care Hoe Worker Name Role Phone Stew Mario DO Primary Care Provider [phone] Encounter Details Date Type Department Care Team (Latest Contact Info) Description 12/24/2021 Travel Social History Tobacco Use Types Packs/Day Years [...] on filedocumented in this encounter Care Teams Hoe Worker Relationship Specialty Start Date End Date Stew Mario DO [address] [place] [address] [address] [place] [address] PCP - General Family Medicine 03/24/21 documented as of this encounter
--- OUTSIDE RECORDS SUMMARY | 2023-09-23 16:00 | XMS_ITS | Encounter Summary ---
[facility] Organization [facility] [place] [address] Care Team Providers Care Secretary Receptionist Name Role Phone Stew Mario DO Primary Care Provider [phone] Reason for Visit * Auth/Cert Specialty Diagnoses / Procedures Referred By Jailene howe Referred To Contact Diagnoses Abdominal pain abdominal pain. diarrhea- evaluate for microscopic colitis Procedures PRO UPPER GI ENDOSCOPY, DIAGNOSTIC PRO COLONOSCOPY, DIAGNOSTIC EGD, UPPER GI ENDOSCOPY COLONOSCOPY, DIAGNOSTIC Cuauhtemoc Olivas MD [facility] [place] [address] [facility] Referral ID Status Reason Start Date Expiration Date Visits Re quested Visits Authorized [id number] 1 1 Encounter Details Date Type Department Care Team (Latest Contact Info) Description 04/06/2022 6:37 AM EST - 04/06/2022 8:46 AM EST Hospital [place] [address] Ángel Geronimo MD [facility] [place] [address] Discharge Disposition: Home Social History Tobacco Use [...] Mass Index 36.32 04/06/2022 7:07 AM EST documented in this encounter Discharge Instructions * Discharge Instructions* Hedy Hoyt RN - 04/06/2022 8:09 AM EST Colonoscopy: What to Expect at Home Your Recovery Your doctor will talk to you about when you will need your next colonoscopy. Your doctor can help you decide how often you need to be checked. This will depend on the results of your test and your risk for colorectal cancer. After the test, you may be bloated or have gas pains. You may need to pass gas. If a biopsy was done or a polyp was removed, you may have streaks of blood in your stool (feces) for a few days. Problems such as heavy rectal bleeding may not occur until several weeks after the test. This isn't common. But it can happen after polyps are removed. This care sheet gives you a general idea about how long it will take for you to recover. But each person recovers at a different pace. Follow the steps below to get better as quickly as possible. How can you care for yourself at home? Activity Rest when you feel tired. You can do your normal activities when it feels okay to do so. Diet Follow your doctor's directions for eating. Unless your doctor has told you not to, drink plenty of fluids. This helps to replace the fluids that were lost during the colon prep. Do not drink alcohol. Medicines Your doctor will tell you if and when you can restart your medicines. He or she will also give you instructions about taking any new medicines. If you take blood thinners, such as warfarin (Coumadin), clopidogrel (Plavix), or aspirin, be sure to talk to your doctor. He or she will tell you if and when to start taking those medicines again. Make sure that you understand exactly what your doctor wants you to do. If polyps were removed or a biopsy was done during the test, your doctor may tell you not to take aspirin or other anti-inflammatory medicines for a few days. These include ibuprofen (Advil, Motrin) and naproxen (Aleve). Other instructions For your safety, do not drive or operate machinery until the medicine wears off and you can think clearly. Your doctor may tell you not to drive or operate machinery until the day after your test. Do not sign legal documents or make major decisions until the medicine wears off and you can think clearly. The anesthesia can make it hard for you to fully understand what you are agreeing to. Additional Information for Sedation Patients For patients who received sedation: You may have received medications before and/or during your procedure which effects your judgement and reaction time. Do not drive, operate machinery, drink alcoholic beverages or make important decisions for 24 hours. Be careful on stairs as you may be unsteady on your feet. You may eat a regular diet as tolerated. Do not smoke if you are alone. IV site: Slight redness or tenderness is normal, you can use a warm compress if you would like. If tenderness and/or redness increase or if foul drainage occurs, please contact your Doctor. Please call [phone] before 8pm Mon-Fri with problems, questions or concerns. If you call after 8pm or on weekends, call the Hospital at [phone] and ask to speak to the [employer] Br[employer] Cutter Operator customer operations intern and the screen print operator will contact that person for you. When should you call for help? Call [phone] anytime you think you may need emergency care. For example, call if: You passed out (lost consciousness). You pass maroon or bloody stools. You have trouble breathing. Call your doctor now or seek immediate medical care if: You have pain that does not get better after you take pain medicine. You are sick to your stomach or cannot drink fluids. You have new or worse belly pain. You have blood in your stools. You have a fever. You cannot pass stools or gas. Watch closely for changes in your health, and be sure to contact your doctor if you have any problems. Where can you learn more? [facility] View your After Visit Summary and more online at [email or web address] If you would like to provide feedback about your hospital experience, please call the Office of Patient and Family Relations at . If you have received this After Visit Summary in error, please immediately return it in person to the department, or notify the [facility] Privacy Office by calling toll free at between the hours of 8AM and 5PM to arrange for our retrieval of the documents at no cost to you. Content Version: 12.2 ?? 3307-6722 [employer]. Care instructions adapted under license by [facility]. If you have questions about a medical condition or this instruction, always ask your healthcare professional. [employer] disclaims any warranty or liability for your use of this information. Upper GI Endoscopy: What to Expect at Home Your Recovery You will be able to go home after your doctor or nurse checks to make sure you are not having any problems. You may have to stay overnight if you had treatment during the test. You may have a sore throat fora day or two after the test. This care sheet gives you a general idea about what to expect after the test. How can you care for yourself at home? Activity Rest when you feel tired. You can do your normal activities when it feels okay to do so. Diet Follow your doctor's directions for eating. Unless your doctor has told you not to, drink plenty of fluids. This helps to replace the fluids that were lost during the prep. Do not drink alcohol. Medicines Your doctor will tell you if and when you can restart your medicines. He or she will also give you instructions about taking any new medicines. If you take blood thinners, such as warfarin (Coumadin), clopidogrel (Plavix), or aspirin, be sure to talk to your doctor. He or she will tell you if and when to start taking those medicines again. Make sure that you understand exactly what your doctor wants you to do. If polyps were removed or a biopsy was done during the test, your doctor may tell you not to take aspirin or other anti-inflammatory medicines for a few days. These include ibuprofen (Advil, Motrin) and naproxen (Aleve). If you have a sore throat the day after the procedure, use an cifo-xvl-iuvcfgx spray to numb your throat. Sucking on throat lozenges and gargling with warm salt water may also help relieve your symptoms. Other instructions For your safety, do not drive or operate machinery until the medicine wears off and you can think clearly. Your doctor may tell you not to drive or operate machinery until the day after your test. Do not sign legal documents or make major decisions until the medicine wears off and you can think clearly. The anesthesia can make it hard for you to fully understand what you are agreeing to. Additional Information for Sedation Patients For patients who received sedation: You may have received medications before and/or during your procedure which effects your judgement and reaction time. Do not drive, operate machinery, drink alcoholic beverages or make important decisions for 24 hours. Be careful on stairs as you may be unsteady on your feet. You may eat a regular diet as tolerated. Do not smoke if you are alone. IV site: Slight redness or tenderness is normal, you can use a warm compress if you would like. If tenderness and/or redness increase or if foul drainage occurs, please contact your Doctor. Please call [phone] before 8pm Mon-Fri with problems, questions or concerns. If you call after 8pm or on weekends, call the Hospital at [phone] and ask to speak to the [employer] Cutter Operator customer operations intern and the screen print operator will contact that person for you. When should you call for help? Call [phone] anytime you think you may need emergency care. For example, call if: You passed out (lost consciousness). You pass maroon or bloody stools. You have trouble breathing. Call your doctor now or seek immediate medical care if: You have pain that does not get better after you take pain medicine. You are sick to your stomach or cannot drink fluids. You have new or worse belly pain. You have blood in your stools. You have a fever. You cannot pass stools or gas. Watch closely for changes in your health, and be sure to contact your doctor if you have any problems. Where can you learn more? [email or web address] View your After Visit Summary and more online at [email or web address] If you would like to provide feedback about your hospital experience, please call the Office of Patient and Family Relations at . If you have received this After Visit Summary in error, please immediately return it in person to the department, or notify the [facility] Privacy Office by calling toll free at between the hours of 8AM and 5PM to arrange for our retrieval of the documents at no cost to you. Content Version: 12.2 ?? [phone] [employer]. Care instructions adapted under license by [facility]. If you have questions about a medical condition or this instruction, always ask your healthcare professional. [employer] disclaims any warranty or liability for your use of this information. documented in this encounter Medications at Time of Discharge Medication Sig Dispensed Refills Start Date End Date dilTIAZem (TIAZAC) 180 mg Capsule,Sustained Action 24 hrIndications:Persistent atrial fibrillation Take 1 capsule by mouth daily. 30 capsule 1 03/10/2022 pantoprazole EC (Protonix) 40 mg Tablet, Delayed Release (E.C.) Take 1 tablet by mouth 2 times daily. 60 tablet 3 12/29/2021 apixaban (Eliquis) 5 mg Tablet Take 1 tablet by mouth 2 times daily. 120 tablet 5 06/08/2021 documented as of this encounter H&P Notes * Ángel Geronimo MD - 04/06/2022 7:30 AM EST Gastroenterology and Hepatology Pre-Procedure History and Physical Exam Procedure: EGD: Colonoscopy: Indication: abdominal pain, diarrhea Patient Active Problem List Diagnosis Code ??? GERD with esophagitis K21.00 ??? Hiatal hernia K44.9 ??? Paroxysmal atrial fibrillation I48.0 EXAM: HEENT: Airway examined, oropharynx clear Mallampati Score: II (soft palate, uvula, fauces visible) LUNGS: Clear to auscultation HEART: Regular rate and rhythm, normal S1, S2 ABDOMEN: Normal bowel sounds, soft, non tender, non distended, A/P Proceed with the planned endoscopic procedure. ASA 3 - Patient with moderate systemic disease with functional limitations Sedation Plan: anesthesia Risks and benefits of the procedure explained to the patient. Consent signed. documented in this encounter Plan of Treatment Not on file documented as of this encounter Procedures Procedure Name Priority Date/Time Associated Diagnosis Comments SURGICAL PATHOLOGY REPORT Routine 04/06/2022 8:02 AM EST SPECIMEN TO PATHOLOGY Routine 04/06/2022 8:02 AM EST SPECIMEN TO PATHOLOGY Routine 04/06/2022 8:02 AM EST SPECIMEN TO PATHOLOGY Routine 04/06/2022 8:02 AM EST Colonoscopy, Biopsy ([id number]) 04/06/2022 7:39 AM EST Change in bowel habits Abdominal pain, unspecified abdominal location Upper Gi Endoscopy, Biopsy ([id number]) 04/06/2022 7:39 AM EST Change in bowel habits Abdominal pain, unspecified abdominal location UPPER GI ENDOSCOPY Routine 04/06/2022 7: 20 AM EST COLONOSCOPY Routine 04/06/2022 7:20 AM EST documented in this encounter Results * Surgical Pathology Report (04/06/2022 8:02 AM EST) Final Diagnosis [id number] ? Location: 4; EA07; A The signing pathologist has (i) examined the relevant preparation(s) for the specimen(s) and (ii) rendered or confirmed the diagnosis(es). . ?Surgical Pathology DIAGNOSIS A - Duodenal bxs r/o celiac, biopsy (Multiple): - ??Duodenal mucosa within normal limits, including preserved villous architecture. B - Gastric bxs r/o H. Pylori, biopsy: - ??Gastric fundic and antral gland mucosa with mild chronic nonspecific gastritis. - ??Immunostaining for H. pylori is negative. C - Random colon bxs r/o microscopic colitis, biopsy (Multiple): - ??Colonic mucosa within normal limits. Electronically signed by: ?Ghulam QUIGLEY PhD, Patricia Verified: ??04/22/2022 16:21 ??Pathologist Performed at: ??-[facility] Dept. of Pathology, [place] [address] Chief Service Observer: Mariusz Alvarez MD, FCAP, ??CLIA Certificate: [id number] ADDITIONAL STUDIES Immunohistochemistry Studies: Formalin-fixed, paraffin-embedded tissue sections are studied using the polymer technique with appropriate positive and negative controls. ?These IHC studies provide the pathologist with adjunctive diagnostic information. Antibody specificity has been verified by testing antibodies on a series of in-house tissues with known immunohistochemical performance characteristics. The clinical interpretation of any antibody positive staining or its absence is evaluated within the context of clinical presentation, morphology, histopathological criteria and other diagnostic tests. Block ? Antibody ?Result (Positive/Negative) B1 ? H. pylori ?Negative SPECIMEN(S) SUBMITTED A - duodenal bxs r/o celiac, biopsy (Multiple) B - gastric bxs r/o H. Pylori, biopsy (3) C - random colon bxs r/o microscopic colitis, biopsy (Multiple) CLINICAL INFORMATION 51-year-old male/EGD-colo/abdomi nal pain, diarrhea. SPECIMEN PROCESSING A - Labeled/Fixative: Duodenal BX rule out celiac, formalin. Quantity/Size: Four, ranging from 0.2-0.4 cm. Tissue Description: Soft, bass-pink tissues. Sections/Processing: Submitted en toto ??in 1 cassette labeled A1. B - Labeled/Fixative: Gastric BX rule out H. pylori, formalin. Quantity/Size: Four, ranging from 0.2-0.5 cm. Tissue Description: Soft, bass-pink tissues. Sections/Processing: Submitted en toto ??in 1 cassette labeled B1. C - Labeled/Fixative: Random colon BX rule out microscopic colitis, formalin. . SPECIMEN PROCESSING Quantity/Size: Six, ranging from 0.2-0.4 cm. Tissue Description: Soft, bass-pink tissues. Sections/Processing: Submitted en toto ??in 2 cassettes labeled C1-C2. ??jnr 04/22/2022 4:21 PM EDT [facility] GI Biopsy 04/06/2022 8:02 AM EST 04/06/2022 8:02 AM EST GI Biopsy 04/06/2022 8:02 AM EST 04/06/2022 8:02 AM EST GI Biopsy 04/06/2022 8:02 AM EST 04/06/2022 8:02 AM EST Ángel Geronimo MD PATHOLOGY/CYTOLOGY O LUIS CARLOS Performing Organization Address City/[facility]/ZIP Co de Phone Number [facility] [address] [place] [address] * Specimen to Pathology (04/06/2022 8:02 AM EST) AP Specimen 04/06/2022 8:02 AM EST 04/06/2022 8:02 AM EST Narrative [facility] - 04/06/2022 8:02 AM EST Specimen requisition ordered. ??Separate Pathology report to follow Ángel Geronimo MD PATHOLOGY/CYTOLOGY O RDJERAMY Performing Organization Address City/[facility]/ZIP Co de Phone Number [facility] [place] [address] * Specimen to Pathology (04/06/2022 8:02 AM EST) AP Specimen 04/06/2022 8:02 AM EST 04/06/2022 8:02 AM EST Narrative [facility] - 04/06/2022 8:02 AM EST Specimen requisition ordered. ??Separate Pathology report to follow Ángel Geronimo MD PATHOLOGY/CYTOLOGY O LUIS CARLOS Performing Organization Address City/[facility]/ZIP Co de Phone Number [facility] [place] [address] * Specimen to Pathology (04/06/2022 8:02 AM EST) AP Specimen 04/06/2022 8:02 AM EST 04/06/2022 8:02 AM EST Narrative [facility] - 04/06/2022 8:02 AM EST Specimen requisition ordered. ??Separate Pathology report to follow Ángel Geronimo MD PATHOLOGY/CYTOLOGY O LUIS CARLOS [facility] [place] [address] * UPPER GI ENDOSCOPY (04/06/2022 7:20 AM EST) UPPER GI ENDOSCOPY [facility] Endoscopy Procedure Date: 04/06/2022 7:20 AM ? Patient Name: Ruthie Mireles ? N: [id number] ? Date of : 1970 ? Age: 51 ? Order #: [id number] ? Instrument Name: [id number] ? Procedure: ? Upper GI endoscopy Indications: ? Abdominal pain, Diarrhea Providers: ? Ángel Geronimo, Juan Francisco Pacheco, ? Juan Francisco Koch MD: ?Stew Mario, DO Medicines: ? Monitored [...] cancer, and adverse medication ? reactions. The Endoscope was ? introduced through the mouth, and ? advanced to the second part of ? duodenum The upper GI endoscopy was ? accomplished without difficulty. ? The patient tolerated the procedure ? well. ? Findings: ? The examined esophagus was normal. ? The Z-line was found 39 cm from the incisors. ? The entire examined stomach was normal. Biopsies were ? taken with a cold forceps for Helicobacter pylori ? testing. ? The examined duodenum was normal. Biopsies for ? histology were taken with a cold forceps for ? evaluation of celiac disease. ? Moderate Sedation: ? Not applicable - See Anesthesia documentation Impression: ?- No specific cause of patient's ? symptoms found on exam. Recommendation: ?- Await pathology results. ? - Perform a colonoscopy today. ? Attending Participation: ? I personally performed the entire procedure. ? Ángel Geronimo, 04/06/2022 7:54:01 AM Number of Addenda: 0 Note Initiated On: 04/06/2022 7:20 AM PROVATION 04/06/2022 7:20 AM EST Stew Mario DO GENERAL SURGICAL ORD ERABLES PROVATION * COLONOSCOPY (04/06/2022 7:20 AM EST) Pathologist [facility] COLONOSCOPY [facility] Endoscopy Procedure Date: 04/06/2022 7:20 AM ? Patient Name: Ruthie Mireles ? Date of : 1970 ? Age: 51 ? Order #: [id number] ? Instrument Name: [id number]- [id number] ? Procedure: ? Colonoscopy Indications: ? Chronic [...] preparation was evaluated ? using the BBPS (Marion Bowel ? Preparation Scale) with scores of: [...] The patient informed me that his ? regroover stopped his Eliquis ? entirely because he completed ? ablation for atrial fibrillation ? several months ago, so he is not ? planned to resume this medication ? by his regroover. He is ? following with his regroover and ? primary care physician for ongoing ? care. ? Attending Participation: ? I personally performed the entire procedure. ? Ángel Goodwin Grazyna, 04/06/2022 8:04:29 AM Number of Addenda: 0 Note Initiated On: 04/06/2022 7:20 AM PROVATION 04/06/2022 7:20 AM EST Stew Mario DO GENERAL SURGICAL ORD ERABLES Performing Organization Address City/State/[facility] Co de Phone Number PROVATION documented in this encounter Visit Diagnoses Not on filedocumented in this encounter Administered Medications Inactive Administered Medications - up to 3 most recent administrations Medication Order MAR Action Action Date Dose Rate Site lactated ringers infusion 100 mL/hr, Intravenous, CONTINUOUS, Starting on Tue04/06/22 at 0730, Until Tue04/06/22 at 0845, Endoscopy (Day of Procedure) Restarted 04/06/2022 7:38 AM EST New Bag 04/06/2022 7:21 AM EST 100 mL/hr 100 mL/hr documented in this encounter Active and Recently Administered Medications Times are shown in EST. Continuous Medication Order 04/04/2022 04/05/2022 04/06/2022 lactated ringers infusion (CANCELED) 100 mL/hr, Intravenous, CONTINUOUS, Starting on Tue04/06/22 at 0730, Until Tue04/06/22 at 0845, Endoscopy (Day of Procedure) 0721 (New Bag - Prov ider: Iraida Meyer RN)0737 (Paused - Provider: Terra Schwartz CRNA - Comment: Switch to gravity)0738 (Restarted - Provider: Terra Schwartz CRNA)0755 (Anesthesia Volume Adjustment - Provider: Terra Schwartz CRNA) documented in this encounter Care Teams Secretary Receptionist Relationship Specialty Start Date End Date Stew Mario DO [address] [place] [address] [address] [facility] [address] [place] [address] PCP - General Family Medicine 03/24/21 documented as of this encounter
--- OUTSIDE RECORDS SUMMARY | 2023-09-23 16:00 | XMS_ITS | Encounter Summary ---
[place] [address] Care Team Providers Care Field Assembly Supervisor Name Role Phone Stew Mario DO Primary Care Provider [phone] Encounter Details Date Type Department Care Team (Late st Contact Info) Description 06/08/2021 Orders Only Cardiology at [address] [address] Chi Kinney MD [facility] [place] [address] Social History Tobacco Use Types Packs/Day Years [...] on filedocumented in this encounter Care Teams Field Assembly Supervisor Relationship Specialty Start Date End Date Stew Mario DO [address] [place] [address] PCP - General Family Medicine 03/24/21 documented as of this encounter
--- OUTSIDE RECORDS SUMMARY | 2023-09-23 16:00 | XMS_ITS | Encounter Summary ---
Author Organization [facility] [place] [address] Care Team Providers Care Board Liner Operator Name Role Phone Stew Mario DO Primary Care Provider [phone] Reason for Visit * Auth/Cert Specialty Diagnoses / Procedures Referred By Contac t Referred To Contact Diagnoses AF (atrial fibrillation) AF Procedures PRG ARLENE REAL TIME IMG 2D W PRB IMG ACQUIS I&R PRO CARDIOVERSION ELECTIVE ARRHYTHMIA EXTERNAL TRANSESOPHAGEAL ECHOCARDIOGRAM (WRVU 2.55) CARDIOVERSION-ELECTIVE (WRVU 2.25) Referral ID Status Reason Start Date Expiration Date Visits Re quested Visits Authorized [id number] 1 1 Encounter Details Date Type Department Care Team (Late Contact Info) Description 06/10/2021 10:30 AM EDT - 06/10/2021 11:30 AM EDT Surgery [place] [phone] Ney Zepeda MD [facility] [place] [address] CARDIOVERSION-ELECTIVE (WRVU 2) Social History Tobacco Use Types Packs/Day Years [...] Operative Note Patient Name: Flo Sue : [id number] MR#: [id number] Case Date: 06/10/2021 Surgeon: Surgeon(s) and Role: [...] Zepeda MD - 06/10/2021 10:14 AM EDT [facility] [place] Patient Name: Flo Sue : [id number] MR#: [id number] Case Date: 06/10/2021 Surgeon: Surgeon(s) and Role: [...] Paroxysmal atrial fibrillation Cardioversion Elective Arrhythmia External ([id number]) 06/10/2021 10:08 AM EDT AF CARDIOVERSION-OR Routine 06/10/2021 9:23 AM EDT documented in this encounter Results * EKG 12 Lead (06/10/2021 10:41 AM EDT) Ventricular rate 100 BPM MUSE SYSTEM Atrial Rate 441 BPM MUSE SYSTEM QRS Duration 76 ms MUSE SYSTEM Q-T Interval 338 ms MUSE SYSTEM QTC Calculated (Bezet) 436 ms MUSE SYSTEM Calculated R [place] 15 degrees MUSE SYSTEM Calculated T [place] 49 degrees MUSE SYSTEM INTERPRETATION Baseline wander Atrial fibrillation Abnormal ECG When compared with ECG of 10-JUN-2021 07:59, (unconfirmed) No significant change was found Confirmed by fellow MD Luevano Daniel ([id number]) on 06/11/2021 12:40:55 PM Confirmed by MD Valiente Danette ([id number]) on 06/11/2021 12:46:06 PM MUSE SYSTEM 06/10/2021 10:4 1 AM EDT 06/11/2021 12:46 PM EDT Chi Kinney MD ECG ORDERABLES [employer] SYSTEM documented in this encounter Visit Diagnoses Not on filedocumented in this encounter Active and Recently Administered Medications Care Teams Board Liner Operator Relationship Specialty Start Date End Date Stew Mario DO [address] [place] [address] [address] [place] [address] PCP - General Family Medicine 03/24/21 documented as of this encounter
--- OUTSIDE RECORDS SUMMARY | 2023-09-23 16:00 | XMS_ITS | Encounter Summary ---
Author Organization [facility] [place] [address] Care Team Providers Care Spool Carrier Name Role Phone Stew Mario DO Primary Care Provider [phone] Reason for Visit * Auth/Cert Specialty Diagnoses [...] THER/DX INTERVENT ELECTROPHYSIOLOGY PROCEDURE Isaiah Cali MD [facility] [place] [address] [facility] Referral ID Status Reason Start Date Expiration Date Visits Re quested Visits Authorized [id number] 1 1 Encounter Details Date Type Department Care Team (Late st Contact Info) Description 12/28/2021 7:35 AM EST Anesthesia Event [place] [phone] Dianna Li MD [facility] [place] [address] Betty El CRNA [facility] [place] [address] Anesthesia Record Procedure Summary Procedure Name Responsible Anesthesiologist Anesthesia Start Time Anesthesia Stop Time ELECTROPHYSIOLOGY PROCEDURE Guillermo, Dianna Weinstein MD 12/28/21 0735 12/28/21 1319 Events Date Time Event Comment 12/28/2021 0709 0734 AN Verify 0735 Start 0740 An Start Data 0748 An Induction 0750 An Intubation 0806 Anesthesia Ready 0932 Break/Relief In I assumed ca re for Break Relief before which we: 1. Identified the patient 2. Identified the responsible provider(s) 3. Reviewed the pertinent medical history 4. Discussed the surgical plan and course 5. Reviewed intra-op anesthesia management and issues during anesthesia 6. Set expectations for the relief (and/or post-procedure) period 7. Allowed opportunity for questions and acknowledgement of understanding TOSIN WHITMAN CRNA 0952 Break/Relief Out 1305 Extubation/LMA Out 1310 an stop data 1319 Recovery or ICU Handoff Leigha ent care was transferred to the destination unit staff after review of the patient's medical history, current anesthetic/surgical status and plan, according to the Provider Handoff Checklist. 1319 Stop Meds Name Total Midazolam 2 mg IV Lidocaine 20 mg Propofol 250 mg Rocuronium 50 mg Ondansetron 8 mg Dexamethasone 8 mg Propofol INF 856.85 mg Heparin 29,000 Units Heparin INF 6,950 Units Lidocaine 4% LTA 2 mL Protamine 50 mg lactated ringers infusion 800 mL Lactated Ringers 300 mL * Agents Name O2 Air N2O Sevoflurane (et) * Blood No blood administrations on file. Lines, Drains, and Airways Type Details Placement Removal (RETIRED) Peripheral IV Line - Single Lumen 12/28/21; 0651; metacarpal vein (top of hand), left; [id number] catheter system; 20 gauge; distraction, tolerated well; no longer indicated, removed per physician, catheter/device intact; 12/29/21; 1114 12/28/21 0651 by Connor Mesa RN 12/29/21 111 by Caron Kong RN ETT Mask Ventilation: Ea sy (1); ETT Type: Cuffed, Oral; ETT Size: 8 mm; Liu Blade: 3; Attempts: 1; Laryngoscopy Grade: 2; Removal Date: 12/28/21; Removal Time: 1305 12/28/21 0755 by Betty El CRIMINAL JUSTICE PROFESSOR 12/28/21 1305 by Betty El CRNA Arterial Line 12/28/21; 0806; radi al artery, left; 20 gauge; Guidewire, Anatomical Landmarks; Yes - US guidance used but Image NOT saved; continuous blood pressure monitoring, frequent blood gas measurement; Sterile Prep, Sterile Gloves; 2; radial artery, left; 12/28/21; 1358 12/28/21 0806 by Betty El CRNA 12/28/21 1358 by Azra Eagle RN (RETIRED) Peripheral IV Line - Single Lumen 12/28/21; 0806; dorsal arch vein (top of hand), right; [id number] catheter system; Anatomical Landmarks; 18 gauge; 0; no longer indicated, catheter/device intact, removed per physician; 12/29/21; 1114 12/28/21 0806 by Betty El CRNA 12/29/21 1114 by Caron Kong RN LDA Cath/EP Sheath 12/28/21; 0931; 8.5 Vincentian (Fr); Proximal, Right, Anterior; Femoral; Venous 12/28/21 0931 by Kianna Martin RN 12/28/21 1251 by Kianna Martin RN LDA Cath/EP Sheath 12/28/21; 0932; 8.5 Vincentian (Fr); Proximal, Right, Anterior; Femoral; Venous 12/28/21 0932 by Kianna Martin RN 12/28/21 1252 by Kianna Martin RN LDA Cath/EP Sheath 12/28/21; 0932; Proximal, Right, Anterior; Femoral; Venous 12/28/21 0932 by Kianna Martin RN 12/28/21 1252 by Kianna Martin RN LDA Cath/EP Sheath 12/28/21; 0933; 9 Fr ench (Fr); Left, Proximal, Anterior; Femoral 12/28/21 0933 by Kianna Martin RN 12/28/21 1252 by Kianna Martin RN documented in this encounter Social History Tobacco [...] documented as of this encounter OR Notes * Anesthesia Postprocedure Evaluation - Dianna Li MD - 12/28/2021 1:25 PM EST Department of Anesthesiology Post-procedure Note Patient: Flo Mireles Procedure Summary Date: 12/28/21 Room / Location: [facility] A-LAB ROOM 3 / [facility] EP LABS Anesthesia Start: 734 Anesthesia Stop: 1318 Procedure: ELECTROPHYSIOLOGY PROCEDURE Diagnosis: Persistent atrial fibrillation (Persistent atrial fibrillation [I48.19]) Providers: Isaiah Cali MD Responsible Provider: Dianna Li MD Anesthesia Type: general ASA Status: 3 All Anesthesia Providers: Anesthesiologist: Dianna Li MD CRIMINAL JUSTICE PROFESSOR: Betty El CRNA Vitals Value Taken Time BP 115/68 12/28/21 1323 Temp Pulse 78 12/28/21 1325 Resp 18 12/28/21 1325 SpO2 96 % 12/28/21 1325 Pain Level Vitals shown include unvalidated device data. Patient Location: PACU/[facility] Level of Consciousness: Awake and Alert Pain Management: Satisfactory Analgesia PONV: None Cardiovascular Status: Hemodynamically Stable Respiratory Status: Stable Respiratory Status and Supplemental O2 (NC or FM) Postoperative Fluid Status: Intravascular EUvolemia Possible Anesthetic Complications: NONE apparent at time of evaluation Final Primary Anesthesia Type: General (The anesthetic type performed was the same as planned.) Comments: * Anesthesia Preprocedure Evaluation - Dianna Li MD - 12/25/2021 3:46 PM EST Pre-Anesthesia Evaluation for: Flo Mireles a 51 y.o. male. Procedure(s): ELECTROPHYSIOLOGY PROCEDURE Patient Active Problem List Diagnosis Date Noted ??? PAF (paroxysmal atrial fibrillation) 04/02/2021 ??? GERD with esophagitis 04/02/2021 ??? Hiatal hernia 04/02/2021 ??? Chronic atrial fibrillation 04/02/2021 No past medical history on file. Past Surgical History: Procedure Laterality Date ??? PRO CARDIOVERSION ELECTIVE ARRHYTHMIA EXTERNAL N/A 06/10/2021 CARDIOVERSION-ELECTIVE (WRVU 2.25) performed by Sabino Zepeda MD at [facility] MAIN OR Social History Tobacco Use ??? Smoking status: Never ??? Smokeless tobacco: Never Substance Use Topics ??? Alcohol use: Yes Alcohol/week: 2.0 standard drinks Types: 2 Cans of beer per week Social History Substance and Sexual Activity Drug Use Not on file No Known Allergies Medications: MAR and/or home medications have been reviewed. Physical Exam: Preprocedure Vitals Current as of 12/25/21 1546 No BP, pulse, respiration, SpO2, or temperature recorded. Height: 167.6 cm (5' 6) (09/30/21) Weight: 107.6 kg (237 lb 3.2 oz) (09/30/21) BMI: 38.28 IBW: 63.8 kg (140 lb 9.2 oz) Airway Assessment: Mallampati: II TM distance: >3 FB Neck ROM: full Cardiovascular Assessment: Rhythm: irregular Pulmonary Assessment: unlabored breathing Dental Assessment: Misc Assessment: IV access: Peripheral line Last Filed Perioperative Cognitive Screening None Anesthesia Plan: ASA 3 general, with a(n) intravenous induction 50 y.o. male with a history of SYD (compliant with CPAP, doesn't know settings), GERD, and atrial fibrillation scheduled for EP ablation. Previous anesthetics without issue (except shoulder many years ago with some PONV; carlos in 2019, no problems; endoscopies). Sedation for cardioversion here, no airway records available. GERD: well controlled on Protonix SYD: on CPAP nightly PLAN - GA, ETT - 2 large-bore PIVs - ASA recommended monitors + arterial line Region - Other Informed Consent: Anesthetic plan and risks discussed with patient. Use of blood products discussed with patient who consented to blood products. Anesthesia Screening documented in this encounter Plan of Treatment Not on file documented as of this encounter Visit Diagnoses Not on filedocumented in this encounter Administered Medications Inactive Administered Medications - up to 3 most recent administrations Medication Order MAR Action Action Date Dose Rate Site dexAMETHasone (Decadron) injection Intravenous, PRN, Starting on Tue12/28/21 at 0937, Until Tue12/28/21 at 1319, Anesthesia Intra-op, Routine Given 12/28/2021 9:37 AM EST 8 mg heparin (porcine) (1,000 units/mL) injection Intravenous, PRN, Starting on Tue12/28/21 at 0940, Until Tue12/28/21 at 1257, Anesthesia Intra-op, Routine Given 12/28/2021 11:22 AM EST 4,000 Units Given 12/28/2021 10:24 AM EST 5,000 Units Given 12/28/2021 10:04 AM EST 10,000 Units heparin (porcine) 50 units/mL in sodium chloride 0.45% 500 mL infusion Intravenous, CONTINUOUS PRN, Starting on Tue12/28/21 at 0940, Until Tue12/28/21 at 1257, Anesthesia Intra-op, Routine Rate/Dose Change 12/28/2021 11:01 AM EST 3,000 Units/hr 60 mL/hr Rate/Dose Change 12/28/2021 10:04 AM EST 2,000 Units/hr 40 mL/hr New Bag 12/28/2021 9:40 AM EST 1,000 Units/hr 20 mL/hr lactated ringers infusion 1,000 mL, at 100 mL/hr, Intravenous, CONTINUOUS, Starting on Tue12/28/21 at 0700, Until Tue12/28/21 at 1420, Day of Surgery (Day of Procedure) Restarted 12/28/2021 7:34 AM EST New Bag 12/28/2021 6:53 AM EST 1,000 mLs 100 mL/hr lactated ringers infusion Intravenous, CONTINUOUS PRN, Starting on Tue12/28/21 at 0806, Until Tue12/28/21 at 1319, Anesthesia Intra-op New Bag 12/28/2021 8:06 AM EST lidocaine (pf) (Xylocaine) (20 mg/mL) 2% injection syringe Intravenous, PRN, Starting on Tue12/28/21 at 0749, Until Tue12/28/21 at 1319, Anesthesia Intra-op, Routine Given 12/28/2021 7:49 AM EST 20 mg lidocaine (XYLOCAINE) 4 % external solution Intratracheal, PRN, Starting on Tue12/28/21 at 0750, Until Tue12/28/21 at 1319, Anesthesia Intra-op Given 12/28/2021 7:50 AM EST 2 mLs midazolam (pf) (Versed) (1 mg/mL) multi-dose injection Intravenous, PRN, Starting on Tue12/28/21 at 0735, Until Tue12/28/21 at 1257, Anesthesia Intra-op, Routine Given 12/28/2021 7:40 AM EST 1 mg Given 12/28/2021 7:35 AM EST 1 mg ondansetron (pf) (Zofran) (2 mg/mL) injection Intravenous, PRN, Starting on Tue12/28/21 at 1243, Until Tue12/28/21 at 1319, Anesthesia Intra-op, Routine Given 12/28/2021 12:43 PM EST 8 mg propofoL (Diprivan) (10 mg/mL) infusion Intravenous, CONTINUOUS PRN, Starting on Tue12/28/21 at 0800, Until Tue12/28/21 at 1319, Anesthesia Intra-op, Routine Rate/Dose Change 12/28/2021 12:01 PM EST 20 mcg/kg/min 13.032 mL/hr Rate/Dose Change 12/28/2021 7:51 AM EST 25 mcg/kg/min 16.2 9 mL/hr New Bag 12/28/2021 7:48 AM EST 200 mcg/kg/min 130.32 mL /hr propofoL (Diprivan) 10 mg/mL bolus injection (Anesthesia) Intravenous, PRN, Starting on Tue12/28/21 at 0749, Until Tue12/28/21 at 1319, Anesthesia Intra-op Given 12/28/2021 7:50 AM EST 50 mg Given 12/28/2021 7:49 AM EST 200 mg protamine (10 mg/mL) injection Intravenous, PRN, Starting on Tue12/28/21 at 1239, Until Tue12/28/21 at 1319, Anesthesia Intra-op, Routine Given 12/28/2021 12:44 PM EST 10 mg Given 12/28/2021 12:43 PM EST 10 mg Given 12/28/2021 12:42 PM EST 10 mg rocuronium (Zemuron) (10 mg/mL) multi-dose injection Intravenous, PRN, Starting on Tue12/28/21 at 0749, Until Tue12/28/21 at 1319, Anesthesia Intra-op, Routine Given 12/28/2021 7:49 AM EST 50 mg documented in this encounter Care Teams Spool Carrier Relationship Specialty Start Date End Date Stew Mario DO [address] [place] [address] PCP - General Family Medicine 03/24/21 documented as of this encounter
--- OUTSIDE RECORDS SUMMARY | 2023-09-23 16:00 | XMS_ITS | Encounter Summary ---
Author Organization [facility] [place] [address] Care Team Providers Care Planning Supervisor Name Role Phone Stew Mario DO Primary Care Provider [phone] Encounter Details Date Type Department Care Team (Latest Contact Info) Description 06/10/2021 7:30 AM EDT Laboratory Appointment Lab [address] [place] [phone] Atrial fibrillation, unspecified type Social History Tobacco Use Types Packs/Day Years [...] Procedure Name Priority Date/Time Associated Diagnosis Comments HC VENIPUNCTURE Routine 06/10/2021 7:38 AM EDT Atrial fibrillation, unspecified type HC MAGNESIUM, SERUM Routine 06/10/2021 7 :38 AM EDT Atrial fibrillation, unspecified type documented in this encounter Results * Magnesium (06/10/2021 7:38 AM EDT) Magnesium 0.90 0.69 - 1.07 mmol/L [facility] Blood 06/10/2021 7:38 AM EDT 06/10/2021 7:50 AM EDT Narrative Resulting Agency Comment Spec In Lab Get Carrion MD CHEMISTRY ORDERABLES [facility] [place] [address] * (ABNORMAL) BMP w/fasting Glucose (06/10/2021 7:38 AM EDT) Glucose Fasting 107(H) 65 - 99 mg/dL [facility] Comment: ?Fasting* Glucose Interpretive Criteria Normal [...] of Diabetes Mellitus, Position Statement from the [place] [employer]. ??Diabetes Care, Volume 33, Supplement 1, Feb 2009 Blood Urea Nitrogen 19 10 - 20 mg/dL [facility] Creatinine 1.03 0.80 - 1.50 mg/dL [facility] Sodium 141 135 - 145 mmol/L [facility] Potassium 4.5 3.5 - 5.0 mmol/L [facility] Comment: Please note: ??Patients with WBC >100,000 may have falsely elevated Potassium levels. ??For accurate Potassium quantification in these patients send serum separator tube (gold top) for subsequent determinations. ??Contact the Clinical Chemistry Laboratory if there are any questions. Chloride 103 98 - 107 mmol/L [facility] Carbon Dioxide 27 22 - 31 mmol/L [facility] Anion Gap 11 5 - 15 mmol/L [facility] Calcium 9.4 8.5 - 10.5 mg/dL [facility] Est Glomerular Filtration Rate 84 >=60 mL/min/1. 73 m?? [facility] Comment: This patient? s estimated glomerular [...] In Lab Get Carrion MD CHEMISTRY ORDERABLES [facility] [place] [address] documented in this encounter Visit Diagnoses Diagnosis Atrial fibrillation, unspecified type documented in this encounter Care Teams Planning Supervisor Relationship Specialty Start Date End Date Stew Mario DO [address] [place] [address] PCP - General Family Medicine 03/24/21 documented as of this encounter
--- OUTSIDE RECORDS SUMMARY | 2023-09-23 16:00 | XMS_ITS | Encounter Summary ---
Author Organization [facility] [place] [address] Care Team Providers Care Citrix Systems Administrator Name Role Phone Stew Mario DO Primary Care Provider [phone] Encounter Details Date Type Department Care Team (Late st Contact Info) Description 06/10/2021 8:30 AM EDT Office Visit Cardiology at [address] [phone] Murphy Shepherd PA [facility] [place] [address] Atrial fibrillation, unspecified type; PAF (paroxysmal atrial fibrillation); MARTINEZ (dyspnea on exertion); Fatigue, unspecified type; FH: CAD (coronary artery disease) Social History Tobacco Use Types Packs/Day Years [...] cm (5' 6) 06/10/2021 7:55 AM EDT R eported Body Mass Index 36.86 06/10/2021 7:55 AM EDT documented in this encounter Progress Notes * Murphy Shepherd PA - 06/10/2021 8:30 AM EDT Day of Cardioversion History and Physical Subjective: Patient ID: Ruthie Mireles is a 50 y.o. male. CC: [...] diagnosed around 2019. In fact, his atrial fibrillationwas diagnosed around the same time when he was found to be in irregular rhythm during sleep evaluation. He is mostly compliant with CPAP - admits to sometimes falling asleep on the couch without mask. He drinks couple alcoholic drinks per week. 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 There have not been any medication changes since the last visit. This morning, all medications weretaken except Diltizem (48-hour hold). he has been [...] who presents today for elective cardioversion. . [id number] Score is 0. No contraindication to planned [...] [place] documented in this encounter Miscellaneous Notes * Addendum Note - Murphy Shepherd PA - 06/10/2021 8:30 AM EDTAddended by: MURPHY SHEPHERD on: 06/10/2021 03:17 PM Modules accepted: Orders documented in this encounter Plan of Treatment Not on file documented as of this encounter Procedures Procedure Name Priority Date/Time Associated Diagnosis Comments EKG 12-LEAD Routine 06/10/2021 7:59 AM EDT Atrial fibrillation, unspecified type documented in this encounter Results * EKG 12 Lead (06/10/2021 7:59 AM EDT) Ventricular rate 93 BPM MUSE SYSTEM QRS Duration 80 ms MUSE SYSTEM Q-T Interval 344 ms MUSE SYSTEM QTC Calculated (Bezet) 427 ms MUSE SYSTEM Calculated R [place] 19 degrees MUSE SYSTEM Calculated T [place] 48 degrees MUSE SYSTEM INTERPRETATION Atrial fibrillation Abnormal ECG No previous ECGs available Confirmed by MD Crow, Ghassan ([id number]) on 06/10/2021 1:07:10 PM MUSE SYSTEM 06/10/2021 7:59 AM EDT 06/10/2021 1:07 PM EDT Get Carrion MD ECG ORDERABLES Performing Organization Address City/[facility]/ZIP Co de Phone Number MUSE SYSTEM * Magnesium (06/10/2021 7:38 AM EDT) Magnesium 0.90 0.69 - 1.07 mmol/L [facility] Blood 06/10/2021 7:38 AM EDT 06/10/2021 7:50 AM EDT Narrative Resulting Agency Comment Spec In Lab Get Carrion MD CHEMISTRY ORDERABLES Performing Organization Address City/[facility]/ZIP Co de Phone Number [facility] [place] [address] * (ABNORMAL) BMP w/fasting Glucose (06/10/2021 7:38 AM EDT) Glucose Fasting 107(H) 65 - 99 mg/dL [facility] Comment: ?Fasting* Glucose Interpretive [...] of Diabetes Mellitus, Position Statement from the [place] [employer]. ??Diabetes Care, Volume 33, Supplement 1, Feb 2009 Blood Urea Nitrogen 19 10 - 20 mg/dL [facility] Creatinine 1.03 0.80 - 1.50 mg/dL [facility] Sodium 141 135 - 145 mmol/L [facility] Potassium 4.5 3.5 - 5.0 mmol/L [facility] Comment: Please note: ??Patients with WBC >100,000 may have falsely elevated Potassium levels. ??For accurate Potassium quantification in these patients send serum separator tube (gold top) for subsequent determinations. ??Contact the Clinical Chemistry Laboratory if there are any questions. Chloride 103 98 - 107 mmol/L [facility] Carbon Dioxide 27 22 - 31 mmol/L [facility] Anion Gap 11 5 - 15 mmol/L [facility] Calcium 9.4 8.5 - 10.5 mg/dL [facility] Est Glomerular Filtration Rate 84 >=60 mL/min/1. 73 m?? [facility] Comment: This patient? s [...] In Lab Get Carrion MD CHEMISTRY ORDERABLES [facility] [place] [address] documented in this encounter Visit Diagnoses Diagnosis Atrial fibrillation, unspecified type PAF (paroxysmal atrial fibrillation) Atrial fibrillation MARTINEZ (dyspnea on exertion) Other dyspnea and respiratory abnormality Fatigue, unspecified type FH: CAD (coronary artery disease) Family history of ischemic heart disease documented in this encounter Care Teams [employer] Systems Administrator Relationship Specialty Start Date End Date Stew Mario DO [address] [place] [address] PCP - General Family Medicine 03/24/21 documented as of this encounter
--- OUTSIDE RECORDS SUMMARY | 2023-09-23 16:00 | XMS_ITS | Encounter Summary ---
[facility] Organization [facility] [place] [address] Care Team Providers Care Straight Tooth Gear Generator Operator Name Role Phone Stew Mario DO Primary Care Provider [phone] Reason for Visit * Reason Onset Date Comments Advice Only 10/14/2021 Encounter Details Date Type Department Care Team (Late st Contact Info) Description 10/14/2021 Notes Only Cardiology at [address] [phone] Abundio Black MD [facility] [place] [address] Advice Only Social History Tobacco Use Types Packs/Day Years [...] as of this encounter Progress Notes * Abundio Black MD - 10/14/2021 2:47 PM EDT Telephone call to Chi tomas (, Desirae) with update: Recommendation regarding anticoagulation around the time of a pending GI scope (not yet scheduled),as cleared with Dr. Kinney, will be to hold 3 days of anticoagulation prior and resume the day after. Updated regarding timeline for schedule atrial fibrillation ablation- he is on the queue as per EP scheduling here, they have yet to make the schedule for December into January (Mr. Mireles was hoping to have this done the week of school vacation in January). Abundio Black MD Cardiac Electrophysiology Fellow [facility] Pager [phone] 10/14/2021 documented in this encounter Plan of Treatment Not on file documented as of this encounter Visit Diagnoses Not on filedocumented in this encounter Care Teams Straight Tooth Gear Generator Operator Relationship Specialty Start Date End Date Stew Mario DO [address] [place] [address] PCP - General Family Medicine 03/24/21 documented as of this encounter
--- OUTSIDE RECORDS SUMMARY | 2023-09-23 16:00 | XMS_ITS | Encounter Summary ---
[place] [address] Care Team Providers Care Photogrammetry Airplane Pilot Name Role Phone Stew Mario DO Primary Care Provider [phone] Encounter Details Date Type Department Care Team (Late st Contact Info) Description 05/28/2021 Orders Only Cardiology at [address] [phone] Chi Kinney MD [facility] [place] [address] Atrial fibrillation, unspecified type Social History Tobacco Use Types Packs/Day Years Used Date Smoking Tobacco: Never Sex and Gender Information Value Date Recorded Sex Assigned at Male 04/03/2021 10:46 AM EST Gender Identity Male 04/03/2021 10:46 AM EST Sexual Orientation Straight 04/03/2021 10 :46 AM EST documented as of this encounter Progress Notes * Nivia Sullivan RN - 05/28/2021 10:26 AM EDT ARLENE for 06/10 Cardioversiodn documented in this encounter Plan of Treatment Not on file documented as of this encounter Visit Diagnoses Diagnosis Atrial fibrillation, unspecified type documented in this encounter Care Teams Photogrammetry Airplane Pilot Relationship Specialty Start Date End Date Stew Mario DO [address] [place] [address] PCP - General Family Medicine 03/24/21 documented as of this encounter
--- OUTSIDE RECORDS SUMMARY | 2023-09-23 16:00 | XMS_ITS | Encounter Summary ---
[place] [address] Care Team Providers Care Shanker Out Name Role Phone Stew Mario DO Primary Care Provider Reason for Referral * Diagnostic Test (Routine) - Closed Specialty Diagnoses / Procedures Referred By Contac t Referred To Contact Gastroenterology Diagnoses Change in bowel habits Nausea without vomiting [id number] Procedures Breath Hydrogen Test PRG BREATH HYDROGEN TEST [id number] Susan Farmer PA [facility] [place] [address] [facility] [address] [place] [id number] Referral ID Status Reason Start Date Expiration Date V isits Requested Visits Authorized [id number] Closed Consult, Test & Treat 04/17/2021 04/17/2022 1 1 Reason for Visit * Consultation (Routine) - Closed Specialty Diagnoses / Procedures Referred By Contac t Referred To Contact Gastroenterology Diagnoses Abdominal pain, unspecified abdominal location ABDOMINAL PAIN, UNREMARKABLE EGD, S/P CHOLY, 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 Stew Mario DO [address] [place] [address] [facility] [address] [place] [phone] Referral ID Status Reason Start Date Expiration Date V isits Requested Visits Authorized [id number] Closed Consult, Test & Treat PCP Updated and/or Approved 03/24/2021 03/24/2022 6 6 Encounter Details Date Type Department Care Team (Latest Contact Info) Description 04/17/2021 4:00 PM EST TH Visit (TeleHealth) [place] [address] Susan Farmer PA [facility] [place] [address] Change in bowel habits; Nausea without vomiting Social History Tobacco Use Types Packs/Day Years Used Date Smoking Tobacco: Never Sex and Gender Information Value Date Recorded Sex Assigned at Male 04/03/2021 10:46 AM EST Gender Identity Male 04/03/2021 10:46 AM EST Sexual Orientation Straight 04/03/2021 10 :46 AM EST documented as of this encounter Progress Notes * Susan Farmer PA - 04/17/2021 4:00 PM [...] Workup Stool studies- negative per patient Celiac mysql dba- negative per patient Trials Pantoprazole Questran- he [...] Tobacco- none 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 He also has lower GI symptoms including diarrheahaving 4-8 bowel movements per day. He has tried to mitigate symptoms by decreasing p.o. intake especially in the morning. He finds by the evening his GI tract settled down and he is less likely to have diarrhea. His PPI was recently increased to twice a day dosing and his diarrhea predates PPI use. He did havea colonoscopy and an EGD in January 2021 at an outside institution. Random biopsies were not takenof his colon. We discussed symptoms in detail including possible etiologies such as small intestinal bacterial overgrowth, dysmotility and functional bowel disorders. We discussed proceeding with the following plan 1. Stool studies to include fecal calprotectin. He would like this times outside institution [facility]He understands results may be delayed and they will follow up on their portal and will send me the results if possible 2. Gastric emptying scan due to bloating and early satiety. This too will be done at their local institution 3. Small intestinal bacterial overgrowth test here at [facility] 4. Begin Imodium. We discussed the dose in detail including adverse effects 5. We did discuss proceeding with repeat EGD and colonoscopy with random biopsies to evaluate for microscopic colitis given persistent diarrhea which has been nonresponsive to Questran. He would liketo start with the above studies first but is open to repeating his colonoscopy if needed. We did discuss if his fecal calprotectin is abnormal I would encourage him to consider a colonoscopy at a sooner date instead of waiting until his gastric emptying scan and SIBO test [facility] [place] [address] documented in this encounter Plan of Treatment Scheduled Orders Name Type Priority Associated Diagnoses Orde r Schedule Breath Hydrogen Test GI Routine Change in bowel habits Nausea without vomiting Expected: 04/17/2021, Expires: 04/17/2022 documented as of this encounter Visit Diagnoses Diagnosis Change in bowel habits Other symptoms involving digestive system Nausea without vomiting documented in this encounter Care Teams Shanker Out Relationship Specialty Start Date End Date Stew Mario DO [address] [place] [address] [address] [facility] [address] [place] [address] PCP - General Family Medicine 03/24/21 documented as of this encounter
--- OUTSIDE RECORDS SUMMARY | 2023-09-23 16:00 | XMS_ITS | Encounter Summary ---
[place] [address] Care Team Providers Care Spring Encaser Name Role Phone Stew Mario DO Primary Care Provider Encounter Details Date Type Department Care Team (Late st Contact Info) Description 06/10/2021 Orders Only Cardiology at [address] [phone] Chi Kinney MD [facility] [place] [address] Atrial fibrillation, unspecified type Social History Tobacco [...] type documented in this encounter Care Teams Spring Encaser Relationship Specialty Start Date End Date Stew Mario DO [address] [place] [address] PCP - General Family Medicine 03/24/21 documented as of this encounter
--- OUTSIDE RECORDS SUMMARY | 2023-09-23 16:00 | XMS_ITS | Encounter Summary ---
[place] [address] Care Team Providers Care Senior Business Broker Name Role Phone Stew Mario DO Primary Care Provider [phone] Encounter Details Date Type Department Care Team (Late st Contact Info) Description 06/10/2021 Orders Only Cardiology at [address] [phone] Chi Kinney MD [facility] [place] [address] Atrial fibrillation, unspecified type Social History Tobacco [...] type documented in this encounter Care Teams Senior Business Broker Relationship Specialty Start Date End Date Stew Mario DO [address] [place] [address] PCP - General Family Medicine 03/24/21 documented as of this encounter
--- OUTSIDE RECORDS SUMMARY | 2023-09-23 16:00 | XMS_ITS | Encounter Summary ---
Author Organization [facility] [place] [address] Care Team Providers Care Digital Campaign Manager Name Role Phone Stew Mario DO Primary Care Provider [phone] Encounter Details Date Type Department Care Team (Latest Contact Info) Description 09/30/2021 2:48 PM EDT - 09/30/2021 11:59 PM EDT Hospital Encounter [place] [address] Isaiah Cali MD [facility] ELECTROP[place] [address] Discharge Disposition: Home Social History Tobacco Use [...] on filedocumented in this encounter Care Teams Digital Campaign Manager Relationship Specialty Start Date End Date Stew Mario DO [address] [place] [address] PCP - General Family Medicine 03/24/21 documented as of this encounter
--- OUTSIDE RECORDS SUMMARY | 2023-09-23 16:00 | XMS_ITS | Encounter Summary ---
Author Organization [place] [address] Care Team Providers Care Area Coordinator Name Role Phone Stew Mario DO Primary Care Provider Encounter Details Date Type Department Care Team (Late st Contact Info) Description 12/22/2021 Telephone [place] [phone] Amanda Galvan Social History Tobacco Use Types Packs/Day Years [...] encounter Miscellaneous Notes * Telephone Encounter - Amanda Galvan - 12/22/2021 10:14 AM EST 1. ASK: TRAVEL ???Have you travelled outside of [place] ([place], [place], [place], [place], [place]) in the past 14 days??? 2. ASK: EXPOSURE Have you been in contact with anyone suspected or confirmed to have COVID-19 in the past 14 days??? 3. ASK: SYMPTOMS Do you have any new or worsening symptoms on this list that are not related to another medical condition? Fever or chills ?? Cough ?? Shortness of breath or difficulty breathing ?? Fatigue ?? Muscle or body aches ?? Headache ?? Loss of taste or smell ?? Sore throat ?? Congestion or runny nose ?? Nausea or vomiting ?? Diarrhea If 'Yes' to any of the questions above Transfer patient to the Covid-19 Hotline Number ([phone]) for further instructions. If 'No' to all of the questions above Is this the first test for Covid 19 If no, please list date of previous test, result, and type of test (Molecular, Antigen, Antibody orunknown): Resides in Nursing/longterm or other residential setting No Employee or Household Member of Employee No Healthcare Worker No Telephone call placed/received to schedule Covid 19 testing with patient. Ordering provider: Isaiah Cali Testing Facility: Date of Testin/18 Time of Testin:10 Symptoms: pre-op Give directions to testing facility. All passengers in the vehicle MUST wear a mask. Leave dogs/pets at home or have them crated/behind a net. documented in this encounter Plan of Treatment Not on file documented as of this encounter Visit Diagnoses Not on filedocumented in this encounter Care Teams Area Coordinator Relationship Specialty Start Date End Date Stew Mario DO [address] [place] [address] PCP - General Family Medicine 03/24/21 documented as of this encounter
--- OUTSIDE RECORDS SUMMARY | 2023-09-23 16:00 | XMS_ITS | Encounter Summary ---
Author Organization [facility] [place] [address] Care Team Providers Care Literacy Specialist Name Role Phone Stew Mario DO Primary Care Provider Encounter Details Date Type Department Care Team (Late st Contact Info) Description 03/10/2022 Orders Only Cardiology at [address] [phone] Isaiah Cali MD [facility] [place] [address] Persistent atrial fibrillation Social History Tobacco Use Types [...] as of this encounter Visit Diagnoses Diagnosis Persistent atrial fibrillation Atrial fibrillation documented in this encounter Care Teams Literacy Specialist Relationship Specialty Start Date End Date Stew Mario DO [address] [place] [address] [address] [facility] [place] [address] PCP - General Family Medicine 03/24/21 documented as of this encounter
--- OUTSIDE RECORDS SUMMARY | 2023-09-23 16:00 | XMS_ITS | Encounter Summary ---
[place] [address] Care Team Providers Care Automotive Parts Counter Associate Name Role Phone Stew Mario DO Primary Care Provider [phone] Reason for Visit * Reason Onset Date Comments Post Procedure Call 01/06/2022 Encounter Details Date Type Department Care Team (Late st Contact Info) Description 01/06/2022 Notes Only Cardiology at [address] [phone] Ana Maria Yancey, RN Post Procedure Call Social History Tobacco Use Types Packs/Day Years [...] as of this encounter Progress Notes * Ana Maria Yancey RN - 01/06/2022 8:57 AM ESTSummary: Post Procedure Call: Atrial Fibrillation Ablation EP RN Post-Procedure Note: Date of Follow Up Call: 01/06/2022 Spoke With: Patient Procedure Type (choose all that apply): Ablation Ablation Type (Choose all that apply): Atrial Fib Performing MD: Viraj Date of Procedure: 12/28/2021 Date of Discharge: 12/29/2021 Follow Up EP Visit Scheduled?: No No Follow Up Visit Reason: Follow up outside Outside Location: [facility] Intra or Post Procedure Event: Did any Intra or Post Procedure Events Occur?: No Medications at Hospital Discharge: Aspirin: No P2Y12 Inhibitor: No Other Antiplatelet: No Warfarin: No DOAC: Yes Other Anticoagulant: No Beta Jaun (any): No Digoxin: No Diltiazem/Verapamil: Yes Amiodarone: No Dofetilide: No Dronedarone: No Flecainide: No Propafenone: No Sotalol: No PPI: Yes Other Antiarrhythmic: No Med Changes/Clarification Since Discharge: Flecainide discontinued Assessment: Access Site Assessment (Choose all that apply): None of the above UTI symptoms (Choose all that apply): None of the above Signs and Symptoms of Infection (Choose all that apply): None of the above Headaches: No Complaints of: (choose all that apply): None of the above Free Text Note: Follow-up Recommendations for Providers: Flecainide has been discontinued Continue diltiazem 360mg daily Continue apixaban NEW - increase pantoprazole from 40mg daily to 40mg twice daily for 30 days following ablation to reduce the risk of erosive esophagitis Follow up with Dr. Cali in 2-3 months ([facility]) Catheter Insertion Area Care?? - You may take a shower if [...] This should improve during the 24 to 48nhours after the procedure. - Take Tylenol if needed and contact your doctor if the discomfort worsens. Avoid higher-dose ibuprofen (greater than 400mg twice daily) due to increased bleeding risk while on blood thinners (does not include aspirin). ?? Problems to Watch For?? If there is bright red blood flowing from the catheter insertion area STOP what you are doing and lie down. Hold pressure steadily on the area for fifteen minutes. Call for help. If the bleeding does not stop in fifteen minutes, call 911. If there is rapid swelling with a black and blue??color at the catheter insertion area, there maybe bleeding inside. Call your doctor if there [...] doctor. If you are alert, drink fluids. ?? Activity?? - Do not bend over, strain or lift heavy objects for 48 hours after the procedure. - Do not participate in active sports for 1 week. - Avoid heavy lifting (greater than 10 pounds) for one week following your procedure. ?? Additional discharge instructions:?? Pt advised to be vigilant for any of the following clinical findings (or anything??else out of the ordinary): Bleeding, pain, or [...] commonly responds well to anti-inflammatory medication. Atrial dysrhythmias??(flutter, fibrillation, tachycardia). Post-procedure atrial dysrhythmias on the basis of temporary inflammation are not uncommon, and are not necessarily indicative of an ineffective procedure... if the dysrhythmia is due to inflammtion, the dysrhythmias likely will cease as the inflammation resolves. The first 1-2 months are the most likely time during which this matter is relevant. If the patient experiences dysrhythmias, the Cardiac Electrtophysiology Service should be contacted. Side effects of any new medications initiated at the [facility]. The patient should be aware and informed of any significant potential side effects that may be incurred as a result of being on new medication... Sudden weakness, sensory loss, altered behavior or speech.??This might be a consequence of a cerbrovascular [...] (with no oral intake pending medical evaluation). ?? This is not an exhaustive list. If the patient experiences anything out of the ordinary post-procedure, he/she is encouraged to contact his/her physician or the Cardiac Electrophysiology Service ([phone]). documented in this encounter Plan of Treatment Not on file documented as of this encounter Visit Diagnoses Not on filedocumented in this encounter Care Teams Automotive Parts Counter Associate Relationship Specialty Start Date End Date Stew Mario DO [address] [place] [address] [address] PCP - General Family Medicine 03/24/21 documented as of this encounter
--- OUTSIDE RECORDS SUMMARY | 2023-09-23 16:00 | XMS_ITS | Encounter Summary ---
[place] [address] Care Team Providers Care Content Development Specialist Name Role Phone Stew Mario DO Primary Care Provider Encounter Details Date Type Department Care Team (Late st Contact Info) Description 04/02/2021 Telephone Cardiology at [address] [phone] Sophia Hunt LNA Social History Tobacco Use Types Packs/Day Years Used Date Smoking Tobacco: Never Sex and Gender Information Value Date Recorded Sex Assigned at Male 04/03/2021 10:46 AM EST Gender Identity Male 04/03/2021 10:46 AM EST Sexual Orientation Straight 04/03/2021 10 :46 AM EST documented as of this encounter Miscellaneous Notes * Telephone Encounter - Sophia Hunt LNA - 04/03/2021 9:06 AM EST Unable to reach patient for upcoming Visit with Dr. Kinney on 04/03/21 documented in this encounter Plan of Treatment Not on file documented as of this encounter Visit Diagnoses Not on filedocumented in this encounter Care Teams Content Development Specialist Relationship Specialty Start Date End Date Stew Mario DO [address] [place] [address] PCP - General Family Medicine 03/24/21 documented as of this encounter
--- OUTSIDE RECORDS SUMMARY | 2023-09-23 16:00 | XMS_ITS | Encounter Summary ---
Author Organization [facility] [place] [address] Care Team Providers Care Pipe Fitter Marine Name Role Phone Stew Mario DO Primary Care Provider [phone] Reason for Visit * Auth/Cert Specialty Diagnoses / Procedures Referred By Jailene t Referred To Contact Diagnoses Abdominal pain abdominal pain. diarrhea- evaluate for microscopic colitis Procedures PRO UPPER GI ENDOSCOPY, DIAGNOSTIC PRO COLONOSCOPY, DIAGNOSTIC EGD, UPPER GI ENDOSCOPY COLONOSCOPY, DIAGNOSTIC Cuauhtemoc Olivas MD [facility] [place] [address] [facility] Referral ID Status Reason Start Date Expiration Date Visits Re quested Visits Authorized [id number] 1 1 Encounter Details Date Type Department Care Team (Late st Contact Info) Description 04/06/2022 7:30 AM EST - 04/06/2022 8:30 AM EST [place] [address] Ángel Geronimo MD [facility] [place] [address] EGD WITH BIOPSY (WRVU 2.39) Social History Tobacco Use Types Packs/Day Years [...] occurs, please contact your Doctor. Please call [phone] before 8pm Mon-Fri with problems, questions or concerns. If you call after 8pm or on weekends, call the Hospital at [phone] and ask to speak to the Grinder Tender owner professional engineer and the sew out operator will contact that person for you. When should you call for help? Call 611 anytime you think you may need emergency [...] any problems. Where can you learn more? [facility] View your After Visit Summary and more online at [email or web address] If you would like to provide feedback about your hospital experience, please call the Office of Patient and Family Relations at . If you have received this After Visit Summary in error, please immediately return it in person to the department, or notify the Replaced By [facility] Privacy Office by calling toll free at between the hours of 8AM and 5PM to arrange for our retrieval of the documents at no cost to you. Content Version: 12.2 ?? [id number] [employer]. Care instructions adapted under license by [facility]. If you have questions about a medical condition or this instruction, always ask your healthcare professional. [employer] disclaims any warranty or liability for your [...] the day after the procedure, use an rbre-gqj-tzsxcaa spray to numb your throat. Sucking on [...] occurs, please contact your Doctor. Please call [phone] before 8pm Mon-Fri with problems, questions or concerns. If you call after 8pm or on weekends, call the Hospital at [phone] and ask to speak to the Grinder Tender owner professional engineer and the sew out operator will contact that person for you. When should you call for help? Call [phone] anytime you think you may need emergency [...] After Visit Summary and more online at [email or web address] If you would like to provide feedback about your hospital experience, please call the Office of Patient and Family Relations at . If you have received this After Visit Summary in error, please immediately return it in person to the department, or notify the Replaced By [facility] Privacy Office by calling toll free at between the hours of 8AM and 5PM to arrange for our retrieval of the documents at no cost to you. Content Version: 12.2 ?? [phone] [employer]. Care instructions adapted under license by [facility]. If you have questions about a medical condition or this instruction, always ask your healthcare professional. [employer] disclaims any warranty or liability for your [...] Routine 04/06/2022 8:02 AM EST Colonoscopy, Biopsy ([id number]) 04/06/2022 7:39 AM EST Change in bowel habits Abdominal pain, unspecified abdominal location Upper Gi Endoscopy, Biopsy ([id number]) 04/06/2022 7:39 AM EST Change in bowel habits Abdominal pain, unspecified abdominal location UPPER GI ENDOSCOPY Routine 04/06/2022 7: 20 AM EST COLONOSCOPY Routine 04/06/2022 7:20 AM EST documented in this encounter Results * Surgical Pathology Report (04/06/2022 8:02 AM EST) Final Diagnosis [id number] ? Location: 4T; EA07; A The signing pathologist has (i) [...] Patricia Verified: ??04/22/2022 16:21 ??Pathologist Performed at: ??-[facility] Dept. of Pathology, [place] [address] Clothing Busheler: Mariusz Alvarez MD, FCAP, ??CLIA Certificate: [id number] ADDITIONAL STUDIES Immunohistochemistry Studies: Formalin-fixed, paraffin-embedded tissue [...] labeled C1-C2. ??jnr 04/22/2022 4:21 PM EDT [facility] GI Biopsy 04/06/2022 8:02 AM EST 04/06/2022 8:02 AM EST GI Biopsy 04/06/2022 8:02 AM EST 04/06/2022 8:02 AM EST GI Biopsy 04/06/2022 8:02 AM EST 04/06/2022 8:02 AM EST Ángel Geronimo MD PATHOLOGY/CYTOLOGY O LUIS CARLOS [facility] [place], [place] [id number] [place] [address] [place] [address] * Specimen to Pathology (04/06/2022 8:02 AM EST) AP Specimen 04/06/2022 8:02 AM EST 04/06/2022 8:02 AM EST Narrative [facility] - 04/06/2022 8:02 AM EST Specimen requisition ordered. ??Separate Pathology report to follow Ángel Geronimo MD PATHOLOGY/CYTOLOGY O LUIS CARLOS Performing Organization Address City/[facility]/ZIP Co de Phone Number [facility] [place] [address] * Specimen to Pathology (04/06/2022 8:02 AM EST) AP Specimen 04/06/2022 8:02 AM EST 04/06/2022 8:02 AM EST Narrative [facility] - 04/06/2022 8:02 AM EST Specimen requisition ordered. ??Separate Pathology report to follow Ángel Geronimo MD PATHOLOGY/CYTOLOGY O LUIS CARLOS [facility] [place] [address] * Specimen to Pathology (04/06/2022 8:02 AM EST) AP Specimen 04/06/2022 8:02 AM EST 04/06/2022 8:02 AM EST Narrative [facility] - 04/06/2022 8:02 AM EST Specimen requisition ordered. ??Separate Pathology report to follow Ángel Geronimo MD PATHOLOGY/CYTOLOGY O LUIS CARLOS [facility] [place] [address] * UPPER GI ENDOSCOPY (04/06/2022 7:20 AM EST) UPPER GI ENDOSCOPY [facility] Endoscopy Procedure Date: 04/06/2022 7:20 AM ? Patient Name: Ruthie Mireles ? N: [id number] ? Date of : 1970 ? Age: 51 ? Order #: [id number] ? Instrument Name: [id number]- [id number] ? Procedure: ? Upper GI endoscopy Indications: [...] * COLONOSCOPY (04/06/2022 7:20 AM EST) Pathologist [facility] COLONOSCOPY [facility] Endoscopy Procedure Date: 04/06/2022 7:20 AM ? Patient Name: Ruthie Mireles ? Date of : 1970 ? Age: 51 ? Order #: [id number] ? Instrument Name: [id number]- [id number] ? Procedure: ? Colonoscopy Indications: ? Chronic [...] preparation was evaluated ? using the BBPS (Nezperce Bowel ? Preparation Scale) with scores of: [...] The patient informed me that his ? manager enterprise stopped his Eliquis ? entirely because he completed ? ablation for atrial fibrillation ? several months ago, so he is not ? planned to resume this medication ? by his manager enterprise. He is ? following with his manager enterprise and ? primary care physician for ongoing ? care. ? Attending Participation: ? I personally performed the entire procedure. ? Ángel Geronimo, 04/06/2022 8:04:29 AM Number of Addenda: 0 Note Initiated On: 04/06/2022 7:20 AM PROVATION 04/06/2022 7:20 AM EST Stew Mario DO GENERAL SURGICAL ORD ERABLES PROVATION documented in this encounter Visit Diagnoses Diagnosis Change in bowel habits Other symptoms involving digestive system Abdominal pain, unspecified abdominal location documented in this encounter Administered Medications Inactive [...] to gravity)0738 (Restarted - Provider: Terra Schwartz CRNA)5194 (Anesthesia Volume Adjustment - Provider: Terra Schwartz CRNA) documented in this encounter Care Teams Pipe Fitter Marine Relationship Specialty Start Date End Date Stew Mario DO [address] [place] [address] PCP - General Family Medicine 03/24/21 documented as of this encounter
--- OUTSIDE RECORDS SUMMARY | 2023-09-23 16:00 | XMS_ITS | Encounter Summary ---
[place] [address] Care Team Providers Care Refinish Technician Name Role Phone Stew Mario DO Primary Care Provider [phone] Encounter Details Date Type Department Care Team (Latest Contact Info) Description 12/25/2021 8:10 AM EST Public Health [place] [phone] Encounter for preprocedure screening laboratory testing for COVID-19 Social History Tobacco Use Types Packs/Day Years [...] Procedure Name Priority Date/Time Associated Diagnosis Comments COVID-19 PCR Routine 12/25/2021 3:46 PM EST Encounter for preprocedure screening laboratory testing for COVID-19 documented in this encounter Results * COVID-19 PCR (12/25/2021 3:46 PM EST) SARS-CoV-2 RNA Not Detected Not Detected [facility] Comment: This result should be interpreted in combination with the clinical observations, patient history and epidemiological information. For testing of asymptomatic individuals, assay performance characteristics and clinical utility have not been evaluated. Testing for SARS-CoV-2 (Severe acute respiratory syndrome coronavirus 2, formerly known as 2019 novel coronavirus or 2019-nCoV) to aid in the diagnosis of COVID-19 is performed using the Aptima SARS Co-V-2 Assay on the [facility] ([employer] as authorized by the FDA issued Emergency Use Authorization (EUA). This assay is intended for In-vitro Diagnostic (IVD) use with nasopharyngeal swabs collected from individuals meeting the CDC criteria for testing. The assay is performed based on the instructions for use and additional guidance provided by the FDA. Testing is performed in the Microbiology Laboratory within the Department of Pathology and Laboratory Medicine at [facility], certified under the Clinical Laboratory Improvement Amendments of 1988 (CLIA), 42 U.S.C. section 263a, to perform high-complexity tests. Assay performance has been verified according to clinical laboratory regulatory requirements. Test results are provided above. A result of Not Detected indicates that the viral RNA target is not present but does not preclude SARS-CoV-2 infection. False negative results may occur if a specimen is improperly collected, transported or handled; if amplification inhibitors are present; or if inadequate numbers of viral particles are present in the specimen. A result of Detected suggests a current or recent infection and the patient is presumed to be infected. Positive and negative predictive values for this test are highly dependent on disease prevalence. A result of Invalid indicates the inability to conclusively determine the presence or absence of SARS-CoV-2 RNA in the sample which can be due to a variety of factors. ??Collection of a new sample for repeat testing is recommended in the case of an invalid result. CDC COVID-19 criteria for testing on human specimens and clinical management guidance information are available at the CDC Coronavirus Disease 2019 (COVID-19) webpage under Information for Healthcare Professionals (https://www.cdc.gov/coronavirus/2019-ncov/hcp/index.html). Additional information about this and other EUA tests can be found in provider and patient fact sheets at the following FDA website: https://www.fda.gov/medical-devices/vqvwngkjfrn-qazsrbk-6734-wqixd-15-ngntufnhr- use-a vgaswsqbvnbrm-mqjbjub-qayeiuv/uvznv-hwlmmkduicy-yywh SARS-CoV-2 RNA Source GARBAGE COLLECTOR DRIVER Swab [facility] Nasopharyngeal Swab 12/26/19 3:46 PM EST 12/25/2021 6:40 PM EST Comment:Symptoms->Asymptomat ic Narrative Resulting Agency Comment Spec In Lab Isaiah Cali MD MOLECULAR ORDERABLES Performing Organization Address City/State/[facility] Co de Phone Number [facility] [place] [address] documented in this encounter Visit Diagnoses Diagnosis Encounter for preprocedure screening laboratory testing for COVID-19 documented in this encounter Care Teams Refinish Technician Relationship Specialty Start Date End Date Stew Mario DO [address] [place] [address] PCP - General Family Medicine 03/24/21 documented as of this encounter
--- OUTSIDE RECORDS SUMMARY | 2023-09-23 16:00 | XMS_ITS | Encounter Summary ---
Author Organization [facility] [place] [address] Care Team Providers Care Electronic Prepress System Operator Name Role Phone Stew Mario DO Primary Care Provider [phone] Reason for Visit * Reason Comments Medication Refill Encounter Details Date Type Department Care Team (Late st Contact Info) Description 05/24/2022 Refill Cardiology at [address] [address] David June PA [facility] [place] [address] Medication Refill Social History Tobacco Use Types Packs/Day Years [...] on filedocumented in this encounter Care Teams Electronic Prepress System Operator Relationship Specialty Start Date End Date Stew Mario DO [address] [place] [address] PCP - General Family Medicine 03/24/21 documented as of this encounter
--- OUTSIDE RECORDS SUMMARY | 2023-09-23 16:00 | XMS_ITS | Encounter Summary ---
[place] [address] Care Team Providers Care Political Reporter Name Role Phone Stew Mario DO Primary Care Provider Encounter Details Date Type Department Care Team (Late st Contact Info) Description 04/17/2021 Telephone [place] [address] Stephanie Olvera CMA GASTROENTEROLOGY DEPT Social History Tobacco Use Types Packs/Day Years Used Date Smoking Tobacco: Never Sex and Gender Information Value Date Recorded Sex Assigned at Male 04/03/2021 10:46 AM EST Gender Identity Male 04/03/2021 10:46 AM EST Sexual Orientation Straight 04/03/2021 10 :46 AM EST documented as of this encounter Miscellaneous Notes * Telephone Encounter - Stephanie Olvera CMA - [...] on filedocumented in this encounter Care Teams Political Reporter Relationship Specialty Start Date End Date Stew Mario DO [address] [place] [address] [address] [place] [address] PCP - General Family Medicine 03/24/21 documented as of this encounter
--- OUTSIDE RECORDS SUMMARY | 2023-09-23 16:00 | XMS_ITS | Encounter Summary ---
[place] [address] Care Team Providers Care Urgent Care Nurse Practitioner Name Role Phone Stew Mario DO Primary Care Provider Reason for Visit * Reason Onset Date Comments Pre Procedure Call 12/15/2021 Encounter Details Date Type Department Care Team (Late st Contact Info) Description 12/15/2021 Telephone Cardiology at [address] [phone] Ana Maria Yancey, RN Pre Procedure Call Social History Tobacco Use Types [...] encounter Miscellaneous Notes * Telephone Encounter - Ana Maria Yancey RN - 12/15/2021 9:03 AM ESTSummary: Pre Procedure Call: Atrial Fibrillation + Atrial Flutter Ablation KHANH SUPERVISOR VEGETABLE FARMING COORDINATION CHECKLIST Patient Name: Flo Mireles Patient Performing Liquefaction Plant Operator: Isaiah Cali Referring Provider: Chi Kinney Date of Procedure: 12/28/21 Arrival Time/ Case Time: 6:00 am / 7:30 am Check In Location: Industrial/Organizational Psychologist Desk 4W Date Patient was Called: 12/15/21 Procedure: Atrial Fibrillation + Atrial Flutter Ablation Company: [employer] Type: RF Orders: Yes Lab Orders: Yes - orders pended for Dr. Cali's signature Anesthesia: GA Discharge Plan/Disposition: OVERNIGHT/SSU Med Instructions: BB/CCB - hold diltiazem the AM of procedure AAD - hold flecainide the AM of procedure Anticoag Type: Eliquis (apixaban) Anticoag Instructions: Hold Eliquis the AM of procedure Imaging: CT scan on 12/25 at 9:45 AM @ 3Z , contingent ARLENE the AM of procedure COVID TEST?: No Contrast Allergy: No DM: No Coming from an assisted living facility?: No Any recent S/S of infection (fevers, on oral ABX)?: No Other Instructions: Clear liquids (water, apple juice, muriel redd, black coffee) OK up until 2 hrs prior to procedure, nothing to eat after midnight on day of procedure.Same Day will call 12/25. If applicable will bringCPAP from home. Will be staying overnight , understands that they will need regional company hazmat tanker driver on day of discharge Notified pt that Perkins catheter may be placed on day of procedure depending on type & duration of case. documented in this encounter Plan of Treatment Not on file documented as of this encounter Visit Diagnoses Diagnosis PAF (paroxysmal atrial fibrillation) Atrial fibrillation documented in this encounter Care Teams Urgent Care Nurse Practitioner Relationship Specialty Start Date End Date Stew Mario DO [address] [place] [address] PCP - General Family Medicine 03/24/21 documented as of this encounter
--- OUTSIDE RECORDS SUMMARY | 2023-09-23 16:00 | XMS_ITS | Encounter Summary ---
[place] [address] Care Team Providers Care Adapted Physical Education Aide Name Role Phone Stew Mario DO Primary Care Provider [phone] Reason for Visit * Auth/Cert Specialty Diagnoses / Procedures Referred By Contac t Referred To Contact Diagnoses AF (atrial fibrillation) AF Procedures PRG ARLENE REAL TIME IMG 2D W PRB IMG ACQUIS I&R PRO CARDIOVERSION ELECTIVE ARRHYTHMIA EXTERNAL TRANSESOPHAGEAL ECHOCARDIOGRAM (WRVU 2.55) CARDIOVERSION-ELECTIVE (WRVU 2.25) Referral ID Status Reason Start Date Expiration Date Visits Re quested Visits Authorized [id number] 1 1 Encounter Details Date Type Department Care Team (Late Contact Info) Description 06/10/2021 10:08 AM EDT Anesthesia Event [place] [address] Amanda Murphy MD [facility] [place] [address] Anesthesia Record Procedure Summary Procedure Name Responsible Anesthesiologist Anesthesia Start Time Anesthesia Stop Time CARDIOVERSION-ELECT ROSETTA (WRVU 2) Amanda Murphy MD 06/10/21 1008 06/10/21 1029 Events Date Time Event Comment 06/10/2021 0946 1008 AN Verify 1008 Start 1008 An Start Data 1014 Anesthesia Ready 1029 an stop data 1029 Recovery or ICU Handoff Leigha ent care was transferred to the destination unit staff after review of the patient's medical history, current anesthetic/surgical status and plan, according to the Provider Handoff Checklist. 1029 Stop Meds Name Total Propofol 120 mg * Agents Name O2 Auxiliary Flowmeter 1 * Blood No blood administrations on file. Lines, Drains, and Airways Type Details Placement Removal (RETIRED) Peripheral IV Line - Single Lumen metacarpal vein (top of hand), left; 20 gauge; no longer indicated; 06/10/21; 1159 06/10/21 1003 by 06/10/21 1159 by Chelly Erickson RN documented in this encounter Social History [...] OR Notes * Anesthesia Postprocedure Evaluation - Amanda Murphy MD - 06/10/2021 10:59 AM EDT Department of Anesthesiology Post-procedure Note Patient: Flo Mireles Procedure Summary Date: 06/10/21 Room / Location: [facility] / [facility] OR Anesthesia Start: 1008 Anesthesia Stop: 1029 Procedure: CARDIOVERSION-ELECTIVE (WRVU 2.25) (N/A ) Diagnosis: (AF) Surgeons: Sabino Zepeda MD Responsible Provider: Amanda Murphy MD Anesthesia Type: general ASA Status: 3 All Anesthesia Providers: Anesthesiologist: Amanda Murphy MD CANDY POLISHER: Susan Quinonez CRNA Vitals Value Taken Time BP 138/92 06/10/21 1045 Temp 36.7 ??C (98.1 ??F) 06/10/21 1025 Pulse 95 06/10/21 1058 Resp 22 06/10/21 1058 SpO2 97 % 06/10/21 1058 Pain Level 0 06/10/21 1025 Vitals shown include unvalidated device data. Patient Location: PACU/SDP Level of Consciousness: Awake and Alert Pain Management: Satisfactory Analgesia PONV: None Cardiovascular Status: At Baseline Respiratory Status: At Baseline Postoperative Fluid Status: Intravascular EUvolemia Possible Anesthetic Complications: NONE apparent at time of evaluation Final Primary Anesthesia Type: General (The anesthetic type performed was the same as planned.) Comments: Back in AF * Anesthesia Preprocedure Evaluation - Amanda Murphy MD [...] with patient and spouse. Plan discussed with CANDY POLISHER and attending. Anesthesia Screening documented in this encounter Plan of Treatment Not on file documented as of this encounter Visit Diagnoses Not on filedocumented in this encounter Administered Medications Inactive Administered Medications - up to 3 most recent administrations Medication Order MAR Action Action Date Dose Rate Site propofoL (Diprivan) 10 mg/mL bolus injection (Anesthesia) Intravenous, PRN, Starting on Tue06/10/21 at 1013, Until Tue06/10/21 at 1029, Anesthesia Intra-op Given 06/10/2021 10:18 AM EDT 50 mg Given 06/10/2021 10:14 AM EDT 20 mg Given 06/10/2021 10:13 AM EDT 50 mg documented in this encounter Care Teams Adapted Physical Education Aide Relationship Specialty Start Date End Date Stew Mario DO [address] [place] [address] PCP - General Family Medicine 03/24/21 documented as of this encounter
--- OUTSIDE RECORDS SUMMARY | 2023-09-23 16:00 | XMS_ITS | Encounter Summary ---
Author Organization [facility] [place] [address] Care Team Providers Care General Dentist/Owner Name Role Phone Stew Mario DO Primary Care Provider [phone] Reason for Visit * Reason Onset Date Comments Medication Refill 09/07/2021 Flecainide Encounter Details Date Type Department Care Team (Late st Contact Info) Description 09/07/2021 Refill Cardiology at [address] [phone] Chi Kinney MD [facility] [place] [address] Medication Refill (Flecainide) Social History Tobacco Use Types Packs/Day Years [...] fibrillation documented in this encounter Care Teams General Dentist/Owner Relationship Specialty Start Date End Date Stew Mario DO [address] [place] [address] PCP - General Family Medicine 03/24/21 documented as of this encounter
--- OUTSIDE RECORDS SUMMARY | 2023-09-23 16:00 | XMS_ITS | Encounter Summary ---
[place] [address] Care Team Providers Care Geothermal Operations Manager Name Role Phone Stew Mario DO Primary Care Provider [phone] Reason for Visit * Reason Onset Date Comments Prior Authorization 02/16/[address] tablets Encounter Details Date Type Department Care Team (Late st Contact Info) Description 02/16/2022 Telephone Cardiology at [address] [phone] Allison Han CMA Prior Authorization (Pantoprazole Sodium 40MG dr tablets) Social History Tobacco Use Types Packs/Day Years [...] encounter Miscellaneous Notes * Telephone Encounter - Dee Dee Wells CMA - 02/17/2022 7:06 AM ESTSummary: Approved MARCELL Outcome: PA Approval Medication Prior Authorization Approval Approved: Pantoprazole Sodium 40MG dr tablets Start Date: 02/16/2022 End Date: 02/16/2023 Case/Reference #: [id number] * Telephone Encounter - Allison Han CMA - 02/16/2022 12:59 PM EST Medication Prior Authorization Patient: Flo Sue Patient : 1970 Insurance Company: [employer] Sent via: [employer] Germain: [id number] Physician: David June PA Medication Requested: pantoprazole EC (Protonix) 40 mg Tablet, Delayed Release (E.C.) Frequency/Sig: take 1 tablet by mouth 2 times daily Disp: 60 Refills: 3 Currently taking: yes If yes, how lon03/2021 Diagnosis for this medication: GERD with esophagitis [K21.00] Additional Notes: documented in this encounter Plan of Treatment Not on file documented as of this encounter Visit Diagnoses Not on filedocumented in this encounter Care Teams Geothermal Operations Manager Relationship Specialty Start Date End Date Stew Mario DO [address] [place] [address] PCP - General Family Medicine 03/24/21 documented as of this encounter
--- OUTSIDE RECORDS SUMMARY | 2023-09-23 16:00 | XMS_ITS | Encounter Summary ---
[place] [address] Care Team Providers Care Software Engineer Backend Name Role Phone Stew Mario DO Primary Care Provider [phone] Reason for Visit * Reason Onset Date Comments Pre Procedure Call 06/01/2021 Encounter Details Date Type Department Care Team (Late st Contact Info) Description 06/01/2021 Telephone Cardiology at [address] [phone] Ana Maria Yancey, RN Pre Procedure Call [...] Flo Mireles Patient Providers: Murphy Shepherd / Get Carrion Date Scheduled: 06/10/21 Arrival Time/ Case [...] to procedure. NPO after midnight. Understands that flatbed company driver is needed to transport them upon discharge. documented in this encounter Plan of Treatment Not on file documented as of this encounter Visit Diagnoses Not on filedocumented in this encounter Care Teams Software Engineer Backend Relationship Specialty Start Date End Date Stew Mario DO [address] [facility] 1 [place] [address] PCP - General Family Medicine 03/24/21 documented as of this encounter
--- OUTSIDE RECORDS SUMMARY | 2023-09-23 16:00 | XMS_ITS | Encounter Summary ---
[place] [address] Care Team Providers Care Transit Bus Operator Name Role Phone Stew Mario DO Primary Care Provider [phone] Reason for Visit * Auth/Cert Specialty Diagnoses / Procedures Referred By Contac t Referred To Contact Diagnoses Abdominal pain abdominal pain. diarrhea- evaluate for microscopic colitis Procedures PRO UPPER GI ENDOSCOPY, DIAGNOSTIC PRO COLONOSCOPY, DIAGNOSTIC EGD, UPPER GI ENDOSCOPY COLONOSCOPY, DIAGNOSTIC Cuauhtemoc Olivas MD [facility] [place] [address] [facility] Referral ID Status Reason Start Date Expiration Date Visits Re quested Visits Authorized [id number] 1 1 Encounter Details Date Type Department Care Team (Late st Contact Info) Description 04/06/2022 7:38 AM EST Anesthesia [place] [address] Slim Campos MD [facility] [place] [address] Anesthesia Record Procedure Summary Procedure Name Responsible Anesthesiologist Anesthesia Start Time Anesthesia Stop Time EGD WITH BIOPSY (WRVU 2.39) (Trunk) Slim Campos MD 04/06/22 0738 04/06/22 0809 Events Date Time Event Comment 04/06/2022 0713 0738 AN Verify 0738 Start 0738 An Start Data 0741 An Induction 0742 Anesthesia Ready 0804 an stop data 0809 Recovery or ICU Handoff Leigha ent care was transferred to the destination unit staff after review of the patient's medical history, current anesthetic/surgical status and plan, according to the Provider Handoff Checklist. 0809 Stop Meds Name Total Propofol 80 mg Propofol INF 367.56 mg lactated ringers infusion 300 mL * Agents Name O2 Auxiliary Flowmeter 1 * Blood No blood administrations on file. Lines, Drains, and Airways Type Details Placement Removal (RETIRED) Peripheral IV Line - Single Lumen 04/06/22; 720; cephalic vein (lateral side of arm), right; [id number] catheter system; 20 gauge; 04/06/22; 0845 04/06/22 0721 by Iraida Meyer RN 04/06/22 0845 by Hedy Hoyt RN documented in this encounter Social History [...] OR Notes * Anesthesia Postprocedure Evaluation - Slim Campos MD - 04/06/2022 10:42 AM EST Department of Anesthesiology Post-procedure Note Patient: Flo Mireles Procedure Summary Date: 04/06/22 Room / Location: [facility] / [facility] Anesthesia Start: 737 Anesthesia Stop: 808 Procedures: EGD WITH BIOPSY (WRVU 2.49) (Trunk) COLONOSCOPY FLEXIBLE, WITH BX (WRVU 3.66) (Trunk) Diagnosis: Change in bowel habits Abdominal pain, unspecified abdominal location (abdominal pain. diarrhea- evaluate for microscopic colitis) Surgeons: Ángel Geronimo MD Responsible Provider: Slim Campos MD Anesthesia Type: MAC ASA Status: 2 All Anesthesia Providers: Anesthesiologist: Slim Campos MD CARBON PASTE MIXER OPERATOR: Terra Schwartz CRNA Vitals Value Taken Time BP 116/72 04/06/22 0830 Temp Pulse Resp 16 02/28/23 0830 SpO2 98 % 04/06/22 0839 Pain Level 0 04/06/22 0830 Vitals shown include unvalidated device data. Patient Location: PACU/SDP Level of Consciousness: Conscious but Sleepy Pain Management: Satisfactory Analgesia PONV: None Cardiovascular Status: Hemodynamically Stable Respiratory Status: Stable Respiratory Status Postoperative Fluid Status: Intravascular EUvolemia Possible Anesthetic Complications: NONE apparent at time of evaluation Final Primary Anesthesia Type: MAC (The anesthetic type performed was the same as planned.) Comments: * Anesthesia Preprocedure Evaluation - Slim Campos MD - 04/05/2022 3:28 PM EST Pre-Anesthesia Evaluation for: Flo Mireles a 51 y.o. male. Procedure(s): EGD, UPPER GI ENDOSCOPY COLONOSCOPY, DIAGNOSTIC Patient Active Problem List Diagnosis Date Noted ??? Paroxysmal atrial fibrillation 12/28/2021 ??? GERD with esophagitis 04/02/2021 ??? Hiatal hernia 04/02/2021 No past medical history on file. Past Surgical History: Procedure Laterality Date ??? PRO CARDIOVERSION ELECTIVE ARRHYTHMIA EXTERNAL N/A 06/10/2021 CARDIOVERSION-ELECTIVE (WRVU 2.25) performed by Sabino Zepeda MD at [facility] Social History Tobacco Use ??? Smoking status: Never ??? Smokeless tobacco: Never Substance Use Topics ??? Alcohol use: Yes Alcohol/week: 2.0 standard drinks Types: 2 Cans of beer per week Social History Substance and Sexual Activity Drug Use Not Currently No Known Allergies Medications: MAR and/or home medications have been reviewed. Physical Exam: Preprocedure Vitals Current as of 04/05/22 1528 No BP, pulse, respiration, SpO2, or temperature recorded. Height: Weight: BMI: IBW: Airway Assessment: Mallampati: III TM distance: >3 FB Neck ROM: limited Cardiovascular Assessment: system normal Pulmonary Assessment: pulmonary exam normal Dental Assessment: Misc Assessment: Last Filed Perioperative Cognitive Screening None Anesthesia Plan: ASA 2 MAC, with a(n) intravenous induction 51 yr old M pmhx GERD, afib s/p ablation, hiatal hernia presenting for upper/colo for change in bowel habits NPO time appropriate, GERD well controlled on regimen, > 4 METS, ROS negative except as noted above. anest in past, gr2 view on DL, easy mask Labs and imaging reviewed EKG most recently NSR Planning propofol mac Region - Other Informed Consent: Anesthetic plan and risks discussed with patient. Plan discussed with CARBON PASTE MIXER OPERATOR. Anesthesia Screening documented in this encounter Plan [...] 7:21 AM EST 100 mL/hr 100 mL/hr propofoL (Diprivan) (10 mg/mL) infusion Intravenous, CONTINUOUS PRN, Starting on Tue04/06/22 at 0741, Until Tue04/06/22 at 0809, Anesthesia Intra-op, Routine New Bag 04/06/2022 7:41 AM EST 200 mcg/kg/min 122.52 mL/hr propofoL (Diprivan) 10 mg/mL bolus injection (Anesthesia) Intravenous, PRN, Starting on Tue04/06/22 at 0746, Until Tue04/06/22 at 0809, Anesthesia Intra-op Given 04/06/2022 7:47 AM EST 30 mg Given 04/06/2022 7:46 AM EST 50 mg documented in this encounter Care Teams Transit Bus Operator Relationship Specialty Start Date End Date Stew Mario DO [address] [place] [address] [address] [place] [address] PCP - General Family Medicine 03/24/21 documented as of this encounter
--- OUTSIDE RECORDS SUMMARY | 2023-09-23 16:00 | XMS_ITS | Encounter Summary ---
Author Organization [facility] [place] [address] Care Team Providers Care Sba Underwriter Name Role Phone Stew Mario DO Primary Care Provider [phone] Encounter Details Date Type Department Care Team (Late st Contact Info) Description 07/28/2021 Orders [place] [address] Susan Farmer PA [facility] [place] [address] Change in bowel habits; Abdominal pain, unspecified abdominal location Social History Tobacco Use Types Packs/Day Years [...] as of this encounter Plan of Treatment Scheduled Orders Name Type Priority Associated Diagnoses Orde r Schedule ENDOSCOPY CASE REQUEST: EGD, UPPER GI ENDOSCOPY, COLONOSCOPY, DIAGNOSTIC Procedures Routine Change in bowel habits Abdominal pain, unspecified abdominal location Ordered: 07/28/2021 documented as of this encounter Visit Diagnoses Diagnosis Change in bowel habits Other symptoms involving digestive system Abdominal pain, unspecified abdominal location documented in this encounter Care Teams Sba Underwriter Relationship Specialty Start Date End Date Stew Mario DO [address] [place] [address] [address] [place] [address] PCP - General Family Medicine 03/24/21 documented as of this encounter
--- OUTSIDE RECORDS SUMMARY | 2023-09-23 16:00 | XMS_ITS | Encounter Summary ---
[place] [address] Care Team Providers Care Property Valuer Name Role Phone Stew Mario DO Primary Care Provider Encounter Details Date Type Department Care Team (Late st Contact Info) Description 06/02/2021 Orders Only Cardiology at [address] [address] Chi Kinney MD [facility] [address] Atrial fibrillation, unspecified type Social History Tobacco [...] type documented in this encounter Care Teams Property Valuer Relationship Specialty Start Date End Date Stew Mario DO [address] [place] [address] PCP - General Family Medicine 03/24/21 documented as of this encounter
--- OUTSIDE RECORDS SUMMARY | 2023-09-23 16:00 | XMS_ITS | Encounter Summary ---
Author Organization [facility] [address] Care Team Providers Care Gravity Prospecting Supervisor Name Role Phone Stew Mario DO Primary Care Provider Reason for Referral * Diagnostic Test (Routine) - Closed Specialty Diagnoses / Procedures Referred By Contac t Referred To Contact Radiology Diagnoses Persistent atrial fibrillation Procedures CT Cardiac for Morphology & Function PRG CT SCAN HEART STRUCTURE AND MORPHOLOGY W 3D IMAGE CONTRAST Abundio Cardoza MD [facility] [place] [address] [facility] [place] [address] Referral ID Status Reason Start Date Expiration Date V isits Requested Visits Authorized [id number] Closed Specialty Service Requested 12/03/2021 01/31/2022 1 1 Encounter Details Date Type Department Care Team (Late st Contact Info) Description 09/30/2021 8:00 AM EDT Office Visit Cardiology at [address] [phone] Carolina Cali MD [facility] [place] [address] Abundio Cardoza MD [facility] [place] [address] Persistent atrial fibrillation Social History Tobacco Use [...] EDT documented in this encounter Patient Instructions * Patient Instructions* Abundio Cardoza MD - 09/30/2021 8:00 AM EDT Mr. Mireles, It was a pleasure to meet you today. We will make arrangements for ablation. I will call your GI doctors to ascertain what their wishes will be regarding anticoagulation aroundthe time of your scopes. documented in this encounter Progress Notes * Abundio Cardoza MD - 09/30/2021 8:00 AM EDT Images from the original note were not included. [facility] [place] [address] CARDIOLOGY OUTPATIENT NOTE PRIMARY CARE PROVIDER: Stew Mario, REFERRING PROVIDER: Chi Kinney PROBLEM LIST: Patient [...] 200 BPM. His atrial fibrillation is mainly describedas symptoms of fatigue and exercise intolerance. An ambulatory monitor worn for 2 days in March 2021 indicated a 100% burden of atrial fibrillation with average heart rates ~100 BPM. He ultimatelyunderwent attempt at cardioversion in June of 2021 which was unsuccessful (attempted x2 with temporary return to NSR for approximately 1 minute each time before returning to AF). His regimen prior to this was diltiazem 240mg. He then was started on flecainide in the beginning of September,, and now presents for follow up. In discussion with the patient, he reports that since initiation of flecainide he has had no change in symptomology. He notes his heart rates have been trending around 60-90 at home. He denies any sense of palpitations. Review of Systems: Review of Systems Constitutional: Negative. Respiratory: Positive for shortness of breath. Genitourinary: Negative. Gastrointestinal: Negative. HENT: Negative. Musculoskeletal: Negative. 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 I will coordinate with the GI office for hadley-procedure anticoagulation plan but my sense is that now that the patient is in normal sinus rhythm and C2V score is quite low (0) that we would be able to discontinue AC a few days prior and re-initiate after scopes. Again, I will confirm with them. -Schedule ablation (PVI)- orders placed -No need for cardioversion prior given he is in NSR, maintain flecainide for now -I will coordinate with coordinate with GI re hadley-endoscopy anticoagulation- ideally he would haveuninterrupted 3 weeks of AC prior to an [...] reviewed in detail, listed above: 1. Mr. Mireles presents with symptomatic, persistent atrial fibrillation, now maintained in sinus by flecainide. He wishes to proceed with ablation, which is reasonable, given his youth and symptoms. Will schedule. Regarding his upcoming GI scopes, ideally this would be done PRIOR TO ablation so that post-ablation, anticoagulation will not be interrupted. ?? Dr. Carolina Cali, electrophysiology attending ([id number]) documented in this encounter Miscellaneous Notes * Addendum Note - Abundio Cardoza MD - 09/30/2021 8:00 AM EDTAddended by: ABUNDIO CARDOZA on: 09/30/2021 05:09 PM Modules accepted: Orders * Addendum Note - Carolina Cali MD - 09/30/2021 8:00 AM EDTAddended by: CAROLINA CALI on: 09/30/2021 10:17 PM Modules accepted: Level of Service documented in this encounter Plan of Treatment Scheduled Orders Name Type Priority Associated Diagnoses Order Schedule Transesophageal Echo/OR Echocardiography Routine Persistent atrial fibrillation One Time for 1 Occurrences starting 09/30/2021 until 09/30/2021 documented as of this encounter Procedures Procedure Name Priority Date/Time Associated Diagnosis Comments EKG 12-LEAD Routine 09/30/2021 9:12 AM EDT Persistent atrial fibrillation documented in this encounter [...] who have questions please contact the health home care provider that requested your imaging first. ? Electronically signed by: Tatum Ahuja MD, [facility] ([phone]), at 12/27/2021 9:02 PM Narrative 12/27/2021 9:02 PM EST EXAMINATION: CT [...] patients who have questions please contactthe health home care provider that requested your imaging first. Carolina Cali MD IMG CT ORDERABLES * EKG 12 Lead (09/30/2021 9:12 AM EDT) Ventricular rate 58 BPM MUSE SYSTEM Atrial Rate 58 BPM MUSE SYSTEM P-R Interval 206 ms MUSE SYSTEM QRS Duration 94 ms MUSE SYSTEM Q-T Interval 440 ms MUSE SYSTEM QTC Calculated (Bezet) 431 ms MUSE SYSTEM Calculated P [place] 39 degrees MUSE SYSTEM Calculated R [place] 6 degrees MUSE SYSTEM Calculated T [place] 69 degrees MUSE SYSTEM INTERPRETATION Sinus bradycardia with prolonged AV conduction Otherwise normal ECG When compared with ECG of 10-JUN-2021 10:41, Sinus rhythm has replaced Atrial fibrillation Vent. rate has decreased BY ??42 BPM I personally reviewed the tracing and edited the fellows interpretation Confirmed by fellow MD Wolf, [place] ([id number]) on 09/30/2021 9:56:45 AM Confirmed by MD Ramon, [place] ([id number]) on 09/30/2021 6:54:43 PM MUSE SYSTEM 09/30/2021 9:12 AM EDT 09/30/2021 6:54 PM EDT Carolina Cali MD ECG ORDERABLES [employer] SYSTEM documented in this encounter Visit Diagnoses Diagnosis Persistent atrial fibrillation Atrial fibrillation Persistent atrial fibrillation Atrial fibrillation documented in this encounter Care Teams Gravity Prospecting Supervisor Relationship Specialty Start Date End Date Stew Mario DO [address] [place] [address] PCP - General Family Medicine 03/24/21 documented as of this encounter
--- OUTSIDE RECORDS SUMMARY | 2023-09-23 16:00 | XMS_ITS | Encounter Summary ---
Author Organization [facility] [place] [address] Care Team Providers Care Clinical Practitioner Name Role Phone Stew Mario DO Primary Care Provider [phone] Encounter Details Date Type Department Care Team (Late st Contact Info) Description 08/14/2021 Telephone [place] [phone] Malinda May Social History Tobacco Use Types [...] Miscellaneous Notes * Telephone Encounter - Malinda Yanelis Valery - 08/14/2021 3:10 PM EDT Flo Mireles [id number] Diagnosis/Indication: abdominal pain. diarrhea- evaluate for microscopic [...] No 18. You must have a responsible alliance party who will drive you to your procedure, stay on campus for the entire duration of your procedure, and drive you home from your procedure. Who will likely be your bookmobile driver for the procedure? *Please Verify the [...] on filedocumented in this encounter Care Teams Clinical Practitioner Relationship Specialty Start Date End Date Stew Mario DO [address] [facility] [address] [place] [address] PCP - General Family Medicine 03/24/21 documented as of this encounter
--- OUTSIDE RECORDS SUMMARY | 2023-09-23 16:01 | XMS_ITS | Encounter Summary ---
Author Organization [facility] [place] [address] Care Team Providers Care Child Care Teacher Name Role Phone Stew Mario DO Primary Care Provider [phone] Encounter Details Date Type Department Care Team (Late st Contact Info) Description 11/05/2014 [place] [address] Roberta Starkey APRN [facility] [place] [address] Social History Tobacco Use Types Packs/Day Years Used Date Smoking Tobacco: Never Assessed Sex and Gender Information Value Date Recorded Sex Assigned at Male 04/03/2021 10:46 AM EST Gender Identity Male 04/03/2021 10:46 AM EST Sexual Orientation Straight 04/03/2021 10 :46 AM EST documented as of this encounter Plan of Treatment Not on file documented as of this encounter Visit Diagnoses Not on filedocumented in this encounter Care Teams Child Care Teacher Relationship Specialty Start Date End Date Stew Mario DO [address] [place], [place] [address] PCP - General 12/30/09 03/23/21 documented as of this encounter
--- OUTSIDE RECORDS SUMMARY | 2023-09-23 16:01 | XMS_ITS | Encounter Summary ---
Author Organization [facility] Address [address] [place] [address] Care Team Providers Care Bread Molder Name Role Phone Unavailable Primary Care Provider Unavailabl e Encounter Details Date Type Department Care Team (Late st Contact Info) Description 09/22/2010 Results Only [facility] Laboratory Services - [facility] [address] [place], [place] [id number] Don Gilliam, DO [address] [facility] [address] [place], [place] [id number] Social History Tobacco Use Types Packs/Day Years Used Date Smoking Tobacco: Never Assessed Sex and Gender Information Value Date Recorded Sex Assigned at Not on file Gender Identity Not on file Sexual Orientation Not on file documented as of this encounter Plan of Treatment Not on file documented as of this encounter Procedures Procedure Name Priority Date/Time Associated Diagnosis Comments SURGICAL PATHOLOGY Routine 09/22/2010 0:00 EDT documented in this encounter Results * SURGICAL PATHOLOGY (09/22/2010 0:00 EDT) Pathology Report: SURGICAL PATHOLOGY REPORT ? Reports generated via electronic interface contain original data; ? however they are lacking the format of the original report. ? Caution should be taken when reading/interpreti ng unformatted reports. ? Name: ? GEORGE, JEAN CLAUDE D ? Accession #: ? [id number] ? : ? 1970 (Age: 40) ??M ? Collect Date: ? 09/22/2010 ? Location: ? [facility] ? Receive Date: ? 09/23/2010 ? Provider: DON GILLIAM DO ? Copy to: VINCENT F GISELLE DO ? Final Pathologic Diagnosis: ? A. ?Small bowel, duodenum, biopsies: ? 1. ?Duodenal mucosa with reactive features including extensive foveolar metaplasia. ? B. ?Stomach, antrum, ulcer, biopsies: ? 1. ?Gastric antral mucosa with reactive gastropathy. ? C. ?Stomach, antrum, biopsies: ? 1. ?Gastric antral and body mucosa with no specific pathologic features. ? D. ?Esophagus, distal, biopsies: ? 1. ?Squamocolumnar junctional mucosa with reactive features. ? - Negative for intestinal metaplasia/Negativ e for dysplasia. ? Document reviewed and electronically signed by: ? ERIK BLANCO MD ? Report ??Date: 09/25/2010 13:22 ? By the signature above, the attending physician certifies that he/she has ? personally conducted a gross and/or microscopic examination of the described ? specimens and rendered or confirmed the above diagnosis. ? Specimen(s) Received: ? A. ?Bx duodenum ? B. ? Bx antral ulcer ? C. ? Bx antrum ? D. ? Bx distal esophagus ? Clinical History: ? Epigastric pain ? Gross Description: ? Received in formalin labelled George, Jean Claude and bx duodenum are six ? bass-pink, irregular soft tissue fragments ranging from 0.2 x 0.2 x 0.2 cm to 0.3 x 0.3 x 0.3 cm. ??The specimen is entirely submitted as (A1) and (A2). ? Received in formalin labelled George, Jean Claude and bx antral ulcer are two ? bass-pink, irregular soft tissue fragments averaging 0.2 x 0.2 x 0.2 cm. ??The ? specimen is entirely submitted as (B). ? Received in formalin labelled George, Jean Claude and bx antrum are two bass-pink, ?? irregular soft tissue fragments measuring 0.2 x 0.2 x 0.2 cm and 0.6 x 0.2 x 0.2 cm. ??The specimen is entirely submitted as (C). ? Received in formalin labelled George, Jean Claude and bx distal esophagus are two ?? bass-pink, irregular soft tissue fragments measuring 0.4 x 0.3 x 0.2 cm and 0.5 x 0.2 x 0.1 cm, [facility] (D[facility] ??(Rahel Lock)/cj ? End of Report ? EMIGDIO PEARSON 09/22/2010 09/23/2010 10: 58 EDT Don Gilliam DO PATHOLOGY ORDER [facility] [address] [place] [address] documented in this encounter Visit Diagnoses Not on filedocumented in this encounter
--- OUTSIDE RECORDS SUMMARY | 2023-09-23 16:01 | XMS_ITS | Encounter Summary ---
Author Organization [facility] [place] [address] Care Team Providers Care Religious Leader Name Role Phone Stew Mario DO Primary Care Provider Reason for Referral * Consultation (Routine) - Closed Specialty Diagnoses / Procedures Referred By Contac t Referred To Contact Cardiology Diagnoses Chronic atrial fibrillation ?ABLATION VS OTHER THERAPY (EP defers to [facility]) * SCANNED DOCS Stew Mario DO [address] [place] [address] [facility] [address] [place] [id number] Referral ID Status Reason Start Date Expiration Date V isits Requested Visits Authorized [id number] Closed Consult, Test & Treat 03/28/2021 03/28/2022 6 6 Encounter Details Date Type Department Care Team (Late st Contact Info) Description 03/28/2021 [place] [address] Stew Mario DO [address] [place] [address] Chronic atrial fibrillation Social History Tobacco Use Types Packs/Day Years Used Date Smoking Tobacco: Never Sex and Gender Information Value Date Recorded Sex Assigned at Male 04/03/2021 10:46 AM EST Gender Identity Male 04/03/2021 10:46 AM EST Sexual Orientation Straight 04/03/2021 10 :46 AM EST documented as of this encounter Plan of Treatment Scheduled Referrals Name Type Priority Associated Diagnoses Orde r Schedule Referral to Cardiology Outpatient Referral Routine Chronic atrial fibrillation Ordered: 03/28/2021 documented as of this encounter Visit Diagnoses Diagnosis Chronic atrial fibrillation Atrial fibrillation documented in this encounter Care Teams Religious Leader Relationship Specialty Start Date End Date Stew Mario DO [address] [facility] [address] [place] [address] PCP - General Family Medicine 03/24/21 documented as of this encounter
--- OUTSIDE RECORDS SUMMARY | 2023-09-23 16:01 | XMS_ITS | Encounter Summary ---
[place] [address] Care Team Providers Care Assistant Professor In Family Studies Name Role Phone Stew Mario DO Primary Care Provider [phone]- [phone] Reason for Visit * Reason Comments Hematuria * Consultation (Routine) - Closed Specialty Diagnoses / Procedures Referred By Jailene t Referred To Contact Urology Diagnoses hematuria Junaid Santana MD [address] [place] [address] [facility] [place] [address] Referral ID Status Reason Start Date Expiration Date V isits Requested Visits Authorized [id number] Closed Consult, Test & Treat [facility] 10/31/2014 10/31/2015 1 1 Encounter Details Date Type Department Care Team (Late st Contact Info) Description 11/18/2014 10:00 AM EDT [place] [address] Balta Woods MD Hematuria, undiagnosed cause Social History Tobacco Use Types Packs/Day Years [...] 36.6 ??C (97.9 ??F) 11/18/2014 9:41 AM ED T Respiratory Rate 18 11/18/2014 9:41 AM EDT Oxygen Saturation 99% 11/18/2014 9:41 AM EDT Inhaled Oxygen Concentration - - Weight 95.3 kg (210 lb) 11/18/2014 9:41 AM EDT Height 167.6 cm (5' 6) 11/18/2014 9:41 AM EDT Body Mass Index 33.89 11/18/2014 9:41 AM EDT documented in this encounter Progress Notes * Balta Woods MD - 11/20/2014 7:31 PM EDT Subjective: Patient ID: Flo Mireles is a 44 y.o. male. HPI Referred by Dr Santana to evaluate gross hematuria. Developed total hematuria lasting approx. 3 daysabout 3 weeks ago. C/O penile pain when [...] right renal cyst. Previously known 2 mm stone not seen Assessment and Plan: Gross hematuria now [...] Procedure Name Priority Date/Time Associated Diagnosis Comments NON-MANAGER FOREIGN FINAL REPORT Routine 11/18/2014 11:27 AM EDT CYTOPATHOLOGY NON-GYNECOLOGICAL Routine 11/18/2014 11:27 AM EDT Hematuria, undiagnosed cause documented in this encounter Results * Non-Mammalogy Teacher Final Report (11/18/2014 11:27 AM EDT) Diagnosis Discussion The signing pathologist has (i) examined the relevant preparation(s) for the specimen(s) and (ii) rendered or confirmed the diagnosis(es). Accession Number: [id number] ?Location: 5B . ? Non-Mammalogy Teacher Final DIAGNOSIS Negative for Malignancy 11/18/14 ?Screened by: ? REP ?Rescreened by: ?? EJG 11/19/14 ?Verified by: ? Funmilayo QUIGLEY, Brandon Ware ? Cytopathologist ? (Electronic Signature) DISCUSSION Urine, Voided: Urothelial and squamous cells present. CLINICAL INFORMATION Specimen Source : ?? Urine, Voided Pertinent Clinical Data and Significant Therapy: ?? Hematuria Clinical Impression : ?? Hematuria Pertinent Radiologic Findings ??: ?? (not provided) Gross Description: ?? Received ??in 50% ETOH, ??approximately 60 ml. total volume of ?? clear, yellow fluid. ?? Total Preparation: Liquid Based Prep 1. 11/19/2014 10:16 AM EDT [facility] URINE SPECIMEN OBTAINED BY CLEAN CATCH PROCEDURE / Unknown 11/18/2014 11:27 AM EDT 11/18/2014 11:27 AM EDT Balta Woods MD PATHOLOGY/CYTOLOGY O RDERABLES [facility]ATHIE [facility] [place] [place] [address] * Cytopathology Non-Gynecological (11/18/2014 11:27 AM EDT) AP Specimen 11/18/2014 11:2 7 AM EDT 11/18/2014 11:27 AM EDT Narrative KATHIE ATKINS - 11/18/2014 11:27 AM EDT Specimen requisition ordered. ??Separate Pathology report to follow Balta Woods MD PATHOLOGY/CYTOLOGY O RDERABLES [facility] documented in this encounter Visit Diagnoses Diagnosis Hematuria, undiagnosed cause Hematuria, unspecified documented in this encounter Care Teams Assistant Professor In Family Studies Relationship Specialty Start Date End Date Stew Mario, DO [address] [place] [address] PCP - General 12/30/09 03/23/21 documented as of this encounter
--- OUTSIDE RECORDS SUMMARY | 2023-09-23 16:01 | XMS_ITS | Encounter Summary ---
Author Organization [facility] Address [address] [place] [address] Care Team Providers Care Shellacker Name Role Phone Unknown, Provider Primary Care Provider [phone] Encounter Details Date Type Department Care Team (Late st Contact Info) Description 12/27/2022 Lab Requisition [facility] Pathology & Laboratory Medicine - [facility] [address] [place] [address] Mychal Chaney, [address] [place], [place] [id number] Neoplasm of unspecified behavior of bone, soft tissue, and skin Social History Tobacco Use Types Packs/Day Years Used Date Smoking Tobacco: Never Assessed Interpersonal Safety Answer Date Record ed Physically Hurt Never 09/09/2019 Verbally Threaten Not on file 09/09/2019 Sex and Gender Information Value Date Recorded Sex Assigned at Not on file Gender Identity Not on file Sexual Orientation Not on file documented as of this encounter Plan of Treatment Not on file documented as of this encounter Procedures Procedure Name Priority Date/Time Associated Diagnosis Comments SURGICAL PATHOLOGY Today 12/24/2022 16 :05 EST Neoplasm of unspecified behavior of bone, soft tissue, and skin documented in this encounter Results * SURGICAL PATHOLOGY (12/24/2022 16:05 EST) Note to Patient The following pathology results have been interpreted by your pathologist and may be available to you before your health provider has had the opportunity to review them. Please allow time for your provider to receive these results and explore management options, if applicable. 12/29/2022 10:13 EST [facility] Final Diagnosis A. SKIN OF LEG, LEFT UPPER, SHAVE BIOPSIES (2): - Melanocytic nevus, junctional lentiginous type, with unusual architectural features and mild cytologic atypia. - Nevus present at peripheral tissue edge. 12/29/2022 10:13 [facility] Attestation By the signature below, the attending physician certifies that they have 1) personally conducted a gross and/or microscopic examination of the described specimen(s), and/or personally interpreted the results of laboratory testing of the described specimen(s), and 2) personally rendered or confirmed the above diagnosis. 12/29/2022 10:13 [facility] at 1013 Microscopic Description The epidermis shows mild hyperplasia consisting of thin and clubbed rete ridges. There is a proliferation of melanocytes within the epidermis that consists of rare nests but is predominated by individual cells in a lentiginous pattern. The nests are small and located at the tips of rete ridges. The individual melanocytes are generally evenly spaced along the dermal-epidermal junction. The melanocytes are slightly enlarged and have dark nuclei. There is abundant melanin pigment within the epidermis, stratum corneum, and dermal melanophages. 12/29/2022 10:13 [facility] Clinical History Clinical diagnosis code: D49.2 12/29/2022 10:13 [facility] Gross Description A. Received in formalin labelled with proper patient identification (initials C, A) and left upper leg is a shave biopsy of bass hair-bearing skin (0.8 x 0.6 by less than 0.1 cm). There is an irregular dark brown macule at one edge that measures 0.3 x 0.2 cm. Received in the same specimen container is a shave biopsy of bass hair-bearing skin (0.7 x 0.4 by less than 0.1 cm). There is a linear dark brown macule along one edge that measures 0.2 by less than 0.1 cm. The margins are inked blue. The larger tissue is bisected and entirely submitted in A1 and the smaller tissue is submitted intact in A2. Marii Lemus 12/28/2022 10:09 12/29/2022 10:13 [facility] Performing Lab [facility] 12/29/2022 10:13 EST [facility] Scanned Images 12/29/2022 10:13 EST [facility] Tissue SPECIMEN FROM SKIN / Unknown 12/24/2022 16:05 EST 12/27/2022 19:04 EST Mychal Chaney DO PATHOLOGY ORDER MARII [facility] [address] [place] [address] documented in this encounter Visit Diagnoses Diagnosis Neoplasm of unspecified behavior of bone, soft tissue, and skin documented in this encounter Care Teams Shellacker Relationship Specialty Start Date End Date Unknown, Provider, PCP - General 09/24/10 documented as of this encounter
--- OUTSIDE RECORDS SUMMARY | 2023-09-23 16:01 | XMS_ITS | Encounter Summary ---
[place] [address] Care Team Providers Care Web Editor Name Role Phone Stew Mario DO Primary Care Provider [phone]- [phone] Reason for Referral * Consultation (Routine) - Specialty Diagnoses / Procedures Referred By Contac t Referred To Contact Radiology Diagnoses Gross hematuria Procedures CT Abdomen & Pelvis With Contrast (GENERIC) CT Abdomen & Pelvis With/Wo Contrast Roberta Starkey APRN [facility] [place] [address] [facility] [place] [address] Referral ID Status Reason Start Date Expiration Date Visits Requested Visits Authorized [id number] Specialty Service Requested 11/18/2014 11/18/2014 1 1 Reason for Visit * Consultation (Routine) - Specialty Diagnoses / Procedures Referred By Contac t Referred To Contact Radiology Diagnoses Gross hematuria Procedures CT Abdomen & Pelvis With Contrast (GENERIC) CT Abdomen & Pelvis With/Wo Contrast Roberta Starkey TRAINING AND DEVELOPMENT ASSISTANT [facility] [place] [address] [facility] [place] [address] Referral ID Status Reason Start Date Expiration Date Visits Requested Visits Authorized [id number] Specialty Service Requested 11/18/2014 11/18/2014 1 1 Encounter Details Date Type Department Care Team (Latest Contact Info) Description 11/18/2014 8:27 AM EDT - 11/18/2014 11:59 PM EDT Hospital Encounter CT Scan at [facility] [place] [address] Jhon Rascon MD [facility] [place] [address] Gross hematuria Discharge Disposition: Home Social History Tobacco Use [...] End Date citalopram (CELEXA) 20 mg tablet 05/16/19 05 12/04/2014 documented as of this encounter Plan of Treatment Not on file documented as of this encounter Procedures Procedure Name Priority Date/Time Associated Diagnosis Comments CT ABDOMEN AND PELVIS W CONTRAST Routine 11/18/2014 9:10 AM EDT Gross hematuria documented in this encounter Results * CT Abdomen & Pelvis With Contrast (GENERIC) (11/18/2014 9:10 AM EDT) Anatomical Region Laterality Modality Abdomen, Pelvis Computed Tomogra phy Impressions 11/18/2014 11:52 AM EDT IMPRESSION: 1. ??No focal renal lesion or collecting system abnormality, within the opacified portions of the ureters, to explain patient's hematuria. 2. ??Small 6 mm well-defined hypodensity within the upper pole the right kidney is too small to characterize but statistically likely represents a benign renal cyst. 3. ??Cholelithiasis without evidence of cholecystitis. I have personally reviewed the image(s) and the residents interpretation and agree with the findings, Lashay Mcdaniel at 11/18/2014 11:52 AM Narrative 11/18/2014 11:52 AM EDT EXAMINATION: ??CT ABDOMEN & PELVIS WITH CONTRAST CLINICAL HISTORY: ??gross hematuria. pt has outside stone protocol CT loaded on system. please do nephrographic and delayed phases TECHNIQUE: Helical CT of the abdomen and pelvis was performed prior to and following intravenous administration of 110 ml of Omnipaque 350. ??3D VR and MIP images were reformatted on a separate workstation and reviewed as part of this study. COMPARISON: ??None FINDINGS: Right kidney and ureter: No hydronephrosis or hydroureter. ??There is a small approximately 6 mm well-defined area of hypodensity within the upper pole the right kidney which is too small to characterize but statistically likely represents a benign renal cyst. ??There is incomplete opacification of the distal ureter on delayed phase imaging. No intraluminal filling defect is noted within the opacified portions of the proximal collecting system and ureter. Left kidney and ureter: The small right upper pole nonobstructing renal calculus is not identified on today's exam. ?? No hydronephrosis or hydroureter. ?? No renal lesions. ?? The distal pelvic ureter is not opacified. No intraluminal filling defect is noted within the opacified portion of the proximal collecting system and ureter. Urinary bladder: Incompletely distended but well opacified. No intraluminal filling defect, or wall thickening is noted. No bladder calculi. Liver: Normal. Gallbladder and biliary system: Unchanged small calculi within the gallbladder neck. No gallbladder wall thickening or pericholecystic fluid noted. No intrahepatic or extrahepatic biliary ductal dilatation. Spleen: Normal. Pancreas: Normal. Adrenal glands: Normal. No free fluid in the abdomen or pelvis. Unchanged bilateral fat-containing inguinal hernias. No abdominal or pelvic lymphadenopathy. Bowel and mesentery: No inflammatory or obstructive process. Osseous structures: Stable approximately 1.3 cm densely sclerotic lesion within the left iliac body which likely represents a bone island. No suspicious osseous lesions identified. Procedure Note Lashay Mcdaniel MD - 11/18/2014 EXAMINATION: CT ABDOMEN & PELVIS WITH CONTRAST CLINICAL HISTORY: gross hematuria. pt has outside stone protocol CTloaded on system. please do nephrographic and delayed phases TECHNIQUE: Helical CT of the abdomen and pelvis was performed prior toand following intravenous administration of 110 ml of Omnipaque 350. 3D VRand MIP images were reformatted on a separate workstation and reviewed as part ofthis study. COMPARISON: None FINDINGS: Right kidney and ureter: No hydronephrosis or hydroureter. There is asmall approximately 6 mm well-defined area of hypodensity within the upper polethe right kidney which is too small to characterize but statistically likely represents a benign renal cyst. There is incomplete opacification of thedistal ureter on delayed phase imaging. No intraluminal filling defect is notedwithin the opacified portions of the proximal collecting system and ureter. Left kidney and ureter: The small right upper pole nonobstructing renalcalculus is not identified on today's exam. No hydronephrosis or hydroureter.No renal lesions. The distal pelvic ureter is not opacified. Nointraluminal filling defect is noted within the opacified portion of the proximalcollecting system and ureter. Urinary bladder: Incompletely distended but well opacified. Nointraluminal filling defect, or wall thickening is noted. No bladder calculi. Liver: Normal. Gallbladder and biliary system: Unchanged small calculi within thegallbladder neck. No gallbladder wall thickening or pericholecystic fluid noted. No intrahepatic or extrahepatic biliary ductal dilatation. Spleen: Normal. Pancreas: Normal. Adrenal glands: Normal. No free fluid in the abdomen or pelvis. Unchanged bilateralfat-containing inguinal hernias. No abdominal or pelvic lymphadenopathy. Bowel and mesentery: No inflammatory or obstructive process. Osseous structures: Stable approximately 1.3 cm densely sclerotic lesionwithin the left iliac body which likely represents a bone island. No suspiciousosseous lesions identified. IMPRESSION IMPRESSION: 1. No focal renal lesion or collecting system abnormality, within theopacified portions of the ureters, to explain patient's hematuria. 2. Small 6 mm well-defined hypodensity within the upper pole the rightkidney is too small to characterize but statistically likely represents a benignrenal cyst. 3. Cholelithiasis without evidence of cholecystitis. I have personally reviewed the image(s) and the residents interpretationand agree with the findings, Lashay Mcdaniel at 11/18/2014 11:52 AM Jhon Rascon MD IMG CT ORD ERABLES documented in this encounter Visit Diagnoses Diagnosis Gross hematuria documented in this encounter Administered Medications Inactive Administered Medications - up to 3 most recent administrations Medication Order MAR Action Action Date Dose Rate Site iohexol (OMNIPAQUE) 350 mg/mL solution 38,500 mg 38,500 mg (110 mL), Intravenous, ONCE PRN, 1 dose, Starting on Tue11/18/14 at 0904, Until Tue11/18/14 at 1000, Per Protocol, Routine Given 11/18/2014 10:00 AM EDT 38,500 mg documented in this encounter Care Teams Web Editor Relationship Specialty Start Date End Date Stew Mario, [address] [place] [address] PCP - General 12/30/09 03/23/21 documented as of this encounter
--- OUTSIDE RECORDS SUMMARY | 2023-09-23 16:01 | XMS_ITS | Encounter Summary ---
Author Organization [facility] Address [address] [place] [address] Care Team Providers Care Radio Board Operator Announcer Name Role Phone Unknown, Provider Primary Care Provider [phone] Encounter Details Date Type Department Care Team (Late st Contact Info) Description 04/03/2019 Lab Requisition [facility] Pathology & Laboratory Medicine - [address] [address] Bri Sim, DO [address] [place], [place] [id number] Gastro-esophageal reflux disease with esophagitis; Obstructive sleep apnea (adult) (pediatric); Diaphragmatic hernia without obstruction or gangrene; Calculus of gallbladder without cholecystitis without obstruction Social History Tobacco Use Types Packs/Day Years Used Date Smoking Tobacco: Never Assessed Sex and Gender Information Value Date Recorded Sex Assigned at Not on file Gender Identity Not on file Sexual Orientation Not on file documented as of this encounter Plan of Treatment Not on file documented as of this encounter Procedures Procedure Name Priority Date/Time Associated Diagnosis Comments SURGICAL PATHOLOGY Today 04/02/2019 9: 53 EST Gastro-esophageal reflux disease with esophagitis Obstructive sleep apnea (adult) (pediatric) Diaphragmatic hernia without obstruction or gangrene Calculus of gallbladder without cholecystitis without obstruction documented in this encounter Results * SURGICAL PATHOLOGY (04/02/2019 9:53 EST) Final Diagnosis A. GALLBLADDER, CHOLECYSTECTOMY: - Chronic cholecystitis and cholesterolosis. - Cholelithiasis. 04/04/2019 13:45 EST [facility] at 1345 Clinical History Gallstones 04/04/2019 13:45 [facility] Attestation By the signature below, the attending physician certifies that they have 1) personally conducted a gross and/or microscopic examination of the described specimen(s), and/or personally interpreted the results of laboratory testing of the described specimen(s), and 2) personally rendered or confirmed the above diagnosis. 04/04/2019 13:45 [facility] at 1345 Gross Description A. Received in formalin labelled with proper patient identification (initials C, A) and gallbladder is intact gallbladder and attached cystic duct, 7.2 x 3.0 x 1.7 cm. Periductal lymph nodes are not identified. The serosa is without adhesions. The cystic duct lumen measures 0.3 cm in diameter and is patent at its distal aspect. The gallbladder lumen contains minimal bile. There is a yellow-green ovoid calculus, 0.8 cm in diameter noted lodged within the duct adjacent to the gallbladder lumen. The gallbladder mucosa is green tai and shows moderate cholesterol stippling. A 0.2 cm cholesterol polyp is present. The wall is without areas of induration, ranging from 0.1 to 0.5 cm in thickness. Gear Lapping Machine Operator sections are submitted to include the cystic duct margin en face in A1. Angela Watson 04/03/2019 10:29 04/04/2019 13:45 [facility] Scanned Images 04/04/2019 13:45 [facility] Tissue ENTIRE GALLBLADDER / Unknown 04/02/2019 9:53 EST 04/03/2019 8:41 EST Bri Sim DO PATHOLOGY ORDERABLES [facility] [address] [place] [address] documented in this encounter Visit Diagnoses Diagnosis Gastro-esophageal reflux disease with esophagitis Reflux esophagitis Obstructive sleep apnea (adult) (pediatric) Diaphragmatic hernia without obstruction or gangrene Diaphragmatic hernia without mention of obstruction or gangrene Calculus of gallbladder without cholecystitis without obstruction Calculus of gallbladder without mention of cholecystitis or obstruction documented in this encounter Care Teams Radio Board Operator Announcer Relationship Specialty Start Date End Date Unknown, Provider, PCP - General 09/24/10 documented as of this encounter
--- OUTSIDE RECORDS SUMMARY | 2023-09-23 16:01 | XMS_ITS | Encounter Summary ---
[place] [address] Care Team Providers Care Window Caser Name Role Phone Stew Mario DO Primary Care Provider [phone] Reason for Referral * Consultation (Routine) - Specialty Diagnoses / Procedures Referred By Contac t Referred To Contact Radiology Diagnoses Gross hematuria Procedures CT Abdomen & Pelvis With Contrast (GENERIC) CT Abdomen & Pelvis With/Wo Contrast Roberta Starkey APRN [facility] [place] [address] [facility] [place] [address] Referral ID Status Reason Start Date Expiration Date Visits Requested Visits Authorized [id number] Specialty Service Requested 11/18/2014 11/18/2014 1 1 Encounter Details Date Type Department Care Team (Late st Contact Info) Description 11/01/2014 Orders [place] [address] Roberta Starkey SALES INCENTIVE ANALYST [facility] [place] [address] Gross hematuria Social History Tobacco Use Types Packs/Day Years Used Date Smoking Tobacco: Never Assessed Sex and Gender Information Value Date Recorded Sex Assigned at Male 04/03/2021 10:46 AM EST Gender Identity Male 04/03/2021 10:46 AM EST Sexual Orientation Straight 04/03/2021 10 :46 AM EST documented as of this encounter Plan of Treatment Not on file documented as of this encounter Results * CT Abdomen & [...] Visit Diagnoses Diagnosis Gross hematuria Gross hematuria documented in this encounter Care Teams Window Caser Relationship Specialty Start Date End Date Stew Mario, [address] [place] [address] PCP - General 12/30/09 03/23/21 documented as of this encounter
--- OUTSIDE RECORDS SUMMARY | 2023-09-23 16:01 | XMS_ITS | Clinical Summary ---
Author Organization [facility] Address [address] [place] [address] Care Team Providers Care Cutter Finisher Name Role Phone Unknown, Provider Primary Care Provider Social History Tobacco Use Types Packs/Day Years Used Date Smoking Tobacco: Never Assessed Interpersonal Safety Answer Date Record ed Physically Hurt Never 09/09/2019 Verbally Threaten Not on file 09/09/2019 Sex and Gender Information Value Date Recorded Sex Assigned at Not on file Gender Identity Not on file Sexual Orientation Not on file Plan of Treatment Health Maintenance Due Date Last Done Comments Hepatitis C Screen 1970 Hepatitis B Vaccine (1 of 3 - 19+ 3-dose series) 08/01 COVID-19 Vaccine (2022-24 season) 2022 Care Teams Cutter Finisher Relationship Specialty Start Date End Date Unknown, Provider, PCP - General 09/24/10
--- OUTSIDE RECORDS SUMMARY | 2023-09-23 16:01 | XMS_ITS | Encounter Summary ---
[place] [address] Care Team Providers Care Welding Foreman Name Role Phone Stew Mario DO Primary Care Provider [phone]- [phone] Encounter Details Date Type Department Care Team (Late st Contact Info) Description 12/04/2014 4:20 PM EDT [place] [address] Balta Woods MD urethral stricture; Hematuria, gross Social History Tobacco Use Types Packs/Day Years [...] 36.6 ??C (97.8 ??F) 12/04/2014 3:44 PM ED T Respiratory Rate 18 12/04/2014 3:44 PM EDT Oxygen Saturation 100% 12/04/2014 3:44 PM EDT Inhaled Oxygen Concentration - - Weight 95.3 kg (210 lb) 12/04/2014 3:44 PM EDT Height 167.6 cm (5' 6) 12/04/2014 3:44 PM EDT Body Mass Index 33.89 12/04/2014 3:44 PM EDT documented in this encounter Progress Notes * Balta Woods MD - 12/04/2014 8:28 PM [...] very thin mid-bulbar stricture. Scope passed easily throughthe stricture The prostatic fossa was normal The [...] stricture Gross hematuria Hematuria, gross Gross hematuria documented in this encounter Care Teams Welding Foreman Relationship Specialty Start Date End Date Stew Mario DO [address] [place] [address] PCP - General 12/30/09 03/23/21 documented as of this encounter
--- OUTSIDE RECORDS SUMMARY | 2023-09-23 16:01 | XMS_ITS | Encounter Summary ---
Author Organization [facility] Address [address] [place] [address] Care Team Providers Care Risk Control Field Representative Name Role Phone Unknown, Provider Primary Care Provider [phone] Encounter Details Date Type Department Care Team (Late st Contact Info) Description 12/27/2016 Results Only [facility] [phone] Bina Muniz MD [facility] [place] [address] Social History Tobacco Use Types Packs/Day Years Used Date Smoking Tobacco: Never Assessed Sex and Gender Information Value Date Recorded Sex Assigned at Not on file Gender Identity Not on file Sexual Orientation Not on file documented as of this encounter Plan of Treatment Not on file documented as of this encounter Procedures Procedure Name Priority Date/Time Associated Diagnosis Comments SURGICAL PATHOLOGY Routine 12/27/2016 8:04 EST documented in this encounter Results * SURGICAL PATHOLOGY (12/27/2016 8:04 EST) Pathology Report: SURGICAL PATHOLOGY REPORT Reports generated via electronic interface contain original data; however they are lacking the format of the original report. Caution should be taken when reading/interpret ing unformatted reports. Name: ? JEAN CLAUDE GEORGE ? Accession #: ? [id number] ? : ? 1970 (Age: 46) ??M ? Collect Date: ? 12/27/2016 ? Location: ? [facility] ? Receive Date: ? 12/27/2016 ? Provider: BINA MUNIZ MD Copy to: VINCENT Prieto GISELLE DO ? Final Pathologic Diagnosis: COLON, SIGMOID, POLYP, BIOPSY: - ??Hyperplastic polyp. - ??Deeper levels examined. Document reviewed and electronically signed by: ERIK BLANCO MD Report ??Date: 12/31/2016 13:46 By the signature above, the attending physician certifies that he/she has personally conducted a gross and/or microscopic examination of the described specimens and rendered or confirmed the above diagnosis. Specimen(s) Received: Sigmoid colon polyp Clinical History: Fam hx colon cancer; screening for colon cancer Gross Description: ? Received in formalin labelled with proper patient identification (initials C, A) and sigmoid colon polyp is a single pink-bass tissue fragment (0.4 x 0.2 x 0.2 cm). Submitted intact in 1. MARCELL Wyatt (ASCP) 12/28/2016 8:48 AM End of Report [facility] 12/27/2016 8:04 EST 12/27/2016 8:04 EST Bina Muniz MD PATHOLOGY [facility] [address] [place] [address] documented in this encounter Visit Diagnoses Not on filedocumented in this encounter Care Teams Risk Control Field Representative Relationship Specialty Start Date End Date Unknown, Provider, PCP - General 09/24/10 documented as of this encounter
--- OUTSIDE RECORDS SUMMARY | 2023-09-23 16:01 | XMS_ITS | Encounter Summary ---
Author [facility] [place] [address] Care Team Providers Care Sandstone Inspector Repairer Name Role Phone Stew Mario DO Primary Care Provider [phone]- [phone] Encounter Details Date Type Department Care Team (Late st Contact Info) Description 11/06/2014 Orders [place] [address] Roberta Starkey APRN [facility] [place] [address] Social History Tobacco Use Types Packs/Day Years [...] on filedocumented in this encounter Care Teams Sandstone Inspector Repairer Relationship Specialty Start Date End Date Stew Mario DO [address] [place], [place] [address] PCP - General 12/30/09 03/23/21 documented as of this encounter
--- OUTSIDE RECORDS SUMMARY | 2023-09-23 16:01 | XMS_ITS | Encounter Summary ---
Author Organization [facility] Address [address] [place] [address] Care Team Providers Care Dredge Pipe Installer Name Role Phone Unavailable Primary Care Provider Unavailabl e Encounter Details Date Type Department Care Team (Late st Contact Info) Description 04/06/2001 Results Only [facility] conversion [address] [place] [address] Federica Patel MD [facility] [place] [address] Social History Tobacco Use Types Packs/Day Years Used Date Smoking Tobacco: Never Assessed Sex and Gender Information Value Date Recorded Sex Assigned at Not on file Gender Identity Not on file Sexual Orientation Not on file documented as of this encounter Plan of Treatment Not on file documented as of this encounter Procedures Procedure Name Priority Date/Time Associated Diagnosis Comments SURGICAL PATHOLOGY Routine 04/06/2001 0:00 EST documented in this encounter Results * SURGICAL PATHOLOGY (04/06/2001 0:00 EST) Pathology Report: SURGICAL PATHOLOGY REPORT Reports generated via electronic interface contain original data; however they are lacking the format of the original report. Caution should be taken when reading/interpreting unformatted reports. Name: ? JEAN CLAUDE GEORGE ? Accession #: ? [id number] ? : ? 1970 (Age: 30) ??M ? Collect Date: ? 04/06/2001 ? Location: ? [facility] ? Receive Date: ? 04/07/2001 ? Provider: FEDERICA PATEL MD Copy to: VINCENT DE ANDA MD ? Final Pathologic Diagnosis: A. ?Skin of anterior thigh/knee, left, punch biopsy: 1. ?Melanocytic nevus, junctional type, with unusual architectural features and mild-moderate cytologic atypia. ? - ??Lesion does not extend to edges of punch biopsy specimen in the plane of the sections examined. B. ?Skin of back, right upper, shave biopsy: 1. ?Melanocytic nevus, compound type, with unusual architectural features and mild cytologic atypia. ? - Nevus associated with lymphomononuclear infiltrate, consistent with halo nevus. ? - ??Lesion does not extend to edges of shave biopsy specimen in the plane of the sections examined. Microscopic Description: ? Sections from left knee consist of a punch biopsy of skin. The epidermis is hyperplastic with elongate and anastomosing rete ridges. ??There is a proliferation of melanocytes within the epidermis that consists of nests and individual cells. ??The nests predominate but vary to a moderate degree in size, shape, and spacing. ??The nests are located between and on the sides of the rete ridges, in addition to at the tips of the ridges. ??Nests bridge rete ridges. Focally, individual melanocytes are prominent and show uneven spacing but no confluent growth or well-developed upward migration. ??The melanocytes are enlarged and have ill-defined cytoplasm containing melanin pigment. ??The nuclei show a moderate degree of size and shape variation with occasional large, irregular forms. ??There is papillary dermal fibroplasia. ?? Sections from right upper back consist of a shave biopsy of skin. ??The epidermis is hyperplastic with elongate and anastomosing rete ridges. ??There is a circumscribed proliferation of melanocytes with epidermal and dermal components. ??The intraepidermal melanocytes are arranged in nests and as individual cells in a lentiginous pattern. ??The nests predominate and vary in size, shape, and spacing. ??Some of the nests bridge between rete ridges. Although the individual melanocytes are unevenly spaced in some areas, they show no tendency toward confluent growth or upward migration. ??The melanocytes are enlarged and show a mild degree of nuclear size and shape variation. ??The dermal component consists of nests and cords of similar melanocytes that show coupon manifest clerk maturation with descent. ??There is papillary dermal fibroplasia and a patchy lymphomononuclear infiltrate. ??(Dr. Layne)/[facility] Document reviewed and electronically signed by: Clarice Layne MD Report ??Date: 04/10/2001 17:04 By the signature above, the attending physician certifies that he/she has personally conducted a gross and/or microscopic examination of the described specimens and rendered or confirmed the above diagnosis. Specimen(s) Received: A. ?L anterior thigh ??3 mm jct/compd nevus, dark pigment, sl. notched; (4 mm punch), R/O atypia (#1) B. ?RU back ??halo nevus = 1 cm halo with 4 mm pigment uniform center; shave (#2) Clinical History: ? Not listed Gross Description: ? Received in formalin labelled George and #1 ??L knee is a 0.4 cm punch biopsy of skin excised to a depth of 0.1 cm. ??There is a central 0.2 cm in diameter round brown-black macule. ??The biopsy is bisected and submitted as (A). Received in formalin labelled George and RU back is a shave biopsy of skin measuring 1.0 x 1.0 x 0.2 cm with a centrally located brown-bass macule measuring 0.3 x 0.2 cm. The specimen is trisected and submitted as (B). ??(Dr. Sanderson)/[facility] End of Report [facility] 04/06/2001 04/07/2001 15: 32 EST Federica Patel MD PATHOLOGY ORDERAB[facility] [address] [place] [address] documented in this encounter Visit Diagnoses Not on filedocumented in this encounter
--- OUTSIDE RECORDS SUMMARY | 2023-09-23 16:01 | XMS_ITS | Encounter Summary ---
Author Organization [facility] Address [address] [place] [address] Care Team Providers Care Swine Extension Field Specialist Name Role Phone Unknown, Provider Primary Care Provider [phone] Encounter Details Date Type Department Care Team (Late st Contact Info) Description 11/22/2019 Lab Requisition [facility] Pathology & Laboratory Medicine - [facility] [address] [place] [address] Outr Resulting Lab, Provider Social History Tobacco Use Types Packs/Day [...] Procedure Name Priority Date/Time Associated Diagnosis Comments CELIAC DISEASE PANEL Routine 11/21/2019 16:15 EDT documented in this encounter Results * CELIAC DISEASE PANEL (11/21/2019 16:15 EDT) Tissue Transglutaminase Antibody IGA <1.2 <4.0 U/mL 11/26/2019 13:17 EDT [facility] Comment: A negative result may be due to IgA deficiency and does not rule out celiac disease. ? Negative: ??<4.0 U/mL ? Weak Positive: ??4.0 - 10.0 U/mL ? Positive: ??>10.0 U/mL Results were obtained with the [employer] QUANTA Lite R h-tTG IgA BECCA assay on the [employer] DSX. IgA 132 85 - 499 mg/dL 11/26/2019 13:17 EDT [facility] Celiac Disease Interpretation Negative Serology. Celiac disease unlikely. Approximately 10% of patients with celiac disease are seronegative. Patients who are already adhering to a gluten-free diet may also be seronegative. If celiac disease is highly clinically suspected, referral to gastroenterology for additional evaluation is recommended. 11/26/2019 13:17 EDT [facility] Blood VENOUS BLOOD / Unknown 11/21/2019 16:15 EDT 11/22/2019 16:12 EDT Provider Outr Resulting Lab IMMUNOLOGY A ND SEROLOGY ORDERABLES [facility] [address] [place] [address] documented in this encounter Visit Diagnoses Not on filedocumented in this encounter Care Teams Swine Extension Field Specialist Relationship Specialty Start Date End Date Unknown, Provider, PCP - General 09/24/10 documented as of this encounter
--- OUTSIDE RECORDS SUMMARY | 2023-09-23 16:01 | XMS_ITS | Encounter Summary ---
[place] [address] Care Team Providers Care Carbon Coater Machine Operator Name Role Phone Stew Mario DO Primary Care Provider [phone]- [phone] Encounter Details Date Type Department Care Team (Late st Contact Info) Description 10/29/2014 [place] [id number] Stew Mario DO [address] [place], [place] [address] Social History Tobacco Use Types Packs/Day Years [...] Associated Diagnosis Comments FILM LIBRARY STORAGE ONLY CT ABDOMEN Routine 10/29/2014 5:55 PM EDT documented in this encounter Results * Film Library- Storage only CT Abdomen (10/29/2014 5:55 PM EDT) Anatomical Region Laterality Modality Abdomen Other 10/29/2014 5:55 PM EDT Narrative 10/30/2014 6:00 PM EDT This is a Non-reportable exam Procedure Note AMBAR, UNSIGNED REPORT - 10/30/2014 This is a Non-reportable exam Stew Mario DO Jina FILM LIBRARY ORD ERABLES documented in this encounter Visit Diagnoses Not on filedocumented in this encounter Care Teams Carbon Coater Machine Operator Relationship Specialty Start Date End Date Stew Mario DO [address] [place] [address] PCP - General 12/30/09 03/23/21 documented as of this encounter
--- OUTSIDE RECORDS SUMMARY | 2023-09-23 16:01 | XMS_ITS | Referral Summary ---
Author Organization [facility] Address [address] [place] [address] Care Team Providers Care Logging Equipment Mechanic Name Role Phone Unknown, Provider Primary Care Provider Social History Tobacco Use Types Packs/Day Years Used Date Smoking Tobacco: Never Assessed Interpersonal Safety Answer Date Record ed Physically Hurt Never 09/09/2019 Verbally Threaten Not on file 09/09/2019 Sex and Gender Information Value Date Recorded Sex Assigned at Not on file Gender Identity Not on file Sexual Orientation Not on file Plan of Treatment Not on file Care Teams Logging Equipment Mechanic Relationship Specialty Start Date End Date Unknown, Provider, PCP - General 09/24/10
--- OUTSIDE RECORDS SUMMARY | 2023-09-23 16:01 | XMS_ITS | Encounter Summary ---
[place] [address] Care Team Providers Care Bulk Tank Car Unloader Name Role Phone Stew Mario DO Primary Care Provider +1- [phone] Encounter Details Date Type Department Care Team (Late st Contact Info) Description 12/04/2014 4:00 PM EDT [place] [id number] Balta Woods MD Acute cystitis with hematuria (Primary Dx); Gross hematuria; Urethral stricture, unspecified location, unspecified stricture type Social History Tobacco Use Types Packs/Day Years Used Date Smoking Tobacco: Never Sex and Gender Information Value Date Recorded Sex Assigned at Male 04/03/2021 10:46 AM EST Gender Identity Male 04/03/2021 10:46 AM EST Sexual Orientation Straight 04/03/2021 10 :46 AM EST documented as of this encounter Patient Instructions * Patient Instructions* Barrett Ross LPN - 12/04/2014 4:08 PM EDT Instructions following Cystoscopy Activity: As tolerated by your comfort level. Fluids: You should increase your water today. Avoid coffee, tea and cola. You do not need to robotr34 ounces of water today. Urination: You will likely have a small amount of blood in your urine for the next several days. This is normal; however, if you are passing large amounts of blood clots or are unable to void please call our office at [phone] before 5PM or [phone] after hours. Please call if: * you have copious blood in your urine * fevers greater than 101.3 F * you are unable to void The number for questions is [phone] before 5 PM weekdays and [phone] after 5 PM and weekends. Follow-up: With Dr Woods in 1 year. documented in this encounter Progress Notes * Balta Woods MD - 12/04/2014 8:52 PM [...] LUTS or recurrent hematuria, FU one year * Barrett Ross LPN - 12/04/2014 4:46 PM EDT Scope number [id number] documented in this encounter Plan of Treatment Scheduled Orders Name Type Priority Associated Diagnoses Orde r Schedule Cystoscopy PROCEDURE Routine Acute cystitis with hematuria Ordered: 12/04/2014 documented as of this encounter Visit Diagnoses Diagnosis Acute cystitis with hematuria- Primary Acute cystitis Gross hematuria Urethral stricture, unspecified location, unspecified stricture type documented in this encounter Care Teams Bulk Tank Car Unloader Relationship Specialty Start Date End Date Stew Mario, DO [address] [place] [address] PCP - General 12/30/09 03/23/21 documented as of this encounter
--- OUTSIDE RECORDS SUMMARY | 2023-09-23 16:01 | XMS_ITS | Encounter Summary ---
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 Stew Mario DO [address] [place] [address] [facility] [address] [place] [address] Referral ID Status Reason Start Date Expiration Date V isits Requested Visits Authorized [id number] Closed Consult, Test & Treat PCP Updated and/or Approved 03/24/2021 03/24/2022 6 6 Encounter Details Date Type Department Care Team (Late st Contact Info) Description 03/24/2021 Transcribe [place] [address] Stew Mario DO [address] [place], [place] [address] Abdominal pain, unspecified abdominal location Social History Tobacco Use Types Packs/Day Years Used Date Smoking Tobacco: Never Sex and Gender Information Value Date Recorded Sex Assigned at Male 04/03/2021 10:46 AM EST Gender Identity Male 04/03/2021 10:46 AM EST Sexual Orientation Straight 04/03/2021 10 :46 AM EST documented as of this encounter Plan of Treatment Scheduled Referrals Name Type Priority Associated Diagnoses Order Schedule Referral to Gastroenterology Outpatient Referral Routine Abdominal pain, unspecified abdominal location Ordered: 03/24/2021 documented as of this encounter Visit Diagnoses Diagnosis Abdominal pain, unspecified abdominal location documented in this encounter Care Teams Glass Bulb Silverer Relationship Specialty Start Date End Date Stew Mario DO [address] [place] [address] PCP - General Family Medicine 03/24/21 documented as of this encounter
--- OUTSIDE RECORDS SUMMARY | 2023-09-23 16:01 | XMS_ITS | Encounter Summary ---
Author Organization [facility] Address [address] [place] [address] Care Team Providers Care Flame Annealing Machine Operator Name Role Phone Unknown, Provider Primary Care Provider Encounter Details Date Type Department Care Team (Late st Contact Info) Description 02/15/2019 Lab Requisition [facility] Pathology & Laboratory Medicine - [address] [address] Bri Sim, DO [address] [place], [place] [id number] Encounter for other general examination Social History Tobacco Use Types Packs/Day Years Used Date Smoking Tobacco: Never Assessed Sex and Gender Information Value Date Recorded Sex Assigned at Not on file Gender Identity Not on file Sexual Orientation Not on file documented as of this encounter Plan of Treatment Not on file documented as of this encounter Procedures Procedure Name Priority Date/Time Associated Diagnosis Comments SURGICAL PATHOLOGY Today 02/15/2019 15 :06 EST Encounter for other general examination documented in this encounter Results * SURGICAL PATHOLOGY (02/15/2019 15:06 EST) Final Diagnosis A. STOMACH, ANTRUM, BIOPSY: - Gastric antral mucosa with mild reactive (chemical) gastropathy. - Negative for Helicobacter pylori microorganisms on H&E stained sections. B. STOMACH, GREATER CURVATURE, BIOPSY: - Gastric fundic mucosa with no significant diagnostic abnormality. - Negative for Helicobacter pylori microorganisms on H&E stained sections. C. ESOPHAGUS, GE JUNCTION, BIOPSY: - Gastric-type mucosa with mild focal chronic inflammation. - Negative for intestinal metaplasia and dysplasia. - Consistent with reflux esophagitis. D. ESOPHAGUS, DISTAL, BIOPSY: - Consistent with reflux esophagitis. 02/16/2019 16:17 [facility] at 1617 Clinical History Epigastric pain HX ulcers HX gallstones 1. Antrum 2. Greater curve 3. GE junction 4. Distal esophagus 02/16/2019 16:17 [facility] Attestation By the signature below, the attending physician certifies that they have personally conducted a gross and/or microscopic examination of the described specimens and rendered or confirmed the above diagnosis. 02/16/2019 16:17 [facility] at 1617 Gross Description A. Received in formalin labelled with proper patient identification (initials C, A) and 1. Antrum is a bass tissue (0.5 x 0.3 x 0.2 cm). Submitted in toto in A1. B. Received in formalin labelled with proper patient identification (initials C, A) and 2. Greater curve are 2 bass-brown tissues (0.2 x 0.1 x 0.1 cm and 0.6 x 0.3 x 0.2 cm). Submitted in toto in B1. C. Received in formalin labelled with proper patient identification (initials C, A) and 3. GE junction is a bass-brown tissue (0.5 x 0.2 x 0.1 cm). Submitted in toto in C1. D. Received in formalin labelled with proper patient identification (initials C, A) and 4. Distal esophagus is a bass-white tissue (0.6 x 0.3 x 0.1 cm). Submitted in toto in D1. Krystyna Leone 02/16/2019 08:08 02/16/2019 16:17 [facility] Scanned Images 02/16/2019 16:17 [facility] Tissue ENTIRE ESOPHAGUS / Unknown 02/15/2019 15:06 EST 02/15/2019 22:33 EST Tissue specimen (specimen) STOMACH STRUCTURE / Unknown 02/15/2019 15:06 EST 02/15/2019 22:33 EST Tissue specimen (specimen) ESOPHAGEAL STRUCTURE / Unknown 02/15/2019 15:06 EST 02/15/2019 22:33 EST Tissue specimen (specimen) ESOPHAGEAL STRUCTURE / Unknown 02/15/2019 15:06 EST 02/15/2019 22:33 EST Bri Sim DO PATHOLOGY ORDERABLES [facility] [address] [place] [id number] documented in this encounter Visit Diagnoses Diagnosis Encounter for other general examination documented in this encounter Care Teams Flame Annealing Machine Operator Relationship Specialty Start Date End Date Unknown, Provider, PCP - General 09/24/10 documented as of this encounter
--- OUTSIDE RECORDS SUMMARY | 2023-09-23 16:01 | XMS_ITS | Encounter Summary ---
Author Organization [facility] Address [address] [place] [address] Care Team Providers Care Disability Aide Name Role Phone Unknown, Provider Primary Care Provider Encounter Details Date Type Department Care Team (Latest Contact Info) Description 12/27/2016 16:09 EST - 12/27/2016 23:59 EST Hospital Encounter [address] [address] Unknown, Provider, Discharge Disposition: Home or Self Care Social History Tobacco Use Types Packs/Day Years Used Date Smoking Tobacco: Never Assessed Sex and Gender Information Value Date Recorded Sex Assigned at Not on file Gender Identity Not on file Sexual Orientation Not on file documented as of this encounter Discharge Disposition Disposition Code Departure Means Destination Home or Self Alf documented in this encounter Plan of Treatment Not on file documented as of this encounter Visit Diagnoses Not on filedocumented in this encounter Care Teams Disability Aide Relationship Specialty Start Date End Date Unknown, Provider, PCP - General 09/24/10 documented as of this encounter
--- OUTSIDE RECORDS SUMMARY | 2023-09-23 16:01 | XMS_ITS | Encounter Summary ---
Author Organization [facility] [place] [address] Care Team Providers Care Cattery Operator Name Role Phone Stew Mario DO Primary Care Provider [phone] Reason for Visit * Reason Comments Hematuria Encounter Details Date Type Department Care Team ([facility] st Contact Info) Description 11/05/2015 4:20 PM EDT [place] [id number] Balta Woods MD Other symptoms involving urinary system(678.55); Gross hematuria Social History Tobacco Use Types [...] 36.8 ??C (98.2 ??F) 11/05/2015 4:19 PM ED T Respiratory Rate 20 11/05/2015 4:19 PM EDT Oxygen Saturation 96% 11/05/2015 4:19 PM EDT Inhaled Oxygen Concentration - - Weight 95.3 kg (210 lb) 11/05/2015 4:19 PM EDT Height 167.6 cm (5' 6) 11/05/2015 4:19 PM EDT Body Mass Index 33.89 11/05/2015 4:19 PM EDT documented in this encounter Progress Notes * Balta Woods MD - 11/05/2015 4:20 PM EDT Subjective: Patient ID: Flo Mireles is a 45 y.o. male. HPI Patient returns for FU of gross painless hematuria one year ago with negative CTU and cystoscopy. He has not had any gross hematuria since his [...] Procedure Name Priority Date/Time Associated Diagnosis Comments URINE CULTURE Routine 11/05/2015 5:38 PM EDT Other symptoms involving urinary system(788.99) NON-FINANCIAL ADVOCATE FINAL REPORT Routine 11/05/2015 4:45 PM EDT URINALYSIS WITH REFLEX CULTURE Routine 11/05/2015 4:45 PM EDT Other symptoms involving urinary system(788.99) CYTOPATHOLOGY NON-GYNECOLOGICAL Routine 11/05/2015 4:45 PM EDT Other symptoms involving urinary system(788.99) documented in this encounter Results * Urine culture Clean Catch Urine (11/05/2015 5:38 PM EDT) Urine Culture No growth (Less than 1,000 cfu/ml). [facility] Urine specimen obtained by clean catch procedure (specimen) 11/05/2015 5:38 PM EDT 11/05/2015 5:38 PM EDT Narrative Resulting Agency Comment Spec In Lab Balta Woods MD MICROBIOLOGY - GENER AL ORDERABLES Performing Organization Address [facility] Co de Phone Number [facility] [place] [address] * Non-Channel Marketing Program Manager Final Report (11/05/2015 4:45 PM EDT) Diagnosis Discussion [id number] ? Location: The signing pathologist has (i) examined the relevant preparation(s) for the specimen(s) and (ii) rendered or confirmed the diagnosis(es). . ? Non-Channel Marketing Program Manager Final DIAGNOSIS Negative for Malignancy Electronically signed by: ??Gee QUIGLEY PhD, Moses Ware Verified: ??11/07/2015 ?Pathologist DISCUSSION Urine, Voided: Benign urothelial cells with single cluster, squamous cells and crystals are present. See note. Note: Clusters in voided urine can be seen in lithiasis, infection, low grade neoplasms, etc. Clinical correlation [...] ?? Total Preparation: Liquid Based Prep 1. 11/07/2015 4:25 PM EDT [facility] URINE SPECIMEN OBTAINED BY CLEAN CATCH PROCEDURE / Unknown 11/05/2015 4:45 PM EDT 11/05/2015 4:45 PM EDT Balta Woods MD PATHOLOGY/CYTOLOGY O RDERABLES Performing Organization Address [facility]/ZIP Co de Phone Number [facility] [place] [address] * Cytopathology Non-Gynecological (11/05/2015 4:45 PM EDT) AP Specimen 11/05/2015 4:45 PM EDT 11/05/2015 4:45 PM EDT Narrative [facility] - 11/05/2015 4:45 PM EDT Specimen requisition ordered. ??Separate Pathology report to follow Balta Woods MD PATHOLOGY/CYTOLOGY [place] ALDRIDGE [facility] [place] [address] * (ABNORMAL) Urinalysis with reflex Culture (11/05/2015 4:45 PM EDT) Glucose, Urine Dipstick Negative Negative mg/dL [facility] Protein, Urine Dipstick Negative Negative mg/dL [facility] Bilirubin, Urine Dipstick Negative Negative mg/dL [facility] Comment: Clinical correlation required for positive Urine Bilirubin results as false positive may occur with some drugs and drug related products. If a false positive is suspected a serum total bilirubin should be considered if clinically indicated. Urobilinogen, Urine Dipstick Normal Normal mg/dL [facility] pH, Urn (dipstick) 6.0 5.0 - 8.0 [facility] Blood, Urine Dipstick Small(A) Negative mg/dL [facility] Ketone, Urine Dipstick Negative Negative mg/dL [facility] Nitrite, Urine Dipstick Negative Negative [facility] Leukocytes, Urine Dipstick Negative Negative [facility] Appearance, Urine Dipstick Clear Clear [facility] Specific [place]upe Urine Automated 1.020 1.002 - 1.030 [facility] Color, Urine Dipstick Yellow Yellow [facility] RBC, Urine 2 0 - 3 /HPF [facility] WBC, Urine 1 0 - 3 /HPF [facility] Reflex to Culture No [facility] Urine specimen obtained by clean catch procedure (specimen) 11/05/2015 4:45 PM EDT 11/05/2015 5:03 PM EDT Narrative Resulting Agency Comment Spec In Lab Balta Woods MD URINE ORDERABLES [facility] [place] [address] documented in this encounter Visit Diagnoses Diagnosis Other symptoms involving urinary system(788.99) Other symptoms involving urinary system Gross hematuria documented in this encounter Care Teams Cattery Operator Relationship Specialty Start Date End Date Stew Mario, DO [address] [place] [address] PCP - General 12/30/09 03/23/21 documented as of this encounter
--- OUTSIDE RECORDS SUMMARY | 2023-09-23 16:01 | XMS_ITS | Encounter Summary ---
Author Organization [facility] Address [address] [place] [address] Care Team Providers Care Keymodule Assembly Machine Tender Name Role Phone Unavailable Primary Care Provider Unavailabl e Encounter Details Date Type Department Care Team (Late st Contact Info) Description 11/20/2004 Results Only [facility] conversion [address] [place] [address] Mitchell Gilliam MD [address] [place] [address] Social History Tobacco Use Types Packs/Day Years Used Date Smoking Tobacco: Never Assessed Sex and Gender Information Value Date Recorded Sex Assigned at Not on file Gender Identity Not on file Sexual Orientation Not on file documented as of this encounter Plan of Treatment Not on file documented as of this encounter Procedures Procedure Name Priority Date/Time Associated Diagnosis Comments SURGICAL PATHOLOGY Routine 11/20/2004 0:00 EDT documented in this encounter Results * SURGICAL PATHOLOGY (11/20/2004 0:00 EDT) Pathology Report: SURGICAL PATHOLOGY REPORT Reports generated via electronic interface contain original data; however they are lacking the format of the original report. Caution should be taken when reading/interpreti ng unformatted reports. Name: ? JEAN CLAUDE GEORGE ? Accession #: ? [id number] ? : ? 1970 (Age: 34) ??M ? Collect Date: ? 11/20/2004 ? Location: ? [facility] ? Receive Date: ? 11/23/2004 ? Provider: MITCHELL GILLIAM MD Copy to: ? Final Pathologic Diagnosis: A. ?Vas deferens, left, segmental excision: 1. ?Complete cross section identified. B. ?Vas deferens, right, segmental excision: ? 1. ?? Complete cross section identified. Document reviewed and electronically signed by: Vic Flores MD Report ??Date: 11/25/2004 17:05 By the signature above, the attending physician certifies that he/she has personally conducted a gross and/or microscopic examination of the described specimens and rendered or confirmed the above diagnosis. Specimen(s) Received: A. ?L vas deferens B. ?R vas deferens Clinical History: ? Vasectomy; clinical diagnosis code: ??V25.02 Gross Description: ? Received in formalin labelled George and L vas deferens is a bass-white firm to rubbery cylindrical 1.5 x 0.2 cm tissue. There is a central pinpoint lumen. Two territory service representative sections are submitted as (A). Received in formalin labelled George and R vas deferens is a bass-yellow firm to rubbery cylindrical 1.5 x 0.3 cm tissue. ??Cut surfaces reveal a pinpoint lumen. ??Two territory service representative sections are submitted as (B). ??(Dr. Kern-MS)/[facility] End of Report EMIGDIO PEARSON 11/20/2004 11/23/2004 13: 51 EDT Mitchell Gilliam MD PATHOLOGY ORDERABLE S EMIGDIO PEARSON [address] [place] [address] documented in this encounter Visit Diagnoses Not on filedocumented in this encounter
--- OUTSIDE RECORDS SUMMARY | 2023-09-23 16:01 | XMS_ITS | Encounter Summary ---
Author Organization [facility] Address [address] [place] [address] Care Team Providers Care Sales Technician Name Role Phone Unknown, Provider Primary Care Provider [phone] Encounter Details Date Type Department Care Team (Late st Contact Info) Description 04/17/2022 Lab Requisition [facility] Pathology & Laboratory Medicine - [facility] [address] [place] [address] Mychal Chaney, [address] [place], [place] [id number] Neoplasm of unspecified behavior of bone, soft [...] Date/Time Associated Diagnosis Comments SURGICAL PATHOLOGY Today 04/16/2022 15 :50 EST Neoplasm of unspecified behavior of bone, soft tissue, and skin documented in this encounter Results * SURGICAL PATHOLOGY (04/16/2022 15:50 EST) Note to Patient The following pathology results have been interpreted by your pathologist and may be available to you before your health provider has had the opportunity to review them. Please allow time for your provider to receive these results and explore management options, if applicable. 04/19/2022 14:58 EDT [facility] Final Diagnosis A. SKIN OF BACK, MID, SHAVE BIOPSY: - Seborrheic keratosis, pigmented. B. SKIN OF SHOULDER, LEFT, SHAVE BIOPSY: - Melanocytic nevus, junctional type, with unusual architectural features and mild cytologic atypia, encompassed within the examined sections. C. SKIN OF ELBOW, LEFT, SHAVE BIOPSY: - Melanocytic nevus, launch junctional type, with unusual architectural features and mild cytologic atypia, extending to a peripheral edge. 04/19/2022 14:58 [facility] Attestation By the signature below, the attending physician certifies that they have 1) personally conducted a gross and/or microscopic examination of the described specimen(s), and/or personally interpreted the results of laboratory testing of the described specimen(s), and 2) personally rendered or confirmed the above diagnosis. 04/19/2022 14:58 [facility] at 1458 Clinical History Clinical diagnosis code: D49.2 x3 04/19/2022 14:58 [facility] Gross Description A. Received in formalin labelled with proper patient identification (initials C, A) and mid back is a shave biopsy of bass skin (0.9 x 0.5 x less than 0.1 cm). There is a central dark brown macule with well-defined borders that measures 0.2 x 0.2 x less than 0.1 cm. The margin is inked blue, the specimen is trisected and submitted entirely in A1. B. Received in formalin labelled with proper patient identification (initials C, A) and left shoulder is a shave biopsy of bass skin (0.8 x 0.4 x less than 0.1 cm). There is an irregular dark brown macule that measures 0.3 x 0.2 x less than 0.1 cm. The margin is inked blue, the specimen is bisected and submitted entirely in B1. C. Received in formalin labelled with proper patient identification (initials C, A) and left elbow is a shave biopsy of bass-brown mottled macule (0.5 x 0.3 x less than 0.1 cm). The margin is inked blue, the specimen is bisected and submitted entirely in C1. Amanda Calabreseehr 04/19/2022 5:59 04/19/2022 14:58 EDT [facility] Performing Lab [facility] 04/19/2022 14:58 EDT [facility] Scanned Images 04/19/2022 14:58 EDT [facility] Tissue TISSUE SPECIMEN FROM SKIN / Unknown 04/16/2022 15:50 EST 04/17/2022 9:28 EST Tissue specimen (specimen) SPECIMEN FROM SKIN / Unknown 04/16/2022 15:50 EST 04/17/2022 9:28 EST Tissue specimen (specimen) SPECIMEN FROM SKIN / Unknown 04/16/2022 15:50 EST 04/17/2022 9:28 EST Mychal Chaney DO PATHOLOGY ORDER MARII [facility] [address] [place] [address] documented in this encounter Visit Diagnoses Diagnosis Neoplasm of unspecified behavior of bone, soft tissue, and skin documented in this encounter Care Teams Sales Technician Relationship Specialty Start Date End Date Unknown, Provider, PCP - General 09/24/10 documented as of this encounter
--- OUTSIDE RECORDS SUMMARY | 2023-09-23 16:01 | XMS_ITS | Encounter Summary ---
Author Organization [facility] Address [address] [place] [address] Care Team Providers Care Energy Professional Name Role Phone Unknown, Provider Primary Care Provider [phone] Encounter Details Date Type Department Care Team (Late st Contact Info) Description 10/29/2022 Lab Requisition [facility] Pathology & Laboratory Medicine - [facility] [address] [place] [address] Outr Resulting Lab, Provider Social History Tobacco [...] Procedure Name Priority Date/Time Associated Diagnosis Comments FECAL BACTERIAL PATHOGENS BY PCR Routine 10/28/2022 14:20 EDT GIARDIA AND CRYPTOSPORIDIUM ANTIGENS Routine 10/28/2022 14:20 EDT OVA/PARASITE EXAM Routine 10/28/2022 14: 20 EDT documented in this encounter Results * GIARDIA AND CRYPTOSPORIDIUM ANTIGENS (10/28/2022 14:20 EDT) Giardia and Cryptosporidium Cryptosporidium Antigen Neg and Giardia Antigen Neg Cryptosporidium Antigen Neg and Giardia Antigen Neg 3 10:09 EDT [facility] Feces SPECIMEN FROM RECTUM / Unknown 10/28/2022 14:20 EDT 10/29/2022 23:07 EDT Provider Outr Resulting Lab MICROBIOLOGY - GENERAL ORDERABLES [facility] [address] [place] [address] * FECAL BACTERIAL PATHOGENS BY PCR (10/28/2022 14:20 EDT) Salmonella PCR Negative Negative 10/30/2022 11:00 EDT [facility] Shigella/Enteroin vasive E. coli Negative Negative 10/30/2022 11:00 EDT [facility] HN LAB CAMPYLOBACTER PCR Negative Negative 10/30/2022 11:00 EDT [facility] Shiga Toxin PCR Negative Negative 11:00 EDT [facility] Feces SPECIMEN FROM RECTUM / Unknown 10/28/2022 14:20 EDT 10/29/2022 23:07 EDT Provider Outr Resulting Lab MICROBIOLOGY - GENERAL ORDERABLES Performing Organization Address [facility]/ZIP Co de Phone Number [facility] [address] [place] [address] * OVA/PARASITE EXAM (10/28/2022 14:20 EDT) Parasite No ova and parasites seen. 11/01/2022 13:37 EDT [facility] Feces SPECIMEN FROM RECTUM / Unknown 10/28/2022 14:20 EDT 10/29/2022 23:07 EDT Narrative [facility] - 11/01/2022 13:37 EDT (If Cryptosporidium, Cyclospora, or Microsporidium are suspected, specific tests must be requested.) Single negative specimen does not rule out the possibility of a parasitic infection. Provider Outr Resulting Lab MICROBIOLOGY - GENERAL ORDERABLES Performing Organization Address City/[facility]/ZIP Co de Phone Number [facility] [address] [place] [address] documented in this encounter Visit Diagnoses Not on filedocumented in this encounter Care Teams Energy Professional Relationship Specialty Start Date End Date Unknown, Provider, PCP - General 09/24/10 documented as of this encounter
--- OUTSIDE RECORDS SUMMARY | 2023-09-23 16:01 | XMS_ITS | Encounter Summary ---
Author Organization [facility] Address [address] [place] [address] Care Team Providers Care Wire Puller Name Role Phone Unknown, Provider Primary Care Provider [phone] Encounter Details Date Type Department Care Team (Late st Contact Info) Description 01/26/2021 Lab Requisition [facility] Pathology & Laboratory Medicine - [address] [address] Fede Blair MD [address] [place] [id number] Encounter for other general examination Social History [...] Date/Time Associated Diagnosis Comments SURGICAL PATHOLOGY Today 01/26/2021 7: 30 EST Encounter for other general examination documented in this encounter Results * SURGICAL PATHOLOGY (01/26/2021 7:30 EST) Note to Patient The following pathology results have been interpreted by your pathologist and may be available to you before your health provider has had the opportunity to review them. Please allow time for your provider to receive these results and explore management options, if applicable. 01/28/2021 10:25 EST [facility] Final Diagnosis A. STOMACH, ANTRUM, BIOPSY: - Gastric body mucosa with no specific pathologic features. B. GASTROESOPHAGEAL JUNCTION, BIOPSY: - Squamocolumnar mucosa with reflux esophagitis. - Negative for intestinal metaplasia; Negative for dysplasia. C. COLON, SIGMOID, POLYP, BIOPSY: - Tubular adenoma. 01/28/2021 10:25 [facility] Attestation There was significant resident/fellow involvement in the diagnostic evaluation of this case. By the signature below, the attending physician certifies that they have personally conducted a gross and/or microscopic examination of the described specimens and rendered or confirmed the above diagnosis. 01/28/2021 10:25 [facility] at 1025 Clinical History GERD, abdominal pain 01/28/2021 10:25 [facility] Gross Description A. Received in formalin labelled with proper patient identification (initials C, A) and antrum Bx are two bass tissues, 0.1 cm in greatest dimension and 0.2 x 0.1 x 0.1 cm. Entirely submitted in A1. B. Received in formalin labelled with proper patient identification (initials C, A) and GE junction Bx is a bass tissue, 0.3 x 0.2 x 0.1 cm. Entirely submitted in B1. C. Received in formalin labelled with proper patient identification (initials C, A) and sigmoid colon polyp is a bass lobulated tissue, 0.4 x 0.3 x 0.1 cm. Entirely submitted in C1. MARCELL HART(ASCP) 01/26/2021 17:15 01/28/2021 10:25 [facility] Resident/Shahid w: Cuauhtemoc Blanco MD 01/28/2021 10:25 [facility] Performing Lab [facility] 10:25 [facility] Scanned Images 01/28/2021 10:25 [facility] Tissue ENTIRE SIGMOID COLON / Unknown 01/26/2021 7:30 EST 01/26/2021 17:03 EST Tissue specimen (specimen) CARDIOESOPHAGEAL JUNCTION STRUCTURE / Unknown 01/26/2021 7:30 EST 01/26/2021 17:03 EST Tissue specimen (specimen) SIGMOID COLON STRUCTURE / Unknown 01/26/2021 7:30 EST 01/26/2021 17:03 EST Fede Blair MD PATHOLOGY ORDERA DEBBIE [facility] [address] [place] [address] documented in this encounter Visit Diagnoses Diagnosis Encounter for other general examination documented in this encounter Care Teams Wire Puller Relationship Specialty Start Date End Date Unknown, Provider, PCP - General 09/24/10 documented as of this encounter
== END 2023-09-23 15:58 | disposition home or self-care (01) ==
LOC: LBN 15:57
PROVIDERS: PCP Nurse Practitioner Family; Visit Provider Otolaryngology Otolaryngology/Facial Plastic Surgery
DX: D49.2 Neoplasm of unspecified behavior of bone, soft tissue, and skin (principal); L82.1 Other seborrheic keratosis; D22.9 Melanocytic nevi, unspecified
CPT/HCPCS: 88305

== ENCOUNTER 2024-01-03 00:45 | Outpatient (CLI) | payer BC, SELFPAY ==
--- NOTE | 2024-01-03 07:45 | DI.RAD_ITS ---
Exam(s) XR WRIST LT COMPLETE EXAM: XR WRIST LT COMPLETE CLINICAL HISTORY: Softball injury,lt wrist pain,m25.532. TECHNIQUE: 2D digital imaging was performed. COMPARISON: No exams were available for comparison FINDINGS: 3 views No evidence of fracture nor dislocation nor significant ulnar variance. Scaphoid and scapholunate di stance are normal. There are no degenerative changes nor erosions. Bone density normal. No signifi cant osseous lesions. IMPRESSION: No significant osseous findings in the wrist. DATA REPOSITORY: RADIATION DOSE DELIVERED:
== END 2024-01-03 01:05 ==
PROVIDERS: PCP Nurse Practitioner Family; Visit Provider Nurse Practitioner Family
DX: M25.532 Pain in left wrist (principal)
CPT/HCPCS: 73110

== ENCOUNTER 2024-04-04 07:19 | Outpatient (CLI) | payer OTHER, SELFPAY ==
[2024-04-04 10:22] LABS: Hemoglobin A1C 5.4 % (<5.7)
[2024-04-04 10:49] LABS: Calculated LDL 137 mg/dL (<100); Cholesterol 215 mg/dL (<200); HDL Cholesterol 65 mg/dL (40-60); Triglyceride 68 mg/dL (<150)
== END 2024-04-04 07:20 | disposition home or self-care (01) ==
LOC: NCHCN 09:38 → LBO 09:46
PROVIDERS: PCP Nurse Practitioner Family; Visit Provider Nurse Practitioner Family
DX: Z13.1 Encounter for screening for diabetes mellitus (principal); Z13.220 Encounter for screening for lipoid disorders
CPT/HCPCS: 36415; 80061; 83036

== ENCOUNTER 2024-05-28 01:46 | Outpatient (CLI) | payer OTHER, SELFPAY ==
--- NOTE | 2024-05-28 06:30 | DI.MRI_ITS ---
Exam(s) MR UPPER JOINT LT WO EXAM: MR UPPER JOINT LT WO CLINICAL HISTORY: lt wrist pain,m25.532. TECHNIQUE: Multiplanar multisequence MRI was performed. COMPARISON: Comparison x-ray is 01/03/2024. FINDINGS: The examination is limited due to patient motion artifact. BONES: No evidence of a fracture. There is marrow edema seen in the ulnar styloid process, the proxi mal lunate and the proximal triquetrum. There is a small subchondral cyst in the base of the 1st met acarpal bone. JOINTS: There does appear to be narrowing of the radiocarpal joint. The carpal joints are unremarkab le. There are few small cysts adjacent to the 1st metacarpophalangeal joint. TENDONS: Flexors: Unremarkable. Extensors: There is mild edema seen around the extensor carpi ulnaris tendon. There is also edema se en in the subcutaneous tissues at the dorsal aspect of the distal radius and extending distally poste rior to the triquetral bone. No focal fluid collection is seen. MUSCLES: Unremarkable. MEDIAN NERVE: Unremarkable on this noncontrast examination. ULNAR NERVE: Unremarkable on this noncontrast examination. SOFT TISSUES: Unremarkable. LIGAMENTS: Unremarkable. TRIANGULAR FIBROCARTILAGE: Unremarkable. OTHER: IMPRESSION: Findings suggestive of extensor carpi ulnaris tendinitis. DATA REPOSITORY:
== END 2024-05-28 02:06 ==
LOC: DI 01:46
PROVIDERS: PCP Nurse Practitioner Family; Visit Provider Student in an Organized Health Care Education/Training Program
DX: M25.532 Pain in left wrist (principal)
CPT/HCPCS: 73221